=== PATIENT | female | born 1930 | race Caucasian/White ===

== ENCOUNTER 2017-12-21 11:35 | Inpatient (IN) | payer OTHER ==
[~2017-12-21] VITALS: Ht 147.3 cm; Wt 71.8 kg
[~2017-12-21 11:35] MED LIST: ASPI81TA28 PO; GABA-112 PO; LCTX PO; LSN/10125 PO; METO25TA56 PO; MULT-614 PO; SLWMEC PO
[2017-12-21 12:25] LABS: BASO % 0.2 %; BASO ABS # 0.02 K/uL (0-0.2); EOS % 1.2 %; HEMATOCRIT 35.3 % (37-47); HEMOGLOBIN 11.5 g/dL (12.0-16.0); IG# 0.03 K/uL (0.00-0.02); LYMPH % 25.2 %; LYMPH ABS # 2.09 K/uL (1.2-3.4); MEAN CELL VOLUME 94.1 fL (80-100); MEAN CORPUSCULAR HEMOGLOBIN 30.7 pg (25-34); MEAN CORPUSCULAR HGB CONC 32.6 g/dl (32-36); MEAN PLATELET VOLUME 11.5 fL (7.4-10.4); MONO % 7.1 %; MONO ABS # 0.59 K/uL (0.11-0.59); NEUT % 65.9 %; NEUT ABS # 5.47 K/uL (1.4-6.5); PLATELET COUNT 223 K/uL (130-400); RED CELL DISTRIBUTION WIDTH CV 14.3 % (11.5-14.5); RED CELL DISTRIBUTION WIDTH SD 48.8 fL (36.4-46.3)
[2017-12-21 12:43] LABS: ALBUMIN 3.1 gm/dl (3.4-5.0); ALT/SGPT 15 U/L (12-78); AST/SGOT 16 U/L (15-37); BLOOD UREA NITROGEN 16 mg/dl (7-18); CARBON DIOXIDE 30 mmol/L (21-32); CREATININE 1.26 mg/dl (0.60-1.20); GLUCOSE 125 mg/dl (70-99); LIPASE 202 U/L (73-393); POTASSIUM 3.9 mmol/L (3.5-5.1); SODIUM 140 mmol/L (136-145)
[2017-12-21 12:48] LABS: ALKALINE PHOSPHATASE 87 U/L (45-117); CKMB 0.8 ng/ml (0.5-3.6); TOTAL PROTEIN 6.9 gm/dl (6.4-8.2)
--- NOTE | 2017-12-21 12:56 | DIAGNOSTIC IMAGING REPORT ---
CHEST ONE VIEW PORTABLE CLINICAL HISTORY: CHEST PAIN COMPARISON STUDY: Chest radiograph November 08, 2016. FINDINGS: Lung volumes are slightly diminished. Old, healed fracture of the proximal right humerus is noted with severe osteoarthritis of the left glenohumeral joint. There is no pneumothorax. There are trace bilateral pleural effusions. No consolidation is identified to suggest pneumonia. Cardiomediastinal silhouette is stable. Skin fold projects over the left chest. No radiographic evidence of pulmonary edema. IMPRESSION: 1. Trace bilateral pleural effusions. 2. No radiographic evidence of pulmonary edema. Electronically signed by: Sergio Alexander M.D. 12/21/2017 12:55 PM Dictated Date/Time: 12/21/2017 12:53 PM
--- NOTE | 2017-12-21 12:58 | Medical Consult ---
Consultation Note Date of Service Dec 21, 2017. Consultation Note History: This is an 87-year-old female with no significant past cardiac history. The patient was brought to the emergency department by her family due to frequent falls. After questioning the patient further, it sounds more like she has been having multiple syncopal episodes over the past several weeks. After arrival to the emergency department she was found to be bradycardic and in complete heart block. She is alert and oriented. She is in no acute distress and is hemodynamically stable at present. She has no complaints of chest pain or shortness of breath. She's noted no lower extremity edema, increasing abdominal girth or orthopnea. In questioning her further, she states that she just blacks out and finds herself on the floor. She is also had some episodes where her family describes as losing cognition for several seconds. The patient has sustained no significant trauma with her syncope. Allergies: Hazelnuts Home Meds and Scripts Medications Dose Route/Sig Max Daily Dose Days Date Category Dose Instructions Mag64 (Magnesium Chloride) 64 Mg Tabcr 64 Mg PO BID 11/13/16 Rx Floranex (Lactobacillus Acidophilus) 1 Tab Tab 1 Tab PO TIDM 11/13/16 Rx Neurontin (Gabapentin) 100 Mg Cap 100 Mg PO UD 11/08/16 Reported PT MAKE TAKE UPTO FOUR TIMES A DAY Lopressor (Metoprolol Tartrate) 25 Mg Tab 25 Mg PO BID 05/11/16 Reported Centrum Silver Ultra Wome (Multiple Vitamins W/ Minerals) 1 Tab Tab 1 Tab PO DAILY 05/11/16 Reported Aspirin Ec (Aspirin) 81 Mg Tab 81 Mg PO DAILY 05/11/16 Reported Lisinopril/Hctz 10/12.5 Mg (HCTZ/Lisinopril) 1 Ea Tab 1 Tab PO DAILY 05/11/16 Reported Past medical history is significant for diabetes however, she is not taking any medications. She had a left mastectomy for breast cancer many years ago at which time she received no chemotherapy or radiation. She states she took a pill for a while but that was stopped many years ago. She has a history of degenerative joint disease and chronic stage III kidney disease. Social history: Patient's a nonsmoker. 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 Family medical history: Noncontributory Review of systems: A 10 point review of systems is negative except for the history of chief complaint. Date Time Temp Pulse Resp B/P (MAP) Pulse Ox O2 Delivery O2 Flow Rate FiO2 12/21/17 12:10 39 18 170/82 96 Room Air 12/21/17 11:57 70 12/21/17 11:39 36.4 41 18 202/72 94 Room Air General: She is alert and oriented no acute distress HEENT: She is normocephalic pupils are equal and reactive to light, mucous membranes are moist Neck: The neck veins are flat, carotids of good upstrokes bilaterally without bruits, thyroid is nonpalpable Respiratory: Lungs have equal breath sounds are clear to auscultation, she is status post left mastectomy Cardiovascular: Heart has a regular rhythm. There are no significant murmurs. Abdomen: Soft nontender without organomegaly Extremities: Free of edema digital clubbing or cyanosis Skin: Warm to touch, no rashes or trauma Neuro: Grossly intact Lymph nodes: Nonpalpable Last 24 Hours Test 12/21/17 12:14 12/21/17 12:18 12/21/17 12:19 White Blood Count 8.30 K/uL Red Blood Count 3.75 M/uL Hemoglobin 11.5 g/dL Hematocrit 35.3 % Mean Corpuscular Volume 94.1 fL Mean Corpuscular Hemoglobin 30.7 pg Mean Corpuscular Hemoglobin Concent 32.6 g/dl Platelet Count 223 K/uL Mean Platelet Volume 11.5 fL Neutrophils (%) (Auto) 65.9 % Lymphocytes (%) (Auto) 25.2 % Monocytes (%) (Auto) 7.1 % Eosinophils (%) (Auto) 1.2 % Basophils (%) (Auto) 0.2 % Neutrophils # (Auto) 5.47 K/uL Lymphocytes # (Auto) 2.09 K/uL Monocytes # (Auto) 0.59 K/uL Eosinophils # (Auto) 0.10 K/uL Basophils # (Auto) 0.02 K/uL RDW Standard Deviation 48.8 fL RDW Coefficient of Variation 14.3 % Immature Granulocyte % (Auto) 0.4 % Immature Granulocyte # (Auto) 0.03 K/uL Sodium Level 140 mmol/L Potassium Level 3.9 mmol/L Chloride Level 104 mmol/L Carbon Dioxide Level 30 mmol/L Anion Gap 6.0 mmol/L Blood Urea Nitrogen 16 mg/dl Creatinine 1.26 mg/dl Est Creatinine Clear Calc Drug Dose 24.9 ml/min Estimated GFR () 44.4 Estimated GFR (Non- 38.3 BUN/Creatinine Ratio 12.6 Random Glucose 125 mg/dl Calcium Level 9.0 mg/dl Total Bilirubin 0.3 mg/dl Direct Bilirubin < 0.1 mg/dl Aspartate Amino Transf (AST/SGOT) 16 U/L Alanine Aminotransferase (ALT/SGPT) 15 U/L Alkaline Phosphatase 87 U/L Total Creatine Kinase 58 U/L Creatine Kinase MB 0.8 ng/ml Creatine Kinase MB Ratio 1.4 Total Protein 6.9 gm/dl Albumin 3.1 gm/dl Lipase 202 U/L Bedside Troponin I < 0.030 ng/ml Impression: #1 symptomatic bradycardia #2 complete heart block #3 diabetes #4 history of breast cancer and left mastectomy Recommendations: The patient will need a permanent pacemaker. I've explained the risks benefits and intent of the procedure. It should be completed this afternoon on an urgent basis.
--- NOTE | 2017-12-21 13:10 | EMERGENCY ROOM VISIT NOTE ---
History Report prepared by Juan Manuel: Pee Melo Under the Supervision of: Dr. Garrick Gregg M.D. First contact with patient: 11:52 Chief Complaint: FALL Stated Complaint: SENT BY DR : SIGRID, HIT HEAD, TAIL BONE History of Present Illness The patient is a 87 year old female who presents to the Emergency Room with complaints of intermittent falls beginning about two weeks ago. She states that she hit her head on at least one of the falls. She currently complains of tailbone pain and resolved headache. The patient notes that she had right sided abdominal pain yesterday as well. Per daughter, the patient has had a lot of generalized weakness recently. The patient denies any known loss of consciousness during her falls. She denies shortness of breath or fevers. Source of History: patient Onset: About two weeks ago Quality: other (falls) Timing: intermittent Associated Symptoms: + headache (resolved), + abdominal pain (yesterday), No LOC, No fevers, No SOB Note: Additional symptoms: tailbone pain. Review of Systems See HPI for pertinent positives & negatives. A total of 10 systems reviewed and were otherwise negative. Past Medical & Surgical Medical Problems: (1) Breast CA (2) CKD (chronic kidney disease), stage III (3) DM2 (diabetes mellitus, type 2) (4) HTN (hypertension) (5) UTI (urinary tract infection) Surgical Problems: (1) H/O mastectomy (2) H/O: hysterectomy (3) S/P cholecystectomy (4) S/P ERCP Old medical records were reviewed. Nurse's notes were reviewed and I agree with. Family History FH: heart disease Hypertension Social History Smoking Status: Never Smoker Alcohol Use: none Drug Use: none Housing Status: lives with family Occupation Status: retired Current/Historical Medications Scheduled Aspirin (Aspirin Ec), 81 MG PO DAILY Calcium/Vitamin D (Os-Ge 500 Plus D), 1 TAB PO DAILY Cranberry (Vaccinium Macrocarp (Cranberry Super Strength), 1,000 MG PO DAILY Gabapentin (Neurontin), 100 MG PO UD Hctz/Lisinopril (Lisinopril/Hctz 10/12.5 Mg), 1 TAB PO DAILY Metoprolol Tartrate (Lopressor) (Lopressor), 25 MG PO BID Misc Natural Products (Black Delatorre Concentrate), Unknown Dose PO DAILY Multiple Vitamins W/ Minerals (Centrum Silver Ultra Wome), 1 TAB PO DAILY [id number] Ethyl Esters (Taft-3), 1 CAP PO DAILY Allergies Coded Allergies: Macey Nut (Verified Allergy, Unknown, UNKNOWN, 11/08/16) Physical Exam Vital Signs Date Time Temp Pulse Resp B/P (MAP) Pulse Ox O2 Delivery O2 Flow Rate FiO2 12/21/17 14:20 38 18 195/57 94 Room Air 12/21/17 13:20 38 18 182/86 94 Room Air 12/21/17 12:10 39 18 170/82 96 Room Air 12/21/17 11:57 70 12/21/17 11:39 36.4 41 18 202/72 94 Room Air Physical Exam General: Non-ill appearing older female in no acute distress. HEENT: Normal cephalic atraumatic. Pupils are equal round and reactive to light. Extraocular movements are intact. Oropharynx is pink with moist mucous membranes. No swelling of the mouth lips or tongue. Neck: Supple with a midline trachea. No meningeal signs or stiffness, no JVD or bruits. No Stridor. Chest: Clear to auscultation bilaterally. No wheezes or rhonchi. No increased work of breathing. Heart: Bradycardic rate with a normal rhythm. Abdomen: Soft nontender, nondistended without rebound guarding or rigidity. Extremities: No cyanosis clubbing or edema. No calf tenderness or assymetry Spine/Back. Non tender to palpation. No CVA tenderness Skin: Good turgor without rashes. Neurologic exam: Cranial nerves two through 12 are intact. Motor and sensation are intact and symmetrical throughout. Medical Decision & Procedures ER Provider Diagnostic Interpretation: Radiology results as stated below per my review and radiologist interpretation: CHEST ONE VIEW PORTABLE FINDINGS: Lung volumes are slightly diminished. Old, healed fracture of the proximal right humerus is noted with severe osteoarthritis of the left glenohumeral joint. There is no pneumothorax. There are trace bilateral pleural effusions. No consolidation is identified to suggest pneumonia. Cardiomediastinal silhouette is stable. Skin fold projects over the left chest. No radiographic evidence of pulmonary edema. IMPRESSION: 1. Trace bilateral pleural effusions. 2. No radiographic evidence of pulmonary edema. Electronically signed by: Sergio Alexander M.D. 12/21/2017 12:55 PM Laboratory Results 12/21/17 12:14 Red Blood Count 3.75, Mean Corpuscular Volume 94.1, Mean Corpuscular Hemoglobin 30.7, Mean Corpuscular Hemoglobin Concent 32.6, Mean Platelet Volume 11.5, Neutrophils (%) (Auto) 65.9, Lymphocytes (%) (Auto) 25.2, Monocytes (%) (Auto) 7.1, Eosinophils (%) (Auto) 1.2, Basophils (%) (Auto) 0.2, Neutrophils # (Auto) 5.47, Lymphocytes # (Auto) 2.09, Monocytes # (Auto) 0.59, Eosinophils # (Auto) 0.10, Basophils # (Auto) 0.02 12/21/17 12:14 Test 12/21/17 12:14 12/21/17 12:18 12/21/17 12:59 White Blood Count 8.30 K/uL (4.8-10.8) Red Blood Count 3.75 M/uL (4.2-5.4) Hemoglobin 11.5 g/dL (12.0-16.0) Hematocrit 35.3 % (37-47) Mean Corpuscular Volume 94.1 fL (80-100) Mean Corpuscular Hemoglobin 30.7 pg (25-34) Mean Corpuscular Hemoglobin Concent 32.6 g/dl (32-36) Platelet Count 223 K/uL (130-400) Mean Platelet Volume 11.5 fL (7.4-10.4) Neutrophils (%) (Auto) 65.9 % Lymphocytes (%) (Auto) 25.2 % Monocytes (%) (Auto) 7.1 % Eosinophils (%) (Auto) 1.2 % Basophils (%) (Auto) 0.2 % Neutrophils # (Auto) 5.47 K/uL (1.4-6.5) Lymphocytes # (Auto) 2.09 K/uL (1.2-3.4) Monocytes # (Auto) 0.59 K/uL (0.11-0.59) Eosinophils # (Auto) 0.10 K/uL (0-0.5) Basophils # (Auto) 0.02 K/uL (0-0.2) RDW Standard Deviation 48.8 fL (36.4-46.3) RDW Coefficient of Variation 14.3 % (11.5-14.5) Immature Granulocyte % (Auto) 0.4 % Immature Granulocyte # (Auto) 0.03 K/uL (0.00-0.02) Anion Gap 6.0 mmol/L (3-11) Est Creatinine Clear Calc Drug Dose 24.9 ml/min Estimated GFR () 44.4 Estimated GFR (Non- 38.3 BUN/Creatinine Ratio 12.6 (10-20) Calcium Level 9.0 mg/dl (8.5-10.1) Magnesium Level 2.0 mg/dl (1.8-2.4) Total Bilirubin 0.3 mg/dl (0.2-1) Direct Bilirubin < 0.1 mg/dl (0-0.2) Aspartate Amino Transf (AST/SGOT) 16 U/L (15-37) Alanine Aminotransferase (ALT/SGPT) 15 U/L (12-78) Alkaline Phosphatase 87 U/L (45-117) Total Creatine Kinase 58 U/L (26-192) Creatine Kinase MB 0.8 ng/ml (0.5-3.6) Creatine Kinase MB Ratio 1.4 (0-3.0) Total Protein 6.9 gm/dl (6.4-8.2) Albumin 3.1 gm/dl (3.4-5.0) Lipase 202 U/L (73-393) Thyroid Stimulating Hormone (TSH) 5.550 uIu/ml (0.300-4.500) Lyme Disease IgG Antibody POS (NEG) Bedside Troponin I < 0.030 ng/ml (0-0.045) Prothrombin Time 11.1 SECONDS (9.0-12.0) Prothromb Time International Ratio 1.1 (0.9-1.1) Activated Partial Thromboplast Time 27.1 SECONDS (21.0-31.0) Partial Thromboplastin Ratio 1.0 Laboratory studies as stated above per my review. ECG Indication: other (falls) Rate (beats per minute): 40 Rhythm: other (Third degree heart block with narrow junctional rhythm) Findings: other (T-wave abnormalities. AV dissociation. ) Comparison ECG Date: November 08, 2016 Change: Changes are new. ED Course 1157: Past medical records reviewed. The patient was evaluated in room A12B, and a complete history and physical examination were performed. 1235: Upon reevaluation, the patient is resting. I discussed the results and treatment plan with the patient. She verbalized agreement of the treatment plan. The patient will be evaluated for further management. 1248: I reassessed the patient. She is stable, and resting comfortably. Medical Decision Differentials include, but are not limited to; arrhythmia, bradycardia, ACS, trauma, and electrolyte or metabolic abnormality. This patient comes in as described above. She was placed in room a 12. She is here for treatment and evaluation of frequent falls. The nurse brought back to EKG from to see as she was given the bradycardic in the 40s and on interpretation an EKG .she appears to be in a third degree heart block with AV dissociation. In light of this, I promptly went and saw her. Despite this rhythm she appears well and in fact his is on the hypertensive side. She has no chest pain or shortness breath at present. she has no significant headache. she has no neurologic deficits. She's been falling over the last week or so and feeling intermittently weak and I suspect this did not acutely happened today. I do think she will likely need a pacemaker. IV access was established. chest x-ray was obtained and multiple blood testing was obtained. Also given her bradycardia pacemaker pads were placed and the crash cart was placed at the bedside. She has no acute electrolyte or metabolic abnormality. Her Lyme titer at this point is somewhat equivocal as the IgM is negative but the IgG is positive. I have consulted Dr. Vang and he promptly saw her in the ER and the cardiology team is going to take her from the ER to the [facility] to have a pacemaker placed. She was also seen by the [facility] in the ER and will be admitted to their service after the pacemaker placement. I discussed this at length with the son who is at the bedside and he is also in agreement with the plan. Medication Reconcilliation Current Medication List: was personally reviewed by me Blood Pressure Screening Patient's blood pressure: Elevated blood pressure Blood pressure disposition: Referred to PCP Consults Time Called: 1205 Consulting Physician: Dr. Vang - Cardiology Returned Call: 1210 Discussed the patient's case. Dr. Vang will come evaluate the patient. 1235: Dr. Vang plans to work with Dr. Whitfield to place a pacemaker within the next hour or so. Additional Consults: Time Called: 1235 Consulted Physician: Irasema MARTIN - [facility] Returned Call: 1237 Additional Comments: Discussed the patient's case. The patient will be evaluated for further management. Impression Primary Impression: Third degree heart block Additional Impression: Weakness Critical Care Due to the patient's unstable vital signs and need for frequent reassessment evaluation and consultation, I have personally spent greater than 30 minutes of critical care time in the direct management of this patient. This includes bedside care, interpretation of diagnostic studies, and testing, discussion with consultants, patient, and family members, and other required patient management activities. This 30 minutes is in excess of all separately billable procedures. Scribe Attestation The scribe's documentation has been prepared under my direction and personally reviewed by me in its entirety. I confirm that the note above accurately reflects all work, treatment, procedures, and medical decision making performed by me. Departure Information Dispostion Being Evaluated By Hospitalist Derek Mckeon M.D. (PCP) Patient Instructions My [facility] Problem Qualifiers
[2017-12-21 13:16] LABS: INR 1.1 (0.9-1.1); PTT PATIENT 27.1 SECONDS (21.0-31.0)
[2017-12-21] MEDS ORDERED: ACETAMINOPHEN 325 MG TAB PO PRN (13:30)
[2017-12-21] MEDS ORDERED: ONDANSETRON INJ 2 MG/ML 2 ML VIAL IV PRN (13:30)
[2017-12-21] MEDS ORDERED: MISC1LIQ37 PO (13:43)
[2017-12-21] MEDS ORDERED: OMEG-112 PO (13:43)
[2017-12-21] MEDS ORDERED: [UNRECOGNIZED DRUG - CODE] PO (13:43)
[2017-12-21] MEDS ORDERED: CALC500C70 PO (13:43)
[2017-12-21] MEDS ORDERED: BUPIVACAINE 0.5 % 5 MG/1 ML MPF 30ML VIAL ONE (14:16)
[2017-12-21] MEDS ORDERED: LIDOCAINE HCL 1% 20 ML VIAL ONE (14:16)
[2017-12-21] MEDS ORDERED: CEFTRIAXONE SOD INJ 2000 MG in DEXTROSE 5% 50ML IV STA (14:24)
--- NOTE | 2017-12-21 14:38 | Pre Sedation Assessment ---
Pre Sedation Assessment General Date of Sedation: Dec 21, 2017. Vital Signs Past 12 Hours Date Time Temp Pulse Resp B/P (MAP) Pulse Ox O2 Delivery O2 Flow Rate FiO2 12/21/17 14:20 38 18 195/57 94 Room Air 12/21/17 13:20 38 18 182/86 94 Room Air 12/21/17 12:10 39 18 170/82 96 Room Air 12/21/17 11:57 70 12/21/17 11:39 36.4 41 18 202/72 94 Room Air Review Cardiovascular: regular rate, rhythm Lungs: lungs clear Pre-Sedation Airway Assessment Smoking Status: Never Smoker Hx of Sleep Apnea: No Hx of difficult intubation: No Short Thick Neck: No Thyro-mental Distance: > 3 Finger Breadths Mallampati Classification: Class III ASA Classification: Class III Procedure Planning Contraindications for Sedation: None Current Medications Reviewed: Yes Notes The planned sedation has been discussed with the patient. Informed Consent was obtained. I have identified the patient, determined the appropriateness of sedation and have assessed the patient immediately prior to the procedure. All medicine(s) and interventions are by my order.
[2017-12-21] MEDS ORDERED: CEFAZOLIN SOD 1 GM VIAL ONE (14:46)
[2017-12-21] MEDS ORDERED: MIDAZOLAM HCL 5 MG/ML 1 ML VIAL ONE (14:47)
[2017-12-21] MEDS ORDERED: FENTANYL CITRATE INJ 50 MCG/1 ML 2 ML VIAL ONE (14:47)
--- NOTE | 2017-12-21 15:44 | History and Physical ---
History & Physical Date & Time of Service: Dec 21, 2017 ~ 13:00 Chief Complaint: Frequent Falls Primary Care Physician: Derek Solis M.D. History of Present Illness 87 year old female who presents to the ED with frequent falls. Patient reports she had 2 falls in the past 9 days. She reports she typically ambulates with a walker without difficulty. She has felt generally weak, lightheaded, and dizzy. For one of the falls, she does not remember falling and just woke up on the floor. No loss of bowel or bladder function. She denies chest pain and shortness of breath. No abdominal pain, nausea, vomiting, or diarrhea. She denies fever and chills. No urinary symptoms. In the ED, she was found to be in complete heart block. BP is stable. She is being taken emergently for pacemaker placement. Past Medical/Surgical History Medical Problems: (1) Breast CA Status: Chronic (2) CKD (chronic kidney disease), stage III Status: Chronic (3) DM2 (diabetes mellitus, type 2) Status: Chronic (4) HTN (hypertension) Status: Chronic Surgical Problems: (1) H/O mastectomy Permanent Comment: left Status: Chronic (2) H/O: hysterectomy Status: Chronic (3) S/P cholecystectomy Status: Chronic (4) S/P ERCP Status: Chronic Family History non contributory due to patient's advanced age Social History Smoking Status: Former Smoker Alcohol Use: none Housing status: lives with family Immunizations History of Influenza Vaccine: Yes Influenza Vaccine Date: Aug 21, 2017 History of Tetanus Vaccine?: Yes Tetanus Immunization Date: Jun 18, 2017 History of Pneumococcal: Yes Pneumococcal Date: Jun 18, 2017 Allergies Coded Allergies: Macey Nut (Verified Allergy, Unknown, UNKNOWN, 11/08/16) Home Medications Scheduled Aspirin (Aspirin Ec), 81 MG PO DAILY Calcium/Vitamin D (Os-Ge 500 Plus D), 1 TAB PO DAILY Cranberry (Vaccinium Macrocarp (Cranberry Super Strength), 1,000 MG PO DAILY Gabapentin (Neurontin), 100 MG PO UD Hctz/Lisinopril (Lisinopril/Hctz 10/12.5 Mg), 1 TAB PO DAILY Metoprolol Tartrate (Lopressor) (Lopressor), 25 MG PO BID Misc Natural Products (Black Delatorre Concentrate), Unknown Dose PO DAILY Multiple Vitamins W/ Minerals (Centrum Silver Ultra Wome), 1 TAB PO DAILY [id number] Ethyl Esters (Berthold-3), 1 CAP PO DAILY Review of Systems ROS per HPI, all other systems reviewed and negative Physical Exam Vital Signs Date Time Temp Pulse Resp B/P (MAP) Pulse Ox O2 Delivery O2 Flow Rate FiO2 12/21/17 14:20 38 18 195/57 94 Room Air 12/21/17 13:20 38 18 182/86 94 Room Air 12/21/17 12:10 39 18 170/82 96 Room Air 12/21/17 11:57 70 12/21/17 11:39 36.4 41 18 202/72 94 Room Air General Appearance: WD/WN, no apparent distress Head: normocephalic, atraumatic Eyes: normal inspection, EOMI, sclerae normal ENT: hearing grossly normal, + pertinent finding (mucous membranes moist) Neck: supple, no JVD, trachea midline Respiratory/Chest: lungs clear, normal breath sounds, no respiratory distress Cardiovascular: normal peripheral pulses, + bradycardia (regular rhythm), + pertinent finding (trace pitting edema BLLE) Abdomen/GI: normal bowel sounds, non tender, soft, no organomegaly Extremities/Musculoskelatal: normal inspection, no calf tenderness, normal capillary refill Neurologic/Psych: no motor/sensory deficits, alert, normal mood/affect, oriented x 3 Skin: normal color, warm/dry Diagnostics Laboratory Results Results Past 24 Hours Test 12/21/17 12:14 12/21/17 12:18 12/21/17 12:59 Range/Units White Blood Count 8.30 4.8-10.8 K/uL Red Blood Count 3.75 4.2-5.4 M/uL Hemoglobin 11.5 12.0-16.0 g/dL Hematocrit 35.3 37-47 % Mean Corpuscular Volume 94.1 80-100 fL Mean Corpuscular Hemoglobin 30.7 25-34 pg Mean Corpuscular Hemoglobin Concent 32.6 32-36 g/dl Platelet Count 223 130-400 K/uL Mean Platelet Volume 11.5 7.4-10.4 fL Neutrophils (%) (Auto) 65.9 % Lymphocytes (%) (Auto) 25.2 % Monocytes (%) (Auto) 7.1 % Eosinophils (%) (Auto) 1.2 % Basophils (%) (Auto) 0.2 % Neutrophils # (Auto) 5.47 1.4-6.5 K/uL Lymphocytes # (Auto) 2.09 1.2-3.4 K/uL Monocytes # (Auto) 0.59 0.11-0.59 K/uL Eosinophils # (Auto) 0.10 0-0.5 K/uL Basophils # (Auto) 0.02 0-0.2 K/uL RDW Standard Deviation 48.8 36.4-46.3 fL RDW Coefficient of Variation 14.3 11.5-14.5 % Immature Granulocyte % (Auto) 0.4 % Immature Granulocyte # (Auto) 0.03 0.00-0.02 K/uL Sodium Level 140 136-145 mmol/L Potassium Level 3.9 3.5-5.1 mmol/L Chloride Level 104 98-107 mmol/L Carbon Dioxide Level 30 21-32 mmol/L Anion Gap 6.0 3-11 mmol/L Blood Urea Nitrogen 16 7-18 mg/dl Creatinine 1.26 0.60-1.20 mg/dl Est Creatinine Clear Calc Drug Dose 24.9 ml/min Estimated GFR () 44.4 Estimated GFR (Non- 38.3 BUN/Creatinine Ratio 12.6 10-20 Random Glucose 125 70-99 mg/dl Calcium Level 9.0 8.5-10.1 mg/dl Magnesium Level 2.0 1.8-2.4 mg/dl Total Bilirubin 0.3 0.2-1 mg/dl Direct Bilirubin < 0.1 0-0.2 mg/dl Aspartate Amino Transf (AST/SGOT) 16 15-37 U/L Alanine Aminotransferase (ALT/SGPT) 15 12-78 U/L Alkaline Phosphatase 87 45-117 U/L Total Creatine Kinase 58 26-192 U/L Creatine Kinase MB 0.8 0.5-3.6 ng/ml Creatine Kinase MB Ratio 1.4 0-3.0 Total Protein 6.9 6.4-8.2 gm/dl Albumin 3.1 3.4-5.0 gm/dl Lipase 202 73-393 U/L Thyroid Stimulating Hormone (TSH) 5.550 0.300-4.500 uIu/ml Lyme Disease IgG Antibody POS NEG Lyme Disease IgM Antibody NEG NEG Bedside Troponin I < 0.030 0-0.045 ng/ml Prothrombin Time 11.1 9.0-12.0 SECONDS Prothromb Time International Ratio 1.1 0.9-1.1 Activated Partial Thromboplast Time 27.1 21.0-31.0 SECONDS Partial Thromboplastin Ratio 1.0 Diagnostic Radiology CXR IMPRESSION: 1. Trace bilateral pleural effusions. 2. No radiographic evidence of pulmonary edema. Impression Assessment and Plan SYMPTOMATIC BRADYCARDIA, COMPLETE HEART BLOCK - admit to tele post pacemaker placement - patient presenting with increasing generalized weakness and frequent falls ( suspect syncope) - EKG demonstrates complete heart block - going emergently for pacemaker placement with Dr. Whitfield - noted on beta reed - will place on hold for now - Lyme IGG positive, negative IGM; will place empirically on Rocephin pending Western Blot results - check TSH HTN - BP elevated; will hold on treating acutely due to profound bradycardia - holding metoprolol as above - continue lisinopril/HCTZ DM, DIET CONTROLLED - hgb a1c 6.0 05/2017 - monitor BSGs CKD STAGE III - baseline creat runs in the low 1's - creat noted to be 1.2 today - continue to monitor, avoid nephrotoxic agents when able DVT PROPHYLAXIS - SCDs due to invasive procedure today CODE STATUS - Patient is a DNR as per my discussion with her. DISPO - In my clinical judgment this beneficiary meets acute admission criteria, established by [facility], that includes being hospitalized through two midnights. ADDENDUM: This is an 87 year old female with a PMH of HTN, CKD stage 3 - presents with frequent falls the past few weeks. Presented to the ED and was found to have complete heart block. I saw the patient in room 220 after the pacemaker was placed. No symptoms currently noted. Complete heart block pacemaker placed b-reed held Lyme + for IgG - will start Rocephin while awaiting western blot confirmatory test further management as per cardiology HTN holding b-reed due to bradycardia increase Lisinopril and HCTZ doses for now can add amlodipine if blood pressure remains elevated DM2 Ha1c = 6.0% diet controlled VTE Prophylaxis VTE Risk Assessment Done? Y/N: Yes Risk Level: Moderate
--- NOTE | 2017-12-21 16:06 | [facility] Operative Report ---
Operative Report Date of Service Dec 21, 2017. Operative Report Procedure performed: Implantation of dual-chamber permanent pacemaker Staff weaver apprentice: Prasad Whitfield MD Indication: The patient is an 87-year-old woman who has been suffering falls and periods of disorientation at home. She presented to [facility] for evaluation was found to be in third-degree heart block. Based on the nature of her symptoms and conduction disease she was felt to be a good candidate for implantation of dual-chamber permanent pacemaker due to symptomatic non reversible AV node dysfunction. A dual-chamber device was selected as she is currently in sinus rhythm which to maintain AV synchrony. Procedure in detail: The patient was informed of the risks benefits and alternatives to the intended procedure and she wished to proceed. She was taken to the electrophysiology suite in a fasting state. A preoperative antibiotic had been administered. The patient was monitored electrocardiographically throughout today's procedure and conscious sedation was administered per protocol. The left upper pectoral area is prepped and draped in usual sterile fashion. This area was anesthetized using subcutaneous menstruation of a xylocaine solution. An incision was made at this site and carried down to the prepectoralis fascia using sharp dissection. Electrocautery was also employed for dissection as well as for hemostasis. A device pocket was fashioned tissues above the pectoralis muscle. Subsequent to this maneuver the left axillary vein was accessed using modified Seldinger technique. Sheaths were placed over guidewires at this site and used to facilitate passage of the pacing leads to the respective chambers under fluoroscopic guidance. This included right atrial and right ventricular leads. Adequate sensing and threshold parameters were obtained prior to Active fixation of the leads to the endocardial surface. The proximal portion leads were then sutured the prepectoral fascia using nonabsorbable suture. The device pocket was irrigated with antibiotic solution. The leads were then attached to the device. The device and leads were then placed in the pocket and pocket was closed in 3 layers of absorbable suture. Steri-Strips and sterile dressing were applied. The device was tested noninvasively prior to conclusion the procedure. The patient tolerated procedure well there no immediate complications. Equipment used: New pulse generator: Electric Razor Mechanic [employer]. Model number: [id number] serial number [id number] Right atrial lead: Electric Razor Mechanic Medtronic. Model number: [id number] serial number [id number] Right ventricular lead: Electric Razor Mechanic Medtronic. Model number: [id number] serial number [id number] Measured data: Right atrial lead: P-waves measured 1.5 millivolts. Pacing threshold was 2.5 volts at 0.4 milliseconds with a pacing impedance of 380 Ohms Right ventricular lead: No intrinsic R-waves were measured. Pacing threshold 0.5 volts at 0.4 millisecond with a pacing impedance of 684 Ohms Impression: Successful implantation of dual-chamber permanent pacemaker I attest to the content of the Intraoperative Record and any orders documented therein. Any exceptions are noted below.
[2017-12-21] MEDS ORDERED: OXYCODONE HCL IR 5 MG TAB (IMMEDIATE RELEASE) PO PRN (16:15)
[2017-12-21 17:00] VITALS: BP 184/81; PULSE 64; TEMP 36.5; O2SAT 98; Ht 147.3 cm; Wt 71.8 kg
[2017-12-21] MEDS ORDERED: LISINOPRIL 10 MG TAB PO ONE (17:00)
--- NOTE | 2017-12-21 17:51 | Cardiology Consultation ---
Cardiology Consultation Date of Consultation: Dec 21, 2017. Requesting Physician: Taj Reason for Consultation: Heart Block Pt evaluation today including: conversation w/ patient, conversation w/ family , physical exam, chart review, lab review, review of studies, conversation w/ customer service sales consultant, review of inpatient medication list History of Present Illness The patient is an 87-year-old woman without a known cardiac history who presented to [facility] with her family after suffering a fall. Patient reports having had several falls over the past few weeks. Additionally she has some symptoms of dizziness and lightheadedness this felt by her family members to have periods where she becomes poorly interactive. She is not aware of any palpitations. She has not been reporting chest pains. She is not reporting breathing trouble. She has not noticed any swelling in her lower extremities. The symptoms themselves appear to have started 2-3 weeks ago. At the time of this interview she claims to be feeling well. She is not having any pain. She has no symptoms of breathing difficulty. She is not dizzy currently. 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 Review of Systems Respiratory: + cough, + shortness of breath All Other Systems: Reviewed and Negative Allergies Coded Allergies: Macey Nut (Verified Allergy, Unknown, UNKNOWN, 11/08/16) Medications Current Inpatient Medications Medications (Trade) Dose Ordered Sig/Main Route Start Time Stop Time Status Last Admin Dose Admin Acetaminophen (Tylenol Tab) 650 mg Q4H PRN PO 12/21/17 13:30 01/20/18 13:29 Ondansetron HCl (Zofran Inj) 4 mg Q6H PRN IV 12/21/17 13:30 01/20/18 13:29 Ceftriaxone Sodium 2000 mg/ Dextrose 70 ml @ 100 mls/hr Q24H IV 12/22/17 16:00 12/31/17 15:59 Aspirin (Ecotrin Tab) 81 mg DAILY PO 12/22/17 09:00 01/21/18 08:59 Calcium/Vitamin D (Caltrate Plus Tab) 1 tab DAILY PO 12/22/17 09:00 01/21/18 08:59 Gabapentin (Neurontin Cap) 100 mg TID PO 12/21/17 21:00 01/20/18 20:59 HCTZ/Lisinopril (Prinzide 10-12.5MG Tab) 1 tab DAILY PO 12/22/17 09:00 01/21/18 08:59 Multivitamins/ Minerals (Multivitamin W/ Minerals Tab) 1 tab DAILY PO 12/22/17 09:00 01/21/18 08:59 Oxycodone HCl (Roxicodone Immediate Rel Tab) 5 mg Q4 PRN PO 12/21/17 16:15 01/04/18 16:14 Physical Exam Vital Signs Past 12 Hours Date Time Temp Pulse Resp B/P (MAP) Pulse Ox O2 Delivery O2 Flow Rate FiO2 12/21/17 15:55 60 16 175/92 (119) 98 Room Air 12/21/17 15:45 60 16 197/98 (131) 98 Room Air 12/21/17 14:20 38 18 195/57 94 Room Air 12/21/17 13:20 38 18 182/86 94 Room Air 12/21/17 12:10 39 18 170/82 96 Room Air 12/21/17 11:57 70 12/21/17 11:39 36.4 41 18 202/72 94 Room Air She is alert and oriented x3. Mood affect appear normal. She answered all questions appropriately. Somewhat hard of hearing. She does have unusual speech which is not likely slurred. She has no expressive aphasia. HEENT: Sclerae are anicteric. Pupils are equal and reactive to light and accommodation. Extraocular movements were intact. Neuro: Cranial nerves intact Neck: Examination of the submandibular region did not reveal any significant lymphadenopathy. Carotids are palpable bilaterally and free of bruits on auscultation. There was no evidence of jugular venous distention. The thyroid was not enlarged. Lungs: Lungs are clear to auscultation bilaterally. There are no rales wheezes or rhonchi. She has normal respiratory effort without use of accessory muscles. There is normal pulmonary excursion. Chest: Absence of left breast Cardiac: The rhythm was regular. S1 and S2 were normal. There are no murmurs on examination. The PMI was not markedly displaced on palpation. Abdomen: The abdomen was soft and nontender. Extremities: Patient has bilateral radial pulses that are equal in intensity. There is no evidence cyanosis or clubbing. There was no evidence of significant peripheral edema bilaterally. Skin: There are no rashes noted on examination today. Data Laboratory Results: Last 24 Hours Test 12/21/17 12:14 12/21/17 12:18 12/21/17 12:59 12/21/17 16:19 White Blood Count 8.30 K/uL Red Blood Count 3.75 M/uL Hemoglobin 11.5 g/dL Hematocrit 35.3 % Mean Corpuscular Volume 94.1 fL Mean Corpuscular Hemoglobin 30.7 pg Mean Corpuscular Hemoglobin Concent 32.6 g/dl Platelet Count 223 K/uL Mean Platelet Volume 11.5 fL Neutrophils (%) (Auto) 65.9 % Lymphocytes (%) (Auto) 25.2 % Monocytes (%) (Auto) 7.1 % Eosinophils (%) (Auto) 1.2 % Basophils (%) (Auto) 0.2 % Neutrophils # (Auto) 5.47 K/uL Lymphocytes # (Auto) 2.09 K/uL Monocytes # (Auto) 0.59 K/uL Eosinophils # (Auto) 0.10 K/uL Basophils # (Auto) 0.02 K/uL RDW Standard Deviation 48.8 fL RDW Coefficient of Variation 14.3 % Immature Granulocyte % (Auto) 0.4 % Immature Granulocyte # (Auto) 0.03 K/uL Sodium Level 140 mmol/L Potassium Level 3.9 mmol/L Chloride Level 104 mmol/L Carbon Dioxide Level 30 mmol/L Anion Gap 6.0 mmol/L Blood Urea Nitrogen 16 mg/dl Creatinine 1.26 mg/dl Est Creatinine Clear Calc Drug Dose 24.9 ml/min Estimated GFR () 44.4 Estimated GFR (Non- 38.3 BUN/Creatinine Ratio 12.6 Random Glucose 125 mg/dl Calcium Level 9.0 mg/dl Magnesium Level 2.0 mg/dl Total Bilirubin 0.3 mg/dl Direct Bilirubin < 0.1 mg/dl Aspartate Amino Transf (AST/SGOT) 16 U/L Alanine Aminotransferase (ALT/SGPT) 15 U/L Alkaline Phosphatase 87 U/L Total Creatine Kinase 58 U/L Creatine Kinase MB 0.8 ng/ml Creatine Kinase MB Ratio 1.4 Total Protein 6.9 gm/dl Albumin 3.1 gm/dl Lipase 202 U/L Thyroid Stimulating Hormone (TSH) 5.550 uIu/ml Free Thyroxine 1.02 ng/dl Lyme Disease IgG Antibody POS Lyme Disease IgM Antibody NEG Bedside Troponin I < 0.030 ng/ml Prothrombin Time 11.1 SECONDS Prothromb Time International Ratio 1.1 Activated Partial Thromboplast Time 27.1 SECONDS Partial Thromboplastin Ratio 1.0 Bedside Glucose 106 mg/dl Imaging: Single-view chest x-ray did not demonstrate any acute cardiopulmonary abnormality. EKG: Normal sinus rhythm with complete heart block. Assessment & Plan 1. Complete heart block: This is the likely etiology behind the patient's recent symptoms. Curiously, she does have a narrow complex escape rhythm. This suggests a more stable conduction system overall. She is on metoprolol for hypertension but at a relatively low dose. 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 This was suggestive more unstable conduction system overall. I think the severity of her conduction disease and the associated symptoms warrant implantation of a pacemaker. I did discuss the procedure as well as the associated risks with the patient and her family today. We are planning on proceeding later this afternoon. As she has had a left mastectomy, we will plan on device implant using the right axillary vein.
[2017-12-21] MEDS: GABAPENTIN 100 MG CAP PO SCH (20:20)
[2017-12-21 20:24] VITALS: BP 184/95; PULSE 67; TEMP 36.5; O2SAT 95
[2017-12-21 23:52] VITALS: BP 156/80; PULSE 72; TEMP 36.6; O2SAT 94
[2017-12-22] VITALS (9 sets, daily range): BP systolic 112–130; BP diastolic 65–84; PULSE 92–105; TEMP 36.4–37.5; O2SAT 92–96
[2017-12-22] MEDS ORDERED: CEFAZOLIN SOD 1000MG/7.5 ML IV PUSH IV SCH (06:00)
--- NOTE | 2017-12-22 07:20 | DIAGNOSTIC IMAGING REPORT ---
CHEST 2 VIEWS ROUTINE CLINICAL HISTORY: Chest x-ray status post pacemaker placement COMPARISON STUDY: 12/21/2017 FINDINGS: There is been interval placement of a right subclavian dual-chamber central venous pacemaker. Electrodes orientation is unremarkable. The heart is the upper limits of normal in size. There are bilateral pleural effusions. There is no pneumothorax.[ IMPRESSION: 1. No pneumothorax status post placement of a right subclavian dual-chamber central venous pacemaker 2. Small bilateral pleural effusions Electronically signed by: Kenneth Alexander M.D. 12/22/2017 7:19 AM Dictated Date/Time: 12/22/2017 7:18 AM
[2017-12-22 07:36] LABS: CALCIUM 8.5 mg/dl (8.5-10.1); CREATININE 1.58 mg/dl (0.60-1.20)
[2017-12-22] MEDS: LISINOPRIL/HCTZ 10/12.5MG TAB PO SCH (07:38)
[2017-12-22] MEDS: CEROVITE ADV FORMULA TAB PO SCH (07:38)
[2017-12-22] MEDS: ASPIRIN 81 MG ECTAB PO SCH (07:38)
[2017-12-22] MEDS: CALCIUM 600MG + VIT D 400 IU TAB PO SCH (07:38)
[2017-12-22] MEDS: GABAPENTIN 100 MG CAP PO SCH ×3 (07:39→20:58)
[2017-12-22 09:08] LABS: HEMATOCRIT 33.7 % (37-47); HEMOGLOBIN 11.1 g/dL (12.0-16.0); MEAN CELL VOLUME 93.6 fL (80-100); MEAN CORPUSCULAR HEMOGLOBIN 30.8 pg (25-34); MEAN PLATELET VOLUME 11.8 fL (7.4-10.4); PLATELET COUNT 205 K/uL (130-400); RED CELL DISTRIBUTION WIDTH CV 14.2 % (11.5-14.5); RED CELL DISTRIBUTION WIDTH SD 48.5 fL (36.4-46.3); WHITE BLOOD COUNT 8.89 K/uL (4.8-10.8)
[2017-12-22 09:16] LABS: MEAN CORPUSCULAR HGB CONC 32.9 g/dl (32-36)
--- NOTE | 2017-12-22 09:16 | Clinical Documentation Query ---
CLINICAL DOCUMENTATION QUERY An 87 yo female admitted with symptomatic bradycardia and complete heart block w/ duel chamber pacemaker inserted. History of CKD 3, HTN, DM In your clinical opinion is this patient being managed for: ( ) Acute kidney failure ( ) Not Agree ( ) Other explanation of clinical findings (Please Explain) ( ) Unable to determine (Please Define) ( ) Need to Discuss NOT MY PATIENT. PLEASE REFER TO DR. BAXTER. THANKS. ERMELINDA The medical record reflects the following clinical findings, treatment, and risk factors. Clinical Indicators: Creatinine trending up to 1.58 from 1.26, GFR 38.3 trending down to 29.1 Treatment: Serial PRPs, telemetry Risk Factors: Age, s/p pacemaker insertion d/t complete AV block, CKD Please clarify and document your clinical opinion in the progress notes and discharge summary. Terms such as "probable", "suspected", "likely", "questionable", "possible", or "still to be ruled out" are acceptable. IF IN AGREEMENT, YOU MUST DOCUMENT ABOVE DIAGNOSTIC STATEMENT IN DAILY PROGRESS NOTES AND DISCHARGE SUMMARY. This document is not part of the patient's record. Thank You, Arleen Dawson RN [phone]
--- NOTE | 2017-12-22 09:20 | Cardiology Follow-Up ---
Subjective Date of Service: Dec 22, 2017. Pt evaluation today including: conversation w/ patient, physical exam, review of studies History of Present Illness This morning the patient claims to be feeling well. She ate breakfast. She has no pain at the implant site. She did not verbalize any additional complaints. Social History Smoking Status: Former Smoker History of Alcohol Use: No Review of Systems Respiratory: + cough, + shortness of breath Objective Vital Signs Past 12 Hours Date Time Temp Pulse Resp B/P (MAP) Pulse Ox O2 Delivery O2 Flow Rate FiO2 12/22/17 08:00 Room Air 12/22/17 07:54 36.4 94 16 127/65 (85) 94 Room Air 12/22/17 04:00 Room Air 12/22/17 03:50 37.1 92 17 130/84 (99) 94 Room Air 12/22/17 00:00 Room Air 12/21/17 23:52 36.6 72 18 156/80 (105) 94 Room Air Last Recorded Weight-Kilograms: 68.400 Physical Exam She is alert and oriented x3. Mood affect appear normal. She answered all questions appropriately. Evaluation the implant site reveals some mild incisional bleeding. There is no evidence of hematoma. There is no erythema. It was nontender to palpation. It was redressed with a clean bandage. Data Laboratory Results: Last 24 Hours Test 12/21/17 12:14 12/21/17 12:15 12/21/17 12:18 12/21/17 12:59 White Blood Count 8.30 K/uL Red Blood Count 3.75 M/uL Hemoglobin 11.5 g/dL Hematocrit 35.3 % Mean Corpuscular Volume 94.1 fL Mean Corpuscular Hemoglobin 30.7 pg Mean Corpuscular Hemoglobin Concent 32.6 g/dl Platelet Count 223 K/uL Mean Platelet Volume 11.5 fL Neutrophils (%) (Auto) 65.9 % Lymphocytes (%) (Auto) 25.2 % Monocytes (%) (Auto) 7.1 % Eosinophils (%) (Auto) 1.2 % Basophils (%) (Auto) 0.2 % Neutrophils # (Auto) 5.47 K/uL Lymphocytes # (Auto) 2.09 K/uL Monocytes # (Auto) 0.59 K/uL Eosinophils # (Auto) 0.10 K/uL Basophils # (Auto) 0.02 K/uL RDW Standard Deviation 48.8 fL RDW Coefficient of Variation 14.3 % Immature Granulocyte % (Auto) 0.4 % Immature Granulocyte # (Auto) 0.03 K/uL Sodium Level 140 mmol/L Potassium Level 3.9 mmol/L Chloride Level 104 mmol/L Carbon Dioxide Level 30 mmol/L Anion Gap 6.0 mmol/L Blood Urea Nitrogen 16 mg/dl Creatinine 1.26 mg/dl Est Creatinine Clear Calc Drug Dose 24.9 ml/min Estimated GFR () 44.4 Estimated GFR (Non- 38.3 BUN/Creatinine Ratio 12.6 Random Glucose 125 mg/dl Calcium Level 9.0 mg/dl Magnesium Level 2.0 mg/dl Total Bilirubin 0.3 mg/dl Direct Bilirubin < 0.1 mg/dl Aspartate Amino Transf (AST/SGOT) 16 U/L Alanine Aminotransferase (ALT/SGPT) 15 U/L Alkaline Phosphatase 87 U/L Total Creatine Kinase 58 U/L Creatine Kinase MB 0.8 ng/ml Creatine Kinase MB Ratio 1.4 Total Protein 6.9 gm/dl Albumin 3.1 gm/dl Lipase 202 U/L Thyroid Stimulating Hormone (TSH) 5.550 uIu/ml Free Thyroxine 1.02 ng/dl Lyme Disease IgG Antibody POS Lyme Disease IgM Antibody NEG Bedside Glucose 125 mg/dl Bedside Troponin I < 0.030 ng/ml Prothrombin Time 11.1 SECONDS Prothromb Time International Ratio 1.1 Activated Partial Thromboplast Time 27.1 SECONDS Partial Thromboplastin Ratio 1.0 Test 12/21/17 16:19 12/21/17 20:22 12/22/17 06:53 12/22/17 07:03 Bedside Glucose 106 mg/dl 123 mg/dl 141 mg/dl Sodium Level 139 mmol/L Potassium Level mmol/L Chloride Level 105 mmol/L Carbon Dioxide Level 25 mmol/L Anion Gap 9.0 mmol/L Blood Urea Nitrogen 21 mg/dl Creatinine 1.58 mg/dl Est Creatinine Clear Calc Drug Dose 20.5 ml/min Estimated GFR () 33.7 Estimated GFR (Non- 29.1 BUN/Creatinine Ratio 13.1 Random Glucose 141 mg/dl Calcium Level 8.5 mg/dl Test 12/22/17 08:19 White Blood Count 8.89 K/uL Red Blood Count 3.60 M/uL Hemoglobin 11.1 g/dL Hematocrit 33.7 % Mean Corpuscular Volume 93.6 fL Mean Corpuscular Hemoglobin 30.8 pg Mean Corpuscular Hemoglobin Concent 32.9 g/dl RDW Standard Deviation 48.5 fL RDW Coefficient of Variation 14.2 % Platelet Count 205 K/uL Mean Platelet Volume 11.8 fL Potassium Level 4.3 mmol/L Imaging: Chest x-ray demonstrated stable lead position. There is no evidence of pneumothorax or other complication I performed a complete device interrogation which revealed adequate sensing and threshold parameters on both leads. The unipolar sensing on the atrial lead was better than the bipolar. Sensing was switched to unipolar on this lead as result. Assessment and Plan 1. Complete heart block: Patient underwent implantation of dual-chamber Medtronic pacemaker yesterday. We used the right-sided approach given her prior left mastectomy. The device appears to be functioning normally. There is not appear to be any overt complication. She does have some minor oozing from the skin at the incision site. I redressed this with a bandage today. I do not believe any additional intervention would be required. There is no evidence of hematoma. At this point I would recommend keeping the wound dry and Steri-Strips intact until follow-up within 1 week. I would recommend refraining from lifting the right arm above the shoulder behind the neck for 6 weeks.
--- NOTE | 2017-12-22 10:10 | Clinical Documentation Query ---
CLINICAL DOCUMENTATION QUERY An 87 yo female admitted with symptomatic bradycardia and complete heart block w/ duel chamber pacemaker inserted. History of CKD 3, HTN, DM In your clinical opinion is this patient being managed for: ( ) Acute kidney failure ( ) Not Agree ( ) Other explanation of clinical findings (Please Explain) ( ) Unable to determine (Please Define) ( ) Need to Discuss The medical record reflects the following clinical findings, treatment, and risk factors. Clinical Indicators: Creatinine trending up to 1.58 from 1.26 , GFR 38.3 trending down to 29.1 Treatment: Serial PRPs, telemetry Risk Factors: Age, s/p pacemaker insertion d/t complete AV block, CKD Please clarify and document your clinical opinion in the progress notes and discharge summary. Terms such as "probable", "suspected", "likely", "questionable", "possible", or "still to be ruled out" are acceptable. IF IN AGREEMENT, YOU MUST DOCUMENT ABOVE DIAGNOSTIC STATEMENT IN DAILY PROGRESS NOTES AND DISCHARGE SUMMARY. This document is not part of the patient's record. Thank You, Arleen Dawson RN [phone]
--- NOTE | 2017-12-22 10:22 | Progress Note ---
Subjective Date of Service: Dec 22, 2017. Subjective The patient is a pleasant 87-year-old female who was admitted yesterday with complete heart block. She had several falling episodes over the past several weeks before she was admitted and found to be in heart block with bradycardia. Yesterday she had a permanent pacemaker implanted. That procedure went well and she has no complaints today. Problem List Medical Problems: (1) Fall Status: Acute (2) Kidney stone Status: Acute (3) Sepsis Status: Acute (4) Third degree heart block Status: Acute (5) UTI (urinary tract infection) Status: Acute (6) Weakness Status: Acute (7) Weakness Status: Acute Review of Systems All Other Systems: Reviewed and Negative Objective Vital Signs Date Time Temp Pulse Resp B/P (MAP) Pulse Ox O2 Delivery O2 Flow Rate FiO2 12/22/17 08:00 Room Air 12/22/17 07:54 36.4 94 16 127/65 (85) 94 Room Air 12/22/17 04:00 Room Air 12/22/17 03:50 37.1 92 17 130/84 (99) 94 Room Air 12/22/17 00:00 Room Air 12/21/17 23:52 36.6 72 18 156/80 (105) 94 Room Air 12/21/17 20:24 36.5 67 20 184/95 (124) 95 Room Air 12/21/17 20:00 Room Air 12/21/17 17:00 36.5 64 18 184/81 98 Room Air 12/21/17 15:55 60 16 175/92 (119) 98 Room Air 12/21/17 15:45 60 16 197/98 (131) 98 Room Air 12/21/17 14:20 38 18 195/57 94 Room Air 12/21/17 13:20 38 18 182/86 94 Room Air 12/21/17 12:10 39 18 170/82 96 Room Air 12/21/17 11:57 70 12/21/17 11:39 36.4 41 18 202/72 94 Room Air Physical Exam General Appearance: no apparent distress Eyes: PERRL, EOMI ENT: normal ENT inspection, hearing grossly normal Neck: no adenopathy, thyroid normal, no JVD Respiratory/Chest: lungs clear, normal breath sounds Cardiovascular: regular rate, rhythm, no edema, no gallop Abdomen: normal bowel sounds, non tender, soft Extremities: normal inspection (the patient is status post permanent pacemaker on the right with else hematoma or bleeding evident.) 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, no motor/sensory deficits, oriented x 3 Skin: normal color, warm/dry, no rash Lymphatic: no adenopathy Laboratory Results Last 24 Hours Test 12/21/17 12:14 12/21/17 12:15 12/21/17 12:18 12/21/17 12:59 White Blood Count 8.30 K/uL Red Blood Count 3.75 M/uL Hemoglobin 11.5 g/dL Hematocrit 35.3 % Mean Corpuscular Volume 94.1 fL Mean Corpuscular Hemoglobin 30.7 pg Mean Corpuscular Hemoglobin Concent 32.6 g/dl Platelet Count 223 K/uL Mean Platelet Volume 11.5 fL Neutrophils (%) (Auto) 65.9 % Lymphocytes (%) (Auto) 25.2 % Monocytes (%) (Auto) 7.1 % Eosinophils (%) (Auto) 1.2 % Basophils (%) (Auto) 0.2 % Neutrophils # (Auto) 5.47 K/uL Lymphocytes # (Auto) 2.09 K/uL Monocytes # (Auto) 0.59 K/uL Eosinophils # (Auto) 0.10 K/uL Basophils # (Auto) 0.02 K/uL RDW Standard Deviation 48.8 fL RDW Coefficient of Variation 14.3 % Immature Granulocyte % (Auto) 0.4 % Immature Granulocyte # (Auto) 0.03 K/uL Sodium Level 140 mmol/L Potassium Level 3.9 mmol/L Chloride Level 104 mmol/L Carbon Dioxide Level 30 mmol/L Anion Gap 6.0 mmol/L Blood Urea Nitrogen 16 mg/dl Creatinine 1.26 mg/dl Est Creatinine Clear Calc Drug Dose 24.9 ml/min Estimated GFR () 44.4 Estimated GFR (Non- 38.3 BUN/Creatinine Ratio 12.6 Random Glucose 125 mg/dl Calcium Level 9.0 mg/dl Magnesium Level 2.0 mg/dl Total Bilirubin 0.3 mg/dl Direct Bilirubin < 0.1 mg/dl Aspartate Amino Transf (AST/SGOT) 16 U/L Alanine Aminotransferase (ALT/SGPT) 15 U/L Alkaline Phosphatase 87 U/L Total Creatine Kinase 58 U/L Creatine Kinase MB 0.8 ng/ml Creatine Kinase MB Ratio 1.4 Total Protein 6.9 gm/dl Albumin 3.1 gm/dl Lipase 202 U/L Thyroid Stimulating Hormone (TSH) 5.550 uIu/ml Free Thyroxine 1.02 ng/dl Lyme Disease IgG Antibody POS Lyme Disease IgM Antibody NEG Bedside Glucose 125 mg/dl Bedside Troponin I < 0.030 ng/ml Prothrombin Time 11.1 SECONDS Prothromb Time International Ratio 1.1 Activated Partial Thromboplast Time 27.1 SECONDS Partial Thromboplastin Ratio 1.0 Test 12/21/17 16:19 12/21/17 20:22 12/22/17 06:53 12/22/17 07:03 Bedside Glucose 106 mg/dl 123 mg/dl 141 mg/dl Sodium Level 139 mmol/L Potassium Level mmol/L Chloride Level 105 mmol/L Carbon Dioxide Level 25 mmol/L Anion Gap 9.0 mmol/L Blood Urea Nitrogen 21 mg/dl Creatinine 1.58 mg/dl Est Creatinine Clear Calc Drug Dose 20.5 ml/min Estimated GFR () 33.7 Estimated GFR (Non- 29.1 BUN/Creatinine Ratio 13.1 Random Glucose 141 mg/dl Calcium Level 8.5 mg/dl Test 12/22/17 08:19 White Blood Count 8.89 K/uL Red Blood Count 3.60 M/uL Hemoglobin 11.1 g/dL Hematocrit 33.7 % Mean Corpuscular Volume 93.6 fL Mean Corpuscular Hemoglobin 30.8 pg Mean Corpuscular Hemoglobin Concent 32.9 g/dl RDW Standard Deviation 48.5 fL RDW Coefficient of Variation 14.2 % Platelet Count 205 K/uL Mean Platelet Volume 11.8 fL Potassium Level 4.3 mmol/L Assessment and Plan Impression: 1. Status post permanent pacemaker 2. Complete heart block Recommendations: I will arrange for follow-up through our device clinic for this patient. From a cardiac standpoint she is doing well. Her pacemaker is functioning appropriately postop. We will follow her as an outpatient.
[2017-12-22] MEDS ORDERED: CEFTRIAXONE SOD INJ 2,000 MG in DEXTROSE 5% 50ML 50 ML IV SCH (16:00)
--- NOTE | 2017-12-22 17:44 | Progress Note ---
Internal Med Progress Note Date of Service: Dec 22, 2017. Provider Documentation: SUBJECTIVE: s/p pace maker yesterday denies any pain no sob afebrile eating ok want to go home OBJECTIVE: Vital Signs-as noted below Exam: General-alert and oriented. Not in distress ENT-Normal hearing Neck-no neck masses Lungs-cta b/l no wheezing or crackles Heart-S1 and S2 heard regular rate and rhythm, no murmurs s/p pace maker Abdomen-soft bowel sounds present no tenderness no distension Extremities-no edema no erythema Neuro-alert and awake moves extremities Lab data as noted below. ASSESSMENT & PLAN: SYMPTOMATIC BRADYCARDIA, COMPLETE HEART BLOCK s/p pace maker doing fine f/u with cardiology Lyme IgG positive await confirmation on Rocephin HTN holding metoprolol for bradycardia on lisinopril/HCTZ DM, DIET CONTROLLED hgb a1c 6.0 05/2017 will monitor BSGs PAULO on CKD STAGE III baseline creat runs in the low 1's cr 1.5 today will f/u labs. DVT PROPHYLAXIS SCDs DISPOSITION pt/ot Rehab vs home with home health Vital Signs: Date Time Temp Pulse Resp B/P (MAP) Pulse Ox O2 Delivery O2 Flow Rate FiO2 12/22/17 16:00 94 Room Air 12/22/17 15:04 36.6 98 20 129/84 (99) 94 Room Air 12/22/17 12:00 Room Air 12/22/17 11:31 37.4 97 20 116/77 (90) 96 Room Air 12/22/17 08:00 Room Air 12/22/17 07:54 36.4 94 16 127/65 (85) 94 Room Air 12/22/17 04:00 Room Air 12/22/17 03:50 37.1 92 17 130/84 (99) 94 Room Air 12/22/17 00:00 Room Air 12/21/17 23:52 36.6 72 18 156/80 (105) 94 Room Air 12/21/17 20:24 36.5 67 20 184/95 (124) 95 Room Air 12/21/17 20:00 Room Air Lab Results: Results Past 24 Hours Test 12/21/17 20:22 12/22/17 06:53 12/22/17 07:03 12/22/17 08:19 Range/Units Bedside Glucose 123 141 70-90 mg/dl Sodium Level 139 136-145 mmol/L Potassium Level 4.3 3.5-5.1 mmol/L Chloride Level 105 98-107 mmol/L Carbon Dioxide Level 25 21-32 mmol/L Anion Gap 9.0 3-11 mmol/L Blood Urea Nitrogen 21 7-18 mg/dl Creatinine 1.58 0.60-1.20 mg/dl Est Creatinine Clear Calc Drug Dose 20.5 ml/min Estimated GFR () 33.7 Estimated GFR (Non- 29.1 BUN/Creatinine Ratio 13.1 10-20 Random Glucose 141 70-99 mg/dl Calcium Level 8.5 8.5-10.1 mg/dl White Blood Count 8.89 4.8-10.8 K/uL Red Blood Count 3.60 4.2-5.4 M/uL Hemoglobin 11.1 12.0-16.0 g/dL Hematocrit 33.7 37-47 % Mean Corpuscular Volume 93.6 80-100 fL Mean Corpuscular Hemoglobin 30.8 25-34 pg Mean Corpuscular Hemoglobin Concent 32.9 32-36 g/dl RDW Standard Deviation 48.5 36.4-46.3 fL RDW Coefficient of Variation 14.2 11.5-14.5 % Platelet Count 205 130-400 K/uL Mean Platelet Volume 11.8 7.4-10.4 fL Test 12/22/17 11:05 12/22/17 16:14 Range/Units Bedside Glucose 164 137 70-90 mg/dl
[2017-12-23 03:34] VITALS: BP 123/75; PULSE 104; TEMP 36.7; O2SAT 92
[2017-12-23 06:35] LABS: BASO % 0.1 %; BASO ABS # 0.01 K/uL (0-0.2); EOS ABS # 0.09 K/uL (0-0.5); HEMATOCRIT 32.9 % (37-47); HEMOGLOBIN 10.8 g/dL (12.0-16.0); IG# 0.02 K/uL (0.00-0.02); LYMPH % 26.6 %; MEAN CELL VOLUME 94.5 fL (80-100); MEAN CORPUSCULAR HGB CONC 32.8 g/dl (32-36); MEAN PLATELET VOLUME 11.7 fL (7.4-10.4); MONO % 9.1 %; MONO ABS # 0.79 K/uL (0.11-0.59); NEUT ABS # 5.45 K/uL (1.4-6.5); PLATELET COUNT 165 K/uL (130-400); RED CELL DISTRIBUTION WIDTH CV 14.2 % (11.5-14.5); RED CELL DISTRIBUTION WIDTH SD 49.1 fL (36.4-46.3); WHITE BLOOD COUNT 8.66 K/uL (4.8-10.8)
[2017-12-23 07:08] LABS: CALCIUM 8.4 mg/dl (8.5-10.1); CREATININE 1.9 mg/dl (0.60-1.20); POTASSIUM 4.1 mmol/L (3.5-5.1)
[2017-12-23] MEDS: LISINOPRIL/HCTZ 10/12.5MG TAB PO SCH (07:38)
[2017-12-23] MEDS: GABAPENTIN 100 MG CAP PO SCH ×3 (07:38→20:51)
[2017-12-23] MEDS: CALCIUM 600MG + VIT D 400 IU TAB PO SCH (07:38)
[2017-12-23] MEDS: ASPIRIN 81 MG ECTAB PO SCH (07:38)
[2017-12-23] MEDS: CEROVITE ADV FORMULA TAB PO SCH (07:39)
[2017-12-23 08:00] VITALS: BP 125/71; PULSE 110; TEMP 36.8; O2SAT 97
[2017-12-23] MEDS ORDERED: METOPROLOL TARTRATE 25 MG TAB PO ONE (09:30)
[2017-12-23 11:43] VITALS: BP 125/87; PULSE 111; TEMP 37; O2SAT 96
--- NOTE | 2017-12-23 12:37 | Discharge Instructions ---
Discharge Instructions Date of Service Dec 23, 2017. Admission Reason for Admission: Complete Heart Block Discharge Discharge Diagnosis / Problem: complete heart block s/p pace maker Discharge Goals Goal(s): Decrease discomfort, Improve function Activity Recommendations Activity Limitations: resume your previous activity Lifting Limitations: none, until after follow-up appointment Exercise/Sports Limitations: until after follow-up appointment Shower/Bathe: may shower/bathe in 3 days, keep incision dry . Instructions / Follow-Up Instructions / Follow-Up FOLLOWUP WITH FAMILY DOCTOR ON Dec AT 11:05AM FOLLOWUP WITH CARDIOLOGY SCHEDULED FOR PACE MAKER CHECK UP Current Hospital Diet Patient's current hospital diet: AHA Diet (Heart Healthy) Discharge Diet Recommended Diet: AHA Diet (Heart Healthy) Pending Studies Studies pending at discharge: no Medical Emergencies . Who to Call and When: Medical Emergencies: If at any time you feel your situation is an emergency, please call 911 immediately. . Non-Emergent Contact Non-Emergency issues call your: Primary Care Provider . . "Provider Documentation" section prepared by Osvaldo Ponce. . VTE Core Measure Inpt VTE Proph given/why not?: SCD's
[2017-12-23] MEDS: D5W AND NSS 1,000 ML IV SCH (13:45)
[2017-12-23 15:49] VITALS: BP 131/80; PULSE 95; TEMP 36.9; O2SAT 96
--- NOTE | 2017-12-23 17:43 | Progress Note ---
Internal Med Progress Note Date of Service: Dec 23, 2017. Provider Documentation: SUBJECTIVE: s/p pace maker denies any pain says doing fine and wanted to go home pt recommended rehab but son wanted to take her home with home health later in the day patient was more drowsy and was not eating hemodynamics stable OBJECTIVE: Vital Signs-as noted below Exam: General-alert and oriented. Not in distress. Later drowsy today ENT-Normal hearing Neck-no neck masses Lungs-cta b/l no wheezing or crackles Heart-S1 and S2 heard regular rate and rhythm, no murmurs s/p pace maker Abdomen-soft bowel sounds present no tenderness no distension Extremities-no edema no erythema Neuro-alert and awake. later drowsy today moves extremities Lab data as noted below. ASSESSMENT & PLAN: SYMPTOMATIC BRADYCARDIA, COMPLETE HEART BLOCK s/p pace maker doing fine f/u with cardiology for device check Lyme IgG positive await confirmation-negative will stop Rocephin HTN metoprolol was intailly held for bradycardia will restart it today hold lisinopril/HCTZ for PAULO DM, DIET CONTROLLED hgb a1c 6.0 05/2017 will monitor BSGs PAULO on CKD STAGE III baseline creat runs in the low 1's cr 1.9 today gentle fluids hold lisinopril/hctz f/u labs in am DVT PROPHYLAXIS SCDs hep sub q DISPOSITION pt/ot Rehab vs home with home health Vital Signs: Date Time Temp Pulse Resp B/P (MAP) Pulse Ox O2 Delivery O2 Flow Rate FiO2 12/23/17 16:00 Room Air 12/23/17 15:49 36.9 95 20 131/80 (97) 96 Room Air 12/23/17 12:00 Room Air 12/23/17 11:43 37.0 111 18 125/87 (100) 96 12/23/17 08:00 36.8 110 18 125/71 (89) 97 12/23/17 08:00 Room Air 12/23/17 04:15 Room Air 12/23/17 03:34 36.7 104 20 123/75 (91) 92 Room Air 12/23/17 00:20 Room Air 12/22/17 22:44 37.5 105 22 130/82 (98) 94 Room Air 12/22/17 20:00 95 Room Air 12/22/17 19:08 36.4 105 16 112/71 (85) 92 Room Air Lab Results: Results Past 24 Hours Test 12/22/17 20:24 12/23/17 06:19 12/23/17 06:20 12/23/17 11:07 Range/Units Bedside Glucose 218 131 179 70-90 mg/dl White Blood Count 8.66 4.8-10.8 K/uL Red Blood Count 3.48 4.2-5.4 M/uL Hemoglobin 10.8 12.0-16.0 g/dL Hematocrit 32.9 37-47 % Mean Corpuscular Volume 94.5 80-100 fL Mean Corpuscular Hemoglobin 31.0 25-34 pg Mean Corpuscular Hemoglobin Concent 32.8 32-36 g/dl Platelet Count 165 130-400 K/uL Mean Platelet Volume 11.7 7.4-10.4 fL Neutrophils (%) (Auto) 63.0 % Lymphocytes (%) (Auto) 26.6 % Monocytes (%) (Auto) 9.1 % Eosinophils (%) (Auto) 1.0 % Basophils (%) (Auto) 0.1 % Neutrophils # (Auto) 5.45 1.4-6.5 K/uL Lymphocytes # (Auto) 2.30 1.2-3.4 K/uL Monocytes # (Auto) 0.79 0.11-0.59 K/uL Eosinophils # (Auto) 0.09 0-0.5 K/uL Basophils # (Auto) 0.01 0-0.2 K/uL RDW Standard Deviation 49.1 36.4-46.3 fL RDW Coefficient of Variation 14.2 11.5-14.5 % Immature Granulocyte % (Auto) 0.2 % Immature Granulocyte # (Auto) 0.02 0.00-0.02 K/uL Sodium Level 139 136-145 mmol/L Potassium Level 4.1 3.5-5.1 mmol/L Chloride Level 103 98-107 mmol/L Carbon Dioxide Level 29 21-32 mmol/L Anion Gap 7.0 3-11 mmol/L Blood Urea Nitrogen 30 7-18 mg/dl Creatinine 1.90 0.60-1.20 mg/dl Est Creatinine Clear Calc Drug Dose 17.2 ml/min Estimated GFR () 27.0 Estimated GFR (Non- 23.3 BUN/Creatinine Ratio 15.8 10-20 Random Glucose 131 70-99 mg/dl Calcium Level 8.4 8.5-10.1 mg/dl Magnesium Level 2.1 1.8-2.4 mg/dl Test 12/23/17 16:10 Range/Units Bedside Glucose 149 70-90 mg/dl
[2017-12-23 19:35] VITALS: BP 144/83; PULSE 99; TEMP 37.3; O2SAT 94
[2017-12-23] MEDS: METOPROLOL TARTRATE 25 MG TAB PO SCH (20:51)
[2017-12-23] MEDS: HEPARIN SOD 5000 UNIT/0.5 ML CARP SQ SCH (20:53)
[2017-12-23 23:36] VITALS: BP 135/83; PULSE 95; TEMP 37.5; O2SAT 94
[2017-12-24] MEDS: D5W AND NSS 1,000 ML IV SCH (01:45)
[2017-12-24 03:20] VITALS: BP_SYST 136; BP_SYST 155; BP_DIAS 100; BP_DIAS 84; PULSE 102; TEMP 37.1; O2SAT 91
[2017-12-24 05:51] LABS: BASO % 0.1 %; BASO ABS # 0.01 K/uL (0-0.2); EOS % 0.7 %; EOS ABS # 0.08 K/uL (0-0.5); HEMATOCRIT 32.8 % (37-47); HEMOGLOBIN 10.8 g/dL (12.0-16.0); IG# 0.02 K/uL (0.00-0.02); LYMPH % 19.4 %; LYMPH ABS # 2.11 K/uL (1.2-3.4); MEAN CELL VOLUME 94.8 fL (80-100); MEAN CORPUSCULAR HEMOGLOBIN 31.2 pg (25-34); MEAN CORPUSCULAR HGB CONC 32.9 g/dl (32-36); MEAN PLATELET VOLUME 11.7 fL (7.4-10.4); MONO % 8.7 %; MONO ABS # 0.94 K/uL (0.11-0.59); NEUT % 70.9 %; PLATELET COUNT 156 K/uL (130-400); RED CELL DISTRIBUTION WIDTH CV 14.4 % (11.5-14.5); RED CELL DISTRIBUTION WIDTH SD 49.3 fL (36.4-46.3); WHITE BLOOD COUNT 10.86 K/uL (4.8-10.8)
[2017-12-24 06:26] LABS: CREATININE 1.78 mg/dl (0.60-1.20); POTASSIUM 3.8 mmol/L (3.5-5.1)
[2017-12-24 07:42] VITALS: BP 129/68; PULSE 98; TEMP 37; O2SAT 92
[2017-12-24] MEDS: ASPIRIN 81 MG ECTAB PO SCH (09:28)
[2017-12-24] MEDS: CEROVITE ADV FORMULA TAB PO SCH (09:28)
[2017-12-24] MEDS: GABAPENTIN 100 MG CAP PO SCH (09:28)
[2017-12-24] MEDS: METOPROLOL TARTRATE 25 MG TAB PO SCH (09:28)
[2017-12-24] MEDS: CALCIUM 600MG + VIT D 400 IU TAB PO SCH (09:28)
[2017-12-24] MEDS: HEPARIN SOD 5000 UNIT/0.5 ML CARP SQ SCH (09:30)
--- NOTE | 2017-12-24 09:56 | Discharge Instructions ---
Discharge Instructions Date of Service Dec 24, 2017. Admission Reason for Admission: Complete Heart Block Discharge Discharge Diagnosis / Problem: COMPLETE HEART BLOCK, ARF Discharge Goals Goal(s): Decrease discomfort, Improve function Activity Recommendations Activity Limitations: resume your previous activity Lifting Limitations: until after follow-up appointment (NO WEIGHT LIFTING) Shower/Bathe: may shower/bathe in 3 days, keep incision dry . Instructions / Follow-Up Instructions / Follow-Up FOLLOWUP WITH FAMILY DOCTOR ON Dec AT 11:05AM FOLLOWUP WITH CARDIOLOGY SCHEDULED FOR PACE MAKER CHECK UP. HOLD LISINOPRIL/HCTZ UNTIL SEEN BY FAMILY DOCTOR. LAB: BMP IN 3- 4 DAYS AND FOLLOW RESULTS WITH FAMILY DOCTOR. Current Hospital Diet Patient's current hospital diet: AHA Diet (Heart Healthy) Discharge Diet Recommended Diet: AHA Diet (Heart Healthy) Pending Studies Studies pending at discharge: no Medical Emergencies . Who to Call and When: Medical Emergencies: If at any time you feel your situation is an emergency, please call 911 immediately. . Non-Emergent Contact Non-Emergency issues call your: Primary Care Provider . . "Provider Documentation" section prepared by Osvaldo Ponce. . VTE Core Measure Inpt VTE Proph given/why not?: Unfractionated heparin SQ, SCD's
[2017-12-24 10:38] VITALS: BP 129/68; PULSE 98; TEMP 37; O2SAT 92
--- NOTE | 2017-12-24 17:45 | Progress Note ---
Internal Med Progress Note Date of Service: Dec 24, 2017. Provider Documentation: SUBJECTIVE: s/p pace maker has some itching at pace maker site no pain eating fine 'no sob afebrile wants to be discharged OBJECTIVE: Vital Signs-as noted below Exam: General-alert and oriented. Not in distress. Later drowsy today ENT-Normal hearing Neck-no neck masses Lungs-cta b/l no wheezing or crackles Heart-S1 and S2 heard regular rate and rhythm, no murmurs s/p pace maker site clean Abdomen-soft bowel sounds present no tenderness no distension Extremities-no edema no erythema Neuro-alert and awake. later drowsy today moves extremities Lab data as noted below. ASSESSMENT & PLAN: SYMPTOMATIC BRADYCARDIA, COMPLETE HEART BLOCK s/p pace maker doing fine f/u with cardiology for device check Lyme IgG positive await confirmation-negative study will stop Rocephin HTN metoprolol was intailly held for bradycardia will restart it today hold lisinopril/HCTZ for PAULO until seen by pcp on dec 27 DM, DIET CONTROLLED hgb a1c 6.0 05/2017 will monitor BSGs PAULO on CKD STAGE III baseline creat runs in the low 1's cr 1.8 on discharge received gentle fluids hold lisinopril/hctz until seen by pcp on dec 27 f/u labs with pcp discharged home with home health Vital Signs: Date Time Temp Pulse Resp B/P (MAP) Pulse Ox O2 Delivery O2 Flow Rate FiO2 12/24/17 10:38 37.0 98 18 92 Room Air 12/24/17 09:00 Room Air 12/24/17 07:42 37.0 98 18 129/68 (88) 92 12/24/17 03:30 Room Air 12/24/17 03:20 37.1 102 19 136/84 (101) 91 Room Air 12/24/17 00:20 Room Air 12/23/17 23:36 37.5 95 18 135/83 (100) 94 Room Air 12/23/17 19:55 Room Air 12/23/17 19:35 37.3 99 20 144/83 (103) 94 Room Air Lab Results: Results Past 24 Hours Test 12/23/17 19:59 12/24/17 05:27 12/24/17 06:24 Range/Units Bedside Glucose 177 165 70-90 mg/dl White Blood Count 10.86 4.8-10.8 K/uL Red Blood Count 3.46 4.2-5.4 M/uL Hemoglobin 10.8 12.0-16.0 g/dL Hematocrit 32.8 37-47 % Mean Corpuscular Volume 94.8 80-100 fL Mean Corpuscular Hemoglobin 31.2 25-34 pg Mean Corpuscular Hemoglobin Concent 32.9 32-36 g/dl Platelet Count 156 130-400 K/uL Mean Platelet Volume 11.7 7.4-10.4 fL Neutrophils (%) (Auto) 70.9 % Lymphocytes (%) (Auto) 19.4 % Monocytes (%) (Auto) 8.7 % Eosinophils (%) (Auto) 0.7 % Basophils (%) (Auto) 0.1 % Neutrophils # (Auto) 7.70 1.4-6.5 K/uL Lymphocytes # (Auto) 2.11 1.2-3.4 K/uL Monocytes # (Auto) 0.94 0.11-0.59 K/uL Eosinophils # (Auto) 0.08 0-0.5 K/uL Basophils # (Auto) 0.01 0-0.2 K/uL RDW Standard Deviation 49.3 36.4-46.3 fL RDW Coefficient of Variation 14.4 11.5-14.5 % Immature Granulocyte % (Auto) 0.2 % Immature Granulocyte # (Auto) 0.02 0.00-0.02 K/uL Sodium Level 138 136-145 mmol/L Potassium Level 3.8 3.5-5.1 mmol/L Chloride Level 104 98-107 mmol/L Carbon Dioxide Level 28 21-32 mmol/L Anion Gap 6.0 3-11 mmol/L Blood Urea Nitrogen 30 7-18 mg/dl Creatinine 1.78 0.60-1.20 mg/dl Est Creatinine Clear Calc Drug Dose 18.3 ml/min Estimated GFR () 29.2 Estimated GFR (Non- 25.2 BUN/Creatinine Ratio 16.9 10-20 Random Glucose 171 70-99 mg/dl Calcium Level 8.0 8.5-10.1 mg/dl Magnesium Level 2.0 1.8-2.4 mg/dl
--- NOTE | 2017-12-24 18:28 | Discharge Summary ---
Discharge Summary Date of Service Dec 24, 2017. Discharge Summary Admission Date: Dec 21, 2017 at 13:20 Discharge Date: Dec 24, 2017 Discharge Disposition: Home with services Principal Diagnosis: COMPLETE HEART BLOCK S/P PACE MAKER ARF Secondary Diagnoses/Problems: (1) Breast CA Status: Chronic (2) CKD (chronic kidney disease), stage III Status: Chronic (3) DM2 (diabetes mellitus, type 2) Status: Chronic (4) HTN (hypertension) Status: Chronic Procedures: CXR: 1. Trace bilateral pleural effusions. 2. No radiographic evidence of pulmonary edema. Consultations: CARDIOLOGY Medication Reconciliation Continued Medications: Aspirin (Aspirin Ec) 81 Mg Tab 81 MG PO DAILY Calcium/Vitamin D (Os-Ge 500 Plus D) Tab 1 TAB PO DAILY, TAB Cranberry (Vaccinium Macrocarp (Cranberry Super Strength) 500 Mg Cap 1000 MG PO DAILY Gabapentin (Neurontin) 100 Mg Cap 100 MG PO UD, CAP PT MAKE TAKE UPTO THREE TIMES A DAY Hctz/Lisinopril (Lisinopril/Hctz 10/12.5 Mg) 1 Ea Tab 1 TAB PO DAILY Metoprolol Tartrate (Lopressor) (Lopressor) 25 Mg Tab 25 MG PO BID Misc Natural Products (Black Delatorre Concentrate) Unknown Strength Liq Unknown Dose PO DAILY Multiple Vitamins W/ Minerals (Centrum Silver Ultra [place]ome) 1 Tab Tab 1 TAB PO DAILY [id number] Ethyl Esters ([place]-3) 1 Cap Cap 1 CAP PO DAILY, CAP Admission Information HPI (per Admitting provider): 87 year old female who presents to the ED with frequent falls. Patient reports she had 2 falls in the past 9 days. She reports she typically ambulates with a walker without difficulty. She has felt generally weak, lightheaded, and dizzy. For one of the falls, she does not remember falling and just woke up on the floor. No loss of bowel or bladder function. She denies chest pain and shortness of breath. No abdominal pain, nausea, vomiting, or diarrhea. She denies fever and chills. No urinary symptoms. In the ED, she was found to be in complete heart block. BP is stable. She is being taken emergently for pacemaker placement. Physical Exam (per Admitting): General Appearance: WD/WN, no apparent distress Head: normocephalic, atraumatic Eyes: normal inspection, EOMI, sclerae normal ENT: hearing grossly normal, + pertinent finding (mucous membranes moist) Neck: supple, no JVD, trachea midline Respiratory/Chest: lungs clear, normal breath sounds, no respiratory distress Cardiovascular: normal peripheral pulses, + bradycardia (regular rhythm), + pertinent finding (trace pitting edema BLLE) Abdomen/GI: normal bowel sounds, non tender, soft, no organomegaly Extremities/Musculoskelatal: normal inspection, no calf tenderness, normal capillary refill Neurologic/Psych: no motor/sensory deficits, alert, normal mood/affect, oriented x 3 Skin: normal color, warm/dry Hospital Course SYMPTOMATIC BRADYCARDIA, COMPLETE HEART BLOCK s/p pace maker doing fine f/u with cardiology for device check Lyme IgG positive await confirmation-negative study will stop Rocephin HTN metoprolol was intailly held for bradycardia will restart it today hold lisinopril/HCTZ for PAULO until seen by pcp on dec 27 DM, DIET CONTROLLED hgb a1c 6.0 05/2017 will monitor BSGs PAULO on CKD STAGE III baseline creat runs in the low 1's cr 1.8 on discharge received gentle fluids hold lisinopril/hctz until seen by pcp on dec 27 f/u labs with pcp discharged home with home health Total time spent on discharge = 35MINUTES This includes examination of the patient, discharge planning, medication reconciliation, and communication with other providers. Discharge Instructions Discharge Instructions Date of Service Dec 24, 2017. Admission Reason for Admission: Complete Heart Block Discharge Discharge Diagnosis / Problem: COMPLETE HEART BLOCK, ARF Discharge Goals Goal(s): Decrease discomfort, Improve function Activity Recommendations Activity Limitations: resume your previous activity Lifting Limitations: until after follow-up appointment (NO WEIGHT LIFTING) Shower/Bathe: may shower/bathe in 3 days, keep incision dry . Instructions / Follow-Up Instructions / Follow-Up FOLLOWUP WITH FAMILY DOCTOR ON Dec AT 11:05AM FOLLOWUP WITH CARDIOLOGY SCHEDULED FOR PACE MAKER CHECK UP. HOLD LISINOPRIL/HCTZ UNTIL SEEN BY FAMILY DOCTOR. LAB: BMP IN 3- 4 DAYS AND FOLLOW RESULTS WITH FAMILY DOCTOR. Current Hospital Diet Patient's current hospital diet: AHA Diet (Heart Healthy) Discharge Diet Recommended Diet: AHA Diet (Heart Healthy) Pending Studies Studies pending at discharge: no Medical Emergencies . Who to Call and When: Medical Emergencies: If at any time you feel your situation is an emergency, please call 911 immediately. . Non-Emergent Contact Non-Emergency issues call your: Primary Care Provider . . "Provider Documentation" section prepared by Osvaldo Ponce. . VTE Core Measure Inpt VTE Proph given/why not?: Unfractionated heparin SQ, SCD's
== END 2017-12-24 11:30 | disposition home health service (06) | DRG 243 ==
LOC: C.EDB 11:36 → C.2T 13:20 → ENRESERV 14:37
PROVIDERS: ADMIT Family Medicine; ATTEND Internal Medicine
PROC: 02H63JZ Insertion of Pacemaker Lead into Right Atrium, Percutaneous Approach (ICD-10-PCS; principal; 2017-12-21 14:07)
PROC: 02HK3JZ Insertion of Pacemaker Lead into Right Ventricle, Percutaneous Approach (ICD-10-PCS; principal; 2017-12-21 14:07)
PROC: 0JH606Z Insertion of Pacemaker, Dual Chamber into Chest Subcutaneous Tissue and Fascia, Open Approach (ICD-10-PCS; principal; 2017-12-21 14:07)
DX: I44.2 Atrioventricular block, complete (principal); N17.9 Acute kidney failure, unspecified; R29.6 Repeated falls; N18.3 Chronic kidney disease, stage 3 (moderate); E11.22 Type 2 diabetes mellitus with diabetic chronic kidney disease; I12.9 Hypertensive chronic kidney disease with stage 1 through stage 4 chronic kidney disease, or unspecified chronic kidney disease; Z79.82 Long term (current) use of aspirin; Z79.899 Other long term (current) drug therapy; Z91.81 History of falling; Z66 Do not resuscitate

== ENCOUNTER 2017-12-27 08:19 | Inpatient (IN) | payer OTHER ==
[~2017-12-27] VITALS: Ht 147.3 cm; Wt 62.5 kg
[2017-12-27] VITALS (7 sets, daily range): BP systolic 136–198; BP diastolic 92–144; PULSE 96–109; TEMP 36.8–37.1; O2SAT 93–97; BMI 33.5
[~2017-12-27 08:19] MED LIST changes: +CALC500C70 PO; -LCTX PO; +MISC1LIQ37 PO; +OMEG-112 PO; -SLWMEC PO; +[UNRECOGNIZED DRUG - CODE] PO
[2017-12-27] MEDS ORDERED: FUROSEMIDE 40 MG/4 ML VIAL IV STA ×2 (09:03→11:33)
[2017-12-27 09:31] LABS: HEMATOCRIT 33.1 % (37-47); HEMOGLOBIN 10.8 g/dL (12.0-16.0); IG# 0.03 K/uL (0.00-0.02); LYMPH % 7.9 %; LYMPH ABS # 0.81 K/uL (1.2-3.4); MEAN CELL VOLUME 94.3 fL (80-100); MEAN CORPUSCULAR HEMOGLOBIN 30.8 pg (25-34); MEAN CORPUSCULAR HGB CONC 32.6 g/dl (32-36); MEAN PLATELET VOLUME 12.6 fL (7.4-10.4); MONO % 6.7 %; MONO ABS # 0.69 K/uL (0.11-0.59); NEUT % 85.1 %; NEUT ABS # 8.78 K/uL (1.4-6.5); PLATELET COUNT 155 K/uL (130-400); RED CELL DISTRIBUTION WIDTH CV 14.4 % (11.5-14.5); RED CELL DISTRIBUTION WIDTH SD 49.2 fL (36.4-46.3); WHITE BLOOD COUNT 10.31 K/uL (4.8-10.8)
--- NOTE | 2017-12-27 09:34 | EMERGENCY ROOM VISIT NOTE ---
History Report prepared by Juan Manuel: Juliet Bloom Under the Supervision of: Dr. Latonia Bella M.D. First contact with patient: 08:49 Chief Complaint: RESPIRATORY DISTRESS Stated Complaint: RESPIRATORY Nursing Triage Summary: pt to the ED via EMS from home with c/o resp difficulty since wednesday when she was dc from the hospital after having a pacemaker placed. pt has bilateral LE edema +1-2 and EMS reports decreased urine output . pt not able to speak full sent History of Present Illness The patient is a 87 year old female who presents to the Emergency Room with complaints of constant shortness of breath beginning three days ago. The patient recently had a pacemaker put in place. Per caregiver, the patient was having a slight "rattle and wheezing" before she got her pacemaker put in place. Per son, the patient has had decreased urine output. He also reports the patient has vomited and has had diarrhea. The patient reports a cough but denies any fever. The patient has a history of high blood pressure and diabetes. The patient has not had her daily medication yet today. The patient was recently stopped on her lisinopril. She denies any history of CHF or COPD. Source of History: patient, family, caregiver Onset: three days ago Position: other (generalized) Quality: other (shortness of breath) Timing: constant Associated Symptoms: + cough, + SOB, + diarrhea, + urinary symptoms, No fevers Review of Systems See HPI for pertinent positives & negatives. A total of 10 systems reviewed and were otherwise negative. Past Medical & Surgical Medical Problems: (1) CKD (chronic kidney disease), stage III (2) DM2 (diabetes mellitus, type 2) (3) H/O malignant neoplasm of breast (4) History of complete heart block (5) HTN (hypertension) (6) UTI (urinary tract infection) Surgical Problems: (1) H/O mastectomy (2) H/O: hysterectomy (3) S/P cholecystectomy (4) S/P ERCP (5) S/P placement of cardiac pacemaker Family History FH: heart disease Hypertension Social History Smoking Status: Former Smoker Alcohol Use: none Marital Status: Housing Status: lives with family Occupation Status: retired Current/Historical Medications Scheduled Aspirin (Aspirin Ec), 81 MG PO DAILY Calcium/Vitamin D (Os-Ge 500 Plus D), 1 TAB PO DAILY Cranberry (Vaccinium Macrocarp (Cranberry Super Strength), 1,000 MG PO DAILY Lisinopril (Lisinopril), 1 TAB PO DAILY Metoprolol Tartrate (Lopressor) (Lopressor), 25 MG PO BID Misc Natural Products (Black Delatorre Concentrate), Unknown Dose PO DAILY Multiple Vitamins W/ Minerals (Centrum Silver Ultra [place]), 1 TAB PO DAILY Witqm-9-Lnru Ethyl Esters ([place]-3), 1 CAP PO DAILY Scheduled PRN Gabapentin (Gabapentin), 1 TAB PO TID PRN for Pain Allergies Coded Allergies: Macey Nut (Verified Allergy, Unknown, UNKNOWN, 12/27/17) Physical Exam Vital Signs Date Time Temp Pulse Resp B/P (MAP) Pulse Ox O2 Delivery O2 Flow Rate FiO2 12/27/17 11:19 105 16 134/93 94 Room Air 12/27/17 09:49 104 28 162/103 94 12/27/17 08:25 108 12/27/17 08:25 37.1 108 28 159/101 95 Room Air Physical Exam Vital signs reviewed. General: Well-appearing female, in no significant distress. HEENT: No scleral icterus, PERRLA, neck supple. Atraumatic. Cardiovascular: Regular rate and rhythm, no extra sounds. Pulmonary: Wheezes and rhonchi bilaterally, increased work of breathing. Abdomen: Soft, nontender, nondistended, positive bowel sounds. Musculoskeletal: Atraumatic, no peripheral edema. Neurologic: Patient awake alert and oriented x 3, full strength in all 4 extremities. Cranial nerves 2 through 12 grossly intact. Skin: Warm, dry, no rash Medical Decision & Procedures ER Provider Diagnostic Interpretation: Radiology results as stated below per my review and radiologist interpretation: CHEST ONE VIEW PORTABLE FINDINGS: Mild increase in cardiac size compared to the prior study. Moderate increase in pulmonary vasculature. Pre-existing right humeral neck fracture. Severe degenerative change of both shoulders. Permanent bipolar cardiac pacer in good position. IMPRESSION: Congestive failure. The above report was generated using voice recognition software. It may contain grammatical, syntax or spelling errors. Electronically signed by: Derek Greenwood M.D. Laboratory Results Test 12/27/17 09:16 12/27/17 09:21 12/27/17 10:12 12/27/17 11:10 Immature Granulocyte % (Auto) 0.3 % White Blood Count 10.31 K/uL (4.8-10.8) Red Blood Count 3.51 M/uL (4.2-5.4) Hemoglobin 10.8 g/dL (12.0-16.0) Hematocrit 33.1 % (37-47) Mean Corpuscular Volume 94.3 fL (80-100) Mean Corpuscular Hemoglobin 30.8 pg (25-34) Mean Corpuscular Hemoglobin Concent 32.6 g/dl (32-36) Platelet Count 155 K/uL (130-400) Mean Platelet Volume 12.6 fL (7.4-10.4) Neutrophils (%) (Auto) 85.1 % Lymphocytes (%) (Auto) 7.9 % Monocytes (%) (Auto) 6.7 % Eosinophils (%) (Auto) 0.0 % Basophils (%) (Auto) 0.0 % Neutrophils # (Auto) 8.78 K/uL (1.4-6.5) Lymphocytes # (Auto) 0.81 K/uL (1.2-3.4) Monocytes # (Auto) 0.69 K/uL (0.11-0.59) Eosinophils # (Auto) 0.00 K/uL (0-0.5) Basophils # (Auto) 0.00 K/uL (0-0.2) Immature Granulocyte # (Auto) 0.03 K/uL (0.00-0.02) Magnesium Level 2.6 mg/dl (1.8-2.4) Total Bilirubin 0.6 mg/dl (0.2-1) Direct Bilirubin 0.2 mg/dl (0-0.2) Aspartate Amino Transf (AST/SGOT) 92 U/L (15-37) Alanine Aminotransferase (ALT/SGPT) 56 U/L (12-78) Alkaline Phosphatase 102 U/L (45-117) Total Creatine Kinase 132 U/L (26-192) Creatine Kinase MB 4.3 ng/ml (0.5-3.6) Creatine Kinase MB Ratio 3.3 (0-3.0) Pro-B-Type Natriuretic Peptide > 35231 pg/ml (0-1800) Total Protein 6.9 gm/dl (6.4-8.2) Albumin 3.1 gm/dl (3.4-5.0) Bedside Troponin I 1.970 ng/ml (0-0.045) Urine Color DK YELLOW Urine Appearance TURBID (CLEAR) Urine pH 5.0 (4.5-7.5) Urine Specific [place] 1.022 (1.000-1.030) Urine Protein TRACE (NEG) Urine Glucose (UA) NEG (NEG) Urine Ketones NEG (NEG) Urine Occult Blood 1+ (NEG) Urine Nitrite NEG (NEG) Urine Bilirubin NEG (NEG) Urine Urobilinogen NEG (NEG) Urine Leukocyte Esterase LARGE (NEG) Urine WBC (Auto) >30 /hpf (0-5) Urine RBC (Auto) 5-10 /hpf (0-4) Urine Hyaline Casts (Auto) 5-10 /lpf (0-5) Urine Epithelial Cells (Auto) >30 /lpf (0-5) Urine Bacteria (Auto) 2+ (NEG) Urine Pathogenic Casts /lpf (0) Urine Yeast (Auto) BUDDING (NONE PRSENT) Prothrombin Time 12.6 SECONDS (9.0-12.0) Prothromb Time International Ratio 1.2 (0.9-1.1) Activated Partial Thromboplast Time 27.2 SECONDS (21.0-31.0) Partial Thromboplastin Ratio 1.0 Laboratory results per my review. Medications Administered Medications (Trade) Dose Ordered Sig/Main Route Start Time Stop Time Status Last Admin Dose Admin Furosemide (Lasix Inj) 20 mg NOW STAT IV 12/27/17 09:03 12/27/17 09:05 DC 12/27/17 09:48 20 MG Aspirin (Aspirin Chew) 324 mg NOW STAT PO 12/27/17 09:40 12/27/17 09:45 DC 12/27/17 09:40 324 MG Heparin Sodium (Porcine) (Heparin Sq 5000 Unit/0.5ml) 3,000 unit 1015 ONCE IV 12/27/17 10:15 12/27/17 10:16 DC 12/27/17 11:16 3,000 UNIT Heparin Sodium/ Dextrose 500 ml @ 13 mls/hr Q24H PRN IV 12/27/17 10:15 12/27/17 14:37 DC 12/27/17 11:17 13 MLS/HR Furosemide (Lasix Inj) 20 mg NOW STAT IV 12/27/17 11:33 12/27/17 11:34 DC 12/27/17 13:01 20 MG Ceftriaxone Sodium (Rocephin Inj) 1 gm NOW STAT IV 12/27/17 11:33 12/27/17 11:34 DC 12/27/17 13:01 1 GM ECG Indication: SOB/dyspnea Rate (beats per minute): 106 Rhythm: other (atrial sensed ventricular paced rhythm ) Findings: no ectopy Comparison ECG Date: 12/23/17 Change: no significant change Change: EKG interpreted by me. ED Course 0857: Past medical records reviewed. The patient was evaluated in room C4. A complete history and physical examination was performed. 0903: Ordered Lasix Inj 20 mg IV. 0940: Ordered Heparin drip, Aspirin 324 mg PO. 1015: Ordered Heparin Sodium (Porcine) 3000 unit IV. 1138: I reviewed the patient's case with MIKE Brownlee. She will evaluate the patient for further management. 1133: Ordered Rocephin Inj 1 gm IV, Lasix 20 mg IV. 1153: I updated the patient's family on the patients test results. They are agreeable to the treatment plan. Medical Decision Differential diagnosis: Etiologies such as infections, reactive airway disease, pneumonia, pneumothorax , COPD, CHF, cardiac ischemia, pulmonary embolism, musculoskeletal, gastrointestinal, as well as others were entertained. This patient was evaluated and appeared to be in no significant distress. IV access was obtained and laboratory work was drawn. Patient is oxygenating on room air. She is minimally responsive verbally but is awake. Chest x-ray is significant for congestive heart failure. EKG reveals a paced rhythm. Laboratory work reveals an elevated troponin markedly elevated BNP. Patient was given aspirin and started on a heparin drip. UA is concerning for infection. The patient was started on ceftriaxone 1 g IV. This will be sent for culture. Patient's case was discussed with the hospitalist service. Patient's family was updated regarding the plan of care. Medication Reconcilliation Current Medication List: was personally reviewed by me Blood Pressure Screening Patient's blood pressure: Elevated blood pressure Blood pressure disposition: Referred to PCP (evaluated further by hospitalist) Consults Time Called: 1100 Consulting Physician: Samantha Vidales Returned Call: 1138 I reviewed the patient's case with Samantha Vidales. She will evaluate the patient for further management. Impression Primary Impression: CHF (congestive heart failure) Additional Impressions: Elevated troponin UTI (urinary tract infection) Scribe Attestation The scribe's documentation has been prepared under my direction and personally reviewed by me in its entirety. I confirm that the note above accurately reflects all work, treatment, procedures, and medical decision making performed by me. Departure Information Dispostion Being Evaluated By Hospitalist Referrals Derek Solis M.D. (PCP) Patient Instructions Asthma - [facility], COPD - [facility], Croup - [facility], My [facility] Problem Qualifiers
--- NOTE | 2017-12-27 09:39 | DIAGNOSTIC IMAGING REPORT ---
CHEST ONE VIEW PORTABLE CLINICAL HISTORY: SOB, CHF dyspnea COMPARISON STUDY: 12/22/2007 FINDINGS: Mild increase in cardiac size compared to the prior study. Moderate increase in pulmonary vasculature. Pre-existing right humeral neck fracture. Severe degenerative change of both shoulders. Permanent bipolar cardiac pacer in good position. IMPRESSION: Congestive failure. The above report was generated using voice recognition software. It may contain grammatical, syntax or spelling errors. Electronically signed by: Derek Greenwood M.D. 12/27/2017 9:38 AM Dictated Date/Time: 12/27/2017 9:37 AM
[2017-12-27] MEDS ORDERED: ASPIRIN 81 MG CHEW PO STA (09:40)
[2017-12-27 09:49] LABS: ALBUMIN 3.1 gm/dl (3.4-5.0); ALT/SGPT 56 U/L (12-78); BLOOD UREA NITROGEN 50 mg/dl (7-18); CALCIUM 8.7 mg/dl (8.5-10.1); CARBON DIOXIDE 22 mmol/L (21-32); GLUCOSE 199 mg/dl (70-99); POTASSIUM 5.3 mmol/L (3.5-5.1); SODIUM 139 mmol/L (136-145)
[2017-12-27 09:54] LABS: ALKALINE PHOSPHATASE 102 U/L (45-117); AST/SGOT 92 U/L (15-37); CKMB 4.3 ng/ml (0.5-3.6); TOTAL PROTEIN 6.9 gm/dl (6.4-8.2)
[2017-12-27] MEDS ORDERED: HEPARIN 25,000 UNIT/500ML D5W 500 ML IV PRN ×2 (10:15→14:30)
[2017-12-27] MEDS ORDERED: HEPARIN SOD 5000 UNIT/0.5 ML CARP IV ONE (10:15)
[2017-12-27 11:32] LABS: INR 1.2 (0.9-1.1); PTT PATIENT 27.2 SECONDS (21.0-31.0)
[2017-12-27] MEDS ORDERED: CEFTRIAXONE SOD INJ 1 GM ADDVIAL IV STA (11:33)
[2017-12-27] MEDS ORDERED: HEPARIN IV LOW DOSE NO BOLUS STA (13:41)
[2017-12-27] MEDS ORDERED: LSN/10125 PO (14:01)
[2017-12-27] MEDS ORDERED: NRN100 PO (14:01)
--- NOTE | 2017-12-27 14:50 | History and Physical ---
History & Physical Date & Time of Service: Dec 27, 2017 at 13:00 Chief Complaint: Paulo, New Onset Of Congestive Heart Failure Primary Care Physician: Derek Solis M.D. History of Present Illness Source: patient, family (son and caregiver at bedside), clinic records, hospital records This is a 87yo F with a PMH of complete heart block (s/p pacemaker placement on 12/21/16), HTN, DM II (diet controlled), CKD III and h/o breast cancer (s/p L mastectomy) who presents with worsening SOB x 2 days. Patient was admitted last week for complete heart block s/p pacemaker placement. Was also found to have an PAULO. Was discharged home on Wednesday. Per son and caregiver, patient had some SOB over the weekend but it got progressively worse yesterday and today. Has had decreased urine output (is incontinent) over the past 2 days as well as one episode of vomiting and a few episodes of diarrhea. Patient has been requiring help with transfers to wheelchair and toilet, while at baseline she can ambulate without assistive devices. Denies fever, chills, lightheadedness, headache, visual changes, chest pain, palpitations, abdominal pain, nausea, dysuria, melena, hematochezia or worsening LE swelling. Has been eating a low sodium diet at home. Patient denies any history of CHF or COPD. No echo on record. In the ED, patient was found to have an elevated POC troponin of 1.9, BNP >35, 000, CXR suggestive of CHF. No leukocytosis. UA with presence of infection with urine culture pending. Has history of non-obstructing kidney stone. Creatinine elevated to 2.10 (was 1.8 when discharged from [facility] on 12/24). Baseline cr ~ 1.1. Past Medical/Surgical History Medical Problems: (1) CKD (chronic kidney disease), stage III Status: Chronic (2) DM2 (diabetes mellitus, type 2) Status: Chronic (3) H/O malignant neoplasm of breast Permanent Comment: S/p left mastectomy Status: Chronic (4) History of complete heart block Status: Chronic (5) HTN (hypertension) Status: Chronic Surgical Problems: (1) H/O mastectomy Permanent Comment: left Status: Chronic (2) H/O: hysterectomy Status: Chronic (3) S/P cholecystectomy Status: Chronic (4) S/P ERCP Status: Chronic (5) S/P placement of cardiac pacemaker Permanent Comment: Placed 12/21/16 Status: Chronic Family History FH: heart disease Hypertension Social History Smoking Status: Former Smoker Housing status: lives with family Occupational Status: retired Immunizations History of Influenza Vaccine: Yes Influenza Vaccine Date: Aug 21, 2017 History of Tetanus Vaccine?: Yes Tetanus Immunization Date: Jun 18, 2017 History of Pneumococcal: Yes Pneumococcal Date: Jun 18, 2017 Allergies Coded Allergies: Macey Nut (Verified Allergy, Unknown, UNKNOWN, 12/27/17) Home Medications Scheduled Aspirin (Aspirin Ec), 81 MG PO DAILY Calcium/Vitamin D (Os-Ge 500 Plus D), 1 TAB PO DAILY Cranberry (Vaccinium Macrocarp (Cranberry Super Strength), 1,000 MG PO DAILY Lisinopril (Lisinopril), 1 TAB PO DAILY Metoprolol Tartrate (Lopressor) (Lopressor), 25 MG PO BID Misc Natural Products (Black Delatorre Concentrate), Unknown Dose PO DAILY Multiple Vitamins W/ Minerals (Centrum Silver Ultra Wome), 1 TAB PO DAILY Vqchk-2-Yahw Ethyl Esters ([place]-3), 1 CAP PO DAILY Scheduled PRN Gabapentin (Gabapentin), 1 TAB PO TID PRN for Pain Review of Systems Ten systems reviewed and negative except as noted in the HPI. Physical Exam Vital Signs Date Time Temp Pulse Resp B/P (MAP) Pulse Ox O2 Delivery O2 Flow Rate FiO2 12/27/17 13:03 105 16 134/93 95 Room Air 12/27/17 12:32 106 12/27/17 11:19 105 16 134/93 94 Room Air 12/27/17 09:49 104 28 162/103 94 12/27/17 08:25 108 12/27/17 08:25 37.1 108 28 159/101 95 Room Air General Appearance: WD/WN, no apparent distress, + pertinent finding (Fatigued , resting comfortably and able to respond appropriately to questions. ) Head: normocephalic, atraumatic Eyes: normal inspection, PERRL, sclerae normal ENT: normal ENT inspection, hearing grossly normal, pharynx normal (dry mucous membranes ) Neck: supple, no adenopathy, thyroid normal, trachea midline Respiratory/Chest: chest non-tender, lungs clear Cardiovascular: regular rate, rhythm, no murmur, normal peripheral pulses Abdomen/GI: non tender, soft, no organomegaly Back: normal inspection Extremities/Musculoskelatal: normal inspection, no calf tenderness, non-tender , + pertinent finding (Trace pitting edema BLLE. Ecchymosis on R hand from previous IV. ) Neurologic/Psych: no motor/sensory deficits, alert, normal mood/affect, oriented x 3 Skin: normal color, warm/dry Diagnostics Laboratory Results Results Past 24 Hours Test 12/27/17 09:16 12/27/17 09:21 12/27/17 10:12 12/27/17 11:10 Range/Units White Blood Count 10.31 4.8-10.8 K/uL Red Blood Count 3.51 4.2-5.4 M/uL Hemoglobin 10.8 12.0-16.0 g/dL Hematocrit 33.1 37-47 % Mean Corpuscular Volume 94.3 80-100 fL Mean Corpuscular Hemoglobin 30.8 25-34 pg Mean Corpuscular Hemoglobin Concent 32.6 32-36 g/dl Platelet Count 155 130-400 K/uL Mean Platelet Volume 12.6 7.4-10.4 fL Neutrophils (%) (Auto) 85.1 % Lymphocytes (%) (Auto) 7.9 % Monocytes (%) (Auto) 6.7 % Eosinophils (%) (Auto) 0.0 % Basophils (%) (Auto) 0.0 % Neutrophils # (Auto) 8.78 1.4-6.5 K/uL Lymphocytes # (Auto) 0.81 1.2-3.4 K/uL Monocytes # (Auto) 0.69 0.11-0.59 K/uL Eosinophils # (Auto) 0.00 0-0.5 K/uL Basophils # (Auto) 0.00 0-0.2 K/uL RDW Standard Deviation 49.2 36.4-46.3 fL RDW Coefficient of Variation 14.4 11.5-14.5 % Immature Granulocyte % (Auto) 0.3 % Immature Granulocyte # (Auto) 0.03 0.00-0.02 K/uL Sodium Level 139 136-145 mmol/L Potassium Level 5.3 3.5-5.1 mmol/L Chloride Level 104 98-107 mmol/L Carbon Dioxide Level 22 21-32 mmol/L Anion Gap 13.0 3-11 mmol/L Blood Urea Nitrogen 50 7-18 mg/dl Creatinine 2.10 0.60-1.20 mg/dl Est Creatinine Clear Calc Drug Dose 15.7 ml/min Estimated GFR () 23.9 Estimated GFR (Non- 20.6 BUN/Creatinine Ratio 24.0 10-20 Random Glucose 199 70-99 mg/dl Calcium Level 8.7 8.5-10.1 mg/dl Magnesium Level 2.6 1.8-2.4 mg/dl Total Bilirubin 0.6 0.2-1 mg/dl Direct Bilirubin 0.2 0-0.2 mg/dl Aspartate Amino Transf (AST/SGOT) 92 15-37 U/L Alanine Aminotransferase (ALT/SGPT) 56 12-78 U/L Alkaline Phosphatase 102 45-117 U/L Total Creatine Kinase 132 26-192 U/L Creatine Kinase MB 4.3 0.5-3.6 ng/ml Creatine Kinase MB Ratio 3.3 0-3.0 Pro-B-Type Natriuretic Peptide > 15056 0-1800 pg/ml Total Protein 6.9 6.4-8.2 gm/dl Albumin 3.1 3.4-5.0 gm/dl Bedside Troponin I 1.970 0-0.045 ng/ml Urine Color DK YELLOW Urine Appearance TURBID CLEAR Urine pH 5.0 4.5-7.5 Urine Specific [place] 1.022 1.000-1.030 Urine Protein TRACE NEG Urine Glucose (UA) NEG NEG Urine Ketones NEG NEG Urine Occult Blood 1+ NEG Urine Nitrite NEG NEG Urine Bilirubin NEG NEG Urine Urobilinogen NEG NEG Urine Leukocyte Esterase LARGE NEG Urine WBC (Auto) >30 0-5 /hpf Urine RBC (Auto) 5-10 0-4 /hpf Urine Hyaline Casts (Auto) 5-10 0-5 /lpf Urine Epithelial Cells (Auto) >30 0-5 /lpf Urine Bacteria (Auto) 2+ NEG Urine Pathogenic Casts 0 /lpf Urine Yeast (Auto) BUDDING NONE PRSENT Prothrombin Time 12.6 9.0-12.0 SECONDS Prothromb Time International Ratio 1.2 0.9-1.1 Activated Partial Thromboplast Time 27.2 21.0-31.0 SECONDS Partial Thromboplastin Ratio 1.0 Test 2/5/18 14:25 Range/Units Microbiology Results 12/27/17 Urine Culture, Received Pending Diagnostic Radiology CXR: FINDINGS: Mild increase in cardiac size compared to the prior study. Moderate increase in pulmonary vasculature. Pre-existing right humeral neck fracture. Severe degenerative change of both shoulders. Permanent bipolar cardiac pacer in good position. IMPRESSION: Congestive failure. EKG Atrial-sensed ventricular-paced rhythm Impression Assessment and Plan This is a 87yo F with a PMH of complete heart block (s/p pacemaker placement on 12/21/16), HTN, DM II (diet controlled), CKD III and h/o breast cancer (s/p L mastectomy) who presents with worsening SOB x 2 days. SOB 2/2 new onset CHF: -BNP elevated to >35,000, CXR with impression of acute CHF -No evidence of PNA on CXR. Flu PCR pending -Given Lasix 20mg IV x 2 in ED -Strict I&Os, daily weights -Na restricted diet -Echo pending (no previous echo on record) -Pacemaker interrogation (recently placed on 12/21/16) -Scheduled 20mg IV lasix BID -Cardio consult Elevated troponin: -POC trop of 1.9 -Repeat pending -No chest pain -EKG with atrial-paced rhythm -Low dose IV heparin with bolus initiated in ED -Continue IV heparin -Trend cardiac enzymes -Cardio consult UTI: -Positive UA -Patient incontinent, decreased output at home -Rocephin initiated. Plan to continue -Urine culture pending PAULO on CKD III: -Cr elevated on last admission to 1.8 -Cr of 2.10 today -Baseline ~1.1 -Likely cardiorenal syndrome -KUB pending to assess for obstruction (2/2 decreased output) -Continue holding lisinopril -Nephrology consulted -Repeat BMP in AM HTN: -Normotensive -Cont home dose metoprolol -Lisinopril held since last admission 2/2 PAULO. Continue to hold. DM II (diet controlled): -A1c of 6 in May 2017 -Repeat alc ordered -Diabetic diet DVT Ppx: IV heparin Code status: DNR per discussion with patient, family PCP: Katie Dispo: Admitted to telemetry. Discharge planning ordered. Patient seen in collaboration with Dr. Gonsalez. Please see addendum. ADDENDUM: Patient recently here for pacemaker placement; she's an 87 year old female with a PMH of CKD stage 3, HTN, diet controlled DM2 - presents with worsening shortness of breath. CXR on admission shows fluid overload. Troponin elevated on admission. She was given IV Lasix; IV heparin cardiology consulted IV heparin stopped due to pericardial effusion. Significantly low LVEF noted on resting echo to <20%. continue IV Lasix as prescribed for now trend cardiac enzymes continue b-reed, continue Isordil Level of Care Telemetry Resuscitation Status DO NOT RESUSCITATE VTE Prophylaxis VTE Risk Assessment Done? Y/N: Yes Risk Level: Moderate Given or contraindicated: Other Anticoagulation Social Service Consult Receiving Home Health
[2017-12-27] MEDS ORDERED: METOPROLOL TARTRATE 25 MG TAB PO ONE (15:30)
[2017-12-27 15:34] LABS: INFLUENZA A PCR Neg for Influ A (NEG); INFLUENZA B PCR Neg for Influ B (NEG)
[2017-12-27] MEDS ORDERED: LISI-461 PO (15:34)
[2017-12-27] MEDS ORDERED: GABAPENTIN 100 MG CAP PO PRN (15:45)
--- NOTE | 2017-12-27 15:53 | DIAGNOSTIC IMAGING REPORT ---
KUB CLINICAL HISTORY: 87 years-old Female presenting with r/o stone. TECHNIQUE: Single supine view of the abdomen was obtained. COMPARISON: CT from 11/08/2016. FINDINGS: Cholecystectomy clips noted. Nonobstructive bowel gas pattern. No gross pneumoperitoneum. Bowel gas and stool markedly degrades evaluation of renal shadows. Additionally, image quality is limited by patient body habitus and portable technique. Allowing for this calculus is evident along the course of the proximal right ureter as on prior CT. Degenerative changes of the spine. Osteopenia may be present. Small right pleural effusion. Mild prominence of pulmonary vasculature and bibasilar scarring or atelectasis may be present. 2-lead right subclavian pacer partially visualized. IMPRESSION: 1. Bowel gas, portable technique, and patient body habitus highly limited evaluation for renal calculi. Allowing for this, persisting calculus in the proximal right ureter as on prior CT. Electronically signed by: Tenzin Ramon M.D. 12/27/2017 3:52 PM Dictated Date/Time: 12/27/2017 3:50 PM
[2017-12-27] MEDS ORDERED: PERFLUTREN LIPID MICROSPHERE (DEFINITY) IV ONE (16:13)
[2017-12-27] MEDS ORDERED: METOPROLOL TARTRATE 1 MG/ML VIAL IV STA (16:30)
--- NOTE | 2017-12-27 17:22 | ECHOCARDIOGRAM REPORT ---
*NOTICE TO RECEIVING REPUBLICAN AGENCY This information is strictly Confidential and protected under [place] law. [place] law prohibits you from making any further disclosure of this information unless further disclosure is expressly permitted by the written consent of the person to whom it pertains or is authorized by law. A general authorization for the release of medical or other information is not sufficient for this purpose. Hospital accepts no responsibility if the information is made available to any other person, INCLUDING THE PATIENT. Interpretation Summary * Name: MEHRAN MILLAN Study Date: 12/27/2017 03:18 PM BP: 134/93 mmHg * Patient Location: C.2E\S\E209\S\1 HR: 106 * : 1930 (M/d/yyy) Gender: Female Height: 57 in * Age: 87 yrs Ethnicity: [place] Weight: 154 lb * Ordering Physician: Andrés Gonsalez * Referring Physician: Self, Referred * Performed By: Lita Alfaro RDCS * * Reason For Study: Congestive Heart Failure * BSA: 1.6 m2 * The study was technically adequate. * -- Conclusions -- * Sinus tachycardia with right ventricular paced QRS complexes were present during the echocardiogram, as confirmed with EKG and pacemaker interrogation performed at time of echocardiogram. * There is severe diffuse hypokinesis to akinesis of the mid and apical levels of the left ventricle with relative sparing of the basal segment which are geoff in a hyperdynamic fashion. * Left ventricular systolic function is severely reduced. * The qualitative LV ejection fraction is < 20%. * Mild aortic regurgitation. * There is mild mitral regurgitation. * There is mild tricuspid regurgitation. * There is a small circumferential pericardial effusion with most significant fluid collection noted on the short axis view, adjacent to the inferoseptal wall. * There are no echocardiographic indications of cardiac tamponade. * There is a small to moderate sized left pleural effusion. Procedure Details * A complete two-dimensional transthoracic echocardiogram was performed (2D, M-mode, Doppler and color flow Doppler). * A contrast injection of Definity was performed to improve assessment for apical thrombus. * Contrast was injected into an intravenous site in the right arm. * One vial of Definity ultrasound contrast was diluted in normal saline to a total volume of 10 ml. A total of '2' ml of solution was administered during imaging. * Lot # [id number] of Definity utilized for procedure. * Expiration date EB. * The attending nurse who injected the contrast agent was Kristina Moore RN. Left Ventricle * The left ventricle is normal in size. * There is no left ventricular apical mural thrombus. * There is mild concentric left ventricular hypertrophy. * Left ventricular systolic function is severely reduced. * The qualitative LV ejection fraction is < 20%. * There is severe diffuse hypokinesis to akinesis of the mid and apical levles of the left ventricle with relative sparing of the basal segment which are geoff in a hyperdynamic fashion. Right Ventricle * The right ventricle is normal in size and function. Atria * The left atrial size is normal. * Right atrial size is normal. * There is no evidence of atrial septal defect, but resolution does not allow assessment for a patent foramen ovale. Mitral Valve * There is moderate mitral annular calcification. * There is no mitral valve stenosis. * There is mild mitral regurgitation. Tricuspid Valve * The tricuspid valve is normal. * There is no tricuspid stenosis. * Doppler findings do not suggest pulmonary hypertension. * There is mild tricuspid regurgitation. Aortic Valve * The aortic valve is trileaflet. * Aortic valve sclerosis mild, without significant aortic valvular stenosis. * Aortic stenosis is absent. * Mild aortic regurgitation. Pulmonic Valve * The pulmonary valve is not well seen, but the Doppler examination is normal without significant regurgitation or stenosis. Great Vessels * The aortic root and proximal ascending aorta are normal sized. Pericardium/Pleural * There is a small circumferential pericardial effusion with most significant fluide collection noted on the short axis view, adjacent to the inferoseptal wall. * There are no echocardiographic indications of cardiac tamponade. * There is a small to moderate sized left pleural effusion. Right Ventricle * A pacemaker lead is noted in the right ventricle, terminating in the right ventricular apex. Great Vessels * Normal inferior vena cava diameter and respiratory variation suggests normal central venous pressure. Left Ventricular Diastolic Function * The LV diastolic function is abnormal. MMode 2D Measurements and Calculations IVSd 1.2 cm IVSs 1.7 cm LVIDd 4.4 cm LVIDs 2.4 cm LVPWd 1.2 cm LVPWs 1.7 cm IVS/LVPW 1.0 FS 45.5 % EDV(Teich) 87.1 ml ESV(Teich) 19.9 ml EF(Teich) 77.1 % EDV(cubed) 84.5 ml ESV(cubed) 13.6 ml EF(cubed) 83.8 % % IVS thick 45.1 % % LVPW thick 47.1 % LV mass(C)d 179.7 grams LV mass(C)dI 111.6 grams/m\S\2 LV mass(C)s 148.0 grams LV mass(C)sI 92.0 grams/m\S\2 SV(Teich) 67.2 ml SI(Teich) 41.7 ml/m\S\2 SV(cubed) 70.8 ml SI(cubed) 44.0 ml/m\S\2 Ao root diam 2.7 cm Ao root area 5.9 cm\S\2 ACS 0.63 cm LA dimension 3.3 cm asc Aorta Diam 1.5 cm LA/Ao 1.2 LVAd ap4 34.8 cm\S\2 LVLd ap4 7.9 cm EDV(MOD-sp4) 123.2 ml EDV(sp4-el) 129.5 ml LVAs ap4 31.0 cm\S\2 LVLs ap4 7.9 cm ESV(MOD-sp4) 100.4 ml ESV(sp4-el) 103.7 ml EF(MOD-sp4) 18.5 % EF(sp4-el) 19.9 % LVAd ap2 29.4 cm\S\2 LVLd ap2 8.4 cm EDV(MOD-sp2) 85.8 ml EDV(sp2-el) 87.2 ml LVAs ap2 26.7 cm\S\2 LVLs ap2 8.2 cm ESV(MOD-sp2) 71.0 ml ESV(sp2-el) 73.7 ml EF(MOD-sp2) 17.2 % EF(sp2-el) 15.5 % LVLd %diff 5.7 % EDV(MOD-bp) 102.5 ml LVLs %diff 4.1 % ESV(MOD-bp) 85.6 ml EF(MOD-bp) 16.5 % SV(MOD-sp4) 22.8 ml SI(MOD-sp4) 14.2 ml/m\S\2 SV(MOD-sp2) 14.8 ml SI(MOD-sp2) 9.2 ml/m\S\2 SV(MOD-bp) 16.9 ml SI(MOD-bp) 10.5 ml/m\S\2 SV(sp4-el) 25.8 ml SI(sp4-el) 16.0 ml/m\S\2 SV(sp2-el) 13.5 ml SI(sp2-el) 8.4 ml/m\S\2 Doppler Measurements and Calculations MV E max frida 110.4 cm/sec MV dec time 0.11 sec Ao V2 max 123.6 cm/sec Ao max PG 6.1 mmHg Ao max PG (full) 2.2 mmHg AI max frida 397.8 cm/sec AI max PG 63.3 mmHg AI dec slope 262.2 cm/sec\S\2 AI P1/2t 444.4 msec LV V1 max PG 3.9 mmHg LV V1 max 98.9 cm/sec PA V2 max 72.3 cm/sec PA max PG 2.1 mmHg PA acc slope 477.9 cm/sec\S\2 PA acc time 0.13 sec TR max frida 278.7 cm/sec PA pr(Accel) 18.6 mmHg
--- NOTE | 2017-12-27 17:38 | Cardiology Consultation ---
Cardiology Consultation Date of Consultation: Dec 27, 2017 History of Present Illness Edelmira George is an 87 year old female seen in cardiology consultation per the request of Clemencia Reilly PA-C and Dr Gonsalez for the evaluation of congestive heart failure. Up until last week, the patient had no significant past cardiac history of significance. 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 She presented to the emergency room on 12/21/17 with complaints of fatigue and was found to have third degree AV block with escape rhythm in the 30 beat per minute range. She was assessed by Dr. Vang of our practice and then [place] Whit[place] [facility] [place] underwent dual-chamber Medtronic permanent pacemaker on 12/21/17 the same day that she had initially presented. Postprocedure chest x-ray revealed appropriate lead position and no evidence of pneumothorax. Looking back in retrospect, there is perhaps some suggestion of mild early interstitial edema noted on the postprocedure chest x- ray. Of note the postprocedure EKG performed on 12/23/17 revealed sinus tachycardia 105 bpm with atrial sensed rhythm, and ventricular pacing. In review of her vital signs field that immediately post procedure sinus rhythm with ventricular pacing at the 60 beat per minute range appeared to be present, however over time sinus tachycardia was noted on her vital signs during that hospital stay. The patient was discharged on her prior to hospital long-standing dose of metoprolol tartrate 25 mg twice a day. The patient presented via the emergency room today. Her son accompanies her during my interview with her in room 209. She apparently had progressive fatigue and shortness of breath over the last several days since her discharge on 12/24/17. Her tiredness worsened to the point that she was unable to transition from her chair. And her son with whom she lives therefore brought her to the emergency room with the assistance of the EMS. EKG performed on arrival today 12/27/17 at 8:32 AM revealed sinus tachycardia with atrial sensed rhythm ventricular paced QRS complexes at 106 bpm. A chest x -ray revealed interval development of congestive heart failure since her recent film performed 12/22/2017. Lead position for the pacemaker was appropriate. A KUB film was performed suggestion of a possible chronic right kidney stone. Laboratory studies from today include findings of acute kidney injury with creatinine of 2.1 mg/dL as compared to 2.78 on of discharge recently. Her pro-BNP level was noted to be elevated at greater than 35,000 and her troponin emergency room was elevated at 1.97 and 1.58ng/ml on repeat. During my interview with the patient she was in no acute distress having received 2 doses of furosemide 20 mg. Sinus tachycardia was noted on telemetry and this was confirmed with pacemaker check which was performed by Medtronic at the bedside per my request confirming that her underlying rhythm was a sinus mechanism with ventricular paced QRS complexes. There had been a very slight change in terms of a decrease in her lead impedance over the last several days compared to initial implant, but no changes significant enough to suggest significant lead position change or perforation. An echocardiogram was performed at the bedside and reviewed independently with significant abnormalities as described below. Past Medical/Surgical History Problem List: Medical Problems: (1) CKD (chronic kidney disease), stage III (2) DM2 (diabetes mellitus, type 2) (3) H/O malignant neoplasm of breast (4) History of complete heart block (5) HTN (hypertension) (6) UTI (urinary tract infection) Surgical Problems: (1) H/O mastectomy (2) H/O: hysterectomy (3) S/P cholecystectomy (4) S/P ERCP (5) S/P placement of cardiac pacemaker History Social History: Lives at home with her son. Nonsmoker Review Of Systems Attending review of systems was reviewed and is negative with the exception of those outlined above Allergies Coded Allergies: Macey Nut (Verified Allergy, Unknown, UNKNOWN, 12/27/17) Medications Reported Home Medications Medications Dose Route/Sig Max Daily Dose Days Date Category Dose Instructions Lisinopril 10 Mg Tab 1 Tab PO DAILY 12/27/17 Reported Held for the past week in setting of PAULO. Gabapentin 100 Mg Cap 1 Tab PO TID PRN 12/27/17 Reported [place]-3 (Iwoch-6-Icfg Ethyl Esters) 1 Cap Cap 1 Cap PO DAILY 12/21/17 Reported Os-Ge 500 Plus D (Calcium/Vitamin D) Tab 1 Tab PO DAILY 12/21/17 Reported Cranberry Super Strength (Cranberry (Vaccinium Macrocarp) 500 Mg Cap 1,000 Mg PO DAILY 12/21/17 Reported Black Delatorre Concentrate (Ahonya Natural Products) Unknown Strength Liq Unknown Dose PO DAILY 12/21/17 Reported Lopressor (Metoprolol Tartrate) 25 Mg Tab 25 Mg PO BID 05/11/16 Reported Centrum Silver Ultra Wome (Multiple Vitamins W/ Minerals) 1 Tab Tab 1 Tab PO DAILY 05/11/16 Reported Aspirin Ec (Aspirin) 81 Mg Tab 81 Mg PO DAILY 05/11/16 Reported Physical Exam Vital Signs (Last 8hrs): Last 8 Hrs Date Time Temp Pulse Resp B/P (MAP) Pulse Ox O2 Delivery O2 Flow Rate FiO2 12/27/17 16:41 105 143/94 12/27/17 15:39 37.1 109 24 198/144 93 Room Air 12/27/17 15:06 106 27 163/102 (122) 94 Room Air 12/27/17 13:03 105 16 134/93 95 Room Air 12/27/17 12:32 106 12/27/17 11:19 105 16 134/93 94 Room Air 12/27/17 09:49 104 28 162/103 94 General Appearance: Alert and Oriented x3. Acutely ill Head: Normocephalic Atraumatic. Eyes: PERRLA, EOMI, conjunctiva and sclera clear Neck: Supple. No carotid bruits noted. No JVD. No HJD. Respiratory: Decreased breath sounds to bases bilaterally Cardiovascular: Tachycardic, no murmurs Chest: Well-healing right sided pacemaker pocket incision Abdomen: Normal bowel sounds, soft nontender. no abdominal bruits. Extremities: No edema, no clubbing or cyanosis. distal pulses 2/4 bilaterally. Neuro: No focal deficits. Psychiatric: Normal affect. Data Last Resulted 12/27/17 09:16 Red Blood Count 3.51, Mean Corpuscular Volume 94.3, Mean Corpuscular Hemoglobin 30.8, Mean Corpuscular Hemoglobin Concent 32.6, Mean Platelet Volume 12.6, Neutrophils (%) (Auto) 85.1, Lymphocytes (%) (Auto) 7.9, Monocytes (%) (Auto) 6.7, Eosinophils (%) (Auto) 0.0, Basophils (%) (Auto) 0.0, Neutrophils # (Auto) 8.78, Lymphocytes # (Auto) 0.81, Monocytes # (Auto) 0.69, Eosinophils # (Auto) 0.00, Basophils # (Auto) 0.00 Last Resulted 12/27/17 09:16 Past 24 Hours Test 12/27/17 09:16 12/27/17 11:10 12/27/17 15:44 Range/Units Creatine Kinase MB 4.3 H 0.5-3.6 ng/ml Creatine Kinase MB Ratio 3.3 H 0-3.0 Total Creatine Kinase 132 26-192 U/L Prothromb Time International Ratio 1.2 H 0.9-1.1 Prothrombin Time 12.6 H 9.0-12.0 SECONDS Troponin I 1.580 *H 0-0.045 ng/ml Telemetry: Sinus rhythm and sinus tachycardia 110 bpm, recently improved to 90 bpm Summary of transthoracic echocardiogram performed today and reviewed independently by the undersigned Sinus tachycardia with right ventricular paced QRS complexes were present duringt the echocardiogram, as confirmed with EKG and pacemaker interogation performed at time of echocardiogram. There is severe diffuse hypokinesis to akinesis of the mid and apical levles of the left ventricle with relative sparing of the basal segment which are geoff in a hyperdynamic fashion. Left ventricular systolic function is severely reduced. The qualitative LV ejection fraction is < 20%. Mild aortic regurgitation. There is mild mitral regurgitation. There is mild tricuspid regurgitation. There is a small circumferential pericardial effusion with most significant fluide collection noted on the short axis view, adjacent to the inferoseptal wall. There are no echocardiographic indications of cardiac tamponade. There is a small to moderate sized left pleural effusion. -There is no prior echocardiogram available for review at this institution or in her outpatient chart. Assessment & Plan Impression: 87-year-old female presents with fatigue and shortness of breath without chest discomfort 1. Acute decompensation systolic heart failure 2. Acute kidney injury on stage III chronic kidney disease 3. Sinus tachycardia 4. Recent dual-chamber Medtronic pacemaker for symptomatic high-grade AV block with severe bradycardia 5. Small to moderate sized circumferential pericardial effusion noted on echocardiogram without event on physiology Discussion/recommendations: First of all, it was confirmed that the patient's tachycardia is a sinus mechanism. Sinus tachycardia appeared to be present on her presenting EKG today , and this was confirmed on pacemaker check. Although the patient has a mild elevation in her troponin I, her presentation and symptoms are suggestive of congestive heart failure with demand induced myocardial necrosis rather than acute myocardial infarction from acute plaque rupture as patient has no sheldon anginal symptoms. Her echocardiogram however does reveal severe left ventricular systolic dysfunction in this is a new diagnosis for her. Looking back his store clear, and EKG performed in 2016 revealed right bundle branch block and left anterior fascicular block, without EKG evidence for a large anterior infarction. There is one EKG was performed in the emergency room when she presented with symptomatic high-grade AV block a week ago and that EKG does not suggest significant anterior infarction. Post procedure, her EKG tracings are of course nondiagnostic for infarction as they are ventricular paced. The patient's echocardiogram could be consistent with a chronic present diagnosed ischemic versus nonischemic cardiomyopathy, however the nature of the wall motion abnormalities with severe hypokinesis to akinesis at the mid and apical levels of the left ventricle with sparing of the basal levels suggesting stress-induced cardiomyopathy. A small circumflex marginal pericardial effusion is noted. Although on pacemaker check chest x-ray, there is no evidence of perforation, I think that at this time given her recent instrumentation it is most reasonable to discontinue her heparin infusion as I do not think she needs it in terms of treatment of myocardial infarction given her lack of angina. Sometimes a postinflammatory pericardial effusion can take place after pacemaker placement even in the absence of lead perforation or microperforation, would like to avoid hemorrhagic conversion. Given her renal insufficiency, she is not a candidate for treatment with nonsteroidal anti-inflammatory medications colchicine at the present time for an inflammatory pericarditis and therefore no specific treatment for this will be started at present. Will continue metoprolol. I have added Isordil for afterload reduction. Will continue her Mendez catheter and cautious diuretic therapy. If this is intact a stress-induced cardio myopathy, the prognosis is favorable and typically the LV systolic dysfunction results within a few days or weeks with supportive care. Case discuss with Dr Gonsalez.
[2017-12-27] MEDS: ISOSORBIDE DINITRATE 5 MG TAB PO SCH (18:31)
[2017-12-27] MEDS: FUROSEMIDE INJ 20 MG in SYRINGE 0 ML IV SCH (18:41)
[2017-12-27] MEDS ORDERED: LEVALBUTEROL/IPRATROPIUM NEB INH STA (20:05)
[2017-12-27] MEDS ORDERED: OLANZAPINE 10 MG/2.1 ML SDV IM STA (20:11)
[2017-12-27] MEDS ORDERED: LEVALBUTEROL 1.25MG/0.5ML NEB INH ONE (20:15)
[2017-12-27] MEDS ORDERED: FUROSEMIDE INJ 40 MG in SYRINGE 0 ML IV ONE (20:15)
[2017-12-27] MEDS ORDERED: LEVALBUTEROL/IPRATROPIUM NEB INH PRN ×2 (20:15)
[2017-12-27] MEDS ORDERED: IPRATROPIUM BROMIDE NEB SOLN 0.02% 2.5 ML VIAL INH ONE (20:15)
[2017-12-27] MEDS: METOPROLOL TARTRATE 25 MG TAB PO SCH (20:55)
[2017-12-27 21:13] LABS: CALCIUM 8.5 mg/dl (8.5-10.1); CREATININE 2.44 mg/dl (0.60-1.20); POTASSIUM 5.7 mmol/L (3.5-5.1)
[2017-12-27] MEDS ORDERED: DEXTROSE 50% 50 ML SYR IV ONE (21:15)
[2017-12-27] MEDS ORDERED: SODIUM BICARB 8.4% INJ 50 MEQ/50 ML SYR IV STA (21:19)
[2017-12-27] MEDS ORDERED: CALCIUM GLUCONATE 10% 1,000 MG in SODIUM CHLORIDE 0.9% 50ML 50 ML IV STA (21:19)
[2017-12-27] MEDS ORDERED: INSULIN HUMAN REGULAR PER UNIT 5 UNITS in SYRINGE 0 ML SC STA (21:20)
[2017-12-28] VITALS (9 sets, daily range): BP systolic 121–141; BP diastolic 83–104; PULSE 65–108; TEMP 36.4–37; O2SAT 94–100
[2017-12-28] MEDS: ISOSORBIDE DINITRATE 5 MG TAB PO SCH ×3 (06:43→17:02)
[2017-12-28 07:11] LABS: HEMATOCRIT 33.9 % (37-47); HEMOGLOBIN 11.1 g/dL (12.0-16.0); MEAN CELL VOLUME 93.1 fL (80-100); MEAN CORPUSCULAR HEMOGLOBIN 30.5 pg (25-34); MEAN CORPUSCULAR HGB CONC 32.7 g/dl (32-36); MEAN PLATELET VOLUME 12.5 fL (7.4-10.4); PLATELET COUNT 169 K/uL (130-400); RED CELL DISTRIBUTION WIDTH CV 14.4 % (11.5-14.5); RED CELL DISTRIBUTION WIDTH SD 49.2 fL (36.4-46.3); WHITE BLOOD COUNT 12.43 K/uL (4.8-10.8)
[2017-12-28] MEDS: CALCIUM 600MG + VIT D 400 IU TAB PO SCH (07:41)
[2017-12-28] MEDS: METOPROLOL TARTRATE 25 MG TAB PO SCH ×4 (07:42→21:08)
[2017-12-28] MEDS: FUROSEMIDE INJ 20 MG in SYRINGE 0 ML IV SCH (07:42)
[2017-12-28] MEDS: ASPIRIN 81 MG ECTAB PO SCH (07:42)
[2017-12-28 07:49] LABS: CREATININE 2.51 mg/dl (0.60-1.20); POTASSIUM 5.1 mmol/L (3.5-5.1)
--- NOTE | 2017-12-28 09:14 | Cardiology Follow-Up ---
Subjective General Date of Service: Dec 28, 2017. Chief Complaint: follow up shortness of breath Pt evaluation today including: conversation w/ patient, physical exam History of Present Illness The patient is a 87 year old female seen in follow up. Patient is resting in bedside recliner. Mentating well. Denies pain including denies chest pain. No SOB at rest. Telemetry reveals continued sinus tachycardia in 105 -110 bpm with Atrial sensed , ventricular paced rhythm. Allergies Coded Allergies: Macey Nut (Verified Allergy, Unknown, UNKNOWN, 12/27/17) Social History Smoking Status: Former Smoker Hx Tobacco Use In Past Year?: No Hx Alcohol Use - Type And Amou: No Hx Substance Use - Type And Am: No Problem List Medical Problems: (1) CHF (congestive heart failure) Status: Acute (2) Elevated troponin Status: Acute (3) Fall Status: Acute (4) Kidney stone Status: Acute (5) Sepsis Status: Acute (6) Third degree heart block Status: Acute (7) UTI (urinary tract infection) Status: Acute (8) UTI (urinary tract infection) Status: Acute (9) Weakness Status: Acute (10) Weakness Status: Acute Physical Exam Vital Signs Last Vital Signs Documentation Date Time Temp Pulse Resp B/P (MAP) Pulse Ox O2 Delivery O2 Flow Rate FiO2 12/28/17 07:47 37.0 108 23 125/91 (102) 94 Room Air 12/28/17 00:00 2.0 Physical Exam Constitutional: Level of Distress: chronically ill Neck: supple Lungs: Auscultation: pertinent finding (Decrease BS at the bases ) Cardiovascular: Heart Auscultation: RRR, no murmurs Extremities: pertinent finding (mild LE edema ) Assessment and Plan Assessment and Plan Impression: 87-year-old female presents with fatigue and shortness of breath without chest discomfort 1. 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 Acute kidney injury on stage III chronic kidney disease, creatinine worse, up to 2.5 mg /dl 12/28 3. Sinus tachycardia 4. Recent dual-chamber Medtronic pacemaker for symptomatic high-grade AV block with severe bradycardia 5. Small to moderate sized circumferential pericardial effusion noted on echocardiogram without event on physiology Plan: In 2015, pt admitted with hydronephrosis, right large partially obstructing UPJ stone. Conservative therapy performed at that time as she was felt to be a high risk surgical candidate. At present recommend repeat CT scan without contrast to reassess stone/ hydronephrosis , as this could be cause of fluid retention, sinus tachycardia , with worsening renal insufficiency after low dose diuretic therapy. Continue Aspirin, metoprolol, isordill (for afterload reduction). LV wall motion abnormality and severe LV dysfunction is out of proportion to relatively mild troponin elevation. Case discuss with Dr Jolly. Pt to remain on ekg monitor tech while off floor for CT. Laboratory Results Last 24 Hours Test 12/27/17 09:16 12/27/17 09:21 12/27/17 10:12 12/27/17 11:10 White Blood Count 10.31 K/uL Red Blood Count 3.51 M/uL Hemoglobin 10.8 g/dL Hematocrit 33.1 % Mean Corpuscular Volume 94.3 fL Mean Corpuscular Hemoglobin 30.8 pg Mean Corpuscular Hemoglobin Concent 32.6 g/dl Platelet Count 155 K/uL Mean Platelet Volume 12.6 fL Neutrophils (%) (Auto) 85.1 % Lymphocytes (%) (Auto) 7.9 % Monocytes (%) (Auto) 6.7 % Eosinophils (%) (Auto) 0.0 % Basophils (%) (Auto) 0.0 % Neutrophils # (Auto) 8.78 K/uL Lymphocytes # (Auto) 0.81 K/uL Monocytes # (Auto) 0.69 K/uL Eosinophils # (Auto) 0.00 K/uL Basophils # (Auto) 0.00 K/uL RDW Standard Deviation 49.2 fL RDW Coefficient of Variation 14.4 % Immature Granulocyte % (Auto) 0.3 % Immature Granulocyte # (Auto) 0.03 K/uL Sodium Level 139 mmol/L Potassium Level 5.3 mmol/L Chloride Level 104 mmol/L Carbon Dioxide Level 22 mmol/L Anion Gap 13.0 mmol/L Blood Urea Nitrogen 50 mg/dl Creatinine 2.10 mg/dl Est Creatinine Clear Calc Drug Dose 15.7 ml/min Estimated GFR () 23.9 Estimated GFR (Non- 20.6 BUN/Creatinine Ratio 24.0 Random Glucose 199 mg/dl Calcium Level 8.7 mg/dl Magnesium Level 2.6 mg/dl Total Bilirubin 0.6 mg/dl Direct Bilirubin 0.2 mg/dl Aspartate Amino Transf (AST/SGOT) 92 U/L Alanine Aminotransferase (ALT/SGPT) 56 U/L Alkaline Phosphatase 102 U/L Total Creatine Kinase 132 U/L Creatine Kinase MB 4.3 ng/ml Creatine Kinase MB Ratio 3.3 Pro-B-Type Natriuretic Peptide > 20088 pg/ml Total Protein 6.9 gm/dl Albumin 3.1 gm/dl Bedside Troponin I 1.970 ng/ml Urine Color DK YELLOW Urine Appearance TURBID Urine pH 5.0 Urine Specific [place] 1.022 Urine Protein TRACE Urine Glucose (UA) NEG Urine Ketones NEG Urine Occult Blood 1+ Urine Nitrite NEG Urine Bilirubin NEG Urine Urobilinogen NEG Urine Leukocyte Esterase LARGE Urine WBC (Auto) >30 /hpf Urine RBC (Auto) 5-10 /hpf Urine Hyaline Casts (Auto) 5-10 /lpf Urine Epithelial Cells (Auto) >30 /lpf Urine Bacteria (Auto) 2+ Urine Pathogenic Casts /lpf Urine Yeast (Auto) BUDDING Prothrombin Time 12.6 SECONDS Prothromb Time International Ratio 1.2 Activated Partial Thromboplast Time 27.2 SECONDS Partial Thromboplastin Ratio 1.0 Test 12/27/17 14:25 12/27/17 15:44 12/27/17 16:42 12/27/17 20:19 Influenza Type A (RT-PCR) Neg for Influ A Influenza Type B (RT-PCR) Neg for Influ B Troponin I 1.580 ng/ml Bedside Glucose 209 mg/dl 181 mg/dl Test 12/27/17 20:46 12/27/17 23:23 12/28/17 06:51 12/28/17 06:53 Arterial Blood pH 7.43 Arterial Blood Partial Pressure CO2 30 mmHg Arterial Blood Partial Pressure O2 84 mm/Hg Arterial Blood HCO3 19 mmol/L Arterial Blood Oxygen Saturation 96.1 % Arterial Blood Base Excess -4.0 mEq/L Arterial Blood Gas Delivery 2 L Chava Test POS Sodium Level 135 mmol/L 137 mmol/L Potassium Level 5.7 mmol/L 4.6 mmol/L 5.1 mmol/L Chloride Level 102 mmol/L 102 mmol/L Carbon Dioxide Level 18 mmol/L 21 mmol/L Anion Gap 15.0 mmol/L 14.0 mmol/L Blood Urea Nitrogen 55 mg/dl 65 mg/dl Creatinine 2.44 mg/dl 2.51 mg/dl Est Creatinine Clear Calc Drug Dose 13.8 ml/min 13.4 ml/min Estimated GFR () 20.0 19.3 Estimated GFR (Non- 17.2 16.6 BUN/Creatinine Ratio 22.6 25.9 Random Glucose 179 mg/dl 166 mg/dl Calcium Level 8.5 mg/dl 9.0 mg/dl Troponin I 1.490 ng/ml White Blood Count 12.43 K/uL Red Blood Count 3.64 M/uL Hemoglobin 11.1 g/dL Hematocrit 33.9 % Mean Corpuscular Volume 93.1 fL Mean Corpuscular Hemoglobin 30.5 pg Mean Corpuscular Hemoglobin Concent 32.7 g/dl RDW Standard Deviation 49.2 fL RDW Coefficient of Variation 14.4 % Platelet Count 169 K/uL Mean Platelet Volume 12.5 fL Nucleated RBC Absolute Count (auto) 0.10 K/uL Nucleated Red Blood Cells % 0.8 % Bedside Glucose 169 mg/dl
--- NOTE | 2017-12-28 10:09 | NEPHROLOGY CONSULTATION ---
DATE OF CONSULTATION: 12/28/2017 ATTENDING OF RECORD: Dr. Jolly. REASON FOR CONSULTATION: PAULO. HISTORY OF PRESENT ILLNESS: This is an 87-year-old female with a history of complete heart block, requiring pacemaker last week, who also has hypertension, type 2 diabetes as well as a history of breast cancer, requiring left mastectomy in the past. She presented with worsening shortness of breath. The patient has been having worsening shortness of breath and worsening fatigue since going home last week. Her ProBNP was greater than 35,000. The patient did receive several doses of Lasix. The patient underwent an echo, which showed severe diffuse hypokinesis, EF less than 20% and small to moderate size left pleural effusion. Cardiology felt that her symptoms are mostly CHF and recommended cautious diuresis. The patient's creatinine on admission was 2.1 and today, is up to 2.51. Her creatinine on the was 1.78. Her creatinine on Nov 20 was 1.26. So, creatinine continues to slowly worsen in the setting of congestive heart failure and a new pacemaker. Chest x-ray from yesterday showed congestive failure. The patient is comfortable out of bed to chair with no specific complaints. PAST MEDICAL HISTORY: CKD stage III, type 2 diabetes, history of breast cancer in the past, history of complete heart block requiring pacemaker, and hypertension. PAST SURGICAL HISTORY: Pacemaker, cholecystectomy, mastectomy, and hysterectomy. SOCIAL HISTORY: The patient lives at home. No smoking, no alcohol, and no drugs. FAMILY HISTORY: no renal disease in family REVIEW OF SYSTEMS: The patient is without complaints. No fatigue. No shortness of breath. No chest pain. No nausea or vomiting. No anorexia. No diarrhea or constipation. All other review of systems otherwise negative. CURRENT MEDICATIONS: Ceftriaxone 1 gram IV q. 24 hours, aspirin 81 mg a day, Caltrate 1 tab daily, Lopressor 25 mg p.o. b.i.d., Isordil 5 mg daily, and Neurontin as needed. PHYSICAL EXAMINATION: VITAL SIGNS: Temperature 37, pulse 108, respiratory rate is 23, blood pressure 125/91, and satting 94% on room air. GENERAL: Awake, alert, and oriented x3. EYES: No scleral icterus. ENT: Moist mucous membranes. NECK: Supple. PULMONARY: Decreased breath sounds at the bases. CARDIAC: Tachycardia. ABDOMEN: Bowel sounds positive. Soft and nontender. EXTREMITIES: No significant clubbing, cyanosis or edema. NEUROLOGICALLY: Nonfocal. DERMATOLOGIC: No rash or ulcers noted. LABORATORY DATA: Sodium level is 137, potassium 5.1, chloride is 102, bicarb is 21, BUN 65, creatinine is 2.51, glucose 166, and calcium is 9. Troponin was 1.58. Albumin is 3.1. White count is 12, H&H 11 and 33, and platelet count is 169. ABG on the 5th showed pH of 7.43, pCO2 of 30, pO2 of 84 and bicarbonate of 19. INR is 1.2. UA appears to be infectious in nature with large leukocyte esterase, greater than 30 WBCs, and 5-10 RBCs. Flu is negative. Urine culture is pending. ASSESSMENT AND PLAN: The patient with acute kidney injury on chronic kidney disease stage III in the setting of avascular tubular necrosis and congestive heart failure. The patient underwent a pacemaker and appropriate diuresis and creatinine continues to worsen. The patient is oxygenating well on room air and diuretics are currently on hold. No indication for emergent dialysis at this time. Would like to obtain a renal ultrasound. It appears that there is a stone in the past and decided conservative measures at that time, and would like to re-evaluate the stone and kidney disease with imaging. The patient is relatively asymptomatic given her comorbidities. We will discuss the case with cardiology further. Ideally, I would like to continue to aggressively diurese the patient; however, creatinine appears to be trending up and may benefit from having the creatinine stabilize and start to improve before we reinitiate diuresis. Difficult situation though with an overall poor prognosis. We would agree with holding diuretics for now. Further evaluate with a renal ultrasound. Continue treating for presumed urinary tract infection and greatly appreciate cardiology's help in the management of optimizing this patient's poor cardiac function. I appreciate the consultation. GRETCHEN
--- NOTE | 2017-12-28 10:33 | DIAGNOSTIC IMAGING REPORT ---
CT SCAN OF THE ABDOMEN AND PELVIS WITHOUT IV CONTRAST CLINICAL HISTORY: Renal failure. Nephrolithiasis. COMPARISON STUDY: Abdominal CT dated 11/08/2016. TECHNIQUE: CT scan of the abdomen and pelvis is performed from the lung bases to the proximal femora. Images are reviewed in the axial, sagittal, and coronal planes. IV contrast was not administered for this examination. A dose lowering technique was utilized adhering to the principles of ALARA. The examination is degraded by motion artifact, as well as by streak artifact from the arms which could not be located above the chest. CT DOSE: 1193.59 mGy.cm FINDINGS: Lung bases: The heart is enlarged and there is a small to moderate pericardial effusion. Pacemaker leads are noted. There are small to moderate left and moderate right pleural effusions with associated bibasilar consolidation. Parenchymal calcifications are noted in the decompressed lower lobes. Liver: The unenhanced liver is normal in size, contour, and attenuation. There is mild central intrahepatic biliary ductal dilatation as well as pneumobilia. Gallbladder: Surgically absent noting clips in the gallbladder fossa. Spleen: Normal in size and attenuation. Pancreas: The unenhanced pancreas is moderately atrophic. Foci of gas are present within the main pancreatic duct, and prominence of the pancreatic duct is unchanged from 2016. The pancreas is otherwise grossly unremarkable. Adrenal glands: Unremarkable. Kidneys: The unenhanced kidneys are atrophic. There is a 1.5 cm obstructing calculus in the right proximal ureter seen on image #[id number]. This is located just below the ureteropelvic junction at the level of L3-L4 and causes moderate right hydronephrosis. No additional right renal calculi are identified. A 4 mm nonobstructing calculus is seen in the lower pole of the left kidney. There is no left-sided hydronephrosis. There is no evidence of contour deforming renal mass lesion. Abdominal vasculature: The abdominal aorta is normal in course and caliber noting moderate atherosclerotic calcification. Bowel: There is moderate colonic diverticulosis. Mild inflammatory stranding and pericolonic fluid is seen around the distal descending/proximal sigmoid colon in the left lower quadrant on image #279. This suggests mild acute diverticulitis. There is no evidence of abscess. No bowel obstruction is seen. The appendix is well-visualized and normal. A small duodenal diverticulum is incidentally noted. Peritoneum: There is no intraperitoneal free air or abdominal ascites. There is a complex fat-containing umbilical hernia. Lymphadenopathy: None. Pelvic viscera: The bladder is decompressed around a Mendez catheter and not well evaluated. The uterus is surgically absent. No adnexal lesion is seen. Skeletal structures: The skeletal structures are osteopenic. There is a moderate compression deformity of T12. Moderate to advanced lumbosacral spondylosis is observed. No lytic or blastic lesions are seen. Soft tissues: There is body wall edema. IMPRESSION: 1. There is a 1.5 cm obstructing calculus in the right proximal ureter. This causes moderate right hydronephrosis. 2. No additional right renal calculi are identified. A small nonobstructing calculus is noted in the left kidney. 3. There is moderate colonic diverticulosis with evidence of mild acute diverticulitis involving the distal descending/proximal sigmoid colon. No intraperitoneal free air is seen and there is no evidence of abscess. 4. Moderate right and small to moderate left pleural effusions with associated bibasilar consolidation. This likely represents atelectasis. Correlate clinically for evidence of superimposed pneumonia. 5. Cardiomegaly noting a small to moderate pericardial effusion. 6. There is pneumobilia, as well as gas within the common bile duct and the pancreatic duct. This is likely related to previous cholecystectomy and sphincterotomy. Clinical correlation will be required. 7. Additional findings as above. Electronically signed by: Rubén Rios M.D. 12/28/2017 10:32 AM Dictated Date/Time: 12/28/2017 10:23 AM
[2017-12-28] MEDS ORDERED: HEPARIN SOD 5000 UNIT/0.5 ML CARP SQ ONE (11:00)
[2017-12-28] MEDS ORDERED: CEFTRIAXONE SOD INJ 1 GM in DEXTROSE 5% ADD-VANTAGE 50ML 50 ML IV SCH (11:30)
--- NOTE | 2017-12-28 12:14 | Clinical Documentation Query ---
CLINICAL DOCUMENTATION QUERY 87 yo female with PMH of complete heart block s/p pacemaker insertion with worsening CHF x 2 days, elevated troponins and decreased urine output. Cardiology consult documents "her presentation and symptoms are suggestive of congestive heart failure with demand induced myocardial necrosis" and pericardial effusion. In your clinical opinion is this patient being managed for: (X ) Type 2 SD due to demand ischemia ( ) Not Agree ( ) Other explanation of clinical findings (Please Explain) ( ) Unable to determine (Please Define) ( ) Need to Discuss The medical record reflects the following clinical findings, treatment, and risk factors. Clinical Indicators: As above Treatment: ICU, Cardiology consult, ECHO, O2, EKG, Lasix IV, Heparin IV, I&O Risk Factors: Age, female, acute CHF, PAULO, CKD, HTN, pericardial effusion Please clarify and document your clinical opinion in the progress notes and discharge summary. Terms such as "probable", "suspected", "likely", "questionable", "possible", or "still to be ruled out" are acceptable. IF IN AGREEMENT, YOU MUST DOCUMENT ABOVE DIAGNOSTIC STATEMENT IN DAILY PROGRESS NOTES AND DISCHARGE SUMMARY. This document is not part of the patient's record. Thank You, Arleen Dawson RN [phone]
--- NOTE | 2017-12-28 14:02 | Progress Note ---
Medicine Progress Note Date & Time of Visit: Dec 28, 2017 at 13:59. Subjective patient seen resting in bed, family visiting states she feels about the same as yesterday has some dyspnea and cough, non productive denies fever/chill no chest pain, palpitations, dizziness no abdominal pain denies other symptoms Objective Last 8 Hrs Date Time Temp Pulse Resp B/P (MAP) Pulse Ox O2 Delivery O2 Flow Rate FiO2 12/28/17 12:25 36.6 100 27 140/104 (116) 94 Room Air 12/28/17 08:00 Room Air 12/28/17 07:47 37.0 108 23 125/91 (102) 94 Room Air Physical Exam: General- oriented x 3, not in distress, speaks in sentences with no effort Head- atraumatic Eyes- PERRL, EOMI, anicteric ENT- oropharynx clear Neck- supple, no JVD, no adenopathy, no thyromegaly; carotids +2/2, Lungs- mild rales at the bases Heart- regular rhythm; no murmur, normal rate Abdomen- normal bowel sounds, non distended, soft, nontender, no masses Extremities- grade 1 bipedal edema, no calf tenderness; peripheral pulses intact Neuro- alert, oriented x 3; no gross focal deficits Skin- warm & dry Laboratory Results: Last 24 Hours Test 12/27/17 14:25 12/27/17 15:44 12/27/17 16:42 12/27/17 20:19 Influenza Type A (RT-PCR) Neg for Influ A Influenza Type B (RT-PCR) Neg for Influ B Troponin I 1.580 ng/ml Bedside Glucose 209 mg/dl 181 mg/dl Test 12/27/17 20:46 12/27/17 23:23 12/28/17 06:51 12/28/17 06:53 Arterial Blood pH 7.43 Arterial Blood Partial Pressure CO2 30 mmHg Arterial Blood Partial Pressure O2 84 mm/Hg Arterial Blood HCO3 19 mmol/L Arterial Blood Oxygen Saturation 96.1 % Arterial Blood Base Excess -4.0 mEq/L Arterial Blood Gas Delivery 2 L Chava Test POS Sodium Level 135 mmol/L 137 mmol/L Potassium Level 5.7 mmol/L 4.6 mmol/L 5.1 mmol/L Chloride Level 102 mmol/L 102 mmol/L Carbon Dioxide Level 18 mmol/L 21 mmol/L Anion Gap 15.0 mmol/L 14.0 mmol/L Blood Urea Nitrogen 55 mg/dl 65 mg/dl Creatinine 2.44 mg/dl 2.51 mg/dl Est Creatinine Clear Calc Drug Dose 13.8 ml/min 13.4 ml/min Estimated GFR () 20.0 19.3 Estimated GFR (Non- 17.2 16.6 BUN/Creatinine Ratio 22.6 25.9 Random Glucose 179 mg/dl 166 mg/dl Calcium Level 8.5 mg/dl 9.0 mg/dl Troponin I 1.490 ng/ml White Blood Count 12.43 K/uL Red Blood Count 3.64 M/uL Hemoglobin 11.1 g/dL Hematocrit 33.9 % Mean Corpuscular Volume 93.1 fL Mean Corpuscular Hemoglobin 30.5 pg Mean Corpuscular Hemoglobin Concent 32.7 g/dl RDW Standard Deviation 49.2 fL RDW Coefficient of Variation 14.4 % Platelet Count 169 K/uL Mean Platelet Volume 12.5 fL Nucleated RBC Absolute Count (auto) 0.10 K/uL Nucleated Red Blood Cells % 0.8 % Bedside Glucose 169 mg/dl Test 12/28/17 11:02 Bedside Glucose 267 mg/dl Assessment & Plan This is a 87yo F with a PMH of complete heart block (s/p pacemaker placement on 12/21/16), HTN, DM II (diet controlled), CKD III and h/o breast cancer (s/p L mastectomy) who presents with worsening SOB x 2 days. ACUTE CHF EXACERBATION, SYSTOLIC POSSIBLE STRESS INDUCED CARDIOMYOPATHY - echo: Sinus tachycardia with right ventricular paced QRS complexes were present duringt the echocardiogram, as confirmed with EKG and pacemaker interogation performed at time of echocardiogram. * There is severe diffuse hypokinesis to akinesis of the mid and apical levles of the left ventricle with relative sparing of the basal segment which are geoff in a hyperdynamic fashion. * Left ventricular systolic function is severely reduced. * The qualitative LV ejection fraction is < 20%. * Mild aortic regurgitation. * There is mild mitral regurgitation. * There is mild tricuspid regurgitation. * There is a small circumferential pericardial effusion with most significant fluide collection noted on the short axis view, adjacent to the inferoseptal wall. * There are no echocardiographic indications of cardiac tamponade. * There is a small to moderate sized left pleural effusion. - IV Lasix on hold due to increasing crea monitor ACUTE RENAL FAILURE ON CKD 3 -Cr elevated on last admission to 1.8 -Cr of 2.10 on admission increased to 2.5 today - possible cardiorenal syndrome - possible Obstructive Uropathy from Right Ureteral Stone with Hydronephrosis will consult Urology -Continue holding lisinopril -Nephrology consulted UTI: -Positive UA -Patient incontinent, decreased output at home -Urine culture pending - will change Ceftri to Augmentin PO POSSIBLE MILD ACUTE DIVERTICULITIS - seen on CT abdomen - will change Ceftri to Augmentin PO monitor HTN: -Normotensive -Cont home dose metoprolol -Lisinopril held since last admission 12/24 PAULO. Continue to hold. DM II (diet controlled): -A1c of 6 in May 2017 -Repeat alc ordered -Diabetic diet DVT Ppx: IV heparin Code status: DNR per discussion with patient, family PCP: Irma Dispo: pending Current Inpatient Medications: Current Inpatient Medications Medications (Trade) Dose Ordered Sig/Main Route Start Time Stop Time Status Last Admin Dose Admin Ceftriaxone Sodium 1 gm/ Dextrose 50 ml @ 100 mls/hr Q24H IV 12/28/17 11:30 01/01/18 11:29 12/28/17 11:35 100 MLS/HR Aspirin (Ecotrin Tab) 81 mg DAILY PO 12/28/17 09:00 01/27/18 08:59 12/28/17 07:42 81 MG Calcium/Vitamin D (Caltrate Plus Tab) 1 tab DAILY PO 12/28/17 09:00 01/27/18 08:59 12/28/17 07:41 1 TAB Gabapentin (Neurontin Cap) 100 mg TID PRN PO 12/27/17 15:45 01/26/18 15:44 Isosorbide Dinitrate (Isordil Tab) 5 mg DAILY@0700,1200,1700 PO 12/27/17 17:40 01/26/18 17:39 12/28/17 11:35 5 MG Ipratropium Lewis (Atrovent 0.02% 0.5MG/2.5ML Neb) 0.5 mg Q4R PRN INH 12/28/17 00:00 01/27/18 00:00 Levalbuterol (Xopenex 1.25MG/ 0.5ML Neb) 1.25 mg Q4R PRN INH 12/27/17 20:30 01/26/18 20:29 Metoprolol Tartrate (Lopressor Tab) 25 mg QID PO 12/28/17 13:00 01/27/18 12:59 12/28/17 13:51 25 MG Heparin Sodium (Porcine) (Heparin Sq 5000 Unit/0.5ml) 5,000 unit Q12 SQ 12/28/17 21:00 01/27/18 20:59
[2017-12-28] MEDS ORDERED: AUGMENTIN - PHARMACY CONSULT IN PROGRESS PRN (14:23)
--- NOTE | 2017-12-28 18:19 | Urology Consultation ---
History General Date of Service: Dec 28, 2017. Chief Complaint: right ureteral stone Primary Care Physician: Derek Solis M.D. Pt seen a urologist before?: Yes If yes, why?: right ureteral stone History of Present Illness I am asked by Dr Kramer to evaluate and treat patient for a ureteral stone. She is admitted for heart failure. She had recently presented to ER late November and had a pacemaker placed for heart block. Her EF does not seem to have improved. Her renal function which is a baseline of 1.1 is rising. She is oliguric. She has no right flank pain. Her urine is not infected but she has a greenberg in so bacteriuria is expected to develop over the next day or so. She had a ct scan showing a similar picture to 2016, a large right upper ureteral stone, moderate hydroureteronephrosis above it, no significant stranding and atrophy of kidneys bilaterally. Imaging Imaging: CT Laboratory Results Past 24 Hours Test 12/27/17 20:19 12/27/17 20:46 12/27/17 23:23 12/28/17 06:51 Range/Units Bedside Glucose 181 70-90 mg/dl Arterial Blood pH 7.43 7.35-7.45 Arterial Blood Partial Pressure CO2 30 35-46 mmHg Arterial Blood Partial Pressure O2 84 80-95 mm/Hg Arterial Blood HCO3 19 19-24 mmol/L Arterial Blood Oxygen Saturation 96.1 90-95 % Arterial Blood Base Excess -4.0 -9-1.8 mEq/L Arterial Blood Gas Delivery 2 L Chava Test POS POS Sodium Level 135 137 136-145 mmol/L Potassium Level 5.7 4.6 5.1 3.5-5.1 mmol/L Chloride Level 102 102 98-107 mmol/L Carbon Dioxide Level 18 21 21-32 mmol/L Anion Gap 15.0 14.0 3-11 mmol/L Blood Urea Nitrogen 55 65 7-18 mg/dl Creatinine 2.44 2.51 0.60-1.20 mg/dl Est Creatinine Clear Calc Drug Dose 13.8 13.4 ml/min Estimated GFR () 20.0 19.3 Estimated GFR (Non- 17.2 16.6 BUN/Creatinine Ratio 22.6 25.9 10-20 Random Glucose 179 166 70-99 mg/dl Calcium Level 8.5 9.0 8.5-10.1 mg/dl Troponin I 1.490 0-0.045 ng/ml White Blood Count 12.43 4.8-10.8 K/uL Red Blood Count 3.64 4.2-5.4 M/uL Hemoglobin 11.1 12.0-16.0 g/dL Hematocrit 33.9 37-47 % Mean Corpuscular Volume 93.1 80-100 fL Mean Corpuscular Hemoglobin 30.5 25-34 pg Mean Corpuscular Hemoglobin Concent 32.7 32-36 g/dl RDW Standard Deviation 49.2 36.4-46.3 fL RDW Coefficient of Variation 14.4 11.5-14.5 % Platelet Count 169 130-400 K/uL Mean Platelet Volume 12.5 7.4-10.4 fL Nucleated RBC Absolute Count (auto) 0.10 0-0 K/uL Nucleated Red Blood Cells % 0.8 % Test 12/28/17 06:53 12/28/17 11:02 12/28/17 16:07 Range/Units Bedside Glucose 169 267 278 70-90 mg/dl Labs were reviewed and are within normal limits unless listed below. Labs are available in the chart and at [facility] Problem List Medical Problems: (1) CHF (congestive heart failure) Status: Acute (2) Elevated troponin Status: Acute (3) Fall Status: Acute (4) Kidney stone Status: Acute (5) Sepsis Status: Acute (6) Third degree heart block Status: Acute (7) UTI (urinary tract infection) Status: Acute (8) UTI (urinary tract infection) Status: Acute (9) Weakness Status: Acute (10) Weakness Status: Acute Past History cancer - breast, diabetes, heart disease, high cholesterol, hypertension, kidney stones Pt had a problem w anesthesia?: No Past Surgical History: hysterectomy, mastectomy Family History FH: heart disease Hypertension Social History Hx Tobacco Use In Past Year?: No Smoking: non-smoker Alcohol: never Marital status: Housing status: lives with family Occupation status: retired Immunizations History of Influenza Vaccine: Yes Influenza Vaccine Date: Aug 21, 2017 History of Tetanus Vaccine?: Yes Tetanus Immunization Date: Jun 18, 2017 History of Pneumococcal: Yes Pneumococcal Date: Jun 18, 2017 Allergies Coded Allergies: Macey Nut (Verified Allergy, Unknown, UNKNOWN, 12/27/17) Medications Home Medications: Home Meds and Scripts Medications Dose Route/Sig Max Daily Dose Days Date Category Dose Instructions Lisinopril 10 Mg Tab 1 Tab PO DAILY 12/27/17 Reported Held for the past week in setting of PAULO. Gabapentin 100 Mg Cap 1 Tab PO TID PRN 12/27/17 Reported Esmont-3 (Cfuhh-3-Smjm Ethyl Esters) 1 Cap Cap 1 Cap PO DAILY 12/21/17 Reported Os-Ge 500 Plus D (Calcium/Vitamin D) Tab 1 Tab PO DAILY 12/21/17 Reported Cranberry Super Strength (Cranberry (Vaccinium Macrocarp) 500 Mg Cap 1,000 Mg PO DAILY 12/21/17 Reported Black Delatorre Concentrate ([employer] Natural Products) Unknown Strength Liq Unknown Dose PO DAILY 12/21/17 Reported Lopressor (Metoprolol Tartrate) 25 Mg Tab 25 Mg PO BID 05/11/16 Reported Centrum Silver Ultra Wome (Multiple Vitamins W/ Minerals) 1 Tab Tab 1 Tab PO DAILY 05/11/16 Reported Aspirin Ec (Aspirin) 81 Mg Tab 81 Mg PO DAILY 05/11/16 Reported Inpatient Medications: Current Inpatient Medications Medications (Trade) Dose Ordered Sig/Main Route Start Time Stop Time Status Last Admin Dose Admin Aspirin (Ecotrin Tab) 81 mg DAILY PO 12/28/17 09:00 01/27/18 08:59 12/28/17 07:42 81 MG Calcium/Vitamin D (Caltrate Plus Tab) 1 tab DAILY PO 12/28/17 09:00 01/27/18 08:59 12/28/17 07:41 1 TAB Gabapentin (Neurontin Cap) 100 mg TID PRN PO 12/27/17 15:45 01/26/18 15:44 Isosorbide Dinitrate (Isordil Tab) 5 mg DAILY@0700,1200,1700 PO 12/27/17 17:40 01/26/18 17:39 12/28/17 17:02 5 MG Ipratropium [place] (Atrovent 0.02% 0.5MG/2.5ML Neb) 0.5 mg Q4R PRN INH 12/28/17 00:00 01/27/18 00:00 Levalbuterol (Xopenex 1.25MG/ 0.5ML Neb) 1.25 mg Q4R PRN INH 12/27/17 20:30 01/26/18 20:29 Metoprolol Tartrate (Lopressor Tab) 25 mg QID PO 12/28/17 13:00 01/27/18 12:59 12/28/17 17:03 25 MG Heparin Sodium (Porcine) (Heparin Sq 5000 Unit/0.5ml) 5,000 unit Q12 SQ 12/28/17 21:00 01/27/18 20:59 Miscellaneous Information 1 ea UD PRN N/A 12/28/17 14:23 01/27/18 14:22 Amoxicillin/ Clavulanate Potassium (Augmentin Tab) 500 mg BIDM PO 12/29/17 07:30 01/06/18 07:29 Review of Systems Review of Systems Constitutional: No fever, No chills Neurological: + dizzy Endocrine: + tired/sluggish Gastrointestinal: No abdominal pain, No indigestion, No nausea, No vomiting, No constipation Cardiovascular: + chest pain, + swelling ankles/feet, + problem reported ( feels chest pain and pressure substernal) Respiratory: + shortness of breath, + chronic cough, + problem reported (wet cough very bothersome) Blood / Lymphatic: + bleed easily, + problem reported (severe brusiing from ivs last week) Female : + leaking urine, + kidney stones, No weak stream, No infections Physical Exam Vital Signs: Vital Signs Past 12 Hours Date Time Temp Pulse Resp B/P (MAP) Pulse Ox O2 Delivery O2 Flow Rate FiO2 12/28/17 16:40 36.8 96 30 127/96 (106) 95 Room Air 12/28/17 16:04 Nasal Cannula 2.0 12/28/17 12:25 36.6 100 27 140/104 (116) 94 Room Air 12/28/17 12:00 Room Air 12/28/17 08:00 Room Air 12/28/17 07:47 37.0 108 23 125/91 (102) 94 Room Air Physical Exam: General Appearance: WD/WN, + moderate distress, + obese, + pertinent finding ( dyspenic, difficult for her to talk due to SOB, ) ENT: hearing grossly normal Neck: supple, no adenopathy, + JVD Respiratory/Chest: + respiratory distress, + rhonchi, + pertinent finding ( audible wheeze) Gastrointestinal: Abdomen: normal abdomen, pertinent finding (slightly tense, no guarding or rebound) Bladder: normal bladder Renal: normal renal, cva tenderness (no cva tenderness bilaterally) Extremities: non-tender, normal inspection, + pedal edema, + pertinent finding (skin is very shiny, cool to touch, normal color) Neurologic/Psychiatric: alert, normal mood/affect, oriented x 3 Skin: + pertinent finding (severe entire right hand bruise , small left hand bruise from ivs in past) Assessment & Plan Assessment & Plan severe heart failure I think this is the main problem and I do not think a urologic intervention with right ureteral stent will help. 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 I do not think a stent is going to improve her kidney function at this time. I also think the procedure would stress her precarious cardiac and pulmonary function during the procedure. A ureteral stone present for this long time can be difficult to pass a stent by so the procedure could be longer than a typical quick stent placement. I do not think she could tolerate any anesthesia for the case. I think the supine lithotomy position will be a great challenge for her respiratory status. With her left kidney likely in severe ATN, I do not think she is going to see an improvement in renal function in the near term with or without stent. I think this kidney insufficiency is secondary to heart failure not obstruction. She lived with this right kidney obstruction with a normal creatinine for years. Then in the medium term a ureteral stent will increase her risk of UTI and pyelonephritis as the bacteriuria she will have in her bladder from the greenberg will be given easy access via stent into the right kidney. Then in late term I question her heart's ability to tolerate the 1-2 longer operations she would need for stone removal. I have spoken with Dr Kramer about my assessment and plan. He does not disagree about the poor chance of kidney recovery with a stent. I have spoken with patient and her son Дмитрий at bedside. He seemed surprised with the decision to not place a stent and so I spoke with him later by phone. He believes a stent or a session or 2 of dialysis might allow her to get more lasix. I explained the lasix cant be used until the atn improves and her kidneys start functioning better. Dialysis wont improve the atn. It would help correct high potassium acidosis and fluid overload. I share his concern that her illness is acutely life threatening. I offered to arrange a second urologic opinion. I spoke with Dr Beaver by phone about the case. He agreed to see her.
[2017-12-28] MEDS: HEPARIN SOD 5000 UNIT/0.5 ML CARP SQ SCH (21:09)
[2017-12-29] VITALS (10 sets, daily range): BP systolic 106–134; BP diastolic 68–87; PULSE 97–105; TEMP 36.4–37; O2SAT 94–100
--- NOTE | 2017-12-29 05:45 | GENITOURINARY CONSULTATION ---
DATE OF CONSULTATION: 12/28/2017 SECOND OPINION CONSULT REASON FOR THE CONSULT: Second opinion regarding possible stent placement. HISTORY OF PRESENTATION: The patient is an 87-year-old female, who was seen earlier this evening and previously by Dr. Faith. The patient has had a longstanding right 1.5 cm proximal ureteral stone causing mild hydronephrosis, which appears to be stable when comparing CAT scan with contrast done in October 2016 in terms of the amount of hydro to the CT done recently on this morning. The CT that was done in October 2016 was significant and that it had mild hydronephrosis. There was relative prompt contrast compared to the contralateral side in the cortex and there does not seem to be a significant loss of cortex over the intervening 14 months. There is not a whole lot of stranding that is obvious on CT today. Of note, the patient is here with a rising creatinine that began to rise after her admission approximately 1 week ago for heart failure and heart block, which after discussing with Nephrology, appears to be the time which her creatinine began to rise and consistent with ATN. The CAT scan suggested hydronephrosis and Urology meeting Dr. Faith was consulted regarding this. Dr. Faith after evaluating the patient did not feel that a stent would likely be of benefit and that the patient was critically ill and that it would be potentially harmful for the patient to even have the stent. The son was very upset and wish to have a second opinion, which Dr. Faith agreed to and asked that I do. The patient apparently has not had any flank pain or fever. She was discharged after having a pacemaker, but was readmitted after declining having increased wheezing and difficulty breathing. CAT scan this morning shows significant pleural effusions. She is of note slightly hypertensive, minimally tachycardic. After having Lasix, she appears to be somewhat dehydrated her mouth. Mucous membranes are very dry. She is, however, making minimal urine, although there is some urine in the catheter that must have recently been placed. The patient tonight on examination is responsive, but very drowsy. She denies having any pain. Son noticed that she is becoming increasingly drowsy throughout the day today and has been difficult to communicate with. She did have some food this evening, which would make giving anesthesia difficult unless it was considered a true emergency. I had a long discussion with both the son and Dr. Kramer regarding this patient and son after showing him the x-rays understands that given her normotensive situation that does not make sense that the left kidney would not be functioning as it has been in the past without evidence of obstruction at this time. The patient also does not appear to be septic, but she does have pyuria and some bacteriuria and funguria. She is on antibiotics. Urine cultures are pending. PAST MEDICAL HISTORY: Significant for chronic kidney disease stage III, diabetes mellitus, history of malignant breast cancer, history of complete heart block with pacemaker a week ago and 20% ejection fraction, and history of UTI. PAST SURGICAL HISTORY: Significant for mastectomy, hysterectomy, cholecystectomy, ERCP, and recent pacemaker. MEDICATIONS: Please refer to the chart for a list of medications. PHYSICAL EXAMINATION: GENERAL: The patient is drowsy and lethargic, but responsive. HEENT: Significant for very dry mucous membranes. NECK: Supple. She has no obvious respiratory distress, but is breathing comfortably with oxygen. She has minimal pedal edema. ABDOMEN: Soft, nontender. When asked specifically whether she had any abdominal or flank pain, she denied this. NEUROLOGIC: She is again drowsy, but responsive. LABORATORY DATA: Her white blood cell count on admission was 10.3, it has risen to 12 which does cause some slight concern of infection, although certainly not necessarily consistent with infection as it is 12.43. Her urinalysis does show greater than 30 white cells, but also shows greater than 30 epithelial cells and I am not sure that it was a cath specimen, although I did state that it was. She also had yeast and bacteria and 5-10 red cells. Creatinine has risen gradually from 2.1-2.5 over the last 36 hours, but of note began to rise a week ago when it was 1.26-1.78 on discharge on the . Urinalysis was not performed at that time. White blood cell count was 10.86 on discharge. ASSESSMENT: Severe congestive heart failure with apparent acute tubular necrosis, possibly from over a week ago. No obvious evidence of sepsis, specifically no flank pain. No fever and minimal white blood cell elevation. Certainly, if she would display signs of sepsis with hypotension, would certainly think that a stent would be appropriate, but do not believe this is the underlying cause of her decline. Dr. Kramer did suggest that he have to discuss with the son whether or not a dialysis should be instituted. I did make her n.p.o. given that she had eaten this evening, to reevaluate her in the morning, specifically for sepsis, but would be reluctant to proceed with stent placement unless this were obvious and seemed to be a realistic cause of her overall deteriorating situation. I agree with Dr. Faith' assessment that even if a stent was placed, she would not do well in the long run having a ureteroscopy. She might possibly survive stent placement under sedation, but this would certainly introduce infection from the bladder into the kidney if she is not currently infected. Should all the x-rays of the previous CTs to the son reviewed, the entire situation with him and I think he understands the gravity of the situation. He also understands that placing a stent will likely be futile and potentially harmful. We will reevaluate and discuss again with the patient's son and the patient and Nephrology in the morning. Thank you for this consult.
[2017-12-29] MEDS: CALCIUM 600MG + VIT D 400 IU TAB PO SCH (07:49)
[2017-12-29] MEDS: METOPROLOL TARTRATE 25 MG TAB PO SCH ×4 (07:49→19:45)
[2017-12-29] MEDS: ASPIRIN 81 MG ECTAB PO SCH (07:49)
[2017-12-29] MEDS: ISOSORBIDE DINITRATE 5 MG TAB PO SCH ×3 (07:50→17:02)
[2017-12-29] MEDS: HEPARIN SOD 5000 UNIT/0.5 ML CARP SQ SCH ×2 (07:56→20:53)
[2017-12-29] MEDS: IPRATROPIUM BROMIDE NEB SOLN 0.02% 2.5 ML VIAL INH PRN (08:09)
[2017-12-29] MEDS: LEVALBUTEROL 1.25MG/0.5ML NEB INH PRN (08:09)
[2017-12-29] MEDS: AMOXICILLIN/CLAVULANATE TAB 500 MG TAB PO SCH ×2 (09:43→17:02)
[2017-12-29] MEDS ORDERED: PHARMACY GLYCEMIC MGMT CONSULT PRN (10:34)
--- NOTE | 2017-12-29 11:01 | Progress Note ---
Medicine Progress Note Date & Time of Visit: Dec 29, 2017 at 10:52. Subjective seen sleeping in bed, easily rousable denies shortness of breath, cough, chest pain denies any discomfort, no abdominal pain/nausea no other symptoms discussed with patient re: her critical condition- weak heart and kidney at this point, she prefers to continue with medical management, and see how things go day by day discussed with patient's son at length, he is also agreeable with plan Objective Last 8 Hrs Date Time Temp Pulse Resp B/P (MAP) Pulse Ox O2 Delivery O2 Flow Rate FiO2 12/29/17 08:09 105 26 96 Nasal Cannula 2.0 12/29/17 08:07 36.4 105 23 122/87 (99) 94 Room Air 12/29/17 08:00 Nasal Cannula 2.0 12/29/17 04:06 37.0 103 20 127/83 (98) 96 Nasal Cannula 2.0 12/29/17 04:00 100 Nasal Cannula 2.0 Physical Exam: General- oriented x 3, not in distress, speaks in sentences with no effort Eyes- anicteric Neck- supple, no JV Lungs- mild wheeze at the bases Heart- regular rhythm; no murmur, normal rate Abdomen- normal bowel sounds, non distended, soft, nontender, no masses Extremities- grade 1 bipedal edema, no calf tenderness; peripheral pulses intact Neuro- alert, oriented x 3; no gross focal deficits Skin- warm & dry Laboratory Results: Last 24 Hours Test 12/28/17 11:02 12/28/17 16:07 12/28/17 20:16 12/29/17 10:48 Bedside Glucose 267 mg/dl 278 mg/dl 267 mg/dl Date/Time Source Procedure Growth Status 12/29/17 02:00 Stool Shiga Toxin Test Pending Received 12/29/17 02:00 Stool Stool Culture Pending Received Assessment & Plan This is a 87yo F with a PMH of complete heart block (s/p pacemaker placement on 12/21/16), HTN, DM II (diet controlled), CKD III and h/o breast cancer (s/p L mastectomy) who presents with worsening SOB x 2 days. 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 * There is severe diffuse hypokinesis to akinesis of the mid and apical levles of the left ventricle with relative sparing of the basal segment which are geoff in a hyperdynamic fashion. * Left ventricular systolic function is severely reduced. * The qualitative LV ejection fraction is < 20%. * Mild aortic regurgitation. * There is mild mitral regurgitation. * There is mild tricuspid regurgitation. * There is a small circumferential pericardial effusion with most significant fluide collection noted on the short axis view, adjacent to the inferoseptal wall. * There are no echocardiographic indications of cardiac tamponade. * There is a small to moderate sized left pleural effusion. - IV Lasix on hold due to increasing crea - on Imdur and Metoprolol TROPONIN ELEVATION likely Type 2 IL secondary to Demand Ischemia - no angina - troponin stabilized ACUTE RENAL FAILURE ON CKD 3 - possible cardiorenal syndrome -Cr 1.8 To 2.5 crea pending - poor urine output - Urology consulted, intervention not recommended at this time unless patient becomes septic -Continue holding lisinopril -Nephrology on board UTI: -Positive UA -Patient incontinent, decreased output at home -Urine culture: reincubating -changed Ceftri to Augmentin PO POSSIBLE MILD ACUTE DIVERTICULITIS - seen on CT abdomen - remains afebrile denies abdominal pain - continue Augmentin PO for now HTN: -Normotensive -Cont home dose metoprolol -Lisinopril held since last admission 2/ PAULO. Continue to hold. DM II (diet controlled) -A1c of 6 in May 2017 -Repeat alc ordered - BSGs increasing Pharmacy consulted DVT Ppx: IV heparin Code status: DNR per discussion with patient, family PCP: Irma Dispo: pending Current Inpatient Medications: Current Inpatient Medications Medications (Trade) Dose Ordered Sig/Main Route Start Time Stop Time Status Last Admin Dose Admin Aspirin (Ecotrin Tab) 81 mg DAILY PO 12/28/17 09:00 01/27/18 08:59 12/29/17 07:49 81 MG Calcium/Vitamin D (Caltrate Plus Tab) 1 tab DAILY PO 12/28/17 09:00 01/27/18 08:59 12/29/17 07:49 1 TAB Gabapentin (Neurontin Cap) 100 mg TID PRN PO 12/27/17 15:45 01/26/18 15:44 Isosorbide Dinitrate (Isordil Tab) 5 mg DAILY@0700,1200,1700 PO 12/27/17 17:40 01/26/18 17:39 12/29/17 07:50 5 MG Ipratropium [place] (Atrovent 0.02% 0.5MG/2.5ML Neb) 0.5 mg Q4R PRN INH 12/28/17 00:00 01/27/18 00:00 12/29/17 08:09 0.5 MG Levalbuterol (Xopenex 1.25MG/ 0.5ML Neb) 1.25 mg Q4R PRN INH 12/27/17 20:30 01/26/18 20:29 12/29/17 08:09 1.25 MG Metoprolol Tartrate (Lopressor Tab) 25 mg QID PO 12/28/17 13:00 01/27/18 12:59 12/29/17 07:49 25 MG Heparin Sodium (Porcine) (Heparin Sq 5000 Unit/0.5ml) 5,000 unit Q12 SQ 12/28/17 21:00 01/27/18 20:59 12/29/17 07:56 5,000 UNIT Miscellaneous Information 1 ea UD PRN N/A 12/28/17 14:23 01/27/18 14:22 Amoxicillin/ Clavulanate Potassium (Augmentin Tab) 500 mg BIDM PO 12/29/17 07:30 01/06/18 07:29 12/29/17 09:43 500 MG Miscellaneous Information (Consult Glycemic Management Pharmacy) 1 ea UD PRN N/A 12/29/17 10:34 01/28/18 10:33
[2017-12-29 11:11] LABS: BASO % 0.1 %; BASO ABS # 0.01 K/uL (0-0.2); HEMATOCRIT 33.9 % (37-47); HEMOGLOBIN 10.9 g/dL (12.0-16.0); IG# 0.06 K/uL (0.00-0.02); LYMPH % 10.8 %; LYMPH ABS # 1.29 K/uL (1.2-3.4); MEAN CELL VOLUME 93.9 fL (80-100); MEAN CORPUSCULAR HEMOGLOBIN 30.2 pg (25-34); MEAN CORPUSCULAR HGB CONC 32.2 g/dl (32-36); MEAN PLATELET VOLUME 12.6 fL (7.4-10.4); MONO ABS # 1.07 K/uL (0.11-0.59); NEUT % 79.6 %; NEUT ABS # 9.46 K/uL (1.4-6.5); NUCLEATED RED BLOOD CELL ABS 0.25 K/uL (0-0); PLATELET COUNT 169 K/uL (130-400); RED CELL DISTRIBUTION WIDTH CV 14.5 % (11.5-14.5); RED CELL DISTRIBUTION WIDTH SD 49.2 fL (36.4-46.3); WHITE BLOOD COUNT 11.89 K/uL (4.8-10.8)
[2017-12-29] MEDS ORDERED: DEXTROSE 50% 50 ML SYR IV PRN (11:30)
[2017-12-29] MEDS ORDERED: GLUCAGON FOR INJ 1 MG VIAL SQ PRN (11:30)
[2017-12-29] MEDS ORDERED: GLUCOSE 40% GEL 15 GM TUBE PO PRN (11:30)
[2017-12-29] MEDS ORDERED: GLUCOSE 10 TABS/TUBE PO PRN (11:30)
--- NOTE | 2017-12-29 11:38 | Nephrology Progress Note ---
Nephrology Progress Note Date of Service: Dec 29, 2017. Subjective 87 yo female seen for follow up for luanne/atn with chronic unchanged hydronephrosis with a stress induced cardiomyopathy. pt mentally better today compared to last night according to urology and son. when asked if she would want dialysis, pt replied yes. has an underlying heart block, now with sinus tachycardia Objective Date Time Temp Pulse Resp B/P (MAP) Pulse Ox O2 Delivery O2 Flow Rate FiO2 12/29/17 08:09 105 26 96 Nasal Cannula 2.0 12/29/17 08:07 36.4 105 23 122/87 (99) 94 Room Air 12/29/17 08:00 Nasal Cannula 2.0 12/29/17 04:06 37.0 103 20 127/83 (98) 96 Nasal Cannula 2.0 12/29/17 04:00 100 Nasal Cannula 2.0 12/28/17 23:55 100 Nasal Cannula 2.0 12/28/17 23:51 36.4 65 20 121/83 (96) 100 Nasal Cannula 2.0 12/28/17 19:18 36.4 97 25 130/91 (104) 95 Nasal Cannula 2.0 12/28/17 16:40 36.8 96 30 127/96 (106) 95 Room Air 12/28/17 16:04 Nasal Cannula 2.0 12/28/17 12:25 36.6 100 27 140/104 (116) 94 Room Air 12/28/17 12:00 Room Air Physical Exam: General-aaox3, comfortable Eyes-no scleral icterus ENT-mmm Neck-supple Lungs-decreased at bases Heart-tachy Abdomen-bs+ s/nt/nd Extremities-mild edema Neuro-nonfocal Current Inpatient Medications Medications (Trade) Dose Ordered Sig/Main Route Start Time Stop Time Status Last Admin Dose Admin Aspirin (Ecotrin Tab) 81 mg DAILY PO 12/28/17 09:00 01/27/18 08:59 12/29/17 07:49 81 MG Calcium/Vitamin D (Caltrate Plus Tab) 1 tab DAILY PO 12/28/17 09:00 01/27/18 08:59 12/29/17 07:49 1 TAB Gabapentin (Neurontin Cap) 100 mg TID PRN PO 12/27/17 15:45 01/26/18 15:44 Isosorbide Dinitrate (Isordil Tab) 5 mg DAILY@0700,1200,1700 PO 12/27/17 17:40 01/26/18 17:39 12/29/17 07:50 5 MG Ipratropium [place] (Atrovent 0.02% 0.5MG/2.5ML Neb) 0.5 mg Q4R PRN INH 12/28/17 00:00 01/27/18 00:00 12/29/17 08:09 0.5 MG Levalbuterol (Xopenex 1.25MG/ 0.5ML Neb) 1.25 mg Q4R PRN INH 12/27/17 20:30 01/26/18 20:29 12/29/17 08:09 1.25 MG Metoprolol Tartrate (Lopressor Tab) 25 mg QID PO 12/28/17 13:00 01/27/18 12:59 12/29/17 07:49 25 MG Heparin Sodium (Porcine) (Heparin Sq 5000 Unit/0.5ml) 5,000 unit Q12 SQ 12/28/17 21:00 01/27/18 20:59 12/29/17 07:56 5,000 UNIT Miscellaneous Information 1 ea UD PRN N/A 12/28/17 14:23 01/27/18 14:22 Amoxicillin/ Clavulanate Potassium (Augmentin Tab) 500 mg BIDM PO 12/29/17 07:30 01/06/18 07:29 12/29/17 09:43 500 MG Miscellaneous Information (Consult Glycemic Management Pharmacy) 1 ea UD PRN N/A 12/29/17 10:34 01/28/18 10:33 Insulin Aspart (novoLOG ASPART) SLIDING SCALE ACHS SC 12/29/17 11:30 01/28/18 11:29 Glucose (Glucose 40% Gel) 15-30 GRAMS 15 GRAMS... UD PRN PO 12/29/17 11:30 01/28/18 11:29 Glucose (Glucose Chew Tab) 4-8 Tablets 4 Tabl... UD PRN PO 12/29/17 11:30 01/28/18 11:29 Dextrose (Dextrose 50% 50ML Syringe) 25-50ML OF 50% DW IV FOR... UD PRN IV 12/29/17 11:30 01/28/18 11:29 Glucagon (Glucagon Inj) 1 mg UD PRN SQ 12/29/17 11:30 01/28/18 11:29 Last 24 Hours Test 12/28/17 16:07 12/28/17 20:16 12/29/17 10:48 Bedside Glucose 278 mg/dl 267 mg/dl White Blood Count 11.89 K/uL Red Blood Count 3.61 M/uL Hemoglobin 10.9 g/dL Hematocrit 33.9 % Mean Corpuscular Volume 93.9 fL Mean Corpuscular Hemoglobin 30.2 pg Mean Corpuscular Hemoglobin Concent 32.2 g/dl Platelet Count 169 K/uL Mean Platelet Volume 12.6 fL Neutrophils (%) (Auto) 79.6 % Lymphocytes (%) (Auto) 10.8 % Monocytes (%) (Auto) 9.0 % Eosinophils (%) (Auto) 0.0 % Basophils (%) (Auto) 0.1 % Neutrophils # (Auto) 9.46 K/uL Lymphocytes # (Auto) 1.29 K/uL Monocytes # (Auto) 1.07 K/uL Eosinophils # (Auto) 0.00 K/uL Basophils # (Auto) 0.01 K/uL RDW Standard Deviation 49.2 fL RDW Coefficient of Variation 14.5 % Immature Granulocyte % (Auto) 0.5 % Immature Granulocyte # (Auto) 0.06 K/uL Nucleated RBC Absolute Count (auto) 0.25 K/uL Nucleated Red Blood Cells % 2.1 % Date/Time Source Procedure Growth Status 12/29/17 02:00 Stool Shiga Toxin Test Pending Received 12/29/17 02:00 Stool Stool Culture Pending Received Assessment & Plan [id number] in setting of hemodynamic compromise from previous admission with complete heart block. agree with urology that chronic hydro unchanged and would not benefit from intervention with no signs of infection. pt would like to pursue dialysis and have consulted Dr. King for possible tunneled line this afternoon or tomorrow. pt with signs of uremia and will plan on short dialysis treatment after tunneled line placement and then re- evaluate after about a week to look for signs of renal recovery. son in room and agrees with plan.
--- NOTE | 2017-12-29 11:38 | Pharmacy Progress Note ---
Glycemic Control Intl Consult Date of Service Dec 29, 2017. Scope Glycemic Pharmacist consulted by Dr Jolly on 12/29/17 for glycemic control and to write orders per [facility] inpatient glycemic control protocol Objective Weight (Kilograms): 72.600 Accuchecks BSG (last 24hrs): Test 12/28/17 16:07 12/28/17 20:16 12/29/17 10:48 Bedside Glucose 278 mg/dl (70-90) 267 mg/dl (70-90) Laboratory Data (last 24hrs) Test 12/29/17 10:48 White Blood Count 11.89 K/uL Red Blood Count 3.61 M/uL Hemoglobin 10.9 g/dL Hematocrit 33.9 % Mean Corpuscular Volume 93.9 fL Mean Corpuscular Hemoglobin 30.2 pg Mean Corpuscular Hemoglobin Concent 32.2 g/dl Platelet Count 169 K/uL Mean Platelet Volume 12.6 fL Neutrophils (%) (Auto) 79.6 % Lymphocytes (%) (Auto) 10.8 % Monocytes (%) (Auto) 9.0 % Eosinophils (%) (Auto) 0.0 % Basophils (%) (Auto) 0.1 % Neutrophils # (Auto) 9.46 K/uL Lymphocytes # (Auto) 1.29 K/uL Monocytes # (Auto) 1.07 K/uL Eosinophils # (Auto) 0.00 K/uL Basophils # (Auto) 0.01 K/uL HbA1c Test 12/29/17 10:48 Recent Pertinent Medications Outpatient Anti-diabetic Regimen: * none - diet controlled Risk Factors for Insulin Resistance: * Infection: Augmentin for UTI, diverticulitis * Diet: T2DM, renal Assessment & Plan ASSESSMENT: * 87 yr old diet controlled T2DM female admitted with severe CHF exacerbation with acute tubular necrosis, acute on chronic kidney impairment, UTI and mild diverticulitis. Patient is not currently on anti-diabetic medications. She reports diet control. * Patient has experienced hyperglycemia the past 24 hours: BSGs 169, 267, 278, 264 * Will initiate weight based SQ basal and bolus insulin * Will start conservatively per patient is NPO for permcath placement PLAN FOR INPATIENT GLYCEMIC CONTROL: * Basal insulin * Lantus 14 units SQ x 1, then * Lantus 0-7 units SQ (7 units if BSG is > 180 mg/dl) * Bolus Insulin * NOVOLOG per scale ACHS or Q6hrs while NPO * Goal Range: Low 110 mg/dL - High 140 mg/dL * Correction Factor: 30 mg/dL/unit * Nutritional / Prandial insulin per carb ratio of 1 unit per 15 grams CHO consumed * Please note that the plan above was derived based on current level of insulin resistance and hospital stress. These recommendations are appropriate for inpatient admission only. Plan of care upon discharge will need to be reassessed to avoid potential outpatient hypo/hyperglycemia. Thank you.
[2017-12-29 11:39] LABS: CALCIUM 8.8 mg/dl (8.5-10.1); CREATININE 2.94 mg/dl (0.60-1.20); POTASSIUM 4.7 mmol/L (3.5-5.1)
--- NOTE | 2017-12-29 11:52 | Progress Note ---
Subjective Date of Service: Dec 29, 2017. Subjective Pt evaluation today including: conversation w/ patient, conversation w/ family , physical exam, chart review, lab review, conversation w/ data warehouse consultant pt more alert today and has requested dialysis No fever ,flank pain or chills Problem List Medical Problems: (1) CHF (congestive heart failure) Status: Acute (2) Elevated troponin Status: Acute (3) Fall Status: Acute (4) Kidney stone Status: Acute (5) Sepsis Status: Acute (6) Third degree heart block Status: Acute (7) UTI (urinary tract infection) Status: Acute (8) UTI (urinary tract infection) Status: Acute (9) Weakness Status: Acute (10) Weakness Status: Acute Objective Vital Signs Date Time Temp Pulse Resp B/P (MAP) Pulse Ox O2 Delivery O2 Flow Rate FiO2 12/29/17 08:09 105 26 96 Nasal Cannula 2.0 12/29/17 08:07 36.4 105 23 122/87 (99) 94 Room Air 12/29/17 08:00 Nasal Cannula 2.0 12/29/17 04:06 37.0 103 20 127/83 (98) 96 Nasal Cannula 2.0 12/29/17 04:00 100 Nasal Cannula 2.0 12/28/17 23:55 100 Nasal Cannula 2.0 12/28/17 23:51 36.4 65 20 121/83 (96) 100 Nasal Cannula 2.0 12/28/17 19:18 36.4 97 25 130/91 (104) 95 Nasal Cannula 2.0 12/28/17 16:40 36.8 96 30 127/96 (106) 95 Room Air 12/28/17 16:04 Nasal Cannula 2.0 12/28/17 12:25 36.6 100 27 140/104 (116) 94 Room Air 12/28/17 12:00 Room Air Laboratory Results Last 24 Hours Test 12/28/17 16:07 12/28/17 20:16 12/29/17 10:48 Bedside Glucose 278 mg/dl 267 mg/dl White Blood Count 11.89 K/uL Red Blood Count 3.61 M/uL Hemoglobin 10.9 g/dL Hematocrit 33.9 % Mean Corpuscular Volume 93.9 fL Mean Corpuscular Hemoglobin 30.2 pg Mean Corpuscular Hemoglobin Concent 32.2 g/dl Platelet Count 169 K/uL Mean Platelet Volume 12.6 fL Neutrophils (%) (Auto) 79.6 % Lymphocytes (%) (Auto) 10.8 % Monocytes (%) (Auto) 9.0 % Eosinophils (%) (Auto) 0.0 % Basophils (%) (Auto) 0.1 % Neutrophils # (Auto) 9.46 K/uL Lymphocytes # (Auto) 1.29 K/uL Monocytes # (Auto) 1.07 K/uL Eosinophils # (Auto) 0.00 K/uL Basophils # (Auto) 0.01 K/uL RDW Standard Deviation 49.2 fL RDW Coefficient of Variation 14.5 % Immature Granulocyte % (Auto) 0.5 % Immature Granulocyte # (Auto) 0.06 K/uL Nucleated RBC Absolute Count (auto) 0.25 K/uL Nucleated Red Blood Cells % 2.1 % Giant Platelets 1+ Red Blood Cell Morphology Unremarkable Sodium Level 137 mmol/L Potassium Level 4.7 mmol/L Chloride Level 100 mmol/L Carbon Dioxide Level 28 mmol/L Anion Gap 9.0 mmol/L Blood Urea Nitrogen 86 mg/dl Creatinine 2.94 mg/dl Est Creatinine Clear Calc Drug Dose 11.4 ml/min Estimated GFR () 15.9 Estimated GFR (Non- 13.7 BUN/Creatinine Ratio 29.2 Random Glucose 227 mg/dl Calcium Level 8.8 mg/dl Assessment and Plan Given absence of evidence of sepsis would not place stent Discussed w nephrology pt has ATN and unlikely stent would improve renal function Discussed w pt and son and would only place stent for evidence of sepsis and clear sense prognosis warranted intervention Will sign off and advised pt to f/u w Dr. Faith
[2017-12-29] MEDS: INSULIN ASPART 100 UNITS/ML 3 ML PEN SC SCH ×4 (12:04→20:51)
--- NOTE | 2017-12-29 12:17 | Surgery Consultation ---
Consultation Date of Service Dec 29, 2017. Chief Complaint Acute renal failure History of Present Illness The patient is a 87 year old female who was in complete heart block requiring a pacemaker. She has a history of diabetes and breast cancer. She is now in need of dialysis. She is in need of an access. Permcath will be needed. Vitals Vital Signs Past 12 Hours Date Time Temp Pulse Resp B/P (MAP) Pulse Ox O2 Delivery O2 Flow Rate FiO2 12/29/17 12:02 36.4 99 25 134/79 (97) 99 Nasal Cannula 2.0 12/29/17 08:09 105 26 96 Nasal Cannula 2.0 12/29/17 08:07 36.4 105 23 122/87 (99) 94 Room Air 12/29/17 08:00 Nasal Cannula 2.0 12/29/17 04:06 37.0 103 20 127/83 (98) 96 Nasal Cannula 2.0 12/29/17 04:00 100 Nasal Cannula 2.0 Allergies Coded Allergies: Macey Nut (Verified Allergy, Unknown, UNKNOWN, 12/27/17) Home Medications Scheduled Aspirin (Aspirin Ec), 81 MG PO DAILY Calcium/Vitamin D (Os-Ge 500 Plus D), 1 TAB PO DAILY Cranberry (Vaccinium Macrocarp (Cranberry Super Strength), 1,000 MG PO DAILY Lisinopril (Lisinopril), 1 TAB PO DAILY Metoprolol Tartrate (Lopressor) (Lopressor), 25 MG PO BID Misc Natural Products (Black Delatorre Concentrate), Unknown Dose PO DAILY Multiple Vitamins W/ Minerals (Centrum Silver Ultra Wome), 1 TAB PO DAILY Pfztq-[id number] Ethyl Esters ([place]-3), 1 CAP PO DAILY Scheduled PRN Gabapentin (Gabapentin), 1 TAB PO TID PRN for Pain Problem List Medical Problems: (1) CKD (chronic kidney disease), stage III (2) DM2 (diabetes mellitus, type 2) (3) H/O malignant neoplasm of breast (4) History of complete heart block (5) HTN (hypertension) (6) UTI (urinary tract infection) Surgical Problems: (1) H/O mastectomy (2) H/O: hysterectomy (3) S/P cholecystectomy (4) S/P ERCP (5) S/P placement of cardiac pacemaker Surgical / Medical History Hx Cardiac Surgery: Yes (Pacemaker placed- prev admission (12/21-12/24)) Hx Abdominal Surgery: Yes (Cholecystectomy 2009, Hysterectomy (2001)) Hx Cancer Surgery: Yes (Left mastectomy 1998) Hx Thoracic Surgery: No Hx Orthopedic: No Hx Urinary Tract Surgery: No HX Other Surgery: No Past Medical/Surgical History: ASHD, CHF, Diabetes Family History FH: heart disease Hypertension Social History Smoking Status: Former Smoker Hx Tobacco Use In Past Year?: No Hx Alcohol Use - Type & Amnt: No Hx Substance Use -Type & Amnt: No Review of Systems Constitutional: No chills, No diaphoresis, No fever, No malaise, No weakness, No weight gain, No weight loss, No sweats, No fatigue, No problem reported Respiratory: + short of breath Cardiovascular: No chest pain, No chest tightness, No chest pressure, No palpitations, No syncope, No diaphoresis, No edema, No intermittent claudication , No orthopnea, No cyanosis, No mumur, No lightheadedness, No paroxysmal nocturnal dyspnea, No problem reported Gastrointestinal: No abdominal pain, No constipation, No diarrhea, No nausea, No vomiting, No anorexia, No appetite changes, No belching, No flatulence, No food intolerance, No hematemesis, No hemorrhoids, No hematochezia, No stool changes, No heartburn, No indigestion, No dysphagia, No rectal bleeding, No problem reported Genitourinary - Female: + problem reported (acute renal failure) Musculoskeletal: No back pain, No gout, No joint pain, No joint swelling, No muscle pain, No muscle stiffness, No muscle weakness, No neck pain, No problem reported Neurologic: No dizziness, No weakness, No headache, No lethargy, No numbness, No paresthesia, No pre-existing deficit, No seizures, No tics, No tingling, No tremors, No vertigo, No memory loss, No LOC, No problem reported Psychiatric: No anxiety, No alcohol abuse, No auditory hallucinations, No depression, No drug abuse, No homicidal ideation, No mood changes, No suicidal ideation, No visual hallucinations, No problem reported Physical Exam Constitutional: General Apperance: heathly-appearing, well-nourished, well-developed Level of Distress: chronically ill Ambulation: ambulating normally Psychiatric: Mental Status: active & alert, normal mood, normal affect Orientation: oriented except where noted Memory: recent memory normal, remote memory normal Lungs: Auscultation: decreased breath sounds, pertinent finding (Decrease BS at the bases ) Cardiovascular: Heart Auscultation: RRR Peripheral Pulses: Radial Pulse: normal on the left, normal on the right Femoral Pulse: normal on the left, normal on the right Abdomen: Inspection & Palpation: soft Musculoskeletal: normal Extremities: Upper Right: no cyanosis, no edema, no varicosities, no palpable cord, no clubbing, no ulcers, no mottling Upper Left: no cyanosis, no edema, no palpable cord, no clubbing, no ulcers , no mottling Lower Right: edema Lower Left: edema Neurologic: Cranial Nerves: grossly intact Sensation: grossly intact Assessment and Plan Imp: Acute renal failure Plan: Recommend permcath insertion of dialysis. I have discussed the risks options and benefits of the procedure with the patient and her son. The patient and son understand the risks options and benefits and agrees to the procedure.
[2017-12-29 12:21] LABS: HEMOGLOBIN A1C 6.5 % (4.5-5.6)
--- NOTE | 2017-12-29 12:31 | Cardiology Follow-Up ---
Subjective General Date of Service: Dec 29, 2017. Chief Complaint: follow up shortness of breath Pt evaluation today including: conversation w/ patient, physical exam History of Present Illness The patient is a 87 year old female seen in follow up. Patient without severe resting dyspnea but still complains of fatigue , worse than her typical baseline. Telemetry reveals continued sinus tachycardia in the 90-105 bpm range. Her urine output has been minimum with 625 ML's of urine output documented to midnight yesterday for a 24-hour interval. Her creatinine trended to 2.94 despite having held diuretics yesterday. 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 Allergies Coded Allergies: Macey Nut (Verified Allergy, Unknown, UNKNOWN, 12/27/17) Social History Smoking Status: Former Smoker Hx Tobacco Use In Past Year?: No Hx Alcohol Use - Type And Amou: No Hx Substance Use - Type And Am: No Problem List Medical Problems: (1) CHF (congestive heart failure) Status: Acute (2) Elevated troponin Status: Acute (3) Fall Status: Acute (4) Kidney stone Status: Acute (5) Sepsis Status: Acute (6) Third degree heart block Status: Acute (7) UTI (urinary tract infection) Status: Acute (8) UTI (urinary tract infection) Status: Acute (9) Weakness Status: Acute (10) Weakness Status: Acute Physical Exam Vital Signs Last Vital Signs Documentation Date Time Temp Pulse Resp B/P (MAP) Pulse Ox O2 Delivery O2 Flow Rate FiO2 12/29/17 12:02 36.4 99 25 134/79 (97) 99 Nasal Cannula 2.0 Physical Exam Constitutional: General Apperance: heathly-appearing, well-nourished, well-developed Level of Distress: chronically ill Ambulation: ambulating normally Psychiatric: Mental Status: active & alert, normal mood, normal affect Orientation: oriented except where noted Memory: recent memory normal, remote memory normal Neck: supple Lungs: Auscultation: decreased breath sounds, pertinent finding (Decrease BS at the bases ) Cardiovascular: Heart Auscultation: RRR, no murmurs Peripheral Pulses: Radial Pulse: normal on the left, normal on the right Femoral Pulse: normal on the left, normal on the right Abdomen: Inspection & Palpation: soft Musculoskeletal: normal Extremities: pertinent finding (mild LE edema ) Neurologic: Cranial Nerves: grossly intact Sensation: grossly intact Assessment and Plan Assessment and Plan Impression: 87-year-old female presents with fatigue and shortness of breath without chest discomfort 1. 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 Acute kidney injury on stage III chronic kidney disease, creatinine worse, up to 2.5 mg /dl 12/28, 2.942/06/08 3. Sinus tachycardia 4. Recent dual-chamber Medtronic pacemaker for symptomatic high-grade AV block with severe bradycardia 5. Small to moderate sized circumferential pericardial effusion noted on echocardiogram without event on physiology Plan: In 2016, pt admitted with hydronephrosis, right large partially obstructing UPJ stone. Conservative therapy performed at that time as she was felt to be a high risk surgical candidate. Urology input noted and appreciated. At present, little benefit anticipated with urology intervention for stone and patient has had excessively high procedure risk given her cardiac status. ). Case discussed with Dr. Kramer of nephrology. Agree with vascular surgery evaluation for tunnel dialysis access. Continue metoprolol, aspirin, Isordil dinitrate, incipient in his heparin for DVT prophylaxis. Laboratory Results Last 24 Hours Test 12/28/17 16:07 12/28/17 20:16 12/29/17 10:48 Bedside Glucose 278 mg/dl 267 mg/dl White Blood Count 11.89 K/uL Red Blood Count 3.61 M/uL Hemoglobin 10.9 g/dL Hematocrit 33.9 % Mean Corpuscular Volume 93.9 fL Mean Corpuscular Hemoglobin 30.2 pg Mean Corpuscular Hemoglobin Concent 32.2 g/dl Platelet Count 169 K/uL Mean Platelet Volume 12.6 fL Neutrophils (%) (Auto) 79.6 % Lymphocytes (%) (Auto) 10.8 % Monocytes (%) (Auto) 9.0 % Eosinophils (%) (Auto) 0.0 % Basophils (%) (Auto) 0.1 % Neutrophils # (Auto) 9.46 K/uL Lymphocytes # (Auto) 1.29 K/uL Monocytes # (Auto) 1.07 K/uL Eosinophils # (Auto) 0.00 K/uL Basophils # (Auto) 0.01 K/uL RDW Standard Deviation 49.2 fL RDW Coefficient of Variation 14.5 % Immature Granulocyte % (Auto) 0.5 % Immature Granulocyte # (Auto) 0.06 K/uL Nucleated RBC Absolute Count (auto) 0.25 K/uL Nucleated Red Blood Cells % 2.1 % Giant Platelets 1+ Red Blood Cell Morphology Unremarkable Sodium Level 137 mmol/L Potassium Level 4.7 mmol/L Chloride Level 100 mmol/L Carbon Dioxide Level 28 mmol/L Anion Gap 9.0 mmol/L Blood Urea Nitrogen 86 mg/dl Creatinine 2.94 mg/dl Est Creatinine Clear Calc Drug Dose 11.4 ml/min Estimated GFR () 15.9 Estimated GFR (Non- 13.7 BUN/Creatinine Ratio 29.2 Random Glucose 227 mg/dl Estimated Average Glucose 140 mg/dl Hemoglobin A1c 6.5 % Calcium Level 8.8 mg/dl
[2017-12-29] MEDS ORDERED: INSULIN GLARGINE SOLOSTAR 100 UNITS/ML 3 ML PEN SC SCH (13:00)
[2017-12-29] MEDS ORDERED: HEPARIN SOD (PORCINE) 5000 UNIT/ML 1 ML VIAL ONE (14:39)
[2017-12-29] MEDS ORDERED: PROPOFOL IV EMULSION 10 MG/ML 20 ML VIAL IV ONE (14:50)
[2017-12-29] MEDS ORDERED: LIDOCAINE HCL 2% 2 ML VIAL (20MG/ML) ONE (14:50)
[2017-12-29] MEDS ORDERED: FENTANYL CITRATE INJ 50 MCG/1 ML 2 ML VIAL ONE (14:51)
[2017-12-29] MEDS ORDERED: KETAMINE HCL INJ 50 MG/ML 10 ML VIAL ONE (14:55)
[2017-12-29] MEDS ORDERED: LIDOCAINE HCL 1% 20 ML VIAL INJ ONE (15:25)
[2017-12-29] MEDS ORDERED: HEPARIN SOD (PORCINE) 5000 UNIT/ML 1 ML VIAL IV ONE (15:44)
[2017-12-29] MEDS ORDERED: CEFAZOLIN SOD 1 GM VIAL ONE (15:44)
--- NOTE | 2017-12-29 15:46 | [facility] Post Operative Brief Note ---
Immediate Operative Summary Operative Date Dec 29, 2017. Pre-Operative Diagnosis Acute renal failure Post-Operative Diagnosis Acute renal failure Procedure(s) Performed Insertion of left internal jugular vein permcath, 19cm USN localization of left internal jugular vein Fluoro for postioning Surgeon Fernando Social Insurance Analyst Surgeon(s) Larissa Palm MD Estimated Blood Loss 5cc Findings Consistent with Post-Op Diagnosis Specimens none Drains None Complication(s) none Disposition Accompanied Pt To Recover: no Disposition: Recovery Room / PACU
--- NOTE | 2017-12-29 16:24 | Anesthesiology Progress Note ---
Anesthesia Post Op Note Date & Time Dec 29, 2017 at 16:24 Vital Signs Pain Intensity: 0.0 Vital Signs Past 12 Hours Date Time Temp Pulse Resp B/P (MAP) Pulse Ox O2 Delivery O2 Flow Rate FiO2 12/29/17 16:20 36.7 101 15 112/77 97 Nasal Cannula 2 12/29/17 16:10 100 15 116/70 97 Nasal Cannula 2 12/29/17 16:00 36.2 98 20 133/79 98 Oxymask 10 12/29/17 15:48 Nasal Cannula 2.0 12/29/17 12:02 36.4 99 25 134/79 (97) 99 Nasal Cannula 2.0 12/29/17 12:00 Nasal Cannula 2.0 12/29/17 08:09 105 26 96 Nasal Cannula 2.0 12/29/17 08:07 36.4 105 23 122/87 (99) 94 Room Air 12/29/17 08:00 Nasal Cannula 2.0 Notes Mental Status: alert / awake / arousable, participated in evaluation Pt Amnestic to Procedure: Yes Nausea / Vomiting: adequately controlled Pain: adequately controlled Airway Patency, RR, SpO2: stable & adequate BP & HR: stable & adequate Hydration State: stable & adequate Anesthetic Complications: no major complications apparent
[2017-12-29] MEDS: INSULIN GLARGINE SOLOSTAR 100 UNITS/ML 3 ML PEN SC SCH (20:54)
[2017-12-30] VITALS (19 sets, daily range): BP systolic 110–158; BP diastolic 54–85; PULSE 82–107; TEMP 36.4–36.9; O2SAT 91–100; Ht 147.3 cm; Wt 62.5 kg
[2017-12-30] MEDS: IPRATROPIUM BROMIDE NEB SOLN 0.02% 2.5 ML VIAL INH PRN (05:06)
[2017-12-30] MEDS: LEVALBUTEROL 1.25MG/0.5ML NEB INH PRN (05:06)
[2017-12-30] MEDS: ISOSORBIDE DINITRATE 5 MG TAB PO SCH ×3 (07:53→16:08)
[2017-12-30] MEDS: CALCIUM 600MG + VIT D 400 IU TAB PO SCH (07:53)
[2017-12-30] MEDS: ASPIRIN 81 MG ECTAB PO SCH (07:53)
[2017-12-30] MEDS: AMOXICILLIN/CLAVULANATE TAB 500 MG TAB PO SCH ×2 (07:53→16:07)
[2017-12-30] MEDS: METOPROLOL TARTRATE 25 MG TAB PO SCH ×4 (07:54→21:01)
[2017-12-30] MEDS: INSULIN ASPART 100 UNITS/ML 3 ML PEN SC SCH ×4 (07:58→21:10)
[2017-12-30] MEDS: HEPARIN SOD 5000 UNIT/0.5 ML CARP SQ SCH ×2 (07:59→21:11)
[2017-12-30] MEDS: INSULIN GLARGINE SOLOSTAR 100 UNITS/ML 3 ML PEN SC SCH (07:59)
--- NOTE | 2017-12-30 09:27 | Progress Note ---
Medicine Progress Note Date & Time of Visit: Dec 30, 2017 at 09:22. Subjective patient seen resting in bed, appears weak tries to open eyes and say yes/no when asked question states she feels "ok" per RN and son, patient appeared more alert than yesterday no chest pain no abdominal pain Objective Last 8 Hrs Date Time Temp Pulse Resp B/P (MAP) Pulse Ox O2 Delivery O2 Flow Rate FiO2 12/30/17 07:39 36.6 105 21 133/75 (94) 91 Room Air 12/30/17 05:06 102 20 97 Mask 2.0 12/30/17 04:00 Nasal Cannula 2.0 12/30/17 03:52 36.4 103 24 123/67 (85) 97 Nasal Cannula 2.0 Physical Exam: General- oriented x 3, not in distress, speaks in sentences with no effort Eyes- anicteric Neck- no JV Lungs- mild rales at the bases Heart- regular rhythm; no murmur, normal rate Abdomen- normal bowel sounds, non distended, soft, nontender Extremities- grade 1 bipedal edema, no calf tenderness; peripheral pulses intact Neuro- alert, oriented x 3; no gross focal deficits Skin- warm & dry Laboratory Results: Last 24 Hours Test 12/29/17 10:48 12/29/17 14:54 12/29/17 16:02 12/29/17 16:49 White Blood Count 11.89 K/uL Red Blood Count 3.61 M/uL Hemoglobin 10.9 g/dL Hematocrit 33.9 % Mean Corpuscular Volume 93.9 fL Mean Corpuscular Hemoglobin 30.2 pg Mean Corpuscular Hemoglobin Concent 32.2 g/dl Platelet Count 169 K/uL Mean Platelet Volume 12.6 fL Neutrophils (%) (Auto) 79.6 % Lymphocytes (%) (Auto) 10.8 % Monocytes (%) (Auto) 9.0 % Eosinophils (%) (Auto) 0.0 % Basophils (%) (Auto) 0.1 % Neutrophils # (Auto) 9.46 K/uL Lymphocytes # (Auto) 1.29 K/uL Monocytes # (Auto) 1.07 K/uL Eosinophils # (Auto) 0.00 K/uL Basophils # (Auto) 0.01 K/uL RDW Standard Deviation 49.2 fL RDW Coefficient of Variation 14.5 % Immature Granulocyte % (Auto) 0.5 % Immature Granulocyte # (Auto) 0.06 K/uL Nucleated RBC Absolute Count (auto) 0.25 K/uL Nucleated Red Blood Cells % 2.1 % Giant Platelets 1+ Red Blood Cell Morphology Unremarkable Sodium Level 137 mmol/L Potassium Level 4.7 mmol/L Chloride Level 100 mmol/L Carbon Dioxide Level 28 mmol/L Anion Gap 9.0 mmol/L Blood Urea Nitrogen 86 mg/dl Creatinine 2.94 mg/dl Est Creatinine Clear Calc Drug Dose 11.4 ml/min Estimated GFR () 15.9 Estimated GFR (Non- 13.7 BUN/Creatinine Ratio 29.2 Random Glucose 227 mg/dl Estimated Average Glucose 140 mg/dl Hemoglobin A1c 6.5 % Calcium Level 8.8 mg/dl Bedside Glucose 183 mg/dl 195 mg/dl 191 mg/dl Test 12/29/17 20:32 12/30/17 06:25 12/30/17 06:45 Bedside Glucose 116 mg/dl 112 mg/dl Assessment & Plan This is a 87yo F with a PMH of complete heart block (s/p pacemaker placement on 12/21/16), HTN, DM II (diet controlled), CKD III and h/o breast cancer (s/p L mastectomy) who presents with worsening SOB x 2 days. 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 * There is severe diffuse hypokinesis to akinesis of the mid and apical levles of the left ventricle with relative sparing of the basal segment which are geoff in a hyperdynamic fashion. * Left ventricular systolic function is severely reduced. * The qualitative LV ejection fraction is < 20%. * Mild aortic regurgitation. * There is mild mitral regurgitation. * There is mild tricuspid regurgitation. * There is a small circumferential pericardial effusion with most significant fluide collection noted on the short axis view, adjacent to the inferoseptal wall. * There are no echocardiographic indications of cardiac tamponade. * There is a small to moderate sized left pleural effusion. - IV Lasix on hold due to increasing crea - on Imdur and Metoprolol for HD today ACUTE RENAL FAILURE ON CKD 3 - possible cardiorenal syndrome -Cr 1.8 To 2.5 to 2.9 - poor urine output - 12/29/17: s/p Permcath placement for HD today - Urology consulted, intervention not recommended at this time unless patient becomes septic POSSIBLE MILD ACUTE DIVERTICULITIS - seen on CT abdomen - remains afebrile denies abdominal pain - continue Augmentin PO for now TROPONIN ELEVATION likely Type 2 LA secondary to Demand Ischemia - no angina - troponin stabilized UTI: -Positive UA -Patient incontinent, decreased output at home -Urine culture: yeast, not Esperanza -changed Ceftri to Augmentin PO HTN: -Normotensive -Cont home dose metoprolol -Lisinopril held since last admission 12/24 PAULO. Continue to hold. DM II (diet controlled) -A1c of 6 in May 2017 -Repeat alc 6.5 - BSGs increasing Pharmacy consulted - on Lantus and ISS DVT Ppx: IV heparin Code status: DNR per discussion with patient, family PCP: Irma Dispo: pending discussed case at length with patient's son he is agreeable and comfortable with plan of care Current Inpatient Medications: Current Inpatient Medications Medications (Trade) Dose Ordered Sig/Main Route Start Time Stop Time Status Last Admin Dose Admin Aspirin (Ecotrin Tab) 81 mg DAILY PO 12/28/17 09:00 01/27/18 08:59 12/30/17 07:53 81 MG Calcium/Vitamin D (Caltrate Plus Tab) 1 tab DAILY PO 12/28/17 09:00 01/27/18 08:59 12/30/17 07:53 1 TAB Gabapentin (Neurontin Cap) 100 mg TID PRN PO 12/27/17 15:45 01/26/18 15:44 Isosorbide Dinitrate (Isordil Tab) 5 mg DAILY@0700,1200,1700 PO 12/27/17 17:40 01/26/18 17:39 12/30/17 07:53 5 MG Ipratropium [place] (Atrovent 0.02% 0.5MG/2.5ML Neb) 0.5 mg Q4R PRN INH 12/28/17 00:00 01/27/18 00:00 12/30/17 05:06 0.5 MG Levalbuterol (Xopenex 1.25MG/ 0.5ML Neb) 1.25 mg Q4R PRN INH 12/27/17 20:30 01/26/18 20:29 12/30/17 05:06 1.25 MG Metoprolol Tartrate (Lopressor Tab) 25 mg QID PO 12/28/17 13:00 01/27/18 12:59 12/29/17 17:03 25 MG Heparin Sodium (Porcine) (Heparin Sq 5000 Unit/0.5ml) 5,000 unit Q12 SQ 12/28/17 21:00 01/27/18 20:59 12/30/17 07:59 5,000 UNIT Miscellaneous Information 1 ea UD PRN N/A 12/28/17 14:23 01/27/18 14:22 Amoxicillin/ Clavulanate Potassium (Augmentin Tab) 500 mg BIDM PO 12/29/17 07:30 01/06/18 07:29 12/30/17 07:53 500 MG Miscellaneous Information (Consult Glycemic Management Pharmacy) 1 ea UD PRN N/A 12/29/17 10:34 01/28/18 10:33 Insulin Aspart (novoLOG ASPART) SLIDING SCALE ACHS SC 12/29/17 11:30 01/28/18 11:29 12/30/17 07:58 1 UNITS Glucose (Glucose 40% Gel) 15-30 GRAMS 15 GRAMS... UD PRN PO 12/29/17 11:30 01/28/18 11:29 Glucose (Glucose Chew Tab) 4-8 Tablets 4 Tabl... UD PRN PO 12/29/17 11:30 01/28/18 11:29 Dextrose (Dextrose 50% 50ML Syringe) 25-50ML OF 50% DW IV FOR... UD PRN IV 12/29/17 11:30 01/28/18 11:29 Glucagon (Glucagon Inj) 1 mg UD PRN SQ 12/29/17 11:30 01/28/18 11:29 Insulin Glargine (Lantus Solostar Pen) SEE PROTOCOL BID SC 12/29/17 21:00 01/28/18 20:59 Future hold 12/30/17 07:59 7 UNITS
--- NOTE | 2017-12-30 10:30 | Cardiology Follow-Up ---
Subjective General Date of Service: Dec 30, 2017. Chief Complaint: follow up shortness of breath Pt evaluation today including: conversation w/ patient, physical exam History of Present Illness The patient is a 87 year old female seen in follow up. Sinus tachycardia at 105 bpm with V pacing noted on telemetry-unchanged compared to initial consult. Received Left IJ catheter yesterday and on first HD treatment now. Pt tired. Otherwise without complaints. Allergies Coded Allergies: Macey Nut (Verified Allergy, Unknown, UNKNOWN, 12/27/17) Social History Smoking Status: Former Smoker Hx Tobacco Use In Past Year?: No Hx Alcohol Use - Type And Amou: No Hx Substance Use - Type And Am: No Problem List Medical Problems: (1) CHF (congestive heart failure) Status: Acute (2) Elevated troponin Status: Acute (3) Fall Status: Acute (4) Kidney stone Status: Acute (5) Sepsis Status: Acute (6) Third degree heart block Status: Acute (7) UTI (urinary tract infection) Status: Acute (8) UTI (urinary tract infection) Status: Acute (9) Weakness Status: Acute (10) Weakness Status: Acute Physical Exam Vital Signs Last Vital Signs Documentation Date Time Temp Pulse Resp B/P (MAP) Pulse Ox O2 Delivery O2 Flow Rate FiO2 12/30/17 10:15 101 113/67 12/30/17 09:15 36.9 12/30/17 08:00 Oxymask 2.0 12/30/17 07:39 21 91 Physical Exam Constitutional: General Apperance: heathly-appearing, well-nourished, well-developed Level of Distress: chronically ill Ambulation: ambulating normally Psychiatric: Mental Status: active & alert, normal mood, normal affect Orientation: oriented except where noted Memory: recent memory normal, remote memory normal Neck: supple Lungs: Auscultation: decreased breath sounds, pertinent finding (Decrease BS at the bases ) Cardiovascular: Heart Auscultation: RRR, no murmurs Peripheral Pulses: Radial Pulse: normal on the left, normal on the right Femoral Pulse: normal on the left, normal on the right Abdomen: Inspection & Palpation: soft Musculoskeletal: normal Extremities: pertinent finding (mild LE edema ) Neurologic: Cranial Nerves: grossly intact Sensation: grossly intact Assessment and Plan Assessment and Plan Impression: 87-year-old female presents with fatigue and shortness of breath without chest discomfort 1. 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 Acute kidney injury on stage III chronic kidney disease 3. Sinus tachycardia 4. Recent dual-chamber Medtronic pacemaker for symptomatic high-grade AV block with severe bradycardia 5. Small to moderate sized circumferential pericardial effusion noted on echocardiogram , no tamponade Plan: Continue metoprolol, aspirin, Isordil dinitrate,SQ heparin for DVT prophylaxis. Laboratory Results Last 24 Hours Test 12/29/17 10:48 12/29/17 14:54 12/29/17 16:02 12/29/17 16:49 White Blood Count 11.89 K/uL Red Blood Count 3.61 M/uL Hemoglobin 10.9 g/dL Hematocrit 33.9 % Mean Corpuscular Volume 93.9 fL Mean Corpuscular Hemoglobin 30.2 pg Mean Corpuscular Hemoglobin Concent 32.2 g/dl Platelet Count 169 K/uL Mean Platelet Volume 12.6 fL Neutrophils (%) (Auto) 79.6 % Lymphocytes (%) (Auto) 10.8 % Monocytes (%) (Auto) 9.0 % Eosinophils (%) (Auto) 0.0 % Basophils (%) (Auto) 0.1 % Neutrophils # (Auto) 9.46 K/uL Lymphocytes # (Auto) 1.29 K/uL Monocytes # (Auto) 1.07 K/uL Eosinophils # (Auto) 0.00 K/uL Basophils # (Auto) 0.01 K/uL RDW Standard Deviation 49.2 fL RDW Coefficient of Variation 14.5 % Immature Granulocyte % (Auto) 0.5 % Immature Granulocyte # (Auto) 0.06 K/uL Nucleated RBC Absolute Count (auto) 0.25 K/uL Nucleated Red Blood Cells % 2.1 % Giant Platelets 1+ Red Blood Cell Morphology Unremarkable Sodium Level 137 mmol/L Potassium Level 4.7 mmol/L Chloride Level 100 mmol/L Carbon Dioxide Level 28 mmol/L Anion Gap 9.0 mmol/L Blood Urea Nitrogen 86 mg/dl Creatinine 2.94 mg/dl Est Creatinine Clear Calc Drug Dose 11.4 ml/min Estimated GFR () 15.9 Estimated GFR (Non- 13.7 BUN/Creatinine Ratio 29.2 Random Glucose 227 mg/dl Estimated Average Glucose 140 mg/dl Hemoglobin A1c 6.5 % Calcium Level 8.8 mg/dl Bedside Glucose 183 mg/dl 195 mg/dl 191 mg/dl Test 12/29/17 20:32 12/30/17 06:25 12/30/17 06:45 Bedside Glucose 116 mg/dl 112 mg/dl Hepatitis B Surface Antigen NEG Hepatitis B Surface Antibody NEG
--- NOTE | 2017-12-30 15:17 | Nephrology Progress Note ---
Nephrology Progress Note Date of Service: Dec 30, 2017. Subjective 87 yo female seen for follow up for luanne/atn with chronic unchanged hydronephrosis with a stress induced cardiomyopathy. had tunneled line placed and underwent dialysis today. appetite is good and more energy. Objective Date Time Temp Pulse Resp B/P (MAP) Pulse Ox O2 Delivery O2 Flow Rate FiO2 12/30/17 12:00 Oxymask 2.0 12/30/17 11:51 Oxymask 2.0 12/30/17 11:24 36.9 101 18 140/75 (96) 100 Oxymask 12/30/17 11:23 36.9 101 134/73 (93) 12/30/17 11:15 101 141/69 12/30/17 11:00 96 158/54 12/30/17 10:45 82 122/58 12/30/17 10:30 100 117/71 12/30/17 10:15 101 113/67 12/30/17 10:00 105 116/72 12/30/17 09:45 101 112/65 12/30/17 09:30 102 112/71 12/30/17 09:23 101 126/71 12/30/17 09:15 36.9 104 130/70 (90) 12/30/17 08:00 Oxymask 2.0 12/30/17 07:39 36.6 105 21 133/75 (94) 91 Room Air 12/30/17 05:06 102 20 97 Mask 2.0 12/30/17 04:00 Nasal Cannula 2.0 12/30/17 03:52 36.4 103 24 123/67 (85) 97 Nasal Cannula 2.0 12/30/17 00:25 36.4 104 19 110/69 (83) 93 Nasal Cannula 2.0 12/30/17 00:05 Nasal Cannula 2.0 12/29/17 19:47 Nasal Cannula 2.0 12/29/17 19:30 36.9 97 20 106/68 (81) 95 Room Air 12/29/17 17:30 36.6 99 18 132/76 (94) 96 Nasal Cannula 2.0 12/29/17 17:00 36.4 101 16 130/70 (90) 95 Nasal Cannula 2.0 12/29/17 16:45 36.6 100 18 121/77 (92) 96 Nasal Cannula 2.0 12/29/17 16:30 36.7 102 18 129/76 (93) 96 Room Air 2.0 12/29/17 16:20 36.7 101 15 112/77 97 Nasal Cannula 2 12/29/17 16:10 100 15 116/70 97 Nasal Cannula 2 12/29/17 16:00 36.2 98 20 133/79 98 Oxymask 10 12/29/17 15:48 Nasal Cannula 2.0 Physical Exam: General-aaox3, comfortable Eyes-no scleral icterus ENT-mmm Neck-supple Lungs-decreased at bases Heart-tachycardia Abdomen-bs+ s/nt/nd Extremities-+1 edema Neuro-nonfocal Current Inpatient Medications Medications (Trade) Dose Ordered Sig/Main Route Start Time Stop Time Status Last Admin Dose Admin Aspirin (Ecotrin Tab) 81 mg DAILY PO 12/28/17 09:00 01/27/18 08:59 12/30/17 07:53 81 MG Calcium/Vitamin D (Caltrate Plus Tab) 1 tab DAILY PO 12/28/17 09:00 01/27/18 08:59 12/30/17 07:53 1 TAB Gabapentin (Neurontin Cap) 100 mg TID PRN PO 12/27/17 15:45 01/26/18 15:44 Isosorbide Dinitrate (Isordil Tab) 5 mg DAILY@0700,1200,1700 PO 12/27/17 17:40 01/26/18 17:39 12/30/17 12:18 5 MG Ipratropium [place] (Atrovent 0.02% 0.5MG/2.5ML Neb) 0.5 mg Q4R PRN INH 12/28/17 00:00 01/27/18 00:00 12/30/17 05:06 0.5 MG Levalbuterol (Xopenex 1.25MG/ 0.5ML Neb) 1.25 mg Q4R PRN INH 12/27/17 20:30 01/26/18 20:29 12/30/17 05:06 1.25 MG Metoprolol Tartrate (Lopressor Tab) 25 mg QID PO 12/28/17 13:00 01/27/18 12:59 12/30/17 13:27 25 MG Heparin Sodium (Porcine) (Heparin Sq 5000 Unit/0.5ml) 5,000 unit Q12 SQ 12/28/17 21:00 01/27/18 20:59 12/30/17 07:59 5,000 UNIT Miscellaneous Information 1 ea UD PRN N/A 12/28/17 14:23 01/27/18 14:22 Amoxicillin/ Clavulanate Potassium (Augmentin Tab) 500 mg BIDM PO 12/29/17 07:30 01/06/18 07:29 12/30/17 07:53 500 MG Miscellaneous Information (Consult Glycemic Management Pharmacy) 1 ea UD PRN N/A 12/29/17 10:34 01/28/18 10:33 Insulin Aspart (novoLOG ASPART) SLIDING SCALE ACHS SC 12/29/17 11:30 01/28/18 11:29 12/30/17 07:58 1 UNITS Glucose (Glucose 40% Gel) 15-30 GRAMS 15 GRAMS... UD PRN PO 12/29/17 11:30 01/28/18 11:29 Glucose (Glucose Chew Tab) 4-8 Tablets 4 Tabl... UD PRN PO 12/29/17 11:30 01/28/18 11:29 Dextrose (Dextrose 50% 50ML Syringe) 25-50ML OF 50% DW IV FOR... UD PRN IV 12/29/17 11:30 01/28/18 11:29 Glucagon (Glucagon Inj) 1 mg UD PRN SQ 12/29/17 11:30 01/28/18 11:29 Insulin Glargine (Lantus Solostar Pen) SEE PROTOCOL QAM SC 12/31/17 09:00 01/30/18 08:59 Last 24 Hours Test 12/29/17 16:02 12/29/17 16:49 12/29/17 20:32 12/30/17 06:25 Bedside Glucose 195 mg/dl 191 mg/dl 116 mg/dl Hepatitis B Surface Antigen NEG Hepatitis B Surface Antibody NEG Test 12/30/17 06:45 12/30/17 11:26 Bedside Glucose 112 mg/dl 96 mg/dl Assessment & Plan luanne/[id number]-ykc-tuhqajsw in setting of hemodynamic compromise from complete heart block. had dialysis today with no fluid removal. plan on dialysis again tomorrow and wednesday. will attempt fluid removal tomorrow. pt appears to have more energy and better appetite. hopefully continues to slowly improve.
[2017-12-30] MEDS: BOOST GLUCOSE CONTROL PO SCH (16:57)
[2017-12-31] VITALS (18 sets, daily range): BP systolic 102–143; BP diastolic 67–94; PULSE 101–112; TEMP 36.5–37; O2SAT 95–99
[2017-12-31 06:22] LABS: EOS % 0.3 %; EOS ABS # 0.03 K/uL (0-0.5); IG# 0.04 K/uL (0.00-0.02); LYMPH % 10.6 %; LYMPH ABS # 0.94 K/uL (1.2-3.4); MEAN CELL VOLUME 93.9 fL (80-100); MEAN CORPUSCULAR HEMOGLOBIN 30.4 pg (25-34); MEAN CORPUSCULAR HGB CONC 32.4 g/dl (32-36); MEAN PLATELET VOLUME 12.3 fL (7.4-10.4); MONO % 11.3 %; NEUT % 77.3 %; NEUT ABS # 6.87 K/uL (1.4-6.5); PLATELET COUNT 166 K/uL (130-400); RED CELL DISTRIBUTION WIDTH CV 14.7 % (11.5-14.5); RED CELL DISTRIBUTION WIDTH SD 49.2 fL (36.4-46.3); WHITE BLOOD COUNT 8.88 K/uL (4.8-10.8)
[2017-12-31 06:40] LABS: CREATININE 1.7 mg/dl (0.60-1.20); POTASSIUM 3.5 mmol/L (3.5-5.1)
[2017-12-31] MEDS: BOOST GLUCOSE CONTROL PO SCH ×2 (07:30→16:45)
--- NOTE | 2017-12-31 08:53 | Nephrology Progress Note ---
Nephrology Progress Note Date of Service: Dec 31, 2017. Subjective 87 yo female seen for follow up for luanne/atn with chronic unchanged hydronephrosis with a stress induced cardiomyopathy. had tunneled line placed and had first dialysis treatment yesterday. this morning, pt awake and eating breakfast and not requiring any oxygen. Still overall very weak and tired. Objective Date Time Temp Pulse Resp B/P (MAP) Pulse Ox O2 Delivery O2 Flow Rate FiO2 12/31/17 07:45 36.9 112 33 143/94 (110) 96 Room Air 12/31/17 04:00 Room Air 12/31/17 03:50 36.5 106 20 141/70 (93) 95 Room Air 12/30/17 23:59 Oxymask 2.0 12/30/17 23:45 36.7 107 20 148/85 (106) 98 Oxymask 4.0 12/30/17 19:59 36.8 104 20 126/71 (89) 94 Room Air 12/30/17 19:34 Oxymask 2.0 12/30/17 16:00 Oxymask 2.0 12/30/17 15:51 36.9 100 20 115/76 (89) 95 Room Air 12/30/17 12:00 Oxymask 2.0 12/30/17 11:51 Oxymask 2.0 12/30/17 11:24 36.9 101 18 140/75 (96) 100 Oxymask 12/30/17 11:23 36.9 101 134/73 (93) 12/30/17 11:15 101 141/69 12/30/17 11:00 96 158/54 12/30/17 10:45 82 122/58 12/30/17 10:30 100 117/71 12/30/17 10:15 101 113/67 12/30/17 10:00 105 116/72 12/30/17 09:45 101 112/65 12/30/17 09:30 102 112/71 12/30/17 09:23 101 126/71 12/30/17 09:15 36.9 104 130/70 (90) Physical Exam: General-aaox3 Eyes-no scleral icterus ENT-mmm Neck-supple Lungs-cta Heart-tachycardia Abdomen-bs+ s/nt/nd Extremities-+1 edema Neuro-nonfocal Current Inpatient Medications Medications (Trade) Dose Ordered Sig/Main Route Start Time Stop Time Status Last Admin Dose Admin Aspirin (Ecotrin Tab) 81 mg DAILY PO 12/28/17 09:00 01/27/18 08:59 12/30/17 07:53 81 MG Calcium/Vitamin D (Caltrate Plus Tab) 1 tab DAILY PO 12/28/17 09:00 01/27/18 08:59 12/30/17 07:53 1 TAB Gabapentin (Neurontin Cap) 100 mg TID PRN PO 12/27/17 15:45 01/26/18 15:44 Isosorbide Dinitrate (Isordil Tab) 5 mg DAILY@0700,1200,1700 PO 12/27/17 17:40 01/26/18 17:39 12/30/17 16:08 5 MG Ipratropium [place] (Atrovent 0.02% 0.5MG/2.5ML Neb) 0.5 mg Q4R PRN INH 12/28/17 00:00 01/27/18 00:00 12/30/17 05:06 0.5 MG Levalbuterol (Xopenex 1.25MG/ 0.5ML Neb) 1.25 mg Q4R PRN INH 12/27/17 20:30 01/26/18 20:29 12/30/17 05:06 1.25 MG Metoprolol Tartrate (Lopressor Tab) 25 mg QID PO 12/28/17 13:00 01/27/18 12:59 12/30/17 21:01 25 MG Heparin Sodium (Porcine) (Heparin Sq 5000 Unit/0.5ml) 5,000 unit Q12 SQ 12/28/17 21:00 01/27/18 20:59 12/30/17 21:11 5,000 UNIT Miscellaneous Information 1 ea UD PRN N/A 12/28/17 14:23 01/27/18 14:22 Amoxicillin/ Clavulanate Potassium (Augmentin Tab) 500 mg BIDM PO 12/29/17 07:30 01/06/18 07:29 12/30/17 16:07 500 MG Miscellaneous Information (Consult Glycemic Management Pharmacy) 1 ea UD PRN N/A 12/29/17 10:34 01/28/18 10:33 Insulin Aspart (novoLOG ASPART) SLIDING SCALE ACHS SC 12/29/17 11:30 01/28/18 11:29 12/30/17 21:10 1 UNITS Glucose (Glucose 40% Gel) 15-30 GRAMS 15 GRAMS... UD PRN PO 12/29/17 11:30 01/28/18 11:29 Glucose (Glucose Chew Tab) 4-8 Tablets 4 Tabl... UD PRN PO 12/29/17 11:30 01/28/18 11:29 Dextrose (Dextrose 50% 50ML Syringe) 25-50ML OF 50% DW IV FOR... UD PRN IV 12/29/17 11:30 01/28/18 11:29 Glucagon (Glucagon Inj) 1 mg UD PRN SQ 12/29/17 11:30 01/28/18 11:29 Insulin Glargine (Lantus Solostar Pen) SEE PROTOCOL QAM NE 12/31/17 09:00 01/30/18 08:59 Enteral Nutritional Formula (Boost Glucose Control) 1 can BIDM PO 12/30/17 16:45 01/29/18 16:44 12/30/17 16:57 1 CAN Last 24 Hours Test 12/30/17 11:26 12/30/17 16:20 12/30/17 20:17 12/30/17 23:27 Bedside Glucose 96 mg/dl 115 mg/dl 273 mg/dl 165 mg/dl Test 12/31/17 05:54 12/31/17 06:40 White Blood Count 8.88 K/uL Red Blood Count 3.62 M/uL Hemoglobin 11.0 g/dL Hematocrit 34.0 % Mean Corpuscular Volume 93.9 fL Mean Corpuscular Hemoglobin 30.4 pg Mean Corpuscular Hemoglobin Concent 32.4 g/dl Platelet Count 166 K/uL Mean Platelet Volume 12.3 fL Neutrophils (%) (Auto) 77.3 % Lymphocytes (%) (Auto) 10.6 % Monocytes (%) (Auto) 11.3 % Eosinophils (%) (Auto) 0.3 % Basophils (%) (Auto) 0.0 % Neutrophils # (Auto) 6.87 K/uL Lymphocytes # (Auto) 0.94 K/uL Monocytes # (Auto) 1.00 K/uL Eosinophils # (Auto) 0.03 K/uL Basophils # (Auto) 0.00 K/uL RDW Standard Deviation 49.2 fL RDW Coefficient of Variation 14.7 % Immature Granulocyte % (Auto) 0.5 % Immature Granulocyte # (Auto) 0.04 K/uL Sodium Level 137 mmol/L Potassium Level 3.5 mmol/L Chloride Level 102 mmol/L Carbon Dioxide Level 27 mmol/L Anion Gap 9.0 mmol/L Blood Urea Nitrogen 58 mg/dl Creatinine 1.70 mg/dl Est Creatinine Clear Calc Drug Dose 19.3 ml/min Estimated GFR () 30.9 Estimated GFR (Non- 26.6 BUN/Creatinine Ratio 34.1 Random Glucose 146 mg/dl Calcium Level 8.0 mg/dl Bedside Glucose 139 mg/dl Assessment & Plan luanne/spr-dxf-prinyzsv in setting of hemodynamic compromise from previous complete heart block requiring a pacemaker, now with cardiomyopathy with tachycardia. for dialysis again today and will attempt fluid removal. will follow closely. will see if she symptomatically is improving with dialysis and fluid removal in hopes that her cardiac function may eventually recover. still unfortunately with an overall poor prognosis. will re-evaluate dialysis after wednesday's treatment to see if she wants to continue current course of therapy. spoke with son and caregiver and answered their questions. during previous conversations with them, they mentioned quality of life which I agree with. her quality of life may not be great even if she survives, however i am respectful of her wishes and she wants to try dialysis which we are doing.
[2017-12-31] MEDS ORDERED: INSULIN GLARGINE SOLOSTAR 100 UNITS/ML 3 ML PEN SC SCH (09:00)
[2017-12-31] MEDS ORDERED: NITROGLYCERIN 0.4 MG SL PER TAB CHARGE ONE ×2 (09:25→09:53)
[2017-12-31] MEDS ORDERED: ALUMINUM/MAGNESIUM SUSP 30 ML UDC PO STA (09:58)
[2017-12-31] MEDS: INSULIN ASPART 100 UNITS/ML 3 ML PEN SC SCH ×4 (10:00→22:01)
[2017-12-31] MEDS: METOPROLOL TARTRATE 25 MG TAB PO SCH ×3 (10:01→17:03)
[2017-12-31] MEDS: ISOSORBIDE DINITRATE 5 MG TAB PO SCH ×3 (10:02→17:02)
[2017-12-31] MEDS: AMOXICILLIN/CLAVULANATE TAB 500 MG TAB PO SCH (10:02)
[2017-12-31] MEDS: CALCIUM 600MG + VIT D 400 IU TAB PO SCH (10:02)
[2017-12-31] MEDS: ASPIRIN 81 MG ECTAB PO SCH (10:02)
[2017-12-31] MEDS: HEPARIN SOD 5000 UNIT/0.5 ML CARP SQ SCH (10:05)
[2017-12-31] MEDS ORDERED: NITROGLYCERIN 0.3 MG/1 TAB 100 TAB BTL SL PRN (10:15)
[2017-12-31] MEDS ORDERED: PANTOprazole INJ 40 MG in SYRINGE 0 ML IV ONE (10:30)
--- NOTE | 2017-12-31 10:30 | Progress Note ---
Medicine Progress Note Date & Time of Visit: Dec 31, 2017 at 10:28. Subjective reported chest pain to RN given 3 nitros, no relief EKG done: paced rhythm on exam, resting in bed, not in distress states she has pain all over, has some pressure type discomfort, more epigastric , lower sternum has some nausea no dyspnea, dizziness, sweating would still like to have HD today denies other symptoms Objective Last 8 Hrs Date Time Temp Pulse Resp B/P (MAP) Pulse Ox O2 Delivery O2 Flow Rate FiO2 12/31/17 07:45 36.9 112 33 143/94 (110) 96 Room Air 12/31/17 04:00 Room Air 12/31/17 03:50 36.5 106 20 141/70 (93) 95 Room Air Physical Exam: General- oriented x 3, not in distress, speaks in sentences with no effort Eyes- anicteric Neck- no JVD Lungs- mild rales at the bases, no wheezing Heart- regular rhythm; no murmur, normal rate Abdomen- normal bowel sounds, non distended, soft, nontender Extremities- grade 1 bipedal edema, no calf tenderness; peripheral pulses intact Neuro- alert, oriented x 3; no gross focal deficits Skin- warm & dry Laboratory Results: Last 24 Hours Test 12/30/17 11:26 12/30/17 16:20 12/30/17 20:17 12/30/17 23:27 Bedside Glucose 96 mg/dl 115 mg/dl 273 mg/dl 165 mg/dl Test 12/31/17 05:54 12/31/17 06:40 12/31/17 10:19 White Blood Count 8.88 K/uL Red Blood Count 3.62 M/uL Hemoglobin 11.0 g/dL Hematocrit 34.0 % Mean Corpuscular Volume 93.9 fL Mean Corpuscular Hemoglobin 30.4 pg Mean Corpuscular Hemoglobin Concent 32.4 g/dl Platelet Count 166 K/uL Mean Platelet Volume 12.3 fL Neutrophils (%) (Auto) 77.3 % Lymphocytes (%) (Auto) 10.6 % Monocytes (%) (Auto) 11.3 % Eosinophils (%) (Auto) 0.3 % Basophils (%) (Auto) 0.0 % Neutrophils # (Auto) 6.87 K/uL Lymphocytes # (Auto) 0.94 K/uL Monocytes # (Auto) 1.00 K/uL Eosinophils # (Auto) 0.03 K/uL Basophils # (Auto) 0.00 K/uL RDW Standard Deviation 49.2 fL RDW Coefficient of Variation 14.7 % Immature Granulocyte % (Auto) 0.5 % Immature Granulocyte # (Auto) 0.04 K/uL Sodium Level 137 mmol/L Potassium Level 3.5 mmol/L Chloride Level 102 mmol/L Carbon Dioxide Level 27 mmol/L Anion Gap 9.0 mmol/L Blood Urea Nitrogen 58 mg/dl Creatinine 1.70 mg/dl Est Creatinine Clear Calc Drug Dose 19.3 ml/min Estimated GFR () 30.9 Estimated GFR (Non- 26.6 BUN/Creatinine Ratio 34.1 Random Glucose 146 mg/dl Calcium Level 8.0 mg/dl Bedside Glucose 139 mg/dl Assessment & Plan This is a 87yo F with a PMH of complete heart block (s/p pacemaker placement on 12/21/16), HTN, DM II (diet controlled), CKD III and h/o breast cancer (s/p L mastectomy) who presents with worsening SOB x 2 days. 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 * There is severe diffuse hypokinesis to akinesis of the mid and apical levles of the left ventricle with relative sparing of the basal segment which are geoff in a hyperdynamic fashion. * Left ventricular systolic function is severely reduced. * The qualitative LV ejection fraction is < 20%. * Mild aortic regurgitation. * There is mild mitral regurgitation. * There is mild tricuspid regurgitation. * There is a small circumferential pericardial effusion with most significant fluide collection noted on the short axis view, adjacent to the inferoseptal wall. * There are no echocardiographic indications of cardiac tamponade. * There is a small to moderate sized left pleural effusion. - IV Lasix on hold due to increasing crea - on Imdur and Metoprolol for HD again today ACUTE RENAL FAILURE ON CKD 3 - possible cardiorenal syndrome -Cr 1.8 To 2.5 to 2.9 - poor urine output - 12/29/17: s/p Permcath placement for HD again today - Urology consulted, intervention not recommended at this time unless patient becomes septic CHEST PAIN - not relieved by Nitro EKG paced rhythm - cardiac markers ordered - Maalox and Protonix ordered for possible GERD/Dyspepsis POSSIBLE MILD ACUTE DIVERTICULITIS - seen on CT abdomen - remains afebrile denies abdominal pain - continue Augmentin PO for now TROPONIN ELEVATION likely Type 2 SD secondary to Demand Ischemia - no angina - troponin stabilized UTI: -Positive UA -Patient incontinent, decreased output at home -Urine culture: yeast, not Esperanza -changed Ceftri to Augmentin PO HTN: -Normotensive -Cont home dose metoprolol -Lisinopril held since last admission 12/24 PAULO. Continue to hold. DM II (diet controlled) -A1c of 6 in May 2017 -Repeat alc 6.5 - BSGs increasing Pharmacy consulted - on Lantus and ISS DVT Ppx: IV heparin Code status: DNR per discussion with patient, family PCP: Irma Dispo: pending Current Inpatient Medications: Current Inpatient Medications Medications (Trade) Dose Ordered Sig/Main Route Start Time Stop Time Status Last Admin Dose Admin Aspirin (Ecotrin Tab) 81 mg DAILY PO 12/28/17 09:00 01/27/18 08:59 12/31/17 10:02 81 MG Calcium/Vitamin D (Caltrate Plus Tab) 1 tab DAILY PO 12/28/17 09:00 01/27/18 08:59 12/31/17 10:02 1 TAB Gabapentin (Neurontin Cap) 100 mg TID PRN PO 12/27/17 15:45 01/26/18 15:44 12/31/17 10:01 100 MG Isosorbide Dinitrate (Isordil Tab) 5 mg DAILY@0700,1200,1700 PO 12/27/17 17:40 01/26/18 17:39 12/31/17 10:02 5 MG Ipratropium [place] (Atrovent 0.02% 0.5MG/2.5ML Neb) 0.5 mg Q4R PRN INH 12/28/17 00:00 01/27/18 00:00 12/30/17 05:06 0.5 MG Levalbuterol (Xopenex 1.25MG/ 0.5ML Neb) 1.25 mg Q4R PRN INH 12/27/17 20:30 01/26/18 20:29 12/30/17 05:06 1.25 MG Metoprolol Tartrate (Lopressor Tab) 25 mg QID PO 12/28/17 13:00 01/27/18 12:59 12/31/17 10:01 25 MG Heparin Sodium (Porcine) (Heparin Sq 5000 Unit/0.5ml) 5,000 unit Q12 SQ 12/28/17 21:00 01/27/18 20:59 12/31/17 10:05 5,000 UNIT Miscellaneous Information 1 ea UD PRN N/A 12/28/17 14:23 01/27/18 14:22 Amoxicillin/ Clavulanate Potassium (Augmentin Tab) 500 mg BIDM PO 12/29/17 07:30 01/06/18 07:29 12/31/17 10:02 500 MG Miscellaneous Information (Consult Glycemic Management Pharmacy) 1 ea UD PRN N/A 12/29/17 10:34 01/28/18 10:33 Insulin Aspart (novoLOG ASPART) SLIDING SCALE ACHS SC 12/29/17 11:30 01/28/18 11:29 12/30/17 21:10 1 UNITS Glucose (Glucose 40% Gel) 15-30 GRAMS 15 GRAMS... UD PRN PO 12/29/17 11:30 01/28/18 11:29 Glucose (Glucose Chew Tab) 4-8 Tablets 4 Tabl... UD PRN PO 12/29/17 11:30 01/28/18 11:29 Dextrose (Dextrose 50% 50ML Syringe) 25-50ML OF 50% DW IV FOR... UD PRN IV 12/29/17 11:30 01/28/18 11:29 Glucagon (Glucagon Inj) 1 mg UD PRN SQ 12/29/17 11:30 01/28/18 11:29 Insulin Glargine (Lantus Solostar Pen) SEE PROTOCOL QAM SC 12/31/17 09:00 01/30/18 08:59 12/31/17 10:04 7 UNITS Enteral Nutritional Formula (Boost Glucose Control) 1 can BIDM PO 12/30/17 16:45 01/29/18 16:44 12/30/17 16:57 1 CAN Pantoprazole Sodium 40 mg/ Syringe 10 ml @ 5 mls/min NOW ONCE IV 12/31/17 10:30 12/31/17 10:31 Acetaminophen (Tylenol Tab) 500 mg Q6H PRN PO 12/31/17 10:15 01/30/18 10:14 Nitroglycerin (Nitrostat Tab) 0.3 mg PRN PRN SL 12/31/17 10:15 01/30/18 10:14
--- NOTE | 2017-12-31 10:52 | Pharmacy Progress Note ---
Pharmacy Glycemic Short Note 2 Date of Service Dec 31, 2017. OUTPATIENT ANTIDIABETIC REGIMEN: * diet controlled ASSESSMENT: * Ms George is an 87 y/o F with a PMH of breast CA and complete heart block who presents with PAULO and CHF. yesterday the patient's blood sugar ranged from 96-115 mg/dL (patient had a blood sugar of 273 mg/dL last night but this was a one time blood sugar reading). The patient received 9 units of insulin (7 units of which was Lantus but patient is not eating much food). * The patient's fasting blood sugar is 139 mg/dL. Continue Lantus regimen but this may need increased tomorrow as the fasting today is higher than yesterday ( 112 mg/dL vs 139 mg/dL). Tightened Novolog parameters slightly with carbohydrate ratio to 1 unit per 10 grams of carbohydrates. This may not provide much additional coverage as the patient is not eating much. The patient did not receive her breakfast coverage as there was an error in the entry so blood sugar may be slightly elevated at lunch. PLAN FOR INPATIENT GLYCEMIC CONTROL: * Hold outpatient oral diabetes medications * Basal insulin * Lantus 7 units SQ qAM * Bolus insulin * NovoLog per scale ACHS or Q6hrs while NPO * Goal Range: Low 110 mg/dL - High 140 mg/dL * Correction Factor: 30 mg/dL/unit * Nutritional / Prandial insulin per carb ratio of 1 unit per 10 grams CHO consumed PLAN FOR DISCHARGE: * Patient's blood sugar is well-controlled via diet recommend continuing current treatment plan.
[2017-12-31] MEDS: ACETAMINOPHEN 500 MG TAB PO PRN (18:20)
[2017-12-31] MEDS ORDERED: NURSING VERBAL MED ORDER ONE (18:45)
--- NOTE | 2017-12-31 19:39 | Cardiology Follow-Up ---
Subjective General Date of Service: Dec 31, 2017. Chief Complaint: follow up shortness of breath Pt evaluation today including: conversation w/ patient, conversation w/ family , physical exam History of Present Illness The patient is a 87 year old female seen in follow up. She is tired. Lethargic. Aroused to voice. Allergies Coded Allergies: Macey Nut (Verified Allergy, Unknown, UNKNOWN, 12/27/17) Social History Smoking Status: Former Smoker Hx Tobacco Use In Past Year?: No Hx Alcohol Use - Type And Amou: No Hx Substance Use - Type And Am: No Problem List Medical Problems: (1) CHF (congestive heart failure) Status: Acute (2) Elevated troponin Status: Acute (3) Fall Status: Acute (4) Kidney stone Status: Acute (5) Sepsis Status: Acute (6) Third degree heart block Status: Acute (7) UTI (urinary tract infection) Status: Acute (8) UTI (urinary tract infection) Status: Acute (9) Weakness Status: Acute (10) Weakness Status: Acute Physical Exam Vital Signs Last Vital Signs Documentation Date Time Temp Pulse Resp B/P (MAP) Pulse Ox O2 Delivery O2 Flow Rate FiO2 12/31/17 16:05 Room Air 12/31/17 15:40 36.8 103 18 129/76 (93) 96 12/31/17 11:55 2.0 Physical Exam Constitutional: General Apperance: heathly-appearing, well-nourished, well-developed Level of Distress: chronically ill Ambulation: ambulating normally Psychiatric: Mental Status: active & alert, normal mood, normal affect Orientation: oriented except where noted Memory: recent memory normal, remote memory normal Neck: supple Lungs: Auscultation: decreased breath sounds, pertinent finding (Decrease BS at the bases ) Cardiovascular: Heart Auscultation: RRR, no murmurs Peripheral Pulses: Radial Pulse: normal on the left, normal on the right Femoral Pulse: normal on the left, normal on the right Abdomen: Inspection & Palpation: soft Musculoskeletal: normal Extremities: pertinent finding (mild LE edema ) Neurologic: Cranial Nerves: grossly intact Sensation: grossly intact Assessment and Plan Assessment and Plan Impression: 87-year-old female presents with fatigue and shortness of breath without chest discomfort 1. 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 Acute kidney injury on stage III chronic kidney disease 3. Sinus tachycardia 4. Recent dual-chamber Medtronic pacemaker for symptomatic high-grade AV block with severe bradycardia 5. Small to moderate sized circumferential pericardial effusion noted on echocardiogram , no tamponade Plan: Continue metoprolol, aspirin, Isordil dinitrate,SQ heparin for DVT prophylaxis. Still with sinus tachycardia, which leads me to believe her LV systolic dysfunction persists. Transition to metoprolol succinate given low LVEF. SQ heparin DC'd by primary service. Risk benefits of DVT prophylaxis will need to be reassessed daily. Continue dialysis as tolerated. Agree with nephrology observation that her prognosis is poor. Consider repeat echo next week to reassess LV wall motion LVEF. Laboratory Results Last 24 Hours Test 12/30/17 20:17 12/30/17 23:27 12/31/17 05:54 12/31/17 06:40 Bedside Glucose 273 mg/dl 165 mg/dl 139 mg/dl White Blood Count 8.88 K/uL Red Blood Count 3.62 M/uL Hemoglobin 11.0 g/dL Hematocrit 34.0 % Mean Corpuscular Volume 93.9 fL Mean Corpuscular Hemoglobin 30.4 pg Mean Corpuscular Hemoglobin Concent 32.4 g/dl Platelet Count 166 K/uL Mean Platelet Volume 12.3 fL Neutrophils (%) (Auto) 77.3 % Lymphocytes (%) (Auto) 10.6 % Monocytes (%) (Auto) 11.3 % Eosinophils (%) (Auto) 0.3 % Basophils (%) (Auto) 0.0 % Neutrophils # (Auto) 6.87 K/uL Lymphocytes # (Auto) 0.94 K/uL Monocytes # (Auto) 1.00 K/uL Eosinophils # (Auto) 0.03 K/uL Basophils # (Auto) 0.00 K/uL RDW Standard Deviation 49.2 fL RDW Coefficient of Variation 14.7 % Immature Granulocyte % (Auto) 0.5 % Immature Granulocyte # (Auto) 0.04 K/uL Sodium Level 137 mmol/L Potassium Level 3.5 mmol/L Chloride Level 102 mmol/L Carbon Dioxide Level 27 mmol/L Anion Gap 9.0 mmol/L Blood Urea Nitrogen 58 mg/dl Creatinine 1.70 mg/dl Est Creatinine Clear Calc Drug Dose 19.3 ml/min Estimated GFR () 30.9 Estimated GFR (Non- 26.6 BUN/Creatinine Ratio 34.1 Random Glucose 146 mg/dl Calcium Level 8.0 mg/dl Test 12/31/17 10:19 12/31/17 12:06 12/31/17 15:58 12/31/17 16:18 Troponin I 0.394 ng/ml 0.417 ng/ml Bedside Glucose 148 mg/dl 155 mg/dl Test 12/31/17 18:20 Stool Occult Blood NEGATIVE
[2017-12-31] MEDS: NYSTATIN POWDER 15GM BTL EXT SCH (21:59)
[2017-12-31] MEDS: METOPROLOL SUCC 50MG EXT REL TAB PO SCH (22:03)
[2018-01-01] VITALS (22 sets, daily range): BP systolic 113–153; BP diastolic 73–93; PULSE 88–108; TEMP 36.4–37.2; O2SAT 94–98
[2018-01-01] MEDS: TRAMADOL HCL 50 MG TAB PO PRN (01:21)
[2018-01-01 06:49] LABS: BASO % 0.1 %; BASO ABS # 0.01 K/uL (0-0.2); EOS % 0.7 %; EOS ABS # 0.07 K/uL (0-0.5); HEMATOCRIT 36.2 % (37-47); HEMOGLOBIN 11.7 g/dL (12.0-16.0); IG# 0.03 K/uL (0.00-0.02); LYMPH % 10.4 %; LYMPH ABS # 1.09 K/uL (1.2-3.4); MEAN CELL VOLUME 94.5 fL (80-100); MEAN CORPUSCULAR HEMOGLOBIN 30.5 pg (25-34); MEAN CORPUSCULAR HGB CONC 32.3 g/dl (32-36); MONO ABS # 1.15 K/uL (0.11-0.59); NEUT % 77.5 %; NUCLEATED RED BLOOD CELL ABS 0.02 K/uL (0-0); PLATELET COUNT 136 K/uL (130-400); RED CELL DISTRIBUTION WIDTH CV 15.3 % (11.5-14.5); RED CELL DISTRIBUTION WIDTH SD 50.9 fL (36.4-46.3); WHITE BLOOD COUNT 10.45 K/uL (4.8-10.8)
[2018-01-01 07:11] LABS: CALCIUM 8.1 mg/dl (8.5-10.1); CREATININE 1.45 mg/dl (0.60-1.20); POTASSIUM 4.3 mmol/L (3.5-5.1)
[2018-01-01] MEDS: CALCIUM 600MG + VIT D 400 IU TAB PO SCH (07:54)
[2018-01-01] MEDS: ISOSORBIDE DINITRATE 5 MG TAB PO SCH ×3 (07:54→16:19)
[2018-01-01] MEDS: METOPROLOL SUCC 50MG EXT REL TAB PO SCH ×2 (07:54→20:58)
[2018-01-01] MEDS: ASPIRIN 81 MG ECTAB PO SCH (07:54)
[2018-01-01] MEDS: BOOST GLUCOSE CONTROL PO SCH ×2 (07:55→16:19)
[2018-01-01] MEDS: NYSTATIN POWDER 15GM BTL EXT SCH ×2 (07:55→20:57)
[2018-01-01] MEDS: INSULIN GLARGINE SOLOSTAR 100 UNITS/ML 3 ML PEN SC SCH (07:56)
[2018-01-01] MEDS ORDERED: INSULIN GLARGINE SOLOSTAR 100 UNITS/ML 3 ML PEN SC SCH (09:00)
--- NOTE | 2018-01-01 10:18 | Progress Note ---
Medicine Progress Note Date & Time of Visit: Jan 01, 2018 at 10:13. Subjective sleeping, easily rousable states she feels ok denies dyspnea, chest pain pain on her back improving appetite faire denies other symptoms Objective Last 8 Hrs Date Time Temp Pulse Resp B/P (MAP) Pulse Ox O2 Delivery O2 Flow Rate FiO2 01/01/18 08:17 36.4 105 21 127/77 (94) 98 Room Air 01/01/18 05:30 37.2 105 20 133/74 (93) 96 Room Air 01/01/18 04:45 Room Air Physical Exam: General- oriented x 3, not in distress, speaks in sentences with no effort Eyes- anicteric Neck- no JVD Lungs- clear breath sounds bilaterally Heart- regular rhythm; no murmur, normal rate Abdomen- normal bowel sounds, non distended, soft, nontender Extremities- grade 1 bipedal edema, no calf tenderness; peripheral pulses intact Neuro- alert, oriented x 3; no gross focal deficits Skin- warm & dry Laboratory Results: Last 24 Hours Test 12/31/17 10:19 12/31/17 12:06 12/31/17 15:58 12/31/17 16:18 Troponin I 0.394 ng/ml 0.417 ng/ml Bedside Glucose 148 mg/dl 155 mg/dl Test 12/31/17 18:20 12/31/17 20:13 12/31/17 22:07 01/01/18 06:18 Stool Occult Blood NEGATIVE Bedside Glucose 252 mg/dl Troponin I 0.392 ng/ml White Blood Count 10.45 K/uL Red Blood Count 3.83 M/uL Hemoglobin 11.7 g/dL Hematocrit 36.2 % Mean Corpuscular Volume 94.5 fL Mean Corpuscular Hemoglobin 30.5 pg Mean Corpuscular Hemoglobin Concent 32.3 g/dl Platelet Count 136 K/uL Mean Platelet Volume 12.0 fL Neutrophils (%) (Auto) 77.5 % Lymphocytes (%) (Auto) 10.4 % Monocytes (%) (Auto) 11.0 % Eosinophils (%) (Auto) 0.7 % Basophils (%) (Auto) 0.1 % Neutrophils # (Auto) 8.10 K/uL Lymphocytes # (Auto) 1.09 K/uL Monocytes # (Auto) 1.15 K/uL Eosinophils # (Auto) 0.07 K/uL Basophils # (Auto) 0.01 K/uL RDW Standard Deviation 50.9 fL RDW Coefficient of Variation 15.3 % Immature Granulocyte % (Auto) 0.3 % Immature Granulocyte # (Auto) 0.03 K/uL Nucleated RBC Absolute Count (auto) 0.02 K/uL Nucleated Red Blood Cells % 0.2 % Sodium Level 139 mmol/L Potassium Level 4.3 mmol/L Chloride Level 105 mmol/L Carbon Dioxide Level 25 mmol/L Anion Gap 9.0 mmol/L Blood Urea Nitrogen 37 mg/dl Creatinine 1.45 mg/dl Est Creatinine Clear Calc Drug Dose 22.6 ml/min Estimated GFR () 37.4 Estimated GFR (Non- 32.3 BUN/Creatinine Ratio 25.4 Random Glucose 138 mg/dl Calcium Level 8.1 mg/dl Chemistry Specimen Hemolysis Test 01/01/18 06:51 Bedside Glucose 141 mg/dl Assessment & Plan This is a 87yo F with a PMH of complete heart block (s/p pacemaker placement on 12/21/16), HTN, DM II (diet controlled), CKD III and h/o breast cancer (s/p L mastectomy) who presents with worsening SOB x 2 days. 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 * There is severe diffuse hypokinesis to akinesis of the mid and apical levles of the left ventricle with relative sparing of the basal segment which are geoff in a hyperdynamic fashion. * Left ventricular systolic function is severely reduced. * The qualitative LV ejection fraction is < 20%. * Mild aortic regurgitation. * There is mild mitral regurgitation. * There is mild tricuspid regurgitation. * There is a small circumferential pericardial effusion with most significant fluide collection noted on the short axis view, adjacent to the inferoseptal wall. * There are no echocardiographic indications of cardiac tamponade. * There is a small to moderate sized left pleural effusion. - IV Lasix on hold due to increasing crea - on Imdur and Metoprolol for HD again today ACUTE RENAL FAILURE ON CKD 3 - possible cardiorenal syndrome -Cr 1.8 To 2.5 to 2.9 - poor urine output - 12/29/17: s/p Permcath placement for HD again today - tolerating HD so far but still appears weak - Urology consulted, intervention not recommended at this time unless patient becomes septic CHEST PAIN - not relieved by Nitro EKG paced rhythm - cardiac markers ordered - Maalox and Protonix ordered for possible GERD/Dyspepsis POSSIBLE MILD ACUTE DIVERTICULITIS - seen on CT abdomen - remains afebrile, no leukocytosis denies abdominal pain - continue Augmentin PO for now TROPONIN ELEVATION likely Type 2 FL secondary to Demand Ischemia - no angina - troponin stabilized HTN: -Normotensive -Cont home dose metoprolol -Lisinopril held since last admission 12/24 PAULO. Continue to hold. DM II (diet controlled) -A1c of 6 in May 2017 -Repeat alc 6.5 - BSGs increasing Pharmacy consulted - on Lantus and ISS BLOOD STAIN WITH BM? - possible hemorrhoid? - hold heparin for now monitor none today DVT Ppx: heparin on hold for above Code status: DNR per discussion with patient, family PCP: Irma Dispo: pending Current Inpatient Medications: Current Inpatient Medications Medications (Trade) Dose Ordered Sig/Main Route Start Time Stop Time Status Last Admin Dose Admin Aspirin (Ecotrin Tab) 81 mg DAILY PO 12/28/17 09:00 01/27/18 08:59 01/01/18 07:54 81 MG Calcium/Vitamin D (Caltrate Plus Tab) 1 tab DAILY PO 12/28/17 09:00 01/27/18 08:59 01/01/18 07:54 1 TAB Gabapentin (Neurontin Cap) 100 mg TID PRN PO 12/27/17 15:45 01/26/18 15:44 12/31/17 10:01 100 MG Isosorbide Dinitrate (Isordil Tab) 5 mg DAILY@0700,1200,1700 PO 12/27/17 17:40 01/26/18 17:39 01/01/18 07:54 5 MG Ipratropium [place] (Atrovent 0.02% 0.5MG/2.5ML Neb) 0.5 mg Q4R PRN INH 12/28/17 00:00 01/27/18 00:00 12/30/17 05:06 0.5 MG Levalbuterol (Xopenex 1.25MG/ 0.5ML Neb) 1.25 mg Q4R PRN INH 12/27/17 20:30 01/26/18 20:29 12/30/17 05:06 1.25 MG Miscellaneous Information 1 ea UD PRN N/A 12/28/17 14:23 01/27/18 14:22 Miscellaneous Information (Consult Glycemic Management Pharmacy) 1 ea UD PRN N/A 12/29/17 10:34 01/28/18 10:33 Insulin Aspart (novoLOG ASPART) SLIDING SCALE ACHS SC 12/29/17 11:30 01/28/18 11:29 12/31/17 22:01 4 UNITS Glucose (Glucose 40% Gel) 15-30 GRAMS 15 GRAMS... UD PRN PO 12/29/17 11:30 01/28/18 11:29 Glucose (Glucose Chew Tab) 4-8 Tablets 4 Tabl... UD PRN PO 12/29/17 11:30 01/28/18 11:29 Dextrose (Dextrose 50% 50ML Syringe) 25-50ML OF 50% DW IV FOR... UD PRN IV 12/29/17 11:30 01/28/18 11:29 Glucagon (Glucagon Inj) 1 mg UD PRN SQ 12/29/17 11:30 01/28/18 11:29 Enteral Nutritional Formula (Boost Glucose Control) 1 can BIDM PO 12/30/17 16:45 01/29/18 16:44 01/01/18 07:55 1 CAN Acetaminophen (Tylenol Tab) 500 mg Q6H PRN PO 12/31/17 10:15 01/30/18 10:14 12/31/17 18:20 500 MG Nitroglycerin (Nitrostat Tab) 0.3 mg PRN PRN SL 12/31/17 10:15 01/30/18 10:14 Amoxicillin/ Clavulanate Potassium (Augmentin Tab) 500 mg QDD PO 01/01/18 16:45 01/07/18 16:44 Nystatin (Mycostatin Powder) 1 appln BID EXT 12/31/17 21:00 01/30/18 20:59 01/01/18 07:55 1 APPLN Tramadol HCl (Ultram Tab) 25 mg Q12H PRN PO 12/31/17 19:00 01/30/18 18:59 01/01/18 01:21 25 MG Metoprolol Succinate (Toprol Xl Tab) 50 mg BID PO 12/31/17 21:00 01/30/18 20:59 01/01/18 07:54 50 MG Insulin Glargine (Lantus Solostar Pen) 9 units QAM SC 01/01/18 09:00 01/31/18 08:59 01/01/18 07:56 9 UNITS
[2018-01-01] MEDS: ACETAMINOPHEN 500 MG TAB PO PRN (11:56)
[2018-01-01] MEDS: INSULIN ASPART 100 UNITS/ML 3 ML PEN SC SCH ×4 (12:01→20:55)
[2018-01-01] MEDS ORDERED: COUGH DROP (SUGAR FREE) LOZ 24 LOZ/1 BOX LOZ ONE (12:12)
[2018-01-01] MEDS ORDERED: NURSING VERBAL MED ORDER ONE (12:15)
[2018-01-01] MEDS ORDERED: COUGH DROP (SUGAR FREE) LOZ 24 LOZ/1 BOX LOZ PRN (12:30)
--- NOTE | 2018-01-01 13:13 | Pharmacy Progress Note ---
Pharmacy Glycemic Short Note 2 Date of Service Jan 01, 2018. OUTPATIENT ANTIDIABETIC REGIMEN: * diet controlled ASSESSMENT: * Ms George is an 87 y/o F with a PMH of breast CA and complete heart block who presents with PAULO and CHF. yesterday the patient's blood sugar ranged from 139-155 mg/dL (patient had a blood sugar of 252 mg/dL last night but this was a one time blood sugar reading). The patient received 13 units of insulin (7 units of which was Lantus but patient is not eating much food). * The patient's fasting blood sugar is 141 mg/dL. Increase basal insulin slightly as fasting blood sugars tend to trend higher the past two days. The patient did not receive her breakfast coverage and therefore her lunch blood sugar was significantly elevated. Monitor. PLAN FOR INPATIENT GLYCEMIC CONTROL: * Basal insulin * Lantus 9 units SQ qAM * Bolus insulin * NovoLog per scale ACHS or Q6hrs while NPO * Goal Range: Low 110 mg/dL - High 140 mg/dL * Correction Factor: 30 mg/dL/unit * Nutritional / Prandial insulin per carb ratio of 1 unit per 10 grams CHO consumed PLAN FOR DISCHARGE: * Patient's blood sugar is well-controlled via diet recommend continuing current treatment plan.
[2018-01-01] MEDS: BENZONATATE 100MG CAP PO PRN (14:04)
--- NOTE | 2018-01-01 15:34 | Cardiology Follow-Up ---
Subjective General Date of Service: Jan 01, 2018. Chief Complaint: follow up shortness of breath Pt evaluation today including: conversation w/ patient, physical exam, chart review, lab review, review of studies, review of inpatient medication list History of Present Illness The patient is a 87 year old female seen in follow-up. Patient week, however, awake and alert. Able to recognize her friend who is in the room. Dialysis treatment about to start. Denies chest pain or shortness of breath. Telemetry demonstrates sinus tachycardia with a ventricular paced rhythm Allergies Coded Allergies: Macey Nut (Verified Allergy, Unknown, UNKNOWN, 12/27/17) Social History Smoking Status: Former Smoker Hx Tobacco Use In Past Year?: No Hx Alcohol Use - Type And Amou: No Hx Substance Use - Type And Am: No Problem List Medical Problems: (1) CHF (congestive heart failure) Status: Acute (2) Elevated troponin Status: Acute (3) Fall Status: Acute (4) Kidney stone Status: Acute (5) Sepsis Status: Acute (6) Third degree heart block Status: Acute (7) UTI (urinary tract infection) Status: Acute (8) UTI (urinary tract infection) Status: Acute (9) Weakness Status: Acute (10) Weakness Status: Acute Review of Systems Respiratory: + cough, No sputum, No wheezing, No shortness of breath, No dyspnea on exertion, No dyspnea at rest, No hemoptysis Cardiac: No chest pain, No orthopnea, No PND, No edema, No claudication, No palpitations Physical Exam Vital Signs Last Vital Signs Documentation Date Time Temp Pulse Resp B/P (MAP) Pulse Ox O2 Delivery O2 Flow Rate FiO2 01/01/18 12:04 36.9 107 25 153/88 (109) 94 01/01/18 12:00 Room Air 12/31/17 19:55 2.0 Physical Exam Constitutional: General Apperance: well-nourished, well-developed Level of Distress: chronically ill Ambulation: ambulating normally Psychiatric: Mental Status: active & alert, normal mood, normal affect Orientation: oriented except where noted Memory: recent memory normal, remote memory normal Head: normocephalic, atraumatic Neck: supple Lungs: Auscultation: decreased breath sounds, pertinent finding (Decrease BS at the bases ) Cardiovascular: Heart Auscultation: RRR, no murmurs, tachycardia Peripheral Pulses: Radial Pulse: normal on the left, normal on the right Femoral Pulse: normal on the left, normal on the right Abdomen: Inspection & Palpation: soft Musculoskeletal: normal Extremities: no edema, no ulcers, pertinent finding (mild LE edema ) Neurologic: Cranial Nerves: grossly intact Sensation: grossly intact Assessment and Plan Assessment and Plan Impression: 1. Acute decompensated systolic heart failure with severe underlying LV systolic dysfunction. 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 2. Acute kidney injury on stage III chronic kidney disease - now on HD 3. Sinus tachycardia 4. Recent dual-chamber Medtronic pacemaker for symptomatic high-grade AV block with severe bradycardia 5. Small to moderate sized circumferential pericardial effusion noted on echocardiogram , no tamponade Plan: Repeat limited resting 2-D transthoracic echo Wednesday01/03/18. Continue metoprolol, aspirin, and Isordil dinitrate. Restart SQ heparin for DVT prophylaxis Dialysis as per nephrology recommendations. Laboratory Results Last 24 Hours Test 12/31/17 15:58 12/31/17 16:18 12/31/17 18:20 12/31/17 20:13 Troponin I 0.417 ng/ml Bedside Glucose 155 mg/dl 252 mg/dl Stool Occult Blood NEGATIVE Test 12/31/17 22:07 01/01/18 06:18 01/01/18 06:51 01/01/18 11:18 Troponin I 0.392 ng/ml White Blood Count 10.45 K/uL Red Blood Count 3.83 M/uL Hemoglobin 11.7 g/dL Hematocrit 36.2 % Mean Corpuscular Volume 94.5 fL Mean Corpuscular Hemoglobin 30.5 pg Mean Corpuscular Hemoglobin Concent 32.3 g/dl Platelet Count 136 K/uL Mean Platelet Volume 12.0 fL Neutrophils (%) (Auto) 77.5 % Lymphocytes (%) (Auto) 10.4 % Monocytes (%) (Auto) 11.0 % Eosinophils (%) (Auto) 0.7 % Basophils (%) (Auto) 0.1 % Neutrophils # (Auto) 8.10 K/uL Lymphocytes # (Auto) 1.09 K/uL Monocytes # (Auto) 1.15 K/uL Eosinophils # (Auto) 0.07 K/uL Basophils # (Auto) 0.01 K/uL RDW Standard Deviation 50.9 fL RDW Coefficient of Variation 15.3 % Immature Granulocyte % (Auto) 0.3 % Immature Granulocyte # (Auto) 0.03 K/uL Nucleated RBC Absolute Count (auto) 0.02 K/uL Nucleated Red Blood Cells % 0.2 % Sodium Level 139 mmol/L Potassium Level 4.3 mmol/L Chloride Level 105 mmol/L Carbon Dioxide Level 25 mmol/L Anion Gap 9.0 mmol/L Blood Urea Nitrogen 37 mg/dl Creatinine 1.45 mg/dl Est Creatinine Clear Calc Drug Dose 22.6 ml/min Estimated GFR () 37.4 Estimated GFR (Non- 32.3 BUN/Creatinine Ratio 25.4 Random Glucose 138 mg/dl Calcium Level 8.1 mg/dl Chemistry Specimen Hemolysis Bedside Glucose 141 mg/dl 255 mg/dl
[2018-01-01] MEDS ORDERED: AMOXICILLIN/CLAVULANATE TAB 500 MG TAB PO SCH (16:45)
--- NOTE | 2018-01-01 17:55 | Dialysis Progress Note ---
Nephrology Dialysis Note Date of Service: Jan 01, 2018. Subjective seen on hd; difficult to arouse; on ra, resting; earlier was awake interactive w / friends as I passed room; son at bedside; notes she is more alert/ interactive when awake Objective Date Time Temp Pulse Resp B/P (MAP) Pulse Ox O2 Delivery O2 Flow Rate FiO2 01/01/18 16:30 98 143/84 01/01/18 16:15 98 132/86 01/01/18 16:00 Room Air 01/01/18 15:55 36.7 99 20 126/73 (90) 96 Room Air 01/01/18 12:04 36.9 107 25 153/88 (109) 94 01/01/18 12:00 Room Air 01/01/18 08:17 36.4 105 21 127/77 (94) 98 Room Air 01/01/18 08:00 Room Air 01/01/18 05:30 37.2 105 20 133/74 (93) 96 Room Air 01/01/18 04:45 Room Air 01/01/18 00:25 96 Room Air 01/01/18 00:21 37.0 102 24 134/80 (98) 96 12/31/17 21:59 97 Room Air 12/31/17 19:55 36.7 101 20 132/86 (101) 98 Nasal Cannula 2.0 Physical Exam: General-sleepy but arouseable on ra Eyes-no scleral icterus ENT-mmm Neck-supple Lungs-some exp wheezing/ rhonchi Heart-tachycardia w/ regularly spaced beats in 90s Abdomen-bs+ s/nt/nd Extremities-+1 edema Neuro-generalized weakness; earlier was tracking and alert Current Inpatient Medications Medications (Trade) Dose Ordered Sig/Main Route Start Time Stop Time Status Last Admin Dose Admin Aspirin (Ecotrin Tab) 81 mg DAILY PO 12/28/17 09:00 01/27/18 08:59 01/01/18 07:54 81 MG Calcium/Vitamin D (Caltrate Plus Tab) 1 tab DAILY PO 12/28/17 09:00 01/27/18 08:59 01/01/18 07:54 1 TAB Gabapentin (Neurontin Cap) 100 mg TID PRN PO 12/27/17 15:45 01/26/18 15:44 12/31/17 10:01 100 MG Isosorbide Dinitrate (Isordil Tab) 5 mg DAILY@0700,1200,1700 PO 12/27/17 17:40 01/26/18 17:39 01/01/18 11:56 5 MG Ipratropium [place] (Atrovent 0.02% 0.5MG/2.5ML Neb) 0.5 mg Q4R PRN INH 12/28/17 00:00 01/27/18 00:00 12/30/17 05:06 0.5 MG Levalbuterol (Xopenex 1.25MG/ 0.5ML Neb) 1.25 mg Q4R PRN INH 12/27/17 20:30 01/26/18 20:29 12/30/17 05:06 1.25 MG Miscellaneous Information 1 ea UD PRN N/A 12/28/17 14:23 01/27/18 14:22 Miscellaneous Information (Consult Glycemic Management Pharmacy) 1 ea UD PRN N/A 12/29/17 10:34 01/28/18 10:33 Insulin Aspart (novoLOG ASPART) SLIDING SCALE ACHS SC 12/29/17 11:30 01/28/18 11:29 01/01/18 12:05 7 UNITS Glucose (Glucose 40% Gel) 15-30 GRAMS 15 GRAMS... UD PRN PO 12/29/17 11:30 01/28/18 11:29 Glucose (Glucose Chew Tab) 4-8 Tablets 4 Tabl... UD PRN PO 12/29/17 11:30 01/28/18 11:29 Dextrose (Dextrose 50% 50ML Syringe) 25-50ML OF 50% DW IV FOR... UD PRN IV 12/29/17 11:30 01/28/18 11:29 Glucagon (Glucagon Inj) 1 mg UD PRN SQ 12/29/17 11:30 01/28/18 11:29 Enteral Nutritional Formula (Boost Glucose Control) 1 can BIDM PO 12/30/17 16:45 01/29/18 16:44 01/01/18 07:55 1 CAN Acetaminophen (Tylenol Tab) 500 mg Q6H PRN PO 12/31/17 10:15 01/30/18 10:14 01/01/18 11:56 500 MG Nitroglycerin (Nitrostat Tab) 0.3 mg PRN PRN SL 12/31/17 10:15 01/30/18 10:14 Amoxicillin/ Clavulanate Potassium (Augmentin Tab) 500 mg QDD PO 01/01/18 16:45 01/07/18 16:44 01/01/18 16:19 500 MG Nystatin (Mycostatin Powder) 1 appln BID EXT 12/31/17 21:00 01/30/18 20:59 01/01/18 07:55 1 APPLN Tramadol HCl (Ultram Tab) 25 mg Q12H PRN PO 12/31/17 19:00 01/30/18 18:59 01/01/18 01:21 25 MG Metoprolol Succinate (Toprol Xl Tab) 50 mg BID PO 12/31/17 21:00 01/30/18 20:59 01/01/18 07:54 50 MG Insulin Glargine (Lantus Solostar Pen) 9 units QAM SC 01/01/18 09:00 01/31/18 08:59 01/01/18 07:56 9 UNITS Menthol (Nice Felice) 1 felice PRN PRN FELICE 01/01/18 12:30 01/31/18 12:29 Benzonatate (Tessalon Perles Cap) 100 mg TID PRN PO 01/01/18 14:00 01/31/18 13:59 01/01/18 14:04 100 MG Heparin Sodium (Porcine) (Heparin Sq 5000 Unit/0.5ml) 5,000 unit Q12 SQ 01/01/18 21:00 01/31/18 20:59 Last 24 Hours Test 12/31/17 18:20 12/31/17 20:13 12/31/17 22:07 01/01/18 06:18 Stool Occult Blood NEGATIVE Bedside Glucose 252 mg/dl Troponin I 0.392 ng/ml White Blood Count 10.45 K/uL Red Blood Count 3.83 M/uL Hemoglobin 11.7 g/dL Hematocrit 36.2 % Mean Corpuscular Volume 94.5 fL Mean Corpuscular Hemoglobin 30.5 pg Mean Corpuscular Hemoglobin Concent 32.3 g/dl Platelet Count 136 K/uL Mean Platelet Volume 12.0 fL Neutrophils (%) (Auto) 77.5 % Lymphocytes (%) (Auto) 10.4 % Monocytes (%) (Auto) 11.0 % Eosinophils (%) (Auto) 0.7 % Basophils (%) (Auto) 0.1 % Neutrophils # (Auto) 8.10 K/uL Lymphocytes # (Auto) 1.09 K/uL Monocytes # (Auto) 1.15 K/uL Eosinophils # (Auto) 0.07 K/uL Basophils # (Auto) 0.01 K/uL RDW Standard Deviation 50.9 fL RDW Coefficient of Variation 15.3 % Immature Granulocyte % (Auto) 0.3 % Immature Granulocyte # (Auto) 0.03 K/uL Nucleated RBC Absolute Count (auto) 0.02 K/uL Nucleated Red Blood Cells % 0.2 % Sodium Level 139 mmol/L Potassium Level 4.3 mmol/L Chloride Level 105 mmol/L Carbon Dioxide Level 25 mmol/L Anion Gap 9.0 mmol/L Blood Urea Nitrogen 37 mg/dl Creatinine 1.45 mg/dl Est Creatinine Clear Calc Drug Dose 22.6 ml/min Estimated GFR () 37.4 Estimated GFR (Non- 32.3 BUN/Creatinine Ratio 25.4 Random Glucose 138 mg/dl Calcium Level 8.1 mg/dl Chemistry Specimen Hemolysis Test 01/01/18 06:51 01/01/18 11:18 01/01/18 16:14 Bedside Glucose 141 mg/dl 255 mg/dl 93 mg/dl Assessment & Plan 87 yo female seen for follow up for luanne/atn with chronic unchanged hydronephrosis and stress induced cardiomyopathy. had tunneled line placed and had first dialysis treatment 12/30. [id number] in setting of hemodynamic compromise from previous complete heart block requiring a pacemaker, now with cardiomyopathy with tachycardia. >for dialysis again today and will again attempt 1L fluid removal. >goal is to improve volume status, confusion with dialysis and fluid removal in hopes that her cardiac function may eventually recover. still unfortunately overall poor prognosis. >plan next HD tentatively 01/03 or as clinical situation dictates >Dr Kramer plans to re-evaluate dialysis after wednesday's treatment to see if she wants to continue current course of therapy; following closely w/ pt and family christiano her son regarding goals of her care.
[2018-01-01] MEDS: HEPARIN SOD 5000 UNIT/0.5 ML CARP SQ SCH (20:59)
[2018-01-02] VITALS (25 sets, daily range): BP systolic 73–149; BP diastolic 43–107; PULSE 72–118; TEMP 36.3–37; O2SAT 95–100
[2018-01-02] MEDS: TRAMADOL HCL 50 MG TAB PO PRN (00:04)
[2018-01-02] MEDS: BENZONATATE 100MG CAP PO PRN (00:04)
[2018-01-02] MEDS ORDERED: PIPERACILL/TAZOBAC CONSULT ACTIVE PRN (02:13)
[2018-01-02] MEDS ORDERED: VANCOMYCIN CONSULT ACTIVE PRN (02:15)
--- NOTE | 2018-01-02 02:17 | Progress Note ---
Progress Note Date of Service Jan 02, 2018. 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 Contacted by nurse veronica for worsening pain that is nonfocal and increased moaning with general decline. This nurse has had her for a couple of days and has noticed a difference in her tonight. She reports some worsening cough productive of yellowish sputum. On exam her RR is around 30 and she is audibly wheezing. She is answering questions appropriately but tends to fall asleep and appears to have dementia. She is cold to touch and clammy on her back. Wheezing is all throughout lung hooper. She is coughing and has upper airway sounds. She denies any pain to me now but recently was given a Tramadol. CXR was ordered and revealed increased haziness with poss infiltrate in the lower R lung area. Augmentin was stopped (for diverticulitis) and Vanc/Zosyn was started to cover for poss HAP (await final CXR reading in am); antibiotics are to be concentrated to minimize IVF. No IVF were given out of concern for known fluid overloaded state. She is slightly more tachycardic around 115 with paced EKG rhythm, BP normal and afebrile. Per nurse her RR has decreased since taking the Tramadol. If resp status worsens, will consider giving some Lasix as she does still make urine. 1L off in HD earlier today with next session planned for the morning. Flu PCR was previously negative this hospitalization. Cont to monitor closely overnight. Fernando, DO RR about the same with some improvement. CXR formally read as worsened pulmonary edema. Slated to have HD today per notes, however, because she does make urine gave Lasix 40IV this morning. Fernando DO
[2018-01-02] MEDS ORDERED: PIPERACILL/TAZOBAC IV 4.5 GM in DEXTROSE 5% 50ML 50 ML IV ONE (02:30)
[2018-01-02] MEDS ORDERED: VANCOMYCIN INJ 1,500 MG in SODIUM CHLORIDE 0.9% 500ML 500 ML IV SCH (02:30)
[2018-01-02] MEDS ORDERED: SODIUM CHLORIDE 0.9% IV SCH (03:00)
[2018-01-02] MEDS ORDERED: VANCOMYCIN IV SCH (03:00)
[2018-01-02] MEDS: LEVALBUTEROL 1.25MG/0.5ML NEB INH PRN (04:01)
[2018-01-02] MEDS: IPRATROPIUM BROMIDE NEB SOLN 0.02% 2.5 ML VIAL INH PRN (04:01)
--- NOTE | 2018-01-02 06:13 | DIAGNOSTIC IMAGING REPORT ---
CHEST ONE VIEW PORTABLE CLINICAL HISTORY: hypoxia and increased Tachypnea, h/o CHF on dialysis dyspnea COMPARISON STUDY: 12/27/2017 FINDINGS: Moderate increase in cardiac size. Placement of central venous catheter ends in the superior vena cava cava. Bipolar cardiac pacer in good position. Small bilateral pleural effusions. Increase in prominence of the pulmonary vasculature. Right humeral neck fracture which has been described previously. IMPRESSION: Findings of mildly progressive pulmonary edema. Central catheter in the superior vena cava The above report was generated using voice recognition software. It may contain grammatical, syntax or spelling errors. Electronically signed by: Derek Greenwood M.D. 01/02/2018 6:12 AM Dictated Date/Time: 01/02/2018 6:10 AM
[2018-01-02] MEDS ORDERED: FUROSEMIDE INJ 40 MG in SYRINGE 0 ML IV ONE (07:30)
[2018-01-02] MEDS: BOOST GLUCOSE CONTROL PO SCH ×2 (07:48→16:45)
[2018-01-02] MEDS: ISOSORBIDE DINITRATE 5 MG TAB PO SCH ×3 (07:51→16:25)
[2018-01-02] MEDS: ASPIRIN 81 MG ECTAB PO SCH (07:51)
[2018-01-02] MEDS: CALCIUM 600MG + VIT D 400 IU TAB PO SCH (07:51)
[2018-01-02] MEDS: METOPROLOL SUCC 50MG EXT REL TAB PO SCH ×2 (07:52→20:47)
[2018-01-02] MEDS: NYSTATIN POWDER 15GM BTL EXT SCH ×2 (07:53→20:47)
[2018-01-02] MEDS: HEPARIN SOD 5000 UNIT/0.5 ML CARP SQ SCH ×2 (07:54→20:56)
[2018-01-02] MEDS: INSULIN GLARGINE SOLOSTAR 100 UNITS/ML 3 ML PEN SC SCH (07:54)
[2018-01-02] MEDS: INSULIN ASPART 100 UNITS/ML 3 ML PEN SC SCH ×4 (07:57→20:24)
[2018-01-02] MEDS ORDERED: PIPERACILL/TAZOBAC IV 3.375 GM in DEXTROSE 5% 50ML 50 ML IV ONE (08:30)
--- NOTE | 2018-01-02 08:37 | Progress Note ---
Medicine Progress Note Date & Time of Visit: Jan 02, 2018 at 08:33. Subjective noted to be tachypneic overnight cxr showed possible pulmonary edema vs R lower lobe PNA started on Vanc, Zosyn on exam, patient seems drowsy but easily rousable oriented, answers questions appropriately not tachypneic denies shortness of breath, chest pain denies body aches, abdominal pain ate little for breakfast no other symptoms Objective Last 8 Hrs Date Time Temp Pulse Resp B/P (MAP) Pulse Ox O2 Delivery O2 Flow Rate FiO2 01/02/18 07:40 36.4 99 14 103/65 (78) 96 Nasal Cannula 4.0 01/02/18 04:01 116 26 99 Nasal Cannula 3.0 01/02/18 04:00 Room Air 01/02/18 04:00 36.8 108 18 118/73 (88) 95 Nasal Cannula 2.0 01/02/18 01:39 36.5 01/02/18 01:04 117 25 117/101 (106) 01/02/18 00:45 118 30 149/107 (121) 95 Nasal Cannula 2.0 Physical Exam: General- oriented x 3, not in distress, speaks in sentences with no effort Lungs- mild rales right base, clear on the left Heart- regular rhythm; no murmur, normal rate Abdomen- normal bowel sounds, non distended, soft, nontender Extremities- grade 1 bipedal edema, no calf tenderness; peripheral pulses intact Neuro- alert, oriented x 2; no gross focal deficits Skin- warm & dry Laboratory Results: Last 24 Hours Test 01/01/18 11:18 01/01/18 16:14 01/01/18 20:21 01/02/18 02:05 Bedside Glucose 255 mg/dl 93 mg/dl 90 mg/dl 130 mg/dl Test 01/02/18 04:44 01/02/18 06:47 Bedside Glucose 122 mg/dl Date/Time Source Procedure Growth Status 01/02/18 01:57 Blood Blood Culture Pending Ordered 01/02/18 01:57 Blood Blood Culture Pending Ordered Assessment & Plan This is a 87yo F with a PMH of complete heart block (s/p pacemaker placement on 12/21/16), HTN, DM II (diet controlled), CKD III and h/o breast cancer (s/p L mastectomy) who presents with worsening SOB x 2 days. 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 * There is severe diffuse hypokinesis to akinesis of the mid and apical levles of the left ventricle with relative sparing of the basal segment which are geoff in a hyperdynamic fashion. * Left ventricular systolic function is severely reduced. * The qualitative LV ejection fraction is < 20%. * Mild aortic regurgitation. * There is mild mitral regurgitation. * There is mild tricuspid regurgitation. * There is a small circumferential pericardial effusion with most significant fluide collection noted on the short axis view, adjacent to the inferoseptal wall. * There are no echocardiographic indications of cardiac tamponade. * There is a small to moderate sized left pleural effusion. - IV Lasix on hold due to increasing crea - on Imdur and Metoprolol - on HD, ! liter removed yesterday plan for HD again tomorrow ACUTE RENAL FAILURE ON CKD 3 - possible cardiorenal syndrome -Cr 1.8 to 2.9 - poor urine output - 12/29/17: s/p Permcath placement - tolerating HD so far but still appears weak plan for 3rd HD tomorrow - Urology consulted, intervention not recommended at this time unless patient becomes septic POSSIBLE RIGHT LOWER LOBE PNEUMONIA, R/O ASPIRATION - speech therapist reconsulted - now on IV Vanc , Zosyn MRSA nasal swab pending POSSIBLE MILD ACUTE DIVERTICULITIS - seen on CT abdomen - remains afebrile, no leukocytosis denies abdominal pain - was on Augmentin, now on Zosyn for possible aspiration PNA TROPONIN ELEVATION likely Type 2 KS secondary to Demand Ischemia - no angina - troponin stabilized HTN: -Normotensive -Cont home dose metoprolol -Lisinopril held since last admission 2/2 PAULO. Continue to hold. DM II (diet controlled) -A1c of 6 in May 2017 -Repeat alc 6.5 - BSGs increased Pharmacy consulted - on Lantus and ISS BLOOD STAIN WITH BM? - possible hemorrhoid? - hold heparin for now monitor none resume heparin DVT Ppx: heparin Code status: DNR per discussion with patient, family PCP: Irma Dispo: pending patient would still want to have HD discussed with son at bedside he is comfortable and agreeable with plan of care Current Inpatient Medications: Current Inpatient Medications Medications (Trade) Dose Ordered Sig/Main Route Start Time Stop Time Status Last Admin Dose Admin Aspirin (Ecotrin Tab) 81 mg DAILY PO 12/28/17 09:00 01/27/18 08:59 01/02/18 07:51 81 MG Calcium/Vitamin D (Caltrate Plus Tab) 1 tab DAILY PO 12/28/17 09:00 01/27/18 08:59 01/02/18 07:51 1 TAB Gabapentin (Neurontin Cap) 100 mg TID PRN PO 12/27/17 15:45 01/26/18 15:44 12/31/17 10:01 100 MG Isosorbide Dinitrate (Isordil Tab) 5 mg DAILY@0700,1200,1700 PO 12/27/17 17:40 01/26/18 17:39 01/02/18 07:51 5 MG Ipratropium [place] (Atrovent 0.02% 0.5MG/2.5ML Neb) 0.5 mg Q4R PRN INH 12/28/17 00:00 01/27/18 00:00 01/02/18 04:01 0.5 MG Levalbuterol (Xopenex 1.25MG/ 0.5ML Neb) 1.25 mg Q4R PRN INH 12/27/17 20:30 01/26/18 20:29 01/02/18 04:01 1.25 MG Miscellaneous Information (Consult Glycemic Management Pharmacy) 1 ea UD PRN N/A 12/29/17 10:34 01/28/18 10:33 Insulin Aspart (novoLOG ASPART) SLIDING SCALE ACHS SC 12/29/17 11:30 01/28/18 11:29 01/01/18 12:05 7 UNITS Glucose (Glucose 40% Gel) 15-30 GRAMS 15 GRAMS... UD PRN PO 12/29/17 11:30 01/28/18 11:29 Glucose (Glucose Chew Tab) 4-8 Tablets 4 Tabl... UD PRN PO 12/29/17 11:30 01/28/18 11:29 Dextrose (Dextrose 50% 50ML Syringe) 25-50ML OF 50% DW IV FOR... UD PRN IV 12/29/17 11:30 01/28/18 11:29 Glucagon (Glucagon Inj) 1 mg UD PRN SQ 12/29/17 11:30 01/28/18 11:29 Enteral Nutritional Formula (Boost Glucose Control) 1 can BIDM PO 12/30/17 16:45 01/29/18 16:44 01/02/18 07:48 1 CAN Acetaminophen (Tylenol Tab) 500 mg Q6H PRN PO 12/31/17 10:15 01/30/18 10:14 01/01/18 11:56 500 MG Nitroglycerin (Nitrostat Tab) 0.3 mg PRN PRN SL 12/31/17 10:15 01/30/18 10:14 Nystatin (Mycostatin Powder) 1 appln BID EXT 12/31/17 21:00 01/30/18 20:59 01/02/18 07:53 1 APPLN Tramadol HCl (Ultram Tab) 25 mg Q12H PRN PO 12/31/17 19:00 01/30/18 18:59 01/02/18 00:04 25 MG Metoprolol Succinate (Toprol Xl Tab) 50 mg BID PO 12/31/17 21:00 01/30/18 20:59 01/02/18 07:52 50 MG Insulin Glargine (Lantus Solostar Pen) 9 units QAM SC 01/01/18 09:00 01/31/18 08:59 01/02/18 07:54 9 UNITS Menthol (Nice Felice) 1 felice PRN PRN FELICE 01/01/18 12:30 01/31/18 12:29 Benzonatate (Tessalon Perles Cap) 100 mg TID PRN PO 01/01/18 14:00 01/31/18 13:59 01/02/18 00:04 100 MG Heparin Sodium (Porcine) (Heparin Sq 5000 Unit/0.5ml) 5,000 unit Q12 SQ 01/01/18 21:00 01/31/18 20:59 01/02/18 07:54 5,000 UNIT Miscellaneous Information (Consult) 1 ea DAILY PRN N/A 01/02/18 02:13 02/01/18 02:12 Miscellaneous Information (Consult) 1 ea UD PRN N/A 01/02/18 02:15 02/01/18 02:14 Piperacillin Sod/ Tazobactam Sod 3.375 gm/Dextrose 65 ml @ 16.25 mls/ hr Q8H ONCE IV 01/02/18 08:30 01/02/18 12:29 01/02/18 07:48 16.25 MLS/HR Piperacillin Sod/ Tazobactam Sod 3.375 gm/Dextrose 65 ml @ 16.25 mls/ hr Q8H IV 01/02/18 16:30 01/09/18 16:29
[2018-01-02] MEDS ORDERED: HEPARIN SOD 5000 UNIT/0.5 ML CARP SQ SCH (09:00)
--- NOTE | 2018-01-02 09:29 | Nephrology Progress Note ---
Nephrology Progress Note Date of Service: Jan 02, 2018. Subjective ?if she aspirated overnight >> was on RA, now on 4L w/ CXR showing pulm edema. lab after 3 tries unable to get blood specimens; got 40mg IV lasix at 0800> minimal uop w/ this Objective Date Time Temp Pulse Resp B/P (MAP) Pulse Ox O2 Delivery O2 Flow Rate FiO2 01/02/18 07:40 36.4 99 14 103/65 (78) 96 Nasal Cannula 4.0 01/02/18 04:01 116 26 99 Nasal Cannula 3.0 01/02/18 04:00 Room Air 01/02/18 04:00 36.8 108 18 118/73 (88) 95 Nasal Cannula 2.0 01/02/18 01:39 36.5 01/02/18 01:04 117 25 117/101 (106) 01/02/18 00:45 118 30 149/107 (121) 95 Nasal Cannula 2.0 01/01/18 23:59 Room Air 01/01/18 23:52 37.0 91 18 141/80 (100) 95 Room Air 01/01/18 20:00 Room Air 01/01/18 19:59 36.9 88 18 117/74 (88) 94 Room Air 01/01/18 19:30 37.0 105 131/89 (103) 01/01/18 19:00 108 151/91 01/01/18 18:45 103 128/90 01/01/18 18:30 102 134/80 01/01/18 18:15 101 113/88 01/01/18 18:00 103 139/93 01/01/18 17:45 103 132/90 01/01/18 17:30 101 143/86 01/01/18 17:15 97 126/76 01/01/18 17:00 99 124/76 01/01/18 16:45 100 135/82 01/01/18 16:30 98 143/84 01/01/18 16:15 98 132/86 01/01/18 16:07 36.6 98 130/77 (94) 01/01/18 16:00 Room Air 01/01/18 15:55 36.7 99 20 126/73 (90) 96 Room Air 01/01/18 12:04 36.9 107 25 153/88 (109) 94 01/01/18 12:00 Room Air Physical Exam: General-moaning, lethargic, wakens / tracks not answering questions, on 4L 02 Eyes-no scleral icterus ENT-mmm Neck-supple Lungs-no wheezes; very diminished Heart-regularly spaced beats in 90s Abdomen-bs+ s/nt/nd; greenberg w/ scant urine Extremities-+1 edema dependent Neuro-generalized weakness; not interacting much today Current Inpatient Medications Medications (Trade) Dose Ordered Sig/Main Route Start Time Stop Time Status Last Admin Dose Admin Aspirin (Ecotrin Tab) 81 mg DAILY PO 12/28/17 09:00 01/27/18 08:59 01/02/18 07:51 81 MG Calcium/Vitamin D (Caltrate Plus Tab) 1 tab DAILY PO 12/28/17 09:00 01/27/18 08:59 01/02/18 07:51 1 TAB Gabapentin (Neurontin Cap) 100 mg TID PRN PO 12/27/17 15:45 01/26/18 15:44 12/31/17 10:01 100 MG Isosorbide Dinitrate (Isordil Tab) 5 mg DAILY@0700,1200,1700 PO 12/27/17 17:40 01/26/18 17:39 01/02/18 07:51 5 MG Ipratropium [place] (Atrovent 0.02% 0.5MG/2.5ML Neb) 0.5 mg Q4R PRN INH 12/28/17 00:00 01/27/18 00:00 01/02/18 04:01 0.5 MG Levalbuterol (Xopenex 1.25MG/ 0.5ML Neb) 1.25 mg Q4R PRN INH 12/27/17 20:30 01/26/18 20:29 01/02/18 04:01 1.25 MG Miscellaneous Information (Consult Glycemic Management Pharmacy) 1 ea UD PRN N/A 12/29/17 10:34 01/28/18 10:33 Insulin Aspart (novoLOG ASPART) SLIDING SCALE ACHS SC 12/29/17 11:30 01/28/18 11:29 01/01/18 12:05 7 UNITS Glucose (Glucose 40% Gel) 15-30 GRAMS 15 GRAMS... UD PRN PO 12/29/17 11:30 01/28/18 11:29 Glucose (Glucose Chew Tab) 4-8 Tablets 4 Tabl... UD PRN PO 12/29/17 11:30 01/28/18 11:29 Dextrose (Dextrose 50% 50ML Syringe) 25-50ML OF 50% DW IV FOR... UD PRN IV 12/29/17 11:30 01/28/18 11:29 Glucagon (Glucagon Inj) 1 mg UD PRN SQ 12/29/17 11:30 01/28/18 11:29 Enteral Nutritional Formula (Boost Glucose Control) 1 can BIDM PO 12/30/17 16:45 01/29/18 16:44 01/02/18 07:48 1 CAN Acetaminophen (Tylenol Tab) 500 mg Q6H PRN PO 12/31/17 10:15 01/30/18 10:14 01/01/18 11:56 500 MG Nitroglycerin (Nitrostat Tab) 0.3 mg PRN PRN SL 12/31/17 10:15 01/30/18 10:14 Nystatin (Mycostatin Powder) 1 appln BID EXT 12/31/17 21:00 01/30/18 20:59 01/02/18 07:53 1 APPLN Tramadol HCl (Ultram Tab) 25 mg Q12H PRN PO 12/31/17 19:00 01/30/18 18:59 01/02/18 00:04 25 MG Metoprolol Succinate (Toprol Xl Tab) 50 mg BID PO 12/31/17 21:00 01/30/18 20:59 01/02/18 07:52 50 MG Insulin Glargine (Lantus Solostar Pen) 9 units QAM SC 01/01/18 09:00 01/31/18 08:59 01/02/18 07:54 9 UNITS Menthol (Nice Felice) 1 felice PRN PRN FELICE 01/01/18 12:30 01/31/18 12:29 Benzonatate (Tessalon Perles Cap) 100 mg TID PRN PO 01/01/18 14:00 01/31/18 13:59 01/02/18 00:04 100 MG Heparin Sodium (Porcine) (Heparin Sq 5000 Unit/0.5ml) 5,000 unit Q12 SQ 01/01/18 21:00 01/31/18 20:59 01/02/18 07:54 5,000 UNIT Miscellaneous Information (Consult) 1 ea DAILY PRN N/A 01/02/18 02:13 02/01/18 02:12 Miscellaneous Information (Consult) 1 ea UD PRN N/A 01/02/18 02:15 02/01/18 02:14 Piperacillin Sod/ Tazobactam Sod 3.375 gm/Dextrose 65 ml @ 16.25 mls/ hr Q8H ONCE IV 01/02/18 08:30 01/02/18 12:29 01/02/18 07:48 16.25 MLS/HR Piperacillin Sod/ Tazobactam Sod 3.375 gm/Dextrose 65 ml @ 16.25 mls/ hr Q8H IV 01/02/18 16:30 01/09/18 16:29 Heparin Sodium (Porcine) (Heparin Iv Bolus) 1,000 unit TODAY@0930 IV 01/02/18 09:30 01/02/18 23:59 Heparin Sodium (Porcine) (Heparin Iv Bolus) 400 unit TODAY@1000,1100,1200 IV 01/02/18 10:00 01/02/18 23:59 Albumin Human (Albumin 25%) 12.5 gm ONE ONCE IV 01/02/18 09:15 01/02/18 09:16 UNV Last 24 Hours Test 01/01/18 11:18 01/01/18 16:14 01/01/18 20:21 01/02/18 02:05 Bedside Glucose 255 mg/dl 93 mg/dl 90 mg/dl 130 mg/dl Test 01/02/18 04:44 01/02/18 06:47 Bedside Glucose 122 mg/dl Date/Time Source Procedure Growth Status 01/02/18 01:57 Blood Blood Culture Pending Ordered 01/02/18 01:57 Blood Blood Culture Pending Ordered Assessment & Plan 87 yo female seen for follow up for luanne/atn with chronic unchanged hydronephrosis and stress induced cardiomyopathy. had tunneled line placed and had first dialysis treatment 12/30. [id number] in setting of hemodynamic compromise from previous complete heart block requiring a pacemaker, now with cardiomyopathy, paced. ?aspiration event versus simply worsening fluid status overnight 01/01-01/02 >for urgent dialysis again today and will again attempt 2.5-3.5L fluid removal. >goal is to improve volume status, confusion with dialysis and fluid removal in hopes that her cardiac function may eventually recover. still unfortunately overall poor prognosis, worse this am w/ this setback. >we will get labs on treatment today >plan next HD 01/03 as well >Dr Kramer plans to re-evaluate dialysis after wednesday's treatment to see if she wants to continue current course of therapy; following closely w/ pt and family christiano her son regarding goals of her care.
[2018-01-02] MEDS ORDERED: ALBUMIN HUMAN 25% 12.5 GM/50 ML VIAL IV SCH (09:30)
[2018-01-02] MEDS ORDERED: HEPARIN SOD (PORCINE) 1000 UNIT/ML 10 ML VIAL IV SCH (09:30)
--- NOTE | 2018-01-02 09:46 | Cardiology Follow-Up ---
Subjective General Date of Service: Jan 02, 2018. Chief Complaint: follow up shortness of breath Pt evaluation today including: physical exam, chart review, lab review, review of studies, review of inpatient medication list History of Present Illness The patient is a 87 year old female seen in follow up. Resting comfortably. Patient not answering questions today. Increased oxygen requirements. Now 4L NC. Sinus tachycardia, Atrial sensed ventricular paced rhythm on telemetry. Allergies Coded Allergies: Macey Nut (Verified Allergy, Unknown, UNKNOWN, 12/27/17) Social History Smoking Status: Former Smoker Hx Tobacco Use In Past Year?: No Hx Alcohol Use - Type And Amou: No Hx Substance Use - Type And Am: No Problem List Medical Problems: (1) CHF (congestive heart failure) Status: Acute (2) Elevated troponin Status: Acute (3) Fall Status: Acute (4) Kidney stone Status: Acute (5) Sepsis Status: Acute (6) Third degree heart block Status: Acute (7) UTI (urinary tract infection) Status: Acute (8) UTI (urinary tract infection) Status: Acute (9) Weakness Status: Acute (10) Weakness Status: Acute Review of Systems Respiratory: + dyspnea on exertion, No cough, No wheezing, No shortness of breath, No dyspnea at rest, No hemoptysis Cardiac: No chest pain, No orthopnea, No PND, No edema, No claudication, No palpitations Physical Exam Vital Signs Last Vital Signs Documentation Date Time Temp Pulse Resp B/P (MAP) Pulse Ox O2 Delivery O2 Flow Rate FiO2 01/02/18 07:40 36.4 99 14 103/65 (78) 96 Nasal Cannula 4.0 Physical Exam Constitutional: General Apperance: well-nourished, well-developed Level of Distress: chronically ill Ambulation: ambulating normally Psychiatric: Mental Status: active & alert, normal mood, normal affect Orientation: oriented except where noted Memory: recent memory normal, remote memory normal Head: normocephalic, atraumatic Neck: supple Lungs: Auscultation: decreased breath sounds, pertinent finding (Decrease BS at the bases ) Cardiovascular: Heart Auscultation: RRR, no murmurs, tachycardia Peripheral Pulses: Radial Pulse: normal on the left, normal on the right Femoral Pulse: normal on the left, normal on the right Abdomen: Inspection & Palpation: soft Musculoskeletal: normal Extremities: no edema, no ulcers, pertinent finding (mild LE edema ) Neurologic: Cranial Nerves: grossly intact Sensation: grossly intact Assessment and Plan Assessment and Plan Impression: 1. Acute decompensated systolic heart failure with severe underlying LV systolic dysfunction. 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 - worsening pulmonary edema per CXR + hypoxia overnight 2. Acute kidney injury on stage III chronic kidney disease - now on HD 3. Sinus tachycardia 4. Recent dual-chamber Medtronic pacemaker for symptomatic high-grade AV block with severe bradycardia 5. Small to moderate sized circumferential pericardial effusion noted on echocardiogram , no tamponade Plan: Repeat limited resting 2-D transthoracic echo tomorrow 01/03/18. Continue metoprolol, aspirin, and Isordil dinitrate. SQ heparin for DVT prophylaxis Dialysis for volume removal today. Poor prognosis. Laboratory Results Last 24 Hours Test 01/01/18 11:18 01/01/18 16:14 01/01/18 20:21 01/02/18 02:05 Bedside Glucose 255 mg/dl 93 mg/dl 90 mg/dl 130 mg/dl Test 01/02/18 06:47 01/02/18 09:29 Bedside Glucose 122 mg/dl
[2018-01-02] MEDS: HEPARIN SOD (PORCINE) 1000 UNIT/ML 10 ML VIAL IV SCH ×3 (12:00→14:15)
--- NOTE | 2018-01-02 12:33 | Pharmacy Progress Note ---
Pharmacy Abx Dose Short Note Date of Service Jan 02, 2018. Assessment & Plan Assessment 87 year old female receiving VANC/ZOSYN for treatment of HAP r/o aspiration, mild diverticulitis Day # 1 of antimicrobial therapy, previously on Augment po. Pertinent PMH: on HD Plan: Vancomycin (discussed plan over phone with Dr. Santoyo) * LOADING DOSE: VANC 1500mg (~22mg/kg) IV x 1 last nite * Will give supplemental VANC 500mg IV x 1 after HD today * VANC random level with 2/12 AM to guide subsequent dosing. ZOSYN: 4.5 grams IV x 1, ordered 4.5g IV every 12 hours for critical illness and est GFR<20mL/min. Concentrating antibiotics in minimum volume as able. Pharmacy will continue to follow and will adjust dose/frequency as necessary. Thank you.
[2018-01-02 12:51] LABS: BASO % 0.1 %; BASO ABS # 0.01 K/uL (0-0.2); EOS % 0.1 %; EOS ABS # 0.01 K/uL (0-0.5); HEMATOCRIT 35.4 % (37-47); HEMOGLOBIN 11.1 g/dL (12.0-16.0); IG# 0.03 K/uL (0.00-0.02); LYMPH % 7.7 %; LYMPH ABS # 0.74 K/uL (1.2-3.4); MEAN CELL VOLUME 95.7 fL (80-100); MEAN CORPUSCULAR HGB CONC 31.4 g/dl (32-36); MEAN PLATELET VOLUME 11.7 fL (7.4-10.4); MONO % 10.4 %; MONO ABS # 1.01 K/uL (0.11-0.59); NEUT % 81.4 %; NEUT ABS # 7.87 K/uL (1.4-6.5); PLATELET COUNT 134 K/uL (130-400); RED CELL DISTRIBUTION WIDTH CV 15.1 % (11.5-14.5); WHITE BLOOD COUNT 9.67 K/uL (4.8-10.8)
[2018-01-02 13:11] LABS: CALCIUM 8.1 mg/dl (8.5-10.1); CREATININE 1.39 mg/dl (0.60-1.20); POTASSIUM 3.7 mmol/L (3.5-5.1)
--- NOTE | 2018-01-02 14:33 | Pharmacy Progress Note ---
Pharmacy Glycemic Short Note 2 Date of Service Jan 02, 2018. OUTPATIENT ANTIDIABETIC REGIMEN: * diet controlled ASSESSMENT: * Ms George is an 87 y/o F with a PMH of breast CA and complete heart block who presents with PAULO and CHF. yesterday the patient's blood sugar ranged from 93-141 mg/dL (patient had a blood sugar of 255 mg/dL at lunch but this was a one time blood sugar reading). The patient received 16 units of insulin (9 units of which was Lantus but patient is not eating much food). * The patient's fasting blood sugar is 122 mg/dL. Decreased Lantus to 8 units for tomorrow as the patient's blood sugars have trended lower since a higher dose was started. Patient continues not to eat much- loosened Novolog parameters. New dialysis start 12/30/17 which can make patient more insulin sensitive. PLAN FOR INPATIENT GLYCEMIC CONTROL: * Basal insulin * Lantus 8 units SQ qAM * Bolus insulin * NovoLog per scale ACHS or Q6hrs while NPO * Goal Range: Low 140 mg/dL - High 180 mg/dL * Correction Factor: 45 mg/dL/unit * Nutritional / Prandial insulin per carb ratio of 1 unit per 15 grams CHO consumed PLAN FOR DISCHARGE: * Patient's blood sugar is well-controlled via diet recommend continuing current treatment plan.
[2018-01-02] MEDS ORDERED: VANCOMYCIN INJ 500 MG in SODIUM CHLORIDE 0.9% 100ML 100 ML IV SCH (16:00)
[2018-01-02] MEDS ORDERED: PIPERACILL/TAZOBAC IV 3.375 GM in DEXTROSE 5% 50ML 50 ML IV SCH (16:30)
[2018-01-02] MEDS: PIPERACILL/TAZOBAC IV 4.5 GM in DEXTROSE 5% 50ML 50 ML IV SCH (20:46)
[2018-01-03] VITALS (23 sets, daily range): BP systolic 96–143; BP diastolic 64–97; PULSE 73–104; TEMP 36.4–37; O2SAT 93–98
[2018-01-03] MEDS: TRAMADOL HCL 50 MG TAB PO PRN (00:50)
--- NOTE | 2018-01-03 06:53 | Nephrology Progress Note ---
Nephrology Progress Note Date of Service: Jan 03, 2018. Subjective 87 yo female seen for follow up for luanne/atn with chronic unchanged hydronephrosis with a stress induced cardiomyopathy. had tunneled line placed and started on dialysis last week. over the weekend, pt became very confused and requiring more oxygen and had another dialysis treatment done yesterday for fluid removal. pt more awake and conversant today. on pureed diet and eating minimally. getting repeat echo now. Objective Date Time Temp Pulse Resp B/P (MAP) Pulse Ox O2 Delivery O2 Flow Rate FiO2 01/03/18 04:00 Room Air 01/03/18 03:40 36.7 98 21 130/88 (102) 93 Room Air 01/02/18 23:59 Room Air 01/02/18 23:50 36.9 104 22 126/71 (89) 95 Room Air 01/02/18 20:00 Room Air 01/02/18 19:15 37.0 105 20 113/69 (84) 95 Room Air 01/02/18 16:00 36.9 80 93/63 (73) 01/02/18 16:00 Nasal Cannula 4.0 01/02/18 15:45 36.3 80 18 90/57 (68) 100 Nasal Cannula 2.0 01/02/18 15:45 78 73/43 01/02/18 15:30 78 90/60 01/02/18 15:15 78 84/59 01/02/18 15:00 78 84/52 01/02/18 14:45 77 121/51 01/02/18 14:30 78 94/44 01/02/18 14:15 74 97/45 01/02/18 14:00 72 99/50 01/02/18 13:45 97 138/84 01/02/18 13:30 92 117/58 01/02/18 13:15 96 96/60 01/02/18 13:00 96 93/60 01/02/18 12:45 96 82/52 01/02/18 12:30 96 88/59 01/02/18 12:05 36.9 96 114/53 (73) 01/02/18 12:00 36.6 99 20 88/58 (68) 100 Nasal Cannula 2.0 01/02/18 12:00 Nasal Cannula 4.0 01/02/18 07:40 36.4 99 14 103/65 (78) 96 Nasal Cannula 4.0 01/02/18 07:30 Nasal Cannula 4.0 Physical Exam: General-aaox2, weak Eyes-no scleral icterus ENT-mmm Neck-supple Lungs-cta anteriorly, decreased at bases although poor inspiratory effort Heart-tachycardia Abdomen-bs+ s/nt/nd Extremities-+1 edema Neuro-nonfocal Current Inpatient Medications Medications (Trade) Dose Ordered Sig/Main Route Start Time Stop Time Status Last Admin Dose Admin Aspirin (Ecotrin Tab) 81 mg DAILY PO 12/28/17 09:00 01/27/18 08:59 01/02/18 07:51 81 MG Calcium/Vitamin D (Caltrate Plus Tab) 1 tab DAILY PO 12/28/17 09:00 01/27/18 08:59 01/02/18 07:51 1 TAB Gabapentin (Neurontin Cap) 100 mg TID PRN PO 12/27/17 15:45 01/26/18 15:44 12/31/17 10:01 100 MG Isosorbide Dinitrate (Isordil Tab) 5 mg DAILY@0700,1200,1700 PO 12/27/17 17:40 01/26/18 17:39 01/02/18 07:51 5 MG Ipratropium [place] (Atrovent 0.02% 0.5MG/2.5ML Neb) 0.5 mg Q4R PRN INH 12/28/17 00:00 01/27/18 00:00 01/02/18 04:01 0.5 MG Levalbuterol (Xopenex 1.25MG/ 0.5ML Neb) 1.25 mg Q4R PRN INH 12/27/17 20:30 01/26/18 20:29 01/02/18 04:01 1.25 MG Miscellaneous Information (Consult Glycemic Management Pharmacy) 1 ea UD PRN N/A 12/29/17 10:34 01/28/18 10:33 Insulin Aspart (novoLOG ASPART) SLIDING SCALE ACHS SC 12/29/17 11:30 01/28/18 11:29 01/01/18 12:05 7 UNITS Glucose (Glucose 40% Gel) 15-30 GRAMS 15 GRAMS... UD PRN PO 12/29/17 11:30 01/28/18 11:29 Glucose (Glucose Chew Tab) 4-8 Tablets 4 Tabl... UD PRN PO 12/29/17 11:30 01/28/18 11:29 Dextrose (Dextrose 50% 50ML Syringe) 25-50ML OF 50% DW IV FOR... UD PRN IV 12/29/17 11:30 01/28/18 11:29 Glucagon (Glucagon Inj) 1 mg UD PRN SQ 12/29/17 11:30 01/28/18 11:29 Enteral Nutritional Formula (Boost Glucose Control) 1 can BIDM PO 12/30/17 16:45 01/29/18 16:44 01/02/18 07:48 1 CAN Acetaminophen (Tylenol Tab) 500 mg Q6H PRN PO 12/31/17 10:15 01/30/18 10:14 01/01/18 11:56 500 MG Nitroglycerin (Nitrostat Tab) 0.3 mg PRN PRN SL 12/31/17 10:15 01/30/18 10:14 Nystatin (Mycostatin Powder) 1 appln BID EXT 12/31/17 21:00 01/30/18 20:59 01/02/18 20:47 1 APPLN Tramadol HCl (Ultram Tab) 25 mg Q12H PRN PO 12/31/17 19:00 01/30/18 18:59 01/03/18 00:50 25 MG Metoprolol Succinate (Toprol Xl Tab) 50 mg BID PO 12/31/17 21:00 01/30/18 20:59 01/02/18 20:47 50 MG Menthol (Nice Felice) 1 felice PRN PRN FELICE 01/01/18 12:30 01/31/18 12:29 Benzonatate (Tessalon Perles Cap) 100 mg TID PRN PO 01/01/18 14:00 01/31/18 13:59 01/02/18 00:04 100 MG Heparin Sodium (Porcine) (Heparin Sq 5000 Unit/0.5ml) 5,000 unit Q12 SQ 01/01/18 21:00 01/31/18 20:59 01/02/18 20:56 5,000 UNIT Miscellaneous Information (Consult) 1 ea DAILY PRN N/A 01/02/18 02:13 02/01/18 02:12 Miscellaneous Information (Consult) 1 ea UD PRN N/A 01/02/18 02:15 02/01/18 02:14 Piperacillin Sod/ Tazobactam Sod 4.5 gm/Dextrose 70 ml @ 17.5 mls/hr Q12H IV 01/02/18 20:00 01/09/18 19:59 01/02/18 20:46 17.5 MLS/HR Insulin Glargine (Lantus Solostar Pen) 8 units QAM SC 01/03/18 09:00 02/02/18 08:59 Heparin Sodium (Porcine) (Heparin Iv Bolus) 1,000 unit ONE IV 01/03/18 08:00 01/03/18 08:01 Heparin Sodium (Porcine) (Heparin Iv Bolus) 400 unit Q1H IV 01/03/18 08:00 01/03/18 10:01 Albumin Human (Albumin 25%) 12.5 gm UD IV 01/03/18 08:00 01/03/18 18:00 Last 24 Hours Test 01/02/18 11:11 01/02/18 12:10 01/02/18 12:24 01/02/18 16:07 Bedside Glucose 99 mg/dl 74 mg/dl White Blood Count 9.67 K/uL Red Blood Count 3.70 M/uL Hemoglobin 11.1 g/dL Hematocrit 35.4 % Mean Corpuscular Volume 95.7 fL Mean Corpuscular Hemoglobin 30.0 pg Mean Corpuscular Hemoglobin Concent 31.4 g/dl Platelet Count 134 K/uL Mean Platelet Volume 11.7 fL Neutrophils (%) (Auto) 81.4 % Lymphocytes (%) (Auto) 7.7 % Monocytes (%) (Auto) 10.4 % Eosinophils (%) (Auto) 0.1 % Basophils (%) (Auto) 0.1 % Neutrophils # (Auto) 7.87 K/uL Lymphocytes # (Auto) 0.74 K/uL Monocytes # (Auto) 1.01 K/uL Eosinophils # (Auto) 0.01 K/uL Basophils # (Auto) 0.01 K/uL RDW Standard Deviation 52.0 fL RDW Coefficient of Variation 15.1 % Immature Granulocyte % (Auto) 0.3 % Immature Granulocyte # (Auto) 0.03 K/uL Sodium Level 140 mmol/L Potassium Level 3.7 mmol/L Chloride Level 102 mmol/L Carbon Dioxide Level 30 mmol/L Anion Gap 8.0 mmol/L Blood Urea Nitrogen 26 mg/dl Creatinine 1.39 mg/dl Est Creatinine Clear Calc Drug Dose 23.5 ml/min Estimated GFR () 39.4 Estimated GFR (Non- 34.0 BUN/Creatinine Ratio 18.3 Random Glucose 72 mg/dl Calcium Level 8.1 mg/dl Test 01/02/18 20:23 01/03/18 06:44 Bedside Glucose 118 mg/dl Date/Time Source Procedure Growth Status 01/02/18 12:24 Blood Blood Culture Pending Received 01/02/18 12:15 Blood Blood Culture Pending Received 01/02/18 13:20 Nasal MRSA DNA Surveillance Screen - Final Specimen Negative for MRSA by DNA Probe Complete 01/02/18 19:15 Sputum Expectorated Sputum Gram Stain Pending Received 01/02/18 19:15 Sputum Expectorated Sputum Sputum Culture Pending Received Assessment & Plan luanne/[id number]-[id number]-[id number] who has had a complicated hospital course. underwent dialysis wednesday and wednesday. wednesday's treatment was emergent with pt obtunded and volume overloaded. this morning, pt looks much better but still overall very weak and not eating. for dialysis again today and will see what repeat echo shows this morning. question if we should continue aggressive measures. will discuss further with family. for now, dialysis with appropriate fluid removal today.
[2018-01-03 07:17] LABS: BASO % 0.1 %; BASO ABS # 0.01 K/uL (0-0.2); EOS % 0.1 %; EOS ABS # 0.01 K/uL (0-0.5); HEMATOCRIT 36.4 % (37-47); HEMOGLOBIN 11.7 g/dL (12.0-16.0); IG# 0.04 K/uL (0.00-0.02); LYMPH % 7.4 %; LYMPH ABS # 0.71 K/uL (1.2-3.4); MEAN CELL VOLUME 94.3 fL (80-100); MEAN CORPUSCULAR HEMOGLOBIN 30.3 pg (25-34); MEAN CORPUSCULAR HGB CONC 32.1 g/dl (32-36); MEAN PLATELET VOLUME 11.5 fL (7.4-10.4); MONO % 12.1 %; MONO ABS # 1.16 K/uL (0.11-0.59); NEUT % 79.9 %; NEUT ABS # 7.66 K/uL (1.4-6.5); PLATELET COUNT 123 K/uL (130-400); RED CELL DISTRIBUTION WIDTH CV 15.2 % (11.5-14.5); RED CELL DISTRIBUTION WIDTH SD 51.6 fL (36.4-46.3); WHITE BLOOD COUNT 9.59 K/uL (4.8-10.8)
[2018-01-03 07:46] LABS: CALCIUM 8.2 mg/dl (8.5-10.1); CREATININE 1.46 mg/dl (0.60-1.20); POTASSIUM 3.8 mmol/L (3.5-5.1)
[2018-01-03] MEDS: ASPIRIN 81 MG ECTAB PO SCH (07:56)
[2018-01-03] MEDS: CALCIUM 600MG + VIT D 400 IU TAB PO SCH (07:56)
[2018-01-03] MEDS: METOPROLOL SUCC 50MG EXT REL TAB PO SCH ×2 (07:56→20:04)
[2018-01-03] MEDS: BENZONATATE 100MG CAP PO PRN (07:57)
[2018-01-03] MEDS: ISOSORBIDE DINITRATE 5 MG TAB PO SCH ×3 (07:57→17:09)
[2018-01-03] MEDS: NYSTATIN POWDER 15GM BTL EXT SCH ×2 (07:58→19:00)
[2018-01-03] MEDS ORDERED: HEPARIN SOD (PORCINE) 1000 UNIT/ML 10 ML VIAL IV SCH (08:00)
[2018-01-03] MEDS: INSULIN GLARGINE SOLOSTAR 100 UNITS/ML 3 ML PEN SC SCH (08:12)
[2018-01-03] MEDS: PIPERACILL/TAZOBAC IV 4.5 GM in DEXTROSE 5% 50ML 50 ML IV SCH ×2 (08:14→19:00)
[2018-01-03] MEDS: BOOST GLUCOSE CONTROL PO SCH ×2 (08:14→16:45)
[2018-01-03] MEDS: HEPARIN SOD 5000 UNIT/0.5 ML CARP SQ SCH ×2 (08:14→20:05)
[2018-01-03] MEDS: INSULIN ASPART 100 UNITS/ML 3 ML PEN SC SCH ×4 (08:17→21:27)
--- NOTE | 2018-01-03 09:16 | ECHOCARDIOGRAM REPORT ---
*NOTICE TO RECEIVING DEMOCRAT AGENCY This information is strictly Confidential and protected under [place] law. [place] law prohibits you from making any further disclosure of this information unless further disclosure is expressly permitted by the written consent of the person to whom it pertains or is authorized by law. A general authorization for the release of medical or other information is not sufficient for this purpose. Hospital accepts no responsibility if the information is made available to any other person, INCLUDING THE PATIENT. Interpretation Summary * Name: MEHRAN MILLAN Study Date: 01/03/2018 06:34 AM BP: 130/88 mmHg * Patient Location: C.2E\S\E209\S\1 HR: 98 * : 1930 (M/d/yyyy) Gender: Female Height: 58 in * Age: 87 yrs Ethnicity: [place] Weight: 149 lb * Ordering Physician: Jono Lopez * Referring Physician: Self, Referred * Performed By: Leda Nicholas RCS * * Reason For Study: Cardiomyopathy, Pericardial Effusion * BSA: 1.6 m2 * Limited views were obtained. * Compared to prior study, changes are noted. * -- Conclusions -- * The qualitative LV ejection fraction is < 20%. * There is severe diffuse akinesis to dyskinesis and thinning of the mid and apical levels of the left ventricle with relative sparing of the basal segments which are geoff normally. * Moderate circumferential pericardial effusion with some organization anteriorly. * There are no echocardiographic indications of cardiac tamponade. * Normal inferior vena cava size and collapsability with sniff indicates a normal right atrial pressure of 3 mmHg * Moderate size left pleural effusion. Procedure Details * A two-dimensional transthoracic echocardiogram with pulsed and continuous Doppler was performed. * Limited views were obtained. Left Ventricle * Left ventricular systolic function is severely reduced. * The qualitative LV ejection fraction is < 20%. * There is severe diffuse akinesis to dyskinesis and thinning of the mid and apical levels of the left ventricle with relative sparing of the basal segments which are geoff normally. Right Ventricle * The right ventricular cavity size is normal (basal dimension <4.2 cm in right ventricular apical 4-chamber view). * The right ventricular systolic function is normal. Mitral Valve * There is mild mitral annular calcification. * There is no mitral valve stenosis. Pericardium/Pleural * Moderate circumferential pericardial effusion with some organization anteriorly. * There are no echocardiographic indications of cardiac tamponade. * Moderate size left pleural effusion. Great Vessels * Normal inferior vena cava size and collapsability with sniff indicates a normal right atrial pressure of 3 mmHg MMode 2D Measurements and Calculations IVSd 1.1 cm IVSs 1.3 cm LVIDd 4.3 cm LVIDs 3.7 cm LVPWd 1.1 cm LVPWs 1.2 cm IVS/LVPW 0.99 FS 15.7 % EDV(Teich) 84.7 ml ESV(Teich) 56.5 ml EF(Teich) 33.3 % EDV(cubed) 81.5 ml ESV(cubed) 48.9 ml EF(cubed) 40.0 % % IVS thick 21.5 % % LVPW thick 9.1 % LV mass(C)d 159.9 grams LV mass(C)dI 99.5 grams/m\S\2 LV mass(C)s 152.2 grams LV mass(C)sI 94.7 grams/m\S\2 SV(Teich) 28.2 ml SI(Teich) 17.5 ml/m\S\2 SV(cubed) 32.6 ml SI(cubed) 20.3 ml/m\S\2 EDV(MOD-sp4) 120.0 ml ESV(MOD-sp4) 104.0 ml EF(MOD-sp4) 13.3 % EDV(MOD-sp2) 122.0 ml ESV(MOD-sp2) 96.0 ml EF(MOD-sp2) 21.3 % SV(MOD-sp4) 16.0 ml SI(MOD-sp4) 10.0 ml/m\S\2 SV(MOD-sp2) 26.0 ml SI(MOD-sp2) 16.2 ml/m\S\2
[2018-01-03] MEDS: ALBUMIN HUMAN 25% 12.5 GM/50 ML VIAL IV SCH ×2 (09:30→11:09)
--- NOTE | 2018-01-03 12:42 | Cardiology Follow-Up ---
Subjective General Date of Service: Jan 03, 2018. Chief Complaint: follow up shortness of breath Pt evaluation today including: conversation w/ patient, conversation w/ family , physical exam, chart review, lab review, review of studies, review of inpatient medication list History of Present Illness The patient is a 87 year old female seen in follow-up. She is lethargic however answers questions. Responsive to verbal stimuli. No significant changes overnight. Currently receiving hemodialysis treatment. Allergies Coded Allergies: Macey Nut (Verified Allergy, Unknown, UNKNOWN, 12/27/17) Social History Smoking Status: Former Smoker Hx Tobacco Use In Past Year?: No Hx Alcohol Use - Type And Amou: No Hx Substance Use - Type And Am: No Problem List Medical Problems: (1) CHF (congestive heart failure) Status: Acute (2) Elevated troponin Status: Acute (3) Fall Status: Acute (4) Kidney stone Status: Acute (5) Sepsis Status: Acute (6) Third degree heart block Status: Acute (7) UTI (urinary tract infection) Status: Acute (8) UTI (urinary tract infection) Status: Acute (9) Weakness Status: Acute (10) Weakness Status: Acute Review of Systems Respiratory: + shortness of breath, + dyspnea on exertion, No cough, No wheezing, No dyspnea at rest, No hemoptysis Cardiac: + chest pain, No orthopnea, No PND, No edema, No claudication, No palpitations Physical Exam Vital Signs Last Vital Signs Documentation Date Time Temp Pulse Resp B/P (MAP) Pulse Ox O2 Delivery O2 Flow Rate FiO2 01/03/18 12:30 73 113/69 01/03/18 11:55 36.7 20 97 01/03/18 08:14 Room Air 01/02/18 16:00 4.0 Physical Exam Constitutional: General Apperance: well-nourished, well-developed Level of Distress: NAD, chronically ill Ambulation: ambulating normally Psychiatric: Mental Status: active & alert, normal mood, normal affect Orientation: oriented except where noted Memory: recent memory normal, remote memory normal Head: normocephalic, atraumatic Neck: supple Lungs: Auscultation: decreased breath sounds, pertinent finding (Decrease BS at the bases ) Cardiovascular: Heart Auscultation: RRR, no murmurs, tachycardia Peripheral Pulses: Radial Pulse: normal on the left, normal on the right Femoral Pulse: normal on the left, normal on the right Abdomen: Inspection & Palpation: soft Musculoskeletal: normal Extremities: no edema, no ulcers, pertinent finding (mild LE edema ) Neurologic: Cranial Nerves: grossly intact Sensation: grossly intact Assessment and Plan Assessment and Plan Impression: 1. Acute decompensated systolic heart failure with severe underlying LV systolic dysfunction. 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 -No improvement of LV function per repeat 2-D transthoracic echo performed today 2. Acute kidney injury on stage III chronic kidney disease - now on HD 3. Sinus tachycardia 4. Recent dual-chamber Medtronic pacemaker for symptomatic high-grade AV block with severe bradycardia 5. Small to moderate sized circumferential pericardial effusion noted on echocardiogram , no tamponade Plan: Continue conservative medical therapy with metoprolol, aspirin, and Isordil dinitrate. SQ heparin for DVT prophylaxis Dialysis for volume removal today. Poor prognosis discussed with service desk agent at bedside. A discussion regarding further aggressive care should be undertaken at this time with power of system support administrator. Laboratory Results Last 24 Hours Test 01/02/18 16:07 01/02/18 20:23 01/03/18 06:44 01/03/18 07:14 Bedside Glucose 74 mg/dl 118 mg/dl 166 mg/dl White Blood Count 9.59 K/uL Red Blood Count 3.86 M/uL Hemoglobin 11.7 g/dL Hematocrit 36.4 % Mean Corpuscular Volume 94.3 fL Mean Corpuscular Hemoglobin 30.3 pg Mean Corpuscular Hemoglobin Concent 32.1 g/dl Platelet Count 123 K/uL Mean Platelet Volume 11.5 fL Neutrophils (%) (Auto) 79.9 % Lymphocytes (%) (Auto) 7.4 % Monocytes (%) (Auto) 12.1 % Eosinophils (%) (Auto) 0.1 % Basophils (%) (Auto) 0.1 % Neutrophils # (Auto) 7.66 K/uL Lymphocytes # (Auto) 0.71 K/uL Monocytes # (Auto) 1.16 K/uL Eosinophils # (Auto) 0.01 K/uL Basophils # (Auto) 0.01 K/uL RDW Standard Deviation 51.6 fL RDW Coefficient of Variation 15.2 % Immature Granulocyte % (Auto) 0.4 % Immature Granulocyte # (Auto) 0.04 K/uL Sodium Level 136 mmol/L Potassium Level 3.8 mmol/L Chloride Level 99 mmol/L Carbon Dioxide Level 28 mmol/L Anion Gap 9.0 mmol/L Blood Urea Nitrogen 22 mg/dl Creatinine 1.46 mg/dl Est Creatinine Clear Calc Drug Dose 22.0 ml/min Estimated GFR () 37.1 Estimated GFR (Non- 32.0 BUN/Creatinine Ratio 15.3 Random Glucose 161 mg/dl Calcium Level 8.2 mg/dl Random Vancomycin Level 17.5 mcg/ml Test 01/03/18 11:12 Bedside Glucose 133 mg/dl
[2018-01-03] MEDS: HEPARIN SOD (PORCINE) 1000 UNIT/ML 10 ML VIAL IV SCH ×2 (13:41→13:42)
[2018-01-03] MEDS: ACETAMINOPHEN 500 MG TAB PO PRN (17:17)
[2018-01-04] VITALS (7 sets, daily range): BP systolic 98–146; BP diastolic 58–84; PULSE 67–81; TEMP 36.3–36.8; O2SAT 94–98
--- NOTE | 2018-01-04 06:41 | Progress Note ---
Medicine Progress Note Date & Time of Visit: Jan 04, 2018 at 06:37. Subjective delayed entry date of service 01/03/18 seen with caregiver at bedside patient was alert, had breakfast earlier s/p HD feeling tired, drowsy after denies shortness of breath, abdominal pain, chest pain no other symptoms noted Objective Last 8 Hrs Date Time Temp Pulse Resp B/P (MAP) Pulse Ox O2 Delivery O2 Flow Rate FiO2 01/04/18 05:07 36.5 81 23 146/79 (101) 98 Room Air 01/04/18 04:00 Room Air 01/03/18 23:59 Room Air 01/03/18 23:45 36.8 80 23 121/81 (94) 98 Room Air Physical Exam: General- oriented x 3, not in distress, speaks in sentences with no effort Lungs- mild rales at the bases no wheezing Heart- regular rhythm; no murmur, normal rate Abdomen- normal bowel sounds, non distended, soft, nontender Extremities- grade 1 bipedal edema, no calf tenderness; peripheral pulses intact Neuro- alert, oriented x 2; no gross focal deficits Skin- warm & dry Laboratory Results: Last 24 Hours Test 01/03/18 06:44 01/03/18 07:14 01/03/18 11:12 01/03/18 16:43 White Blood Count 9.59 K/uL Red Blood Count 3.86 M/uL Hemoglobin 11.7 g/dL Hematocrit 36.4 % Mean Corpuscular Volume 94.3 fL Mean Corpuscular Hemoglobin 30.3 pg Mean Corpuscular Hemoglobin Concent 32.1 g/dl Platelet Count 123 K/uL Mean Platelet Volume 11.5 fL Neutrophils (%) (Auto) 79.9 % Lymphocytes (%) (Auto) 7.4 % Monocytes (%) (Auto) 12.1 % Eosinophils (%) (Auto) 0.1 % Basophils (%) (Auto) 0.1 % Neutrophils # (Auto) 7.66 K/uL Lymphocytes # (Auto) 0.71 K/uL Monocytes # (Auto) 1.16 K/uL Eosinophils # (Auto) 0.01 K/uL Basophils # (Auto) 0.01 K/uL RDW Standard Deviation 51.6 fL RDW Coefficient of Variation 15.2 % Immature Granulocyte % (Auto) 0.4 % Immature Granulocyte # (Auto) 0.04 K/uL Sodium Level 136 mmol/L Potassium Level 3.8 mmol/L Chloride Level 99 mmol/L Carbon Dioxide Level 28 mmol/L Anion Gap 9.0 mmol/L Blood Urea Nitrogen 22 mg/dl Creatinine 1.46 mg/dl Est Creatinine Clear Calc Drug Dose 22.0 ml/min Estimated GFR () 37.1 Estimated GFR (Non- 32.0 BUN/Creatinine Ratio 15.3 Random Glucose 161 mg/dl Calcium Level 8.2 mg/dl Random Vancomycin Level 17.5 mcg/ml Bedside Glucose 166 mg/dl 133 mg/dl 143 mg/dl Test 01/03/18 20:52 01/04/18 04:44 Bedside Glucose 250 mg/dl Assessment & Plan This is a 87yo F with a PMH of complete heart block (s/p pacemaker placement on 12/21/16), HTN, DM II (diet controlled), CKD III and h/o breast cancer (s/p L mastectomy) who presents with worsening SOB x 2 days. 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 * There is severe diffuse hypokinesis to akinesis of the mid and apical levles of the left ventricle with relative sparing of the basal segment which are geoff in a hyperdynamic fashion. * Left ventricular systolic function is severely reduced. * The qualitative LV ejection fraction is < 20%. * Mild aortic regurgitation. * There is mild mitral regurgitation. * There is mild tricuspid regurgitation. * There is a small circumferential pericardial effusion with most significant fluide collection noted on the short axis view, adjacent to the inferoseptal wall. * There are no echocardiographic indications of cardiac tamponade. * There is a small to moderate sized left pleural effusion. - IV Lasix HELD due to increasing crea - on Imdur and Metoprolol - now on 3rd HD session ACUTE RENAL FAILURE ON CKD 3 - possible cardiorenal syndrome -Cr 1.8 to 2.9 - poor urine output - 12/29/17: s/p Permcath placement - HD x 3 sessions appears weak recommendations for further HD per Nephro - Urology consulted, intervention not recommended at this time unless patient becomes septic POSSIBLE RIGHT LOWER LOBE PNEUMONIA, R/O ASPIRATION - speech therapist reconsulted - now on IV Zosyn MRSA nasal swab negative - respiratory status stable POSSIBLE MILD ACUTE DIVERTICULITIS - seen on CT abdomen - remains afebrile, no leukocytosis denies abdominal pain - was on Augmentin, now on Zosyn for possible aspiration PNA TROPONIN ELEVATION likely Type 2 [place] secondary to Demand Ischemia - no angina - troponin stabilized HTN: -Normotensive -Cont home dose metoprolol -Lisinopril held since last admission 12/24 PAULO. Continue to hold. DM II (diet controlled) -A1c of 6 in May 2017 -Repeat alc 6.5 - BSGs increased Pharmacy consulted - on Lantus and ISS BLOOD STAIN WITH BM? - possible hemorrhoid? - resolved monitor while on heparin DVT Ppx: heparin Code status: DNR per discussion with patient, family PCP: Irma Dispo: pending patient would still want to have HD discussed with son at bedside he is comfortable and agreeable with plan of care Current Inpatient Medications: Current Inpatient Medications Medications (Trade) Dose Ordered Sig/Main Route Start Time Stop Time Status Last Admin Dose Admin Aspirin (Ecotrin Tab) 81 mg DAILY PO 12/28/17 09:00 01/27/18 08:59 01/03/18 07:56 81 MG Calcium/Vitamin D (Caltrate Plus Tab) 1 tab DAILY PO 12/28/17 09:00 01/27/18 08:59 01/03/18 07:56 1 TAB Gabapentin (Neurontin Cap) 100 mg TID PRN PO 12/27/17 15:45 01/26/18 15:44 12/31/17 10:01 100 MG Isosorbide Dinitrate (Isordil Tab) 5 mg DAILY@0700,1200,1700 PO 12/27/17 17:40 01/26/18 17:39 01/03/18 17:09 5 MG Ipratropium [place] (Atrovent 0.02% 0.5MG/2.5ML Neb) 0.5 mg Q4R PRN INH 12/28/17 00:00 01/27/18 00:00 01/02/18 04:01 0.5 MG Levalbuterol (Xopenex 1.25MG/ 0.5ML Neb) 1.25 mg Q4R PRN INH 12/27/17 20:30 01/26/18 20:29 01/02/18 04:01 1.25 MG Miscellaneous Information (Consult Glycemic Management Pharmacy) 1 ea UD PRN N/A 12/29/17 10:34 01/28/18 10:33 Insulin Aspart (novoLOG ASPART) SLIDING SCALE ACHS SC 12/29/17 11:30 01/28/18 11:29 01/03/18 21:27 2 UNITS Glucose (Glucose 40% Gel) 15-30 GRAMS 15 GRAMS... UD PRN PO 12/29/17 11:30 01/28/18 11:29 Glucose (Glucose Chew Tab) 4-8 Tablets 4 Tabl... UD PRN PO 12/29/17 11:30 01/28/18 11:29 Dextrose (Dextrose 50% 50ML Syringe) 25-50ML OF 50% DW IV FOR... UD PRN IV 12/29/17 11:30 01/28/18 11:29 Glucagon (Glucagon Inj) 1 mg UD PRN SQ 12/29/17 11:30 01/28/18 11:29 Enteral Nutritional Formula (Boost Glucose Control) 1 can BIDM PO 12/30/17 16:45 01/29/18 16:44 01/03/18 08:14 1 CAN Acetaminophen (Tylenol Tab) 500 mg Q6H PRN PO 12/31/17 10:15 01/30/18 10:14 01/03/18 17:17 500 MG Nitroglycerin (Nitrostat Tab) 0.3 mg PRN PRN SL 12/31/17 10:15 01/30/18 10:14 Nystatin (Mycostatin Powder) 1 appln BID EXT 12/31/17 21:00 01/30/18 20:59 01/03/18 19:00 1 APPLN Tramadol HCl (Ultram Tab) 25 mg Q12H PRN PO 12/31/17 19:00 01/30/18 18:59 01/03/18 00:50 25 MG Metoprolol Succinate (Toprol Xl Tab) 50 mg BID PO 12/31/17 21:00 01/30/18 20:59 01/03/18 20:04 50 MG Menthol (Nice Felice) 1 felice PRN PRN FELICE 01/01/18 12:30 01/31/18 12:29 Benzonatate (Tessalon Perles Cap) 100 mg TID PRN PO 01/01/18 14:00 01/31/18 13:59 01/03/18 07:57 100 MG Heparin Sodium (Porcine) (Heparin Sq 5000 Unit/0.5ml) 5,000 unit Q12 SQ 01/01/18 21:00 01/31/18 20:59 01/03/18 20:05 5,000 UNIT Miscellaneous Information (Consult) 1 ea DAILY PRN N/A 01/02/18 02:13 02/01/18 02:12 Piperacillin Sod/ Tazobactam Sod 4.5 gm/Dextrose 70 ml @ 17.5 mls/hr Q12H IV 01/02/18 20:00 01/09/18 19:59 01/03/18 19:00 17.5 MLS/HR Insulin Glargine (Lantus Solostar Pen) 8 units QAM SC 01/03/18 09:00 02/02/18 08:59 01/03/18 08:12 8 UNITS
--- NOTE | 2018-01-04 06:59 | Nephrology Progress Note ---
Nephrology Progress Note Date of Service: Jan 04, 2018. Subjective 87 yo female seen for follow up for luanne/atn with chronic unchanged hydronephrosis with a stress induced cardiomyopathy. had tunneled line placed and started on dialysis last week. pt weak, not eating much. had dialysis yesterday again and had 2.5 liters off. oxygenating well on room air. Objective Date Time Temp Pulse Resp B/P (MAP) Pulse Ox O2 Delivery O2 Flow Rate FiO2 01/04/18 05:07 36.5 81 23 146/79 (101) 98 Room Air 01/04/18 04:00 Room Air 01/03/18 23:59 Room Air 01/03/18 23:45 36.8 80 23 121/81 (94) 98 Room Air 01/03/18 20:00 Room Air 01/03/18 19:24 36.6 79 16 125/75 (92) 94 Nasal Cannula 01/03/18 16:00 Room Air 01/03/18 15:49 37.0 86 16 133/77 (95) 94 Room Air 01/03/18 13:15 36.6 88 104/69 (81) 01/03/18 12:45 82 117/65 01/03/18 12:30 73 113/69 01/03/18 12:15 78 129/75 01/03/18 12:05 Room Air 01/03/18 12:00 78 135/82 01/03/18 11:55 36.7 101 20 102/68 (79) 97 01/03/18 11:45 85 102/68 01/03/18 11:30 78 109/68 01/03/18 11:15 103 125/64 01/03/18 11:00 101 109/68 01/03/18 10:45 102 112/85 01/03/18 10:30 100 105/66 01/03/18 10:15 102 96/72 01/03/18 10:00 104 113/71 01/03/18 09:45 97 118/81 01/03/18 09:30 88 121/73 01/03/18 09:23 87 127/79 01/03/18 09:15 36.6 94 129/76 (93) 01/03/18 08:14 36.4 99 25 143/97 (112) 95 Room Air 01/03/18 07:30 Room Air Physical Exam: General-aaox2, weak Eyes-no scleral icterus ENT-mmm Neck-supple Lungs-decreased at bases with poor inspiratory effort Heart-tachycardia Abdomen-bs+ s/nt/nd Extremities-mild edema Neuro-nonfocal Current Inpatient Medications Medications (Trade) Dose Ordered Sig/Main Route Start Time Stop Time Status Last Admin Dose Admin Aspirin (Ecotrin Tab) 81 mg DAILY PO 12/28/17 09:00 01/27/18 08:59 01/03/18 07:56 81 MG Calcium/Vitamin D (Caltrate Plus Tab) 1 tab DAILY PO 12/28/17 09:00 01/27/18 08:59 01/03/18 07:56 1 TAB Gabapentin (Neurontin Cap) 100 mg TID PRN PO 12/27/17 15:45 01/26/18 15:44 12/31/17 10:01 100 MG Isosorbide Dinitrate (Isordil Tab) 5 mg DAILY@0700,1200,1700 PO 12/27/17 17:40 01/26/18 17:39 01/03/18 17:09 5 MG Ipratropium Nye (Atrovent 0.02% 0.5MG/2.5ML Neb) 0.5 mg Q4R PRN INH 12/28/17 00:00 01/27/18 00:00 01/02/18 04:01 0.5 MG Levalbuterol (Xopenex 1.25MG/ 0.5ML Neb) 1.25 mg Q4R PRN INH 12/27/17 20:30 01/26/18 20:29 01/02/18 04:01 1.25 MG Miscellaneous Information (Consult Glycemic Management Pharmacy) 1 ea UD PRN N/A 12/29/17 10:34 01/28/18 10:33 Insulin Aspart (novoLOG ASPART) SLIDING SCALE ACHS SC 12/29/17 11:30 01/28/18 11:29 01/03/18 21:27 2 UNITS Glucose (Glucose 40% Gel) 15-30 GRAMS 15 GRAMS... UD PRN PO 12/29/17 11:30 01/28/18 11:29 Glucose (Glucose Chew Tab) 4-8 Tablets 4 Tabl... UD PRN PO 12/29/17 11:30 01/28/18 11:29 Dextrose (Dextrose 50% 50ML Syringe) 25-50ML OF 50% DW IV FOR... UD PRN IV 12/29/17 11:30 01/28/18 11:29 Glucagon (Glucagon Inj) 1 mg UD PRN SQ 12/29/17 11:30 01/28/18 11:29 Enteral Nutritional Formula (Boost Glucose Control) 1 can BIDM PO 12/30/17 16:45 01/29/18 16:44 01/03/18 08:14 1 CAN Acetaminophen (Tylenol Tab) 500 mg Q6H PRN PO 12/31/17 10:15 01/30/18 10:14 01/03/18 17:17 500 MG Nitroglycerin (Nitrostat Tab) 0.3 mg PRN PRN SL 12/31/17 10:15 01/30/18 10:14 Nystatin (Mycostatin Powder) 1 appln BID EXT 12/31/17 21:00 01/30/18 20:59 01/03/18 19:00 1 APPLN Tramadol HCl (Ultram Tab) 25 mg Q12H PRN PO 12/31/17 19:00 01/30/18 18:59 01/03/18 00:50 25 MG Metoprolol Succinate (Toprol Xl Tab) 50 mg BID PO 12/31/17 21:00 01/30/18 20:59 01/03/18 20:04 50 MG Menthol (Nice Felice) 1 felice PRN PRN FELICE 01/01/18 12:30 01/31/18 12:29 Benzonatate (Tessalon Perles Cap) 100 mg TID PRN PO 01/01/18 14:00 01/31/18 13:59 01/03/18 07:57 100 MG Heparin Sodium (Porcine) (Heparin Sq 5000 Unit/0.5ml) 5,000 unit Q12 SQ 01/01/18 21:00 01/31/18 20:59 01/03/18 20:05 5,000 UNIT Miscellaneous Information (Consult) 1 ea DAILY PRN N/A 01/02/18 02:13 02/01/18 02:12 Piperacillin Sod/ Tazobactam Sod 4.5 gm/Dextrose 70 ml @ 17.5 mls/hr Q12H IV 01/02/18 20:00 01/09/18 19:59 01/03/18 19:00 17.5 MLS/HR Insulin Glargine (Lantus Solostar Pen) 8 units QAM SC 01/03/18 09:00 02/02/18 08:59 01/03/18 08:12 8 UNITS Last 24 Hours Test 01/03/18 07:14 01/03/18 11:12 01/03/18 16:43 01/03/18 20:52 Bedside Glucose 166 mg/dl 133 mg/dl 143 mg/dl 250 mg/dl Test 01/04/18 06:33 Assessment & Plan luanne/tnn-vnu-iwfyklhu who has had a complicated hospital course. continues on dialysis to help control volume status. pt wanted to get better for her cat. will plan on dialysis again tomorrow. no dialysis today. repeat echo done yesterday remains unchanged. pt with overall poor prognosis with a likely poor quality of life.
[2018-01-04 07:05] LABS: BASO % 0.1 %; BASO ABS # 0.01 K/uL (0-0.2); EOS % 0.1 %; EOS ABS # 0.01 K/uL (0-0.5); HEMATOCRIT 36.4 % (37-47); HEMOGLOBIN 11.5 g/dL (12.0-16.0); IG# 0.03 K/uL (0.00-0.02); LYMPH % 10.9 %; LYMPH ABS # 1.16 K/uL (1.2-3.4); MEAN CELL VOLUME 94.3 fL (80-100); MEAN CORPUSCULAR HEMOGLOBIN 29.8 pg (25-34); MEAN CORPUSCULAR HGB CONC 31.6 g/dl (32-36); MEAN PLATELET VOLUME 11.7 fL (7.4-10.4); MONO ABS # 1.38 K/uL (0.11-0.59); NEUT % 75.6 %; NEUT ABS # 8.02 K/uL (1.4-6.5); PLATELET COUNT 123 K/uL (130-400); RED CELL DISTRIBUTION WIDTH CV 15.1 % (11.5-14.5); RED CELL DISTRIBUTION WIDTH SD 50.4 fL (36.4-46.3); WHITE BLOOD COUNT 10.61 K/uL (4.8-10.8)
[2018-01-04 07:36] LABS: CALCIUM 8.5 mg/dl (8.5-10.1); CREATININE 1.84 mg/dl (0.60-1.20); POTASSIUM 3.7 mmol/L (3.5-5.1)
[2018-01-04] MEDS: INSULIN ASPART 100 UNITS/ML 3 ML PEN SC SCH ×4 (08:54→20:36)
--- NOTE | 2018-01-04 08:55 | Progress Note ---
Internal Med Progress Note Date of Service: Jan 04, 2018. 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 ASSESSMENT & PLAN: Patient is an 87yr female with PMH of complete heart block (s/p pacemaker placement on 12/21/16), HTN, DM II (diet controlled), CKD III and h/o breast cancer (s/p L mastectomy) who presents with worsening SOB x 2 days. 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 EF: < 20%. Mild AR,MR, TR. Small pericardial effusion IV Lasix held due to worsening renal function Continue dialysis to help with volume status Continue Imdur and Metoprolol Appreciate Cardiology help Involve palliative care to identify goals of care. Patient's Son agreeable with plan PAULO on CKD III: Possible cardiorenal syndrome Cr:2.1 >>>1.84 poor urine output S/P PermCath placement on 12/29/17 Dialysis per recommendations from Nephrology Urology consulted, intervention not recommended at this time unless patient becomes septic Possible R lower lobe Pneumonia, R/O Aspiration speech therapy reconsulted Continue IV Zosyn Day # 3 MRSA nasal swab negative Possible mild Acute Diverticulitis seen on CT abdomen Afebrile, No leukocytosis denies abdominal pain On Zosyn Troponin Elevation: likely Type 2 AR secondary to Demand Ischemia Denies chest pain troponin stabilized HTN: Stable Continue metoprolol Lisinopril held since last admission secondary to PAULO DM II (diet controlled) A1c of 6 in May 2017 Repeat alc 6.5 Pharmacy consulted Continue Lantus and ISS Blood Stained BM ? possible hemorrhoid resolved Hb stable DVT Px: Heparin SQ Code status: DNR Disposition: Poor prognosis Palliative care consulted To be determined PROCEDURES: ECHO: * The qualitative LV ejection fraction is < 20%. * There is severe diffuse akinesis to dyskinesis and thinning of the mid and apical levels of the left ventricle with relative sparing of the basal segments which are geoff normally. * Moderate circumferential pericardial effusion with some organization anteriorly. * There are no echocardiographic indications of cardiac tamponade. * Normal inferior vena cava size and collapsibility with sniff indicates a normal right atrial pressure of 3 mmHg * Moderate size left pleural effusion. Vital Signs: Date Time Temp Pulse Resp B/P (MAP) Pulse Ox O2 Delivery O2 Flow Rate FiO2 01/04/18 08:26 36.8 79 18 141/84 (103) 94 01/04/18 05:07 36.5 81 23 146/79 (101) 98 Room Air 01/04/18 04:00 Room Air 01/03/18 23:59 Room Air 01/03/18 23:45 36.8 80 23 121/81 (94) 98 Room Air 01/03/18 20:00 Room Air 01/03/18 19:24 36.6 79 16 125/75 (92) 94 Nasal Cannula 01/03/18 16:00 Room Air 01/03/18 15:49 37.0 86 16 133/77 (95) 94 Room Air 01/03/18 13:15 36.6 88 104/69 (81) 01/03/18 12:45 82 117/65 01/03/18 12:30 73 113/69 01/03/18 12:15 78 129/75 01/03/18 12:05 Room Air 01/03/18 12:00 78 135/82 01/03/18 11:55 36.7 101 20 102/68 (79) 97 01/03/18 11:45 85 102/68 01/03/18 11:30 78 109/68 01/03/18 11:15 103 125/64 01/03/18 11:00 101 109/68 01/03/18 10:45 102 112/85 2/12/18 10:30 100 105/66 01/03/18 10:15 102 96/72 01/03/18 10:00 104 113/71 01/03/18 09:45 97 118/81 01/03/18 09:30 88 121/73 01/03/18 09:23 87 127/79 Lab Results: Results Past 24 Hours Test 01/03/18 11:12 01/03/18 16:43 01/03/18 20:52 01/04/18 06:33 Range/Units Bedside Glucose 133 143 250 70-90 mg/dl White Blood Count 10.61 4.8-10.8 K/uL Red Blood Count 3.86 4.2-5.4 M/uL Hemoglobin 11.5 12.0-16.0 g/dL Hematocrit 36.4 37-47 % Mean Corpuscular Volume 94.3 80-100 fL Mean Corpuscular Hemoglobin 29.8 25-34 pg Mean Corpuscular Hemoglobin Concent 31.6 32-36 g/dl Platelet Count 123 130-400 K/uL Mean Platelet Volume 11.7 7.4-10.4 fL Neutrophils (%) (Auto) 75.6 % Lymphocytes (%) (Auto) 10.9 % Monocytes (%) (Auto) 13.0 % Eosinophils (%) (Auto) 0.1 % Basophils (%) (Auto) 0.1 % Neutrophils # (Auto) 8.02 1.4-6.5 K/uL Lymphocytes # (Auto) 1.16 1.2-3.4 K/uL Monocytes # (Auto) 1.38 0.11-0.59 K/uL Eosinophils # (Auto) 0.01 0-0.5 K/uL Basophils # (Auto) 0.01 0-0.2 K/uL RDW Standard Deviation 50.4 36.4-46.3 fL RDW Coefficient of Variation 15.1 11.5-14.5 % Immature Granulocyte % (Auto) 0.3 % Immature Granulocyte # (Auto) 0.03 0.00-0.02 K/uL Sodium Level 136 136-145 mmol/L Potassium Level 3.7 3.5-5.1 mmol/L Chloride Level 100 98-107 mmol/L Carbon Dioxide Level 30 21-32 mmol/L Anion Gap 6.0 3-11 mmol/L Blood Urea Nitrogen 23 7-18 mg/dl Creatinine 1.84 0.60-1.20 mg/dl Est Creatinine Clear Calc Drug Dose 17.0 ml/min Estimated GFR () 28.1 Estimated GFR (Non- 24.2 BUN/Creatinine Ratio 12.4 10-20 Random Glucose 142 70-99 mg/dl Calcium Level 8.5 8.5-10.1 mg/dl Test 01/04/18 07:07 Range/Units Bedside Glucose 140 70-90 mg/dl
[2018-01-04] MEDS: INSULIN GLARGINE SOLOSTAR 100 UNITS/ML 3 ML PEN SC SCH (08:56)
[2018-01-04] MEDS: HEPARIN SOD 5000 UNIT/0.5 ML CARP SQ SCH ×2 (08:57→20:36)
[2018-01-04] MEDS: ISOSORBIDE DINITRATE 5 MG TAB PO SCH ×3 (08:59→17:10)
[2018-01-04] MEDS: BOOST GLUCOSE CONTROL PO SCH ×2 (08:59→16:56)
[2018-01-04] MEDS: PIPERACILL/TAZOBAC IV 4.5 GM in DEXTROSE 5% 50ML 50 ML IV SCH ×2 (08:59→20:32)
[2018-01-04] MEDS: CALCIUM 600MG + VIT D 400 IU TAB PO SCH (09:00)
[2018-01-04] MEDS: NYSTATIN POWDER 15GM BTL EXT SCH ×2 (09:00→20:33)
[2018-01-04] MEDS: ASPIRIN 81 MG ECTAB PO SCH (09:00)
[2018-01-04] MEDS: METOPROLOL SUCC 50MG EXT REL TAB PO SCH ×2 (09:01→20:34)
--- NOTE | 2018-01-04 11:14 | Pharmacy Progress Note ---
Pharmacy Glycemic Sign Off Nt Date of Service Jan 04, 2018. Assessment & Plan ASSESSMENT: * Pharmacy was consulted by Dr Jolly on 12/29/17 for glycemic control and to write orders per [facility] inpatient glycemic control protocol. * Major changes made by pharmacy to antidiabetic regimen include: * Initiating SQ basal bolus insulin regimen for admission - pt is diet controlled as an outpatient * Patient has been receiving/requiring ~10 units of insulin per day for adequate glycemic control * BSGs ranging 133 - 250 mg/dl * Regimen has only required minor adjustments over the past 48hrs to achieve this level of control * Do not anticipate further changes in patient status that would quickly deteriorate glycemic control (i.e. patient to be NPO for upcoming procedure, steroids tapering, starting tube feedings, etc). * Please see recommendations for outpatient antidiabetic regimen below. PLAN FOR INPATIENT GLYCEMIC CONTROL: No changes needed to current regimen. * Continue basal insulin with Lantus 8 units SQ daily in AM * Continue NovoLog per scale ACHS/Q6hrs while NPO * Goal range = 120-150 mg/dl * CF = 45 mg/dl/unit * CR = 1 unit for ever 15 g CHO consumed * A1c added to discharge instructions to be communicated to PCP. * Pharmacy is signing off of glycemic consult and will no longer be making adjustments to inpatient regimen. Please feel free to re-consult if needed. Thank you. DISCHARGE RECOMMENDATIONS: * A1c 6.5 % on 12/29/17 * This is in goal for patient based on age/comorbidities. * No outpatient anti-diabetic medication needed at discharge. Pt may continue "diet controlled" regimen.
[2018-01-04] MEDS: BENZONATATE 100MG CAP PO PRN ×2 (13:43→20:37)
[2018-01-04] MEDS: ACETAMINOPHEN 500 MG TAB PO PRN (13:47)
--- NOTE | 2018-01-04 14:21 | Cardiology Follow-Up ---
Subjective General Date of Service: Jan 04, 2018. Chief Complaint: follow up shortness of breath Pt evaluation today including: conversation w/ patient, conversation w/ family , physical exam, chart review, review of studies, review of inpatient medication list History of Present Illness The patient is a 87 year old female seen in follow up. No changes overnight. V-paced on telemetry. lethargic, however, responds to verbal stimuli. Allergies Coded Allergies: Macey Nut (Verified Allergy, Unknown, UNKNOWN, 12/27/17) Social History Smoking Status: Former Smoker Hx Tobacco Use In Past Year?: No Hx Alcohol Use - Type And Amou: No Hx Substance Use - Type And Am: No Problem List Medical Problems: (1) CHF (congestive heart failure) Status: Acute (2) Elevated troponin Status: Acute (3) Fall Status: Acute (4) Kidney stone Status: Acute (5) Sepsis Status: Acute (6) Third degree heart block Status: Acute (7) UTI (urinary tract infection) Status: Acute (8) UTI (urinary tract infection) Status: Acute (9) Weakness Status: Acute (10) Weakness Status: Acute Review of Systems Respiratory: + dyspnea on exertion, No cough, No wheezing, No shortness of breath, No dyspnea at rest, No hemoptysis Cardiac: No chest pain, No orthopnea, No PND, No edema, No claudication, No palpitations Physical Exam Vital Signs Last Vital Signs Documentation Date Time Temp Pulse Resp B/P (MAP) Pulse Ox O2 Delivery O2 Flow Rate FiO2 01/04/18 11:20 Room Air 01/04/18 08:26 36.8 79 18 141/84 (103) 94 01/02/18 16:00 4.0 Physical Exam Constitutional: General Apperance: well-nourished, well-developed Level of Distress: NAD, chronically ill Ambulation: ambulating normally Psychiatric: Mental Status: active & alert, normal mood, normal affect Orientation: oriented except where noted Memory: recent memory normal, remote memory normal Head: normocephalic, atraumatic Neck: supple Lungs: Auscultation: decreased breath sounds, pertinent finding (Decrease BS at the bases ) Cardiovascular: Heart Auscultation: RRR, no murmurs, tachycardia Peripheral Pulses: Radial Pulse: normal on the left, normal on the right Femoral Pulse: normal on the left, normal on the right Abdomen: Inspection & Palpation: soft Musculoskeletal: normal Extremities: no edema, no ulcers, pertinent finding (mild LE edema ) Neurologic: Cranial Nerves: grossly intact Sensation: grossly intact Assessment and Plan Assessment and Plan Impression: 1. Acute decompensated systolic heart failure with severe underlying LV systolic dysfunction. 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 -No improvement of LV function per repeat 2-D transthoracic echo 01/03/18 2. Acute kidney injury on stage III chronic kidney disease - now on HD 3. Recent dual-chamber Medtronic pacemaker for symptomatic high-grade AV block with severe bradycardia 4. Small to moderate sized circumferential pericardial effusion noted on echocardiogram , no tamponade Plan: Continue conservative medical therapy with metoprolol, aspirin, and Isordil dinitrate. SQ heparin for DVT prophylaxis Dialysis for volume removal today. Poor prognosis. Agree with palliative care consultation. Laboratory Results Last 24 Hours Test 01/03/18 16:43 01/03/18 20:52 01/04/18 06:33 01/04/18 07:07 Bedside Glucose 143 mg/dl 250 mg/dl 140 mg/dl White Blood Count 10.61 K/uL Red Blood Count 3.86 M/uL Hemoglobin 11.5 g/dL Hematocrit 36.4 % Mean Corpuscular Volume 94.3 fL Mean Corpuscular Hemoglobin 29.8 pg Mean Corpuscular Hemoglobin Concent 31.6 g/dl Platelet Count 123 K/uL Mean Platelet Volume 11.7 fL Neutrophils (%) (Auto) 75.6 % Lymphocytes (%) (Auto) 10.9 % Monocytes (%) (Auto) 13.0 % Eosinophils (%) (Auto) 0.1 % Basophils (%) (Auto) 0.1 % Neutrophils # (Auto) 8.02 K/uL Lymphocytes # (Auto) 1.16 K/uL Monocytes # (Auto) 1.38 K/uL Eosinophils # (Auto) 0.01 K/uL Basophils # (Auto) 0.01 K/uL RDW Standard Deviation 50.4 fL RDW Coefficient of Variation 15.1 % Immature Granulocyte % (Auto) 0.3 % Immature Granulocyte # (Auto) 0.03 K/uL Sodium Level 136 mmol/L Potassium Level 3.7 mmol/L Chloride Level 100 mmol/L Carbon Dioxide Level 30 mmol/L Anion Gap 6.0 mmol/L Blood Urea Nitrogen 23 mg/dl Creatinine 1.84 mg/dl Est Creatinine Clear Calc Drug Dose 17.0 ml/min Estimated GFR () 28.1 Estimated GFR (Non- 24.2 BUN/Creatinine Ratio 12.4 Random Glucose 142 mg/dl Calcium Level 8.5 mg/dl Test 01/04/18 11:33 Bedside Glucose 214 mg/dl
[2018-01-05] VITALS (22 sets, daily range): BP systolic 98–144; BP diastolic 51–88; PULSE 68–102; TEMP 36.2–37.2; O2SAT 92–96
[2018-01-05 06:32] LABS: HEMATOCRIT 35.2 % (37-47); HEMOGLOBIN 11.2 g/dL (12.0-16.0); MEAN CELL VOLUME 93.9 fL (80-100); MEAN CORPUSCULAR HEMOGLOBIN 29.9 pg (25-34); MEAN CORPUSCULAR HGB CONC 31.8 g/dl (32-36); MEAN PLATELET VOLUME 11.4 fL (7.4-10.4); PLATELET COUNT 138 K/uL (130-400); RED CELL DISTRIBUTION WIDTH SD 50.8 fL (36.4-46.3)
[2018-01-05] MEDS: INSULIN ASPART 100 UNITS/ML 3 ML PEN SC SCH ×4 (07:00→21:08)
[2018-01-05 07:07] LABS: CALCIUM 8.8 mg/dl (8.5-10.1); CREATININE 2.8 mg/dl (0.60-1.20); POTASSIUM 3.7 mmol/L (3.5-5.1)
--- NOTE | 2018-01-05 08:23 | Progress Note ---
Internal Med Progress Note Date of Service: Jan 05, 2018. Provider Documentation: SUBJECTIVE: Seen and examined at bedside Currently getting dialysis this morning Reports nausea, cough Denies chest pain, SOB, dizziness, abdominal pain Feels tired, Poor oral intake Mild Leukocytosis, afebrile Poor prognosis No family at bedside OBJECTIVE: Vital Signs-as noted below Physical Exam: General Appearance:Moderately built and nourished, no apparent distress Head: normocephalic, Atraumatic Eyes: normal inspection, EOMI, PERRL Neck: supple, Trachea midline Respiratory/Chest: Normal breath sounds, basal rales Cardiovascular: S1, S2, No murmur Abdomen/GI:Soft, Non tender, Bowel sounds present Extremities/Musculoskelatal:normal inspection, 1+ b/l edema Neurologic/Psych:grossly no focal neurological deficits Skin: normal color, warm Lab data as noted below. ASSESSMENT & PLAN: Patient is an 87yr female with PMH of complete heart block (s/p pacemaker placement on 12/21/16), HTN, DM II (diet controlled), CKD III and h/o breast cancer (s/p L mastectomy) who presents with worsening SOB x 2 days. 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 EF: < 20%. Mild AR,MR, TR. Small pericardial effusion IV Lasix held due to worsening renal function Continue dialysis to help with volume status Continue Imdur and Metoprolol Appreciate Cardiology Input Involved palliative care to identify goals of care. Patient's Son agreeable with plan Continue current management PAULO on CKD III: Possible cardiorenal syndrome Cr:2.1 >>>1.84>>2.80 poor urine output S/P PermCath placement on 12/29/17 Dialysis per recommendations from Nephrology Urology consulted, intervention not recommended at this time unless patient becomes septic Possible R lower lobe Pneumonia, R/O Aspiration speech therapy reconsulted Continue IV Zosyn Day # 4 MRSA nasal swab negative Possible mild Acute Diverticulitis seen on CT abdomen Afebrile, mild leukocytosis denies abdominal pain On Zosyn Troponin Elevation: likely Type 2 NE secondary to Demand Ischemia Denies chest pain troponin stabilized HTN: Stable Continue metoprolol Lisinopril held since last admission secondary to PAULO DM II (diet controlled) A1c of 6 in May 2017 Repeat alc 6.5 Pharmacy consulted Continue Lantus and ISS Blood Stained BM ? possible hemorrhoid resolved Hb stable DVT Px: Heparin SQ Code status: DNR Disposition: To be determined Poor prognosis Palliative care consulted PROCEDURES: ECHO: * The qualitative LV ejection fraction is < 20%. * There is severe diffuse akinesis to dyskinesis and thinning of the mid and apical levels of the left ventricle with relative sparing of the basal segments which are geoff normally. * Moderate circumferential pericardial effusion with some organization anteriorly. * There are no echocardiographic indications of cardiac tamponade. * Normal inferior vena cava size and collapsibility with sniff indicates a normal right atrial pressure of 3 mmHg * Moderate size left pleural effusion. Vital Signs: Date Time Temp Pulse Resp B/P (MAP) Pulse Ox O2 Delivery O2 Flow Rate FiO2 01/05/18 04:00 94 Room Air 01/05/18 03:49 36.4 75 22 132/78 (96) 95 Room Air 01/04/18 23:59 96 Room Air 01/04/18 23:38 36.3 72 23 127/72 (90) 96 Room Air 01/04/18 20:00 94 Room Air 01/04/18 19:38 36.5 78 25 111/58 (75) 94 Room Air 01/04/18 16:07 36.3 67 21 98/66 (77) 96 Room Air 01/04/18 16:00 Room Air 01/04/18 15:30 Room Air 01/04/18 11:20 Room Air Lab Results: Results Past 24 Hours Test 01/04/18 11:33 01/04/18 16:21 01/04/18 20:30 01/05/18 06:19 Range/Units Bedside Glucose 214 173 236 70-90 mg/dl White Blood Count 12.80 4.8-10.8 K/uL Red Blood Count 3.75 4.2-5.4 M/uL Hemoglobin 11.2 12.0-16.0 g/dL Hematocrit 35.2 37-47 % Mean Corpuscular Volume 93.9 80-100 fL Mean Corpuscular Hemoglobin 29.9 25-34 pg Mean Corpuscular Hemoglobin Concent 31.8 32-36 g/dl RDW Standard Deviation 50.8 36.4-46.3 fL RDW Coefficient of Variation 15.0 11.5-14.5 % Platelet Count 138 130-400 K/uL Mean Platelet Volume 11.4 7.4-10.4 fL Sodium Level 136 136-145 mmol/L Potassium Level 3.7 3.5-5.1 mmol/L Chloride Level 102 98-107 mmol/L Carbon Dioxide Level 28 21-32 mmol/L Anion Gap 6.0 3-11 mmol/L Blood Urea Nitrogen 43 7-18 mg/dl Creatinine 2.80 0.60-1.20 mg/dl Est Creatinine Clear Calc Drug Dose 11.2 ml/min Estimated GFR () 16.9 Estimated GFR (Non- 14.6 BUN/Creatinine Ratio 15.3 10-20 Random Glucose 162 70-99 mg/dl Calcium Level 8.8 8.5-10.1 mg/dl Magnesium Level 2.5 1.8-2.4 mg/dl Test 01/05/18 06:51 Range/Units Bedside Glucose 166 70-90 mg/dl
--- NOTE | 2018-01-05 08:56 | Nephrology Progress Note ---
Nephrology Progress Note Date of Service: Jan 05, 2018. Subjective 87 yo female seen for follow up for luanne/atn with chronic unchanged hydronephrosis with a stress induced cardiomyopathy. had tunneled line placed and now on dialysis three times a week. son and patient spoke yesterday. palliative care has been consulted. pt this morning when speaking to her woiuld like to continue dialysis. seen on dialysis. catheter working well. still with a poor appetite. Objective Date Time Temp Pulse Resp B/P (MAP) Pulse Ox O2 Delivery O2 Flow Rate FiO2 01/05/18 08:19 36.6 72 22 128/66 (86) 95 01/05/18 04:00 94 Room Air 01/05/18 03:49 36.4 75 22 132/78 (96) 95 Room Air 01/04/18 23:59 96 Room Air 01/04/18 23:38 36.3 72 23 127/72 (90) 96 Room Air 01/04/18 20:00 94 Room Air 01/04/18 19:38 36.5 78 25 111/58 (75) 94 Room Air 01/04/18 16:07 36.3 67 21 98/66 (77) 96 Room Air 01/04/18 16:00 Room Air 01/04/18 15:30 Room Air 01/04/18 11:20 Room Air Physical Exam: General-aaox2, weak Eyes-no scleral icterus ENT-mmm Neck-supple Lungs-mild wheeze Heart-tachycardia Abdomen-bs+ s/nt/nd Extremities-mild edema Neuro-nonfocal Current Inpatient Medications Medications (Trade) Dose Ordered Sig/Main Route Start Time Stop Time Status Last Admin Dose Admin Aspirin (Ecotrin Tab) 81 mg DAILY PO 12/28/17 09:00 01/27/18 08:59 01/04/18 09:00 81 MG Calcium/Vitamin D (Caltrate Plus Tab) 1 tab DAILY PO 12/28/17 09:00 01/27/18 08:59 01/04/18 09:00 1 TAB Gabapentin (Neurontin Cap) 100 mg TID PRN PO 12/27/17 15:45 01/26/18 15:44 12/31/17 10:01 100 MG Isosorbide Dinitrate (Isordil Tab) 5 mg DAILY@0700,1200,1700 PO 12/27/17 17:40 01/26/18 17:39 01/04/18 17:10 5 MG Ipratropium [place] (Atrovent 0.02% 0.5MG/2.5ML Neb) 0.5 mg Q4R PRN INH 12/28/17 00:00 01/27/18 00:00 01/02/18 04:01 0.5 MG Levalbuterol (Xopenex 1.25MG/ 0.5ML Neb) 1.25 mg Q4R PRN INH 12/27/17 20:30 01/26/18 20:29 01/02/18 04:01 1.25 MG Insulin Aspart (novoLOG ASPART) SLIDING SCALE ACHS SC 12/29/17 11:30 01/28/18 11:29 01/04/18 20:36 2 UNITS Glucose (Glucose 40% Gel) 15-30 GRAMS 15 GRAMS... UD PRN PO 12/29/17 11:30 01/28/18 11:29 Glucose (Glucose Chew Tab) 4-8 Tablets 4 Tabl... UD PRN PO 12/29/17 11:30 01/28/18 11:29 Dextrose (Dextrose 50% 50ML Syringe) 25-50ML OF 50% DW IV FOR... UD PRN IV 12/29/17 11:30 01/28/18 11:29 Glucagon (Glucagon Inj) 1 mg UD PRN SQ 12/29/17 11:30 01/28/18 11:29 Enteral Nutritional Formula (Boost Glucose Control) 1 can BIDM PO 12/30/17 16:45 01/29/18 16:44 01/04/18 16:56 1 CAN Acetaminophen (Tylenol Tab) 500 mg Q6H PRN PO 12/31/17 10:15 01/30/18 10:14 01/04/18 13:47 500 MG Nitroglycerin (Nitrostat Tab) 0.3 mg PRN PRN SL 12/31/17 10:15 01/30/18 10:14 Nystatin (Mycostatin Powder) 1 appln BID EXT 12/31/17 21:00 01/30/18 20:59 01/04/18 20:33 1 APPLN Tramadol HCl (Ultram Tab) 25 mg Q12H PRN PO 12/31/17 19:00 01/30/18 18:59 01/03/18 00:50 25 MG Metoprolol Succinate (Toprol Xl Tab) 50 mg BID PO 12/31/17 21:00 01/30/18 20:59 01/04/18 20:34 50 MG Menthol (Nice Felice) 1 felice PRN PRN FELICE 01/01/18 12:30 01/31/18 12:29 Benzonatate (Tessalon Perles Cap) 100 mg TID PRN PO 01/01/18 14:00 01/31/18 13:59 01/04/18 20:37 100 MG Heparin Sodium (Porcine) (Heparin Sq 5000 Unit/0.5ml) 5,000 unit Q12 SQ 01/01/18 21:00 01/31/18 20:59 01/04/18 20:36 5,000 UNIT Miscellaneous Information (Consult) 1 ea DAILY PRN N/A 01/02/18 02:13 02/01/18 02:12 Piperacillin Sod/ Tazobactam Sod 4.5 gm/Dextrose 70 ml @ 17.5 mls/hr Q12H IV 01/02/18 20:00 01/09/18 19:59 01/04/18 20:32 17.5 MLS/HR Insulin Glargine (Lantus Solostar Pen) 8 units QAM SC 01/03/18 09:00 02/02/18 08:59 01/04/18 08:56 8 UNITS Last 24 Hours Test 01/04/18 11:33 01/04/18 16:21 01/04/18 20:30 01/05/18 06:19 Bedside Glucose 214 mg/dl 173 mg/dl 236 mg/dl White Blood Count 12.80 K/uL Red Blood Count 3.75 M/uL Hemoglobin 11.2 g/dL Hematocrit 35.2 % Mean Corpuscular Volume 93.9 fL Mean Corpuscular Hemoglobin 29.9 pg Mean Corpuscular Hemoglobin Concent 31.8 g/dl RDW Standard Deviation 50.8 fL RDW Coefficient of Variation 15.0 % Platelet Count 138 K/uL Mean Platelet Volume 11.4 fL Sodium Level 136 mmol/L Potassium Level 3.7 mmol/L Chloride Level 102 mmol/L Carbon Dioxide Level 28 mmol/L Anion Gap 6.0 mmol/L Blood Urea Nitrogen 43 mg/dl Creatinine 2.80 mg/dl Est Creatinine Clear Calc Drug Dose 11.2 ml/min Estimated GFR () 16.9 Estimated GFR (Non- 14.6 BUN/Creatinine Ratio 15.3 Random Glucose 162 mg/dl Calcium Level 8.8 mg/dl Magnesium Level 2.5 mg/dl Test 01/05/18 06:51 Bedside Glucose 166 mg/dl Assessment & Plan luanne/krv-[id number]-[id number] who has had a complicated hospital course. continues on dialysis and feel she is now chronic although will always look for recovery. palliative care has been consulted. after palliative care speaks to the patient and we determine her wishes, if she continues to want dialysis, would recommend [facility] and start process of accepting her to a local dialysis unit. will continue dialysis --. quality of life will be poor and explained this to the patient, however will respect her wishes. will see tomorrow after palliative care speaks to her, if she would like to continue dialysis. seen on dialysis today. catheter working well. tolerating fluid removal.
[2018-01-05] MEDS: METOPROLOL SUCC 50MG EXT REL TAB PO SCH ×2 (09:00→21:06)
[2018-01-05] MEDS: ASPIRIN 81 MG ECTAB PO SCH (09:00)
[2018-01-05] MEDS: BOOST GLUCOSE CONTROL PO SCH ×2 (09:54→16:45)
[2018-01-05] MEDS: CALCIUM 600MG + VIT D 400 IU TAB PO SCH (10:21)
[2018-01-05] MEDS: ISOSORBIDE DINITRATE 5 MG TAB PO SCH ×3 (10:21→17:26)
[2018-01-05] MEDS: PIPERACILL/TAZOBAC IV 4.5 GM in DEXTROSE 5% 50ML 50 ML IV SCH ×2 (10:23→19:35)
[2018-01-05] MEDS: NYSTATIN POWDER 15GM BTL EXT SCH ×2 (10:24→21:06)
[2018-01-05] MEDS: INSULIN GLARGINE SOLOSTAR 100 UNITS/ML 3 ML PEN SC SCH (10:25)
[2018-01-05] MEDS: HEPARIN SOD 5000 UNIT/0.5 ML CARP SQ SCH ×2 (10:27→21:09)
--- NOTE | 2018-01-05 13:16 | Cardiology Follow-Up ---
Subjective General Date of Service: Jan 05, 2018. Chief Complaint: follow up shortness of breath Pt evaluation today including: conversation w/ patient, physical exam, chart review, lab review, review of studies, review of inpatient medication list History of Present Illness The patient is a 87 year old female seen in follow-up. Currently receiving hemodialysis treatment with plans to remove 2 L. More alert today. Denies chest pain or shortness of breath. Allergies Coded Allergies: Macey Nut (Verified Allergy, Unknown, UNKNOWN, 12/27/17) Social History Smoking Status: Former Smoker Hx Tobacco Use In Past Year?: No Hx Alcohol Use - Type And Amou: No Hx Substance Use - Type And Am: No Problem List Medical Problems: (1) CHF (congestive heart failure) Status: Acute (2) Elevated troponin Status: Acute (3) Fall Status: Acute (4) Kidney stone Status: Acute (5) Sepsis Status: Acute (6) Third degree heart block Status: Acute (7) UTI (urinary tract infection) Status: Acute (8) UTI (urinary tract infection) Status: Acute (9) Weakness Status: Acute (10) Weakness Status: Acute Review of Systems Respiratory: + cough, + dyspnea on exertion, No sputum, No wheezing, No shortness of breath, No dyspnea at rest, No hemoptysis Cardiac: No chest pain, No orthopnea, No PND, No edema, No claudication, No palpitations Physical Exam Vital Signs Last Vital Signs Documentation Date Time Temp Pulse Resp B/P (MAP) Pulse Ox O2 Delivery O2 Flow Rate FiO2 01/05/18 11:51 36.8 68 18 114/88 (97) 96 01/05/18 08:00 Room Air 01/02/18 16:00 4.0 Physical Exam Constitutional: General Apperance: well-nourished, well-developed Level of Distress: NAD, chronically ill Ambulation: ambulating normally Psychiatric: Mental Status: active & alert, normal mood, normal affect Orientation: oriented except where noted Memory: recent memory normal, remote memory normal Head: normocephalic, atraumatic Neck: supple Lungs: Auscultation: decreased breath sounds, pertinent finding (Decrease BS at the bases ) Cardiovascular: Heart Auscultation: RRR, no murmurs, tachycardia Peripheral Pulses: Radial Pulse: normal on the left, normal on the right Femoral Pulse: normal on the left, normal on the right Abdomen: Inspection & Palpation: soft Musculoskeletal: normal Extremities: no edema, no ulcers, pertinent finding (mild LE edema ) Neurologic: Cranial Nerves: grossly intact Sensation: grossly intact Assessment and Plan Assessment and Plan Impression: 1. Acute decompensated systolic heart failure with severe underlying LV systolic dysfunction (EF<20%). 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 -No improvement of LV function per repeat 2-D transthoracic echo 01/03/18 2. Acute kidney injury on stage III chronic kidney disease - now on HD 3. Recent dual-chamber Medtronic pacemaker for symptomatic high-grade AV block with severe bradycardia 4. Small to moderate sized circumferential pericardial effusion noted on echocardiogram , no tamponade Plan: Continue conservative medical therapy with metoprolol, aspirin, and Isordil dinitrate. Dialysis for volume removal today. SQ heparin for DVT prophylaxis. Palliative care consulted. Laboratory Results Last 24 Hours Test 01/04/18 16:21 01/04/18 20:30 01/05/18 06:19 01/05/18 06:51 Bedside Glucose 173 mg/dl 236 mg/dl 166 mg/dl White Blood Count 12.80 K/uL Red Blood Count 3.75 M/uL Hemoglobin 11.2 g/dL Hematocrit 35.2 % Mean Corpuscular Volume 93.9 fL Mean Corpuscular Hemoglobin 29.9 pg Mean Corpuscular Hemoglobin Concent 31.8 g/dl RDW Standard Deviation 50.8 fL RDW Coefficient of Variation 15.0 % Platelet Count 138 K/uL Mean Platelet Volume 11.4 fL Sodium Level 136 mmol/L Potassium Level 3.7 mmol/L Chloride Level 102 mmol/L Carbon Dioxide Level 28 mmol/L Anion Gap 6.0 mmol/L Blood Urea Nitrogen 43 mg/dl Creatinine 2.80 mg/dl Est Creatinine Clear Calc Drug Dose 11.2 ml/min Estimated GFR () 16.9 Estimated GFR (Non- 14.6 BUN/Creatinine Ratio 15.3 Random Glucose 162 mg/dl Calcium Level 8.8 mg/dl Magnesium Level 2.5 mg/dl Test 01/05/18 10:50 Bedside Glucose 116 mg/dl
--- NOTE | 2018-01-05 17:24 | Palliative Care Consultation ---
Consultation Date of Consultation: Jan 05, 2018. Requesting Physician: Dr. Person Attending Physician: Dr. Person Reason for Consultation: Goals of care History of Present Illness This 87 year old female patient with PMH third degree AVB s/p pacemaker placement 12/21/17, htn, DM, CKD stage III, breast cancer s/p left mastectomy and others listed below, presented to the hospital nine days ago with c/o SOB. Patient was just in hospital, discharged on Wednesday, for 3rd deg AVB, pacer placement, and PAULO. She went home with her son who is her caregiver. Apparently she was short of breath for a couple days which was progressively worsening. In ED, she had elevated troponin, BNP >35k, CXR with signs of CHF, creatinine 2.10. Patient has had a complicated hospital stay with acute systolic CHF, EF < 20% on echocardiogram 2/2 stress-induced cardiomyopathy, renal failure with poor urine output requiring initiation of dialysis, RLL pneumonia, NSTEMI 2/2 demand ischemia, and severe deconditioning. Patient unfortunately has not improved, and in fact has continued to worsen, over the course of hospitalization. Palliative care is consulted to discuss goals of care. I met with the patient in room 210 along with her son/caregiver, Mahesh. Patient is oriented to person and place but is quite drowsy/lethargic after her dialysis treatment today. Her VS are stable, but she appears very ill and deconditioned. Patient really was not able to comprehend our conversation about her medical conditions, she is unable to make decisions at this time. Patient's son, Mahesh, states he does not want his mother to suffer, but really does not want to make the decision on his own to stop treatment. He asked that I return in the morning when patient may be more lucid. Past Medical/Surgical History Medical History: CKD stage III DM type 2 Breast cancer s/p mastectomy Complete heart block s/p pacemaker placement Htn Surgical History: Mastectomy Hysterectomy Cholecystectomy ERCP Pacemaker Social History Smoking Status: Former Smoker History of Alcohol Use: No Marital Status: Housing Status: lives with family Occupation Status: retired Review of Systems Constitutional: + weakness ENT: No trouble swallowing Respiratory: No shortness of breath Cardiac: No chest pain Abdomen: No pain limited ROS due to altered mental status/lethargy Allergies Coded Allergies: Macey Nut (Verified Allergy, Unknown, UNKNOWN, 2/5/18) Medications Current Inpatient Medications Medications (Trade) Dose Ordered Sig/Main Route Start Time Stop Time Status Last Admin Dose Admin Aspirin (Ecotrin Tab) 81 mg DAILY PO 12/28/17 09:00 01/27/18 08:59 01/04/18 09:00 81 MG Calcium/Vitamin D (Caltrate Plus Tab) 1 tab DAILY PO 12/28/17 09:00 01/27/18 08:59 01/04/18 09:00 1 TAB Gabapentin (Neurontin Cap) 100 mg TID PRN PO 12/27/17 15:45 01/26/18 15:44 12/31/17 10:01 100 MG Isosorbide Dinitrate (Isordil Tab) 5 mg DAILY@0700,1200,1700 PO 12/27/17 17:40 01/26/18 17:39 01/05/18 12:28 5 MG Ipratropium [place] (Atrovent 0.02% 0.5MG/2.5ML Neb) 0.5 mg Q4R PRN INH 12/28/17 00:00 01/27/18 00:00 01/02/18 04:01 0.5 MG Levalbuterol (Xopenex 1.25MG/ 0.5ML Neb) 1.25 mg Q4R PRN INH 12/27/17 20:30 01/26/18 20:29 01/02/18 04:01 1.25 MG Insulin Aspart (novoLOG ASPART) SLIDING SCALE ACHS SC 12/29/17 11:30 01/28/18 11:29 01/04/18 20:36 2 UNITS Glucose (Glucose 40% Gel) 15-30 GRAMS 15 GRAMS... UD PRN PO 12/29/17 11:30 01/28/18 11:29 Glucose (Glucose Chew Tab) 4-8 Tablets 4 Tabl... UD PRN PO 12/29/17 11:30 01/28/18 11:29 Dextrose (Dextrose 50% 50ML Syringe) 25-50ML OF 50% DW IV FOR... UD PRN IV 12/29/17 11:30 01/28/18 11:29 Glucagon (Glucagon Inj) 1 mg UD PRN SQ 12/29/17 11:30 01/28/18 11:29 Enteral Nutritional Formula (Boost Glucose Control) 1 can BIDM PO 12/30/17 16:45 01/29/18 16:44 01/05/18 09:54 1 CAN Acetaminophen (Tylenol Tab) 500 mg Q6H PRN PO 12/31/17 10:15 01/30/18 10:14 01/04/18 13:47 500 MG Nitroglycerin (Nitrostat Tab) 0.3 mg PRN PRN SL 12/31/17 10:15 01/30/18 10:14 Nystatin (Mycostatin Powder) 1 appln BID EXT 12/31/17 21:00 01/30/18 20:59 01/05/18 10:24 1 APPLN Tramadol HCl (Ultram Tab) 25 mg Q12H PRN PO 12/31/17 19:00 01/30/18 18:59 01/03/18 00:50 25 MG Metoprolol Succinate (Toprol Xl Tab) 50 mg BID PO 12/31/17 21:00 01/30/18 20:59 01/04/18 20:34 50 MG Menthol (Nice Felice) 1 felice PRN PRN FELICE 01/01/18 12:30 01/31/18 12:29 Benzonatate (Tessalon Perles Cap) 100 mg TID PRN PO 01/01/18 14:00 01/31/18 13:59 01/04/18 20:37 100 MG Heparin Sodium (Porcine) (Heparin Sq 5000 Unit/0.5ml) 5,000 unit Q12 SQ 01/01/18 21:00 01/31/18 20:59 01/05/18 10:27 5,000 UNIT Miscellaneous Information (Consult) 1 ea DAILY PRN N/A 01/02/18 02:13 02/01/18 02:12 Piperacillin Sod/ Tazobactam Sod 4.5 gm/Dextrose 70 ml @ 17.5 mls/hr Q12H IV 01/02/18 20:00 01/09/18 19:59 01/05/18 10:23 17.5 MLS/HR Insulin Glargine (Lantus Solostar Pen) 8 units QAM SC 01/03/18 09:00 02/02/18 08:59 01/04/18 08:56 8 UNITS Physical Exam Date Time Temp Pulse Resp B/P (MAP) Pulse Ox O2 Delivery O2 Flow Rate FiO2 01/05/18 16:00 Room Air 01/05/18 12:00 Room Air 01/05/18 11:51 36.8 68 18 114/88 (97) 96 01/05/18 11:25 36.2 78 114/88 (97) 01/05/18 11:20 78 114/88 01/05/18 11:01 82 99/61 01/05/18 10:45 102 98/61 01/05/18 10:30 92 108/61 01/05/18 10:15 73 100/51 01/05/18 10:00 99 107/70 01/05/18 09:45 95 123/66 01/05/18 09:30 79 109/75 01/05/18 09:15 72 106/77 01/05/18 09:00 74 117/66 01/05/18 08:45 89 102/56 01/05/18 08:30 87 144/75 01/05/18 08:20 77 122/67 01/05/18 08:19 36.6 72 22 128/66 (86) 95 01/05/18 08:00 36.2 73 128/66 (86) 01/05/18 08:00 Room Air 01/05/18 04:00 94 Room Air 01/05/18 03:49 36.4 75 22 132/78 (96) 95 Room Air 01/04/18 23:59 96 Room Air 01/04/18 23:38 36.3 72 23 127/72 (90) 96 Room Air 01/04/18 20:00 94 Room Air 01/04/18 19:38 36.5 78 25 111/58 (75) 94 Room Air General Appearance: + pertinent finding (frail, elderly) ENT: hearing grossly normal Neck: supple, no JVD Respiratory: no respiratory distress, no accessory muscle use, + decreased breath sounds Cardiovascular: regular rate, rhythm (paced on monitor), no edema, + normal peripheral pulses Abdomen: normal bowel sounds, non tender, soft Neurologic/Psychiatric: + pertinent finding (drowsy, difficult to assess orientation) Laboratory Results Last 24 Hours Test 01/04/18 20:30 01/05/18 06:19 01/05/18 06:51 01/05/18 10:50 Bedside Glucose 236 mg/dl 166 mg/dl 116 mg/dl White Blood Count 12.80 K/uL Red Blood Count 3.75 M/uL Hemoglobin 11.2 g/dL Hematocrit 35.2 % Mean Corpuscular Volume 93.9 fL Mean Corpuscular Hemoglobin 29.9 pg Mean Corpuscular Hemoglobin Concent 31.8 g/dl RDW Standard Deviation 50.8 fL RDW Coefficient of Variation 15.0 % Platelet Count 138 K/uL Mean Platelet Volume 11.4 fL Sodium Level 136 mmol/L Potassium Level 3.7 mmol/L Chloride Level 102 mmol/L Carbon Dioxide Level 28 mmol/L Anion Gap 6.0 mmol/L Blood Urea Nitrogen 43 mg/dl Creatinine 2.80 mg/dl Est Creatinine Clear Calc Drug Dose 11.2 ml/min Estimated GFR () 16.9 Estimated GFR (Non- 14.6 BUN/Creatinine Ratio 15.3 Random Glucose 162 mg/dl Calcium Level 8.8 mg/dl Magnesium Level 2.5 mg/dl Test 01/05/18 16:27 Bedside Glucose 137 mg/dl Assessment & Plan Palliative Performance Scale: 20 % Problem list: Weakness Lethargy/Altered mental status Acute CHF exacerbation- EF <20% PAULO on CKD stage III- requiring dialysis ?RLL pneumonia Elevated troponin Goals of care Palliative care recs: discussed with patient and her son, Mahesh. -Patient is DNR. -Patient is elderly, frail, with multiple end-stage conditions and comorbidities. Continuing dialysis will likely just prolong her life in this poor state of quality and possibly just prolong the dying process. It is doubtful that she would recover to any state of being able to go home or even get OOB. -I discussed options of care including continuing with current care vs. transitioning to comfort measures only (stopping dialysis, stopping blood work, taking heart monitor off and letting nature take its course) and treating symptomatically. -Patient too drowsy/lethargic to really discuss in goals of care conversation. Difficult to assess whether or not patient is able to understand gravity of situation and decision-making. -Son, Mahesh, states he does not want to have to step in and make a decision for his mother, but he really does not want to see her suffer. For now, he wants to continue current care and asked that I come to patient's room in the morning when she may be more awake and able to participate in conversation. Thank you for this consult. I will follow. Total time spent 50 minutes with >50% of time spent with patient and family discussing plan and goals of care.
[2018-01-06 04:08] VITALS: BP 117/72; PULSE 80; TEMP 36.3; O2SAT 97
[2018-01-06 06:56] LABS: HEMATOCRIT 33.5 % (37-47); HEMOGLOBIN 11.1 g/dL (12.0-16.0); MEAN CELL VOLUME 92.5 fL (80-100); MEAN CORPUSCULAR HEMOGLOBIN 30.7 pg (25-34); MEAN CORPUSCULAR HGB CONC 33.1 g/dl (32-36); MEAN PLATELET VOLUME 11.2 fL (7.4-10.4); PLATELET COUNT 167 K/uL (130-400); RED CELL DISTRIBUTION WIDTH CV 15.1 % (11.5-14.5); RED CELL DISTRIBUTION WIDTH SD 50.4 fL (36.4-46.3); WHITE BLOOD COUNT 12.89 K/uL (4.8-10.8)
[2018-01-06 07:28] LABS: CALCIUM 8.4 mg/dl (8.5-10.1); CREATININE 2.8 mg/dl (0.60-1.20); POTASSIUM 3.7 mmol/L (3.5-5.1)
[2018-01-06 07:57] VITALS: BP 131/67; PULSE 96; TEMP 36.4; O2SAT 94
[2018-01-06] MEDS: PIPERACILL/TAZOBAC IV 4.5 GM in DEXTROSE 5% 50ML 50 ML IV SCH (07:59)
[2018-01-06] MEDS: ISOSORBIDE DINITRATE 5 MG TAB PO SCH (08:00)
[2018-01-06] MEDS: ASPIRIN 81 MG ECTAB PO SCH (08:00)
[2018-01-06] MEDS: CALCIUM 600MG + VIT D 400 IU TAB PO SCH (08:00)
[2018-01-06] MEDS: METOPROLOL SUCC 50MG EXT REL TAB PO SCH (08:00)
[2018-01-06] MEDS: NYSTATIN POWDER 15GM BTL EXT SCH ×2 (08:01→21:34)
[2018-01-06] MEDS: BOOST GLUCOSE CONTROL PO SCH ×2 (08:02→17:29)
[2018-01-06] MEDS: INSULIN ASPART 100 UNITS/ML 3 ML PEN SC SCH (08:05)
[2018-01-06] MEDS: INSULIN GLARGINE SOLOSTAR 100 UNITS/ML 3 ML PEN SC SCH (08:11)
[2018-01-06] MEDS: HEPARIN SOD 5000 UNIT/0.5 ML CARP SQ SCH (08:12)
--- NOTE | 2018-01-06 09:27 | Progress Note ---
Internal Med Progress Note Date of Service: Jan 06, 2018. Provider Documentation: SUBJECTIVE: Seen and examined at bedside Very sleepy Minimally verbal to questions Son at bedside. Discussed with son and palliative care in detail Denies chest pain, SOB, abdominal pain Feels tired Poor prognosis OBJECTIVE: Vital Signs-as noted below Physical Exam: General Appearance:Moderately built and nourished, no apparent distress Head: normocephalic, Atraumatic Eyes: normal inspection, EOMI, PERRL Neck: supple, Trachea midline Respiratory/Chest: Normal breath sounds, basal rales Cardiovascular: S1, S2, No murmur Abdomen/GI:Soft, Non tender, Bowel sounds present Extremities/Musculoskelatal:normal inspection, 1+ b/l edema Neurologic/Psych:grossly no focal neurological deficits Skin: normal color, warm Lab data as noted below. ASSESSMENT & PLAN: Patient is an 87yr female with PMH of complete heart block (s/p pacemaker placement on 12/21/16), HTN, DM II (diet controlled), CKD III and h/o breast cancer (s/p L mastectomy) who presents with worsening SOB x 2 days. 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 EF: < 20%. Mild AR,MR, TR. Small pericardial effusion Continue dialysis to help with volume status Continue Imdur, Metoprolol, ASA Appreciate Cardiology Input Involved palliative care to identify goals of care. Patient's Son planning to discuss with his sister to make a decision Continue current management for now PAULO on CKD III: Possible cardiorenal syndrome Cr:2.8 poor urine output S/P PermCath placement on 12/29/17 Dialysis per recommendations from Nephrology, F Urology consulted, intervention not recommended at this time unless patient becomes septic Possible R lower lobe Pneumonia, R/O Aspiration speech therapy reconsulted Continue IV Zosyn Day # 5/ MRSA nasal swab negative Possible mild Acute Diverticulitis seen on CT abdomen Afebrile, mild leukocytosis denies abdominal pain On Zosyn Troponin Elevation: likely Type 2 AK secondary to Demand Ischemia Denies chest pain troponin stabilized HTN: Stable Continue metoprolol Lisinopril held since last admission secondary to PAULO DM II (diet controlled) A1c of 6 in May 2017 Repeat alc 6.5 Pharmacy consulted Continue Lantus and ISS Blood Stained BM ? possible hemorrhoid resolved Hb stable DVT Px: Heparin SQ Code status: DNR Disposition: To be determined Poor prognosis Palliative care following PROCEDURES: ECHO: * The qualitative LV ejection fraction is < 20%. * There is severe diffuse akinesis to dyskinesis and thinning of the mid and apical levels of the left ventricle with relative sparing of the basal segments which are geoff normally. * Moderate circumferential pericardial effusion with some organization anteriorly. * There are no echocardiographic indications of cardiac tamponade. * Normal inferior vena cava size and collapsibility with sniff indicates a normal right atrial pressure of 3 mmHg * Moderate size left pleural effusion. Vital Signs: Date Time Temp Pulse Resp B/P (MAP) Pulse Ox O2 Delivery O2 Flow Rate FiO2 01/06/18 07:57 36.4 96 18 131/67 (88) 94 Room Air 01/06/18 04:08 36.3 80 22 117/72 (87) 97 Room Air 01/06/18 04:00 Room Air 01/06/18 00:01 Room Air 01/05/18 23:42 36.5 79 24 108/66 (80) 95 Room Air 01/05/18 20:00 Room Air 01/05/18 19:17 37.2 87 24 121/56 (77) 94 Room Air 01/05/18 16:00 36.7 76 25 113/59 (77) 92 Room Air 01/05/18 16:00 Room Air 01/05/18 12:00 Room Air 01/05/18 11:51 36.8 68 18 114/88 (97) 96 01/05/18 11:25 36.2 78 114/88 (97) 01/05/18 11:20 78 114/88 01/05/18 11:01 82 99/61 01/05/18 10:45 102 98/61 01/05/18 10:30 92 108/61 01/05/18 10:15 73 100/51 01/05/18 10:00 99 107/70 01/05/18 09:45 95 123/66 01/05/18 09:30 79 109/75 Lab Results: Results Past 24 Hours Test 01/05/18 10:50 01/05/18 16:27 01/05/18 20:02 01/05/18 20:03 Range/Units Bedside Glucose 116 137 306 301 70-90 mg/dl Test 01/06/18 06:33 01/06/18 06:44 Range/Units Bedside Glucose 158 70-90 mg/dl White Blood Count 12.89 4.8-10.8 K/uL Red Blood Count 3.62 4.2-5.4 M/uL Hemoglobin 11.1 12.0-16.0 g/dL Hematocrit 33.5 37-47 % Mean Corpuscular Volume 92.5 80-100 fL Mean Corpuscular Hemoglobin 30.7 25-34 pg Mean Corpuscular Hemoglobin Concent 33.1 32-36 g/dl RDW Standard Deviation 50.4 36.4-46.3 fL RDW Coefficient of Variation 15.1 11.5-14.5 % Platelet Count 167 130-400 K/uL Mean Platelet Volume 11.2 7.4-10.4 fL Sodium Level 135 136-145 mmol/L Potassium Level 3.7 3.5-5.1 mmol/L Chloride Level 102 98-107 mmol/L Carbon Dioxide Level 26 21-32 mmol/L Anion Gap 7.0 3-11 mmol/L Blood Urea Nitrogen 34 7-18 mg/dl Creatinine 2.80 0.60-1.20 mg/dl Est Creatinine Clear Calc Drug Dose 11.1 ml/min Estimated GFR () 16.9 Estimated GFR (Non- 14.6 BUN/Creatinine Ratio 12.3 10-20 Random Glucose 160 70-99 mg/dl Calcium Level 8.4 8.5-10.1 mg/dl Magnesium Level 2.4 1.8-2.4 mg/dl
--- NOTE | 2018-01-06 10:02 | Progress Note ---
Progress Note Date of Service Jan 06, 2018. Progress Note Palliative care discussed with patient's son and daughter who agreed to make the patient Comfort measures Only and stop any active treatment
[2018-01-06 10:22] VITALS: BP 131/67; PULSE 96; TEMP 36.4; O2SAT 94
[2018-01-06 10:55] VITALS: O2SAT 94
[2018-01-06 11:39] VITALS: BP 125/72; PULSE 71; TEMP 36.8; O2SAT 97
--- NOTE | 2018-01-06 14:35 | Palliative Care Progress Note ---
Palliative Care Progress Note Date of Service Jan 06, 2018. Subjective Pt evaluation today including: conversation w/ patient, conversation w/ family (son, Mahesh, and daughter, Shama), physical exam, chart review, conversation w/ sap solution manager consultant (Dr. Person) Pain: none PO Intake: minimal Voiding: greenberg catheter in place (oliguric) -Met with patient, her son Mahesh, and Dr. Person in room 209 this morning. -Patient remains drowsy/lethargic. She is able to state her name and , but could not elaborate on anything else including her medical conditions. -We discussed at lengthy with Mahesh about patient's condition and goals of care. See plan below. Review of Systems unable to obtain due to lethargy Objective Vital Signs Date Time Temp Pulse Resp B/P (MAP) Pulse Ox O2 Delivery O2 Flow Rate FiO2 01/06/18 11:39 36.8 71 22 125/72 (89) 97 Room Air 01/06/18 10:55 94 Room Air 01/06/18 10:22 36.4 96 18 94 2.0 01/06/18 08:00 Room Air 01/06/18 07:57 36.4 96 18 131/67 (88) 94 Room Air 01/06/18 04:08 36.3 80 22 117/72 (87) 97 Room Air 01/06/18 04:00 Room Air 01/06/18 00:01 Room Air 01/05/18 23:42 36.5 79 24 108/66 (80) 95 Room Air 01/05/18 20:00 Room Air 01/05/18 19:17 37.2 87 24 121/56 (77) 94 Room Air 01/05/18 16:00 36.7 76 25 113/59 (77) 92 Room Air 01/05/18 16:00 Room Air Physical Exam General Appearance: no apparent distress, + pertinent finding (elderly, frail, deconditioned) ENT: hearing grossly normal Neck: supple, no JVD Respiratory/Chest: no respiratory distress, no accessory muscle use Cardiovascular: regular rate, rhythm, no edema Abdomen: normal bowel sounds, soft Neurologic/Psychiatric: + pertinent finding (lethargic) Skin: + pallor Laboratory Results Last 24 Hours Test 01/05/18 16:27 01/05/18 20:02 01/05/18 20:03 01/06/18 06:33 Bedside Glucose 137 mg/dl 306 mg/dl 301 mg/dl 158 mg/dl Test 01/06/18 06:44 White Blood Count 12.89 K/uL Red Blood Count 3.62 M/uL Hemoglobin 11.1 g/dL Hematocrit 33.5 % Mean Corpuscular Volume 92.5 fL Mean Corpuscular Hemoglobin 30.7 pg Mean Corpuscular Hemoglobin Concent 33.1 g/dl RDW Standard Deviation 50.4 fL RDW Coefficient of Variation 15.1 % Platelet Count 167 K/uL Mean Platelet Volume 11.2 fL Sodium Level 135 mmol/L Potassium Level 3.7 mmol/L Chloride Level 102 mmol/L Carbon Dioxide Level 26 mmol/L Anion Gap 7.0 mmol/L Blood Urea Nitrogen 34 mg/dl Creatinine 2.80 mg/dl Est Creatinine Clear Calc Drug Dose 11.1 ml/min Estimated GFR () 16.9 Estimated GFR (Non- 14.6 BUN/Creatinine Ratio 12.3 Random Glucose 160 mg/dl Calcium Level 8.4 mg/dl Magnesium Level 2.4 mg/dl Assessment and Plan Problem list: Weakness Lethargy/Altered mental status Acute CHF exacerbation- EF <20% PAULO on CKD stage III- requiring dialysis ?RLL pneumonia Elevated troponin Goals of care Palliative care recs: discussed with patient's children, Mahesh and Shama (Shama on phone), and Dr. Person. -After discussion with patient's son, Mahesh, and patient's daughter Shama who is from [place], the decision was made to transitioning to comfort measures only: discontinue dialysis, abx, and regular medications. -Transfer to [facility]. -Start with Roxanol 5mg PO Q3h PRN pain or SOB. This of course can be increased/ titrated if needed. Patient is not in pain or distress at this time. -Will see how patient's condition progresses, but I anticipate that she may need a discharge plan. I already discussed with patient's children about options for home hospice vs. hospice at SNF. Thank you again for consulting me on this nice patient and her family. I will follow as needed. Total time spent 35 minutes with >50% of time spent with patient, family, and physician collaborating and discussing plan of care. Palliative Performance Scale: 20 % Discharge planning: uncertain
[2018-01-06 20:00] VITALS: O2SAT 97
[2018-01-06] MEDS: MoRPHine SULFATE 5 MG/0.25 ML UDP PO PRN (21:37)
[2018-01-07] VITALS: O2SAT 97
[2018-01-07] MEDS: MoRPHine SULFATE 5 MG/0.25 ML UDP PO PRN ×6 (05:09→20:16)
[2018-01-07] MEDS: NYSTATIN POWDER 15GM BTL EXT SCH ×2 (07:44→20:16)
[2018-01-07] MEDS: BOOST GLUCOSE CONTROL PO SCH ×2 (07:44→17:08)
--- NOTE | 2018-01-07 15:45 | Progress Note ---
Internal Med Progress Note Date of Service: Jan 07, 2018. 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 ASSESSMENT & PLAN: Patient is an 87yr female with PMH of complete heart block (s/p pacemaker placement on 12/21/16), HTN, DM II (diet controlled), CKD III and h/o breast cancer (s/p L mastectomy) who presents with worsening SOB x 2 days. 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 EF: < 20%. Mild AR,MR, TR. Small pericardial effusion Was on dialysis to help with volume status Discontinued Imdur, Metoprolol, ASA as patient is on comfort measures only Appreciate Cardiology Input Appreciate palliative care Input. PAULO on CKD III: Possible cardiorenal syndrome Cr:2.8 poor urine output S/P PermCath placement on 12/29/17 Dialysis discontinued as comfort measures only Urology consulted, intervention not recommended at this time unless patient becomes septic Possible R lower lobe Pneumonia, R/O Aspiration speech therapy reconsulted Continue IV Zosyn Day # 03/28>>>discontinued MRSA nasal swab negative Possible mild Acute Diverticulitis seen on CT abdomen Afebrile, mild leukocytosis denies abdominal pain was on Zosyn Troponin Elevation: likely Type 2 PR secondary to Demand Ischemia Denies chest pain troponin stabilized HTN: Stable was on metoprolol Lisinopril held since last admission secondary to PAULO DM II (diet controlled) A1c of 6 in May 2017 Repeat alc 6.5 Pharmacy consulted DC Lantus and ISS Blood Stained BM ? possible hemorrhoid resolved Hb stable DVT Px: Heparin SQ Code status: DNR Disposition: On comfort measures only Palliative care following PROCEDURES: ECHO: * The qualitative LV ejection fraction is < 20%. * There is severe diffuse akinesis to dyskinesis and thinning of the mid and apical levels of the left ventricle with relative sparing of the basal segments which are geoff normally. * Moderate circumferential pericardial effusion with some organization anteriorly. * There are no echocardiographic indications of cardiac tamponade. * Normal inferior vena cava size and collapsibility with sniff indicates a normal right atrial pressure of 3 mmHg * Moderate size left pleural effusion. Vital Signs: Date Time Temp Pulse Resp B/P (MAP) Pulse Ox O2 Delivery O2 Flow Rate FiO2 01/07/18 07:53 Room Air 01/07/18 00:00 97 Room Air 01/06/18 20:00 97 Room Air 01/06/18 16:00 Room Air
[2018-01-08] VITALS: O2SAT 97
--- NOTE | 2018-01-08 04:55 | Progress Note ---
Internal Med Progress Note Date of Service: Jan 08, 2018. Provider Documentation: SUBJECTIVE: called to eval px for probable OBJECTIVE: Vital Signs-as noted below Exam: General-unresponsive to pain, no spont respiration HEENT- dilated pupils not reactive to light Heart-no heartbeat Lungs- no spont respiration Patient pronounced at [address] Person to accomplish discharge summary. Vital Signs: Date Time Temp Pulse Resp B/P (MAP) Pulse Ox O2 Delivery O2 Flow Rate FiO2 01/08/18 00:00 97 Room Air 01/07/18 16:00 Room Air
--- NOTE | 2018-01-08 07:49 | Discharge Summary ---
Discharge Summary Date of Service Jan 08, 2018. 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 * There is severe diffuse hypokinesis to akinesis of the mid and apical levels of the left ventricle with relative sparing of the basal segment which are geoff in a hyperdynamic fashion. * Left ventricular systolic function is severely reduced. * The qualitative LV ejection fraction is < 20%. * Mild aortic regurgitation. * There is mild mitral regurgitation. * There is mild tricuspid regurgitation. * There is a small circumferential pericardial effusion with most significant fluid collection noted on the short axis view, adjacent to the inferoseptal wall. * There are no echocardiographic indications of cardiac tamponade. * There is a small to moderate sized left pleural effusion. Consultations: Cardiology, Nephrology, Urology, Palliative care Admission Information HPI (per Admitting provider): This is a 87yo F with a PMH of complete heart block (s/p pacemaker placement on 12/21/16), HTN, DM II (diet controlled), CKD III and h/o breast cancer (s/p L mastectomy) who presents with worsening SOB x 2 days. Patient was admitted last week for complete heart block s/p pacemaker placement. Was also found to have an PAULO. Was discharged home on Wednesday. Per son and caregiver, patient had some SOB over the weekend but it got progressively worse yesterday and today. Has had decreased urine output (is incontinent) over the past 2 days as well as one episode of vomiting and a few episodes of diarrhea. Patient has been requiring help with transfers to wheelchair and toilet, while at baseline she can ambulate without assistive devices. Denies fever, chills, lightheadedness, headache, visual changes, chest pain, palpitations, abdominal pain, nausea, dysuria, melena, hematochezia or worsening LE swelling. Has been eating a low sodium diet at home. Patient denies any history of CHF or COPD. No echo on record. In the ED, patient was found to have an elevated POC troponin of 1.9, BNP >35, 000, CXR suggestive of CHF. No leukocytosis. UA with presence of infection with urine culture pending. Has history of non-obstructing kidney stone. Creatinine elevated to 2.10 (was 1.8 when discharged from [facility] on 12/24). Baseline cr ~ 1.1. Physical Exam (per Admitting): General Appearance: WD/WN, no apparent distress, + pertinent finding ( Fatigued, resting comfortably and able to respond appropriately to questions. ) Head: normocephalic, atraumatic Eyes: normal inspection, PERRL, sclerae normal ENT: normal ENT inspection, hearing grossly normal, pharynx normal (dry mucous membranes ) Neck: supple, no adenopathy, thyroid normal, trachea midline Respiratory/Chest: chest non-tender, lungs clear Cardiovascular: regular rate, rhythm, no murmur, normal peripheral pulses Abdomen/GI: non tender, soft, no organomegaly Back: normal inspection Extremities/Musculoskelatal: normal inspection, no calf tenderness, non- tender, + pertinent finding (Trace pitting edema BLLE. Ecchymosis on R hand from previous IV. ) Neurologic/Psych: no motor/sensory deficits, alert, normal mood/affect, oriented x 3 Skin: normal color, warm/dry Hospital Course Patient is an 87yr female with PMH of complete heart block (s/p pacemaker placement on 12/21/16), HTN, DM II (diet controlled), CKD III and h/o breast cancer (s/p L mastectomy) who presents with worsening SOB x 2 days. 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 EF: < 20%. Mild AR,MR, TR. Small pericardial effusion Was on dialysis to help with volume status Discontinued Imdur, Metoprolol, ASA as patient is on comfort measures only Appreciate Cardiology Input Appreciate palliative care Input. PAULO on CKD III: Possible cardiorenal syndrome Cr:2.8 poor urine output S/P PermCath placement on 12/29/17 Dialysis discontinued as comfort measures only Urology consulted, intervention not recommended at this time unless patient becomes septic Possible R lower lobe Pneumonia, R/O Aspiration speech therapy reconsulted Continue IV Zosyn Day # 5/7>>>discontinued MRSA nasal swab negative Possible mild Acute Diverticulitis seen on CT abdomen Afebrile, mild leukocytosis denies abdominal pain was on Zosyn Troponin Elevation: likely Type 2 TN secondary to Demand Ischemia Denies chest pain troponin stabilized HTN: Stable was on metoprolol Lisinopril held since last admission secondary to PAULO DM II (diet controlled) A1c of 6 in May 2017 Repeat alc 6.5 Pharmacy consulted DC Lantus and ISS Blood Stained BM ? possible hemorrhoid resolved Hb stable DVT Px: Heparin SQ Code status: DNR Disposition: On comfort measures only Palliative care following PROCEDURES: ECHO: * The qualitative LV ejection fraction is < 20%. * There is severe diffuse akinesis to dyskinesis and thinning of the mid and apical levels of the left ventricle with relative sparing of the basal segments which are geoff normally. * Moderate circumferential pericardial effusion with some organization anteriorly. * There are no echocardiographic indications of cardiac tamponade. * Normal inferior vena cava size and collapsibility with sniff indicates a normal right atrial pressure of 3 mmHg * Moderate size left pleural effusion. Total time spent on discharge = This includes examination of the patient, discharge planning, medication reconciliation, and communication with other providers. Discharge Instructions Patient
== END 2018-01-08 07:03 | disposition expired ==
LOC: EDBD 08:19 → C.EDC 09:18 → C.2E 12:29 → ENRESERV 12:49 → CANRESERV 01-06 10:08 → ENRESERV 01-06 10:08 → C.4E 01-06 11:01
PROVIDERS: ADMIT Family Medicine; ATTEND Internal Medicine
PROC: 05HN33Z Insertion of Infusion Device into Left Internal Jugular Vein, Percutaneous Approach (ICD-10-PCS; principal; 2017-12-29 12:45)
DX: I13.0 Hypertensive heart and chronic kidney disease with heart failure and stage 1 through stage 4 chronic kidney disease, or unspecified chronic kidney disease (principal); I50.21 Acute systolic (congestive) heart failure; I21.A1 Myocardial infarction type 2; J18.9 Pneumonia, unspecified organism; N17.0 Acute kidney failure with tubular necrosis; N39.0 Urinary tract infection, site not specified; K57.92 Diverticulitis of intestine, part unspecified, without perforation or abscess without bleeding; I44.2 Atrioventricular block, complete; I31.3 Pericardial effusion (noninflammatory); Z66 Do not resuscitate; N18.3 Chronic kidney disease, stage 3 (moderate); E11.9 Type 2 diabetes mellitus without complications; Z85.3 Personal history of malignant neoplasm of breast; Z87.440 Personal history of urinary (tract) infections; Z90.710 Acquired absence of both cervix and uterus; Z90.49 Acquired absence of other specified parts of digestive tract; Z95.0 Presence of cardiac pacemaker; Z87.891 Personal history of nicotine dependence; Z79.82 Long term (current) use of aspirin; Z91.018 Allergy to other foods; Z82.49 Family history of ischemic heart disease and other diseases of the circulatory system